=== PATIENT | female | born 1970 ===

== ENCOUNTER 2020-08-02 15:35 | Outpatient (REF) | payer OTHER, SELFPAY ==
--- NOTE | 2020-08-02 | MM_ITS ---
EXAMINATION: MM SCREENING DIGITAL BREAST TOMOSYNTHESIS, BILATERAL CLINICAL INFORMATION: Screening. Asymptomatic. History of right breast stereotactic biopsy on 06/06/2018 (atypical ductal hyperplasia) followed by excisional biopsy on 06/20/2018. The lifetime risk of breast cancer based on the Tyrer-Cuzick Model is 8.5%. COMPARISON: Mammography: 07/08/2019 and multiple previous mammograms dating back to 02/05/2015 TECHNIQUE: Digital breast tomosynthesis is performed in both the craniocaudal and mediolateral oblique views along with computer-aided detection (CAD). Synthesized 2D images are generated from the tomosynthesis. FINDINGS: There are scattered areas of fibroglandular density (ACR BI-RADS breast composition Category b). Mild postsurgical scarring at 6 o'clock in the right breast middle third is again noted. No suspicious masses, calcifications or other abnormalities are seen in either breast. Compared to the last study, no significant interval change is noted. MM/MM tomosynthesis screening BI IMPRESSION: There are no significant changes from prior study. ASSESSMENT: BI-RADS 2: Benign. RECOMMENDATION: Routine annual mammography screening. This patient's information was entered into a reminder system with a target due date for their next mammogram.
== END 2020-08-02 15:36 | disposition home or self-care (01) ==
LOC: HO.MAMMO 15:35
PROVIDERS: Visit Provider Nurse Practitioner Family
DX: Z12.31 Encounter for screening mammogram for malignant neoplasm of breast (principal)
CPT/HCPCS: 77063; 77067

== ENCOUNTER → 2020-08-12 14:22 | Outpatient (BNVA) | payer OTHER, SELFPAY | PROVIDERS: PCP Nurse Practitioner Family; Referring Provider Nurse Practitioner Family; Visit Provider Anesthesiology | DX: G89.4 Chronic pain syndrome (principal); M10.9 Gout, unspecified | CPT/HCPCS: 99202 ==

== ENCOUNTER 2021-01-05 14:43 | Outpatient (REF) | payer OTHER, SELFPAY ==
--- NOTE | ~2021-01-05 | US_ITS ---
EXAMINATION: US ABDOMEN COMPLETE CLINICAL INFORMATION: Fatty change of liver. COMPARISON: CT abdomen 08/08/2017. TECHNIQUE: Real-time imaging of the abdominal viscera. FINDINGS: PANCREAS: Normal. ABDOMINAL AORTA: The proximal, mid, and distal segments are normal in caliber. INFERIOR VENA CAVA: Visualized portions are normal. LIVER: The liver is normal in size. The liver contour is normal. Liver echotexture is increased. There is a hypoechoic area adjacent to the gallbladder, characteristic location of focal fatty sparing. No other focal hepatic lesion. There is no intrahepatic biliary duct dilatation seen. GALLBLADDER: Normal. The gallbladder is physiologically distended without evidence of stones, sludge, polyps, wall thickening or pericholecystic fluid. COMMON BILE DUCT: Normal in caliber measuring 0.8 cm in diameter. RIGHT KIDNEY: Normal. No hydronephrosis. No renal calculi or focal parenchymal lesions. The kidney measures 11.3 cm in maximum dimension. LEFT KIDNEY: Normal. No hydronephrosis. No renal calculi or focal parenchymal lesions. The kidney measures 11.5 cm in maximum dimension. SPLEEN: Normal. The spleen measures 10.1 cm in maximum dimension. FREE FLUID: None. US/US abdomen complete IMPRESSION: Echogenic liver suggestive of fatty infiltration.
== END 2021-01-05 14:44 | disposition home or self-care (01) ==
LOC: HO.US 14:43
PROVIDERS: Visit Provider Family Medicine
DX: K76.0 Fatty (change of) liver, not elsewhere classified (principal)
CPT/HCPCS: 76700

== ENCOUNTER → 2021-01-25 14:33 | Outpatient (BNVA) | payer OTHER, SELFPAY | PROVIDERS: Visit Provider Physician Assistant ==

== ENCOUNTER → 2021-02-09 08:08 | Outpatient (BNVA) | payer OTHER, SELFPAY | PROVIDERS: Visit Provider Surgery | DX: E66.9 Obesity, unspecified (principal); Z68.37 Body mass index [BMI] 37.0-37.9, adult; G47.30 Sleep apnea, unspecified; M10.9 Gout, unspecified; K76.0 Fatty (change of) liver, not elsewhere classified; J44.9 Chronic obstructive pulmonary disease, unspecified | CPT/HCPCS: Q3014 ==

== ENCOUNTER 2021-02-15 15:38 | Outpatient (REF) | payer OTHER, SELFPAY ==
--- NOTE | 2021-02-15 15:57 | ECG_ITS ---
Test Reason : E66.9 Blood Pressure : / mmHG Vent. Rate : 074 BPM Atrial Rate : 074 BPM P-R Int : 164 ms QRS Dur : 078 ms QT Int : 398 ms P-R-T Axes : 034 047 029 degrees QTc Int : 441 ms Normal sinus rhythm Normal ECG When compared with ECG of 23-MAR-2014 09:48, No significant change was found Referred By: Jorge Dozier Electronically Signed By:NOEMI STANLEY MD
[2021-02-15 16:43] LABS: Basophils Percent Auto 0.3 % (0-2); Eosinophils Absolute Auto 0.1 X10*3/uL (0.0-0.4); Eosinophils Percent Auto 2.9 % (0-4); Hematocrit 36.8 % (37-47); Hemoglobin 11.9 g/dl (12.0-16.0); Lymphocytes Absolute Auto 1.7 X10*3/uL (1.2-4.9); Lymphocytes Percent Auto 55.6 % (20-40); MANUAL DIFF FLAG SCAN; Mean Corpuscular HGB Conc 32.3 g/dl (31.0-35.0); Mean Corpuscular Hemoglobin 27.4 pg (27.0-33.0); Mean Corpuscular Volume 84.8 fL (80-98); Mean Platelet Volume 10.6 fL (9.4-12.3); Monocytes Absolute Auto 0.4 X10*3/uL (0.1-1.2); Monocytes Percent Auto 11.2 % (2-11); Neutrophils Absolute Auto 0.9 X10*3/uL (2.0-8.3); Platelet Count 201 X10*3/uL (160-400); Red Blood Count 4.34 X10*6/uL (4.20-5.50); Red Cell Distribution Width 12.7 % (11.0-16.0); SCAN SMEAR FLAG 1; White Blood Count 3.1 X10*3/uL (4.8-10.8)
[2021-02-15 17:02] LABS: Alanine Aminotransferase 53 U/L (0-31); Albumin Level 4.1 g/dL (3.5-5.0); Alkaline Phosphatase 71 U/L (39-117); Anion Gap 12 (12-20); Aspartate Amino Transferase 44 U/L (5-31); Bilirubin Total 0.4 mg/dL (0.0-1.0); Blood Urea Nitrogen 14 mg/dL (9-16); C Reactive Protein 0.64 mg/dL (< or = 0.50); Calcium 8.8 mg/dL (8.4-10.2); Carbon Dioxide 25 mmol/L (22-29); Chloride 108 mmol/L (96-108); Cholesterol 168 mg/dL; Estimated Glomerular Filt Rate > 60; Glucose Random 87 mg/dL (60-115); HDL Cholesterol 35 mg/dL; Iron 90 mcg/dL (30-160); LDL Cholesterol Calculated 100 mg/dl; Percent Iron Saturation 27 % (15-50); Sodium 141 mmol/L (135-145); Total Iron Binding Capacity 334 mcg/dL (228-428); Triglycerides 169 mg/dL; Unsaturated Iron Binding 244 ug/dL
[2021-02-15 17:20] LABS: SLIDE REVIEW VERIFIED
[2021-02-15 17:24] LABS: Ferritin 70 ng/mL (10-250); TSH reflex Free T4 3.43 uIU/mL (0.32-4.0); Vitamin D 25-OH Total 39.4 ng/mL (>30)
[2021-02-15 17:36] LABS: Folate 16.6 ng/mL (> or = 4.0); Vitamin B12 453 pg/mL (200-900)
[2021-02-16 07:45] LABS: Estimated Average Glucose 108 mg/dL; Hemoglobin A1c % 5.4 %
[2021-02-16 12:57] LABS: Calcium (PTHI) 8.8 mg/dL (8.6-10.4); PTHI 43 pg/mL (14-64)
[2021-02-16 17:02] LABS: Insulin Level Total 5.4 uIU/mL
[2021-02-18 17:02] LABS: Zinc 78 mcg/dL (60-130)
[2021-02-20 11:56] LABS: Vitamin A 34 mcg/dL (38-98); Vitamin B1 11 nmol/L (8-30)
== END 2021-02-15 15:39 | disposition home or self-care (01) ==
LOC: HO.LAB 15:38
PROVIDERS: Visit Provider Surgery
DX: E66.9 Obesity, unspecified (principal); Z68.37 Body mass index [BMI] 37.0-37.9, adult; G47.30 Sleep apnea, unspecified; K76.0 Fatty (change of) liver, not elsewhere classified; M10.9 Gout, unspecified
CPT/HCPCS: 36415; 80053; 80061; 82306; 82607; 82728; 82746; 83036; 83525; 83540; 83970; 84425; 84443; 84590; 84630; 85025; 86140; 93005

== ENCOUNTER → 2021-02-25 14:55 | Outpatient (BNVA) | payer OTHER, SELFPAY | PROVIDERS: Visit Provider Dietitian, Registered | DX: E66.9 Obesity, unspecified (principal); Z68.37 Body mass index [BMI] 37.0-37.9, adult | CPT/HCPCS: 97802 ==

== ENCOUNTER → 2021-03-11 08:14 | Outpatient (BNVA) | payer OTHER, SELFPAY | PROVIDERS: PCP Internal Medicine; Visit Provider Surgery | DX: E66.9 Obesity, unspecified (principal); Z68.36 Body mass index [BMI] 36.0-36.9, adult; Z71.3 Dietary counseling and surveillance | CPT/HCPCS: Q3014 ==

== ENCOUNTER 2021-03-15 13:55 | Outpatient (REF) | payer OTHER, SELFPAY ==
--- NOTE | ~2021-03-15 | XR_ITS ---
EXAMINATION: XR CHEST CLINICAL INFORMATION: Bariatric service evaluation. COMPARISON: Chest radiographs 05/25/2016. CT chest noncontrast 09/25/2018. TECHNIQUE: 2 views of the chest were obtained. FINDINGS: The lungs are clear. There is no hyperinflation, airspace consolidation, or effusion. The costophrenic sulci are clear. The heart is normal in size. Tapering at the bilateral cardiophrenic angles is consistent with areolar tissue. The hilar and mediastinal contours are unremarkable. No acute bony abnormality. XR/XR chest 2V IMPRESSION: Unremarkable examination.
[2021-03-16 14:21] LABS: H Pylori Breath Test NOT DETECTED (NOT DETECTED)
== END 2021-03-15 13:56 | disposition home or self-care (01) ==
LOC: HO.XRAY 13:55
PROVIDERS: PCP Internal Medicine; Visit Provider Surgery
DX: E66.9 Obesity, unspecified (principal); G47.30 Sleep apnea, unspecified; M10.9 Gout, unspecified; K76.0 Fatty (change of) liver, not elsewhere classified; Z68.37 Body mass index [BMI] 37.0-37.9, adult
CPT/HCPCS: 71046; 83013; 99211

== ENCOUNTER → 2021-04-15 07:24 | Outpatient (BNVA) | payer OTHER, SELFPAY | PROVIDERS: PCP Internal Medicine; Visit Provider Surgery | DX: E66.9 Obesity, unspecified (principal); Z68.33 Body mass index [BMI] 33.0-33.9, adult | CPT/HCPCS: 99212 ==

== ENCOUNTER → 2021-04-21 14:43 | Outpatient (BNVA) | payer OTHER, SELFPAY | PROVIDERS: PCP Internal Medicine; Visit Provider Physician Assistant ==

== ENCOUNTER → 2021-04-25 08:13 | Outpatient (BNVA) | payer OTHER, SELFPAY | PROVIDERS: PCP Internal Medicine; Visit Provider Dietitian, Registered ==

== ENCOUNTER 2021-05-05 09:40 | Outpatient (REF) | payer OTHER, SELFPAY ==
--- NOTE | ~2021-05-05 | US_ITS ---
EXAMINATION: US ABDOMEN COMPLETE WITH ELASTOGRAPHY CLINICAL INFORMATION: Obesity. COMPARISON: Ultrasound abdomen 01/05/2021 TECHNIQUE: Routine ultrasound imaging of the abdomen with liver elastography was performed. FINDINGS: LIVER: There is normal homogeneous echotexture without intrahepatic ductal dilatation. There are small anechoic cysts measuring 0.6 x 0.4 x 0.3 cm in the left hepatic lobe and 1.0 x 1.1 x 1.1 cm in the right hepatic lobe. The right lobe measures 14.5 cm and the left lobe measures 8.5 cm. There is normal hepatopetal flow seen in the portal vein. On elastography, the median stiffness value is 1.18. IQR/median is 0.14. GALLBLADDER: The gallbladder is unremarkable without any echogenic stones or wall thickening. PANCREAS: The pancreas is partially visualized and appears unremarkable. COMMON BILE DUCT: It measures 0.8 cm. RIGHT KIDNEY: The right kidney measures 10.3 cm. There is normal cortical thickening. No echogenic stones, cyst or hydronephrosis is seen. LEFT KIDNEY: The left kidney measures 10.5 cm. There is normal cortical thickening. No congenic stones, cyst or hydronephrosis seen. ABDOMINAL AORTA AND IVC: The abdominal aorta is of normal caliber. The IVC is normal caliber. SPLEEN: The spleen measures 8.7 cm. There is a small, anechoic cyst measuring 1.3 x 1.2 x 1.4 cm. The cyst was not visualized on the previous exam. US/US abdomen comp w elastography IMPRESSION: Small cysts in the liver. These are not visualized on the previous ultrasound exam Otherwise the liver is unremarkable. There is a small, anechoic cyst in the spleen measuring 1.4 cm. The cyst was not visualized on the previous exam. Normal liver and normal elastography of the liver.
--- NOTE | ~2021-05-05 | FL_ITS ---
EXAMINATION: XR GI SERIES CLINICAL INFORMATION: Obesity. COMPARISON: None TECHNIQUE: Routine upper GI air-contrast study was performed in upright and lying position. FINDINGS: Following oral administration of thick barium and effervescent granules there is normal propagation of bolus from the oral cavity, pharynx, esophagus into stomach without any evidence of obstruction, narrowing or stricture. On placing patient supine and prone the course, caliber and peristalsis of the stomach and the duodenum is normal. There is moderate gastroesophageal reflux without hiatal hernia. FLUOROSCOPY TIME: 1.6 minutes DOSE AREA PRODUCT: 24.584 uGy-m2 (microgray-meter squared) FL/FL upper GI series IMPRESSION: Moderate gastroesophageal reflux without hiatal hernia.
== END 2021-05-05 09:41 | disposition home or self-care (01) ==
LOC: HO.US 09:40
PROVIDERS: PCP Internal Medicine; Visit Provider Surgery
DX: Z01.818 Encounter for other preprocedural examination (principal); E66.01 Morbid (severe) obesity due to excess calories; Z68.37 Body mass index [BMI] 37.0-37.9, adult; K21.9 Gastro-esophageal reflux disease without esophagitis; K76.0 Fatty (change of) liver, not elsewhere classified; M10.9 Gout, unspecified; G47.30 Sleep apnea, unspecified
CPT/HCPCS: 74240; 76705; 76981

== ENCOUNTER → 2021-05-20 08:24 | Outpatient (BNVA) | payer OTHER, SELFPAY | PROVIDERS: PCP Internal Medicine; Visit Provider Dietitian, Registered | DX: E66.01 Morbid (severe) obesity due to excess calories (principal); Z71.3 Dietary counseling and surveillance | CPT/HCPCS: 97803 ==

== ENCOUNTER → 2021-05-25 07:54 | Outpatient (BNVA) | payer OTHER, SELFPAY | PROVIDERS: PCP Internal Medicine; Visit Provider Surgery | CPT/HCPCS: Q3014 ==

== ENCOUNTER → 2021-05-31 08:37 | Outpatient (BNVA) | payer OTHER, SELFPAY | PROVIDERS: PCP Internal Medicine; Referring Provider Internal Medicine; Visit Provider Dietitian, Registered | DX: E66.9 Obesity, unspecified (principal) | CPT/HCPCS: 97803 ==

== ENCOUNTER → 2021-06-10 14:20 | Outpatient (BNVA) | payer OTHER, SELFPAY | PROVIDERS: PCP Internal Medicine; Visit Provider Surgery | DX: Z13.89 Encounter for screening for other disorder (principal) | CPT/HCPCS: Q3014 ==

== ENCOUNTER 2021-06-14 17:39 | Inpatient (IN) | payer OTHER, SELFPAY ==
[2021-06-11 11:23] LABS: Estimated Average Glucose 108 mg/dL; Hemoglobin A1c % 5.4 %
[2021-06-11 11:25] LABS: Basophils Percent Auto 0.8 % (0-2); Eosinophils Absolute Auto 0.1 X10*3/uL (0.0-0.4); Eosinophils Percent Auto 2.6 % (0-4); Hematocrit 39.2 % (37-47); Lymphocytes Absolute Auto 2.3 X10*3/uL (1.2-4.9); MANUAL DIFF FLAG SCAN; Mean Corpuscular HGB Conc 33.2 g/dl (31.0-35.0); Mean Corpuscular Hemoglobin 27.4 pg (27.0-33.0); Mean Corpuscular Volume 82.5 fL (80-98); Mean Platelet Volume 10.2 fL (9.4-12.3); Monocytes Absolute Auto 0.3 X10*3/uL (0.1-1.2); Monocytes Percent Auto 8.9 % (2-11); Neutrophils Percent Auto 26.7 % (45-73); Platelet Count 237 X10*3/uL (160-400); Red Blood Count 4.75 X10*6/uL (4.20-5.50); Red Cell Distribution Width 12.4 % (11.0-16.0); SCAN SMEAR FLAG 1; White Blood Count 3.8 X10*3/uL (4.8-10.8)
[2021-06-11 11:32] LABS: INTERNATIONAL NORM RATIO 1.1 (0.9-1.1); Prothrombin Time 12.4 SEC (9.9-13.0)
[2021-06-11 11:34] LABS: Alanine Aminotransferase 12 U/L (0-31); Alkaline Phosphatase 52 U/L (39-117); Anion Gap 12 (12-20); Aspartate Amino Transferase 16 U/L (5-31); Bilirubin Total 0.3 mg/dL (0.0-1.0); Blood Urea Nitrogen 17 mg/dL (9-16); C Reactive Protein 0.68 mg/dL (< or = 0.50); Calcium 9.3 mg/dL (8.4-10.2); Carbon Dioxide 27 mmol/L (22-29); Chloride 104 mmol/L (96-108); Cholesterol 151 mg/dL; Estimated Glomerular Filt Rate > 60; Glucose Random 103 mg/dL (60-115); HDL Cholesterol 42 mg/dL; LDL Cholesterol Calculated 78 mg/dl; Potassium 3.8 mmol/L (3.3-5.1); Sodium 139 mmol/L (135-145); Total Protein 6.9 g/dL (6.5-8.0); Triglycerides 155 mg/dL
[2021-06-11 11:35] LABS: Partial Thromboplastin Time 39.5 SEC (24.1-38.0)
[2021-06-11 11:58] LABS: TSH reflex Free T4 4.59 uIU/mL (0.32-4.0)
[2021-06-11 12:29] LABS: SLIDE REVIEW VERIFIED
[2021-06-11 12:37] LABS: Free T4 (Free Thyroxine) 0.84 ng/dL (0.71-1.85)
[2021-06-13 11:05] VITALS: BMI 31.9
--- NOTE | 2021-06-13 13:02 | P.CONAN_ITS ---
Documented by User: Lydia Joy NP 06/13/21 13:04 HPI - Anesthesia Eval Consult details Narrative: 50yo F for Gastrectomy Sleeve, EGD, Poss Diaphragmatic Hernia, Poss Ventral Hernia, Poss open Suboxone daily (Pt has weaned self from 8mg BID to 4mg daily) PMFSH Active Problems Active Problems: All Active Problems (Updated 06/13/21 @ 11:11 by Brooklyn Roldan, SHAHID) BMI 37.0-37.9, adult (Acute) BMI 36.0-36.9,adult (Acute) BMI 33.0-33.9,adult (Acute) BMI 33.0-33.9,adult (Acute) Bipolar 1 disorder, mixed, partial remission (Acute) BMI 32.0-32.9,adult (Acute) Hypertension (Acute) Steatosis, liver (Acute) Hx of bipolar disorder (Acute) COPD (chronic obstructive pulmonary disease) (Acute) Sleep apnea with use of continuous positive airway pressure (CPAP) (Acute) Obesity (Acute) Chronic pain syndrome (Acute) Gouty arthritis of both knees (Acute) Gout (Acute) Past Medical History Medical History (Updated 06/13/21 @ 11:11 by Brooklyn Roldan, SHAHID) Asthma Back pain Chronic pain syndrome COPD (chronic obstructive pulmonary disease) Depression Gout Gouty arthritis of both knees History of anxiety Hx of bipolar disorder Hx of renal calculi Hypertension Obesity Sleep apnea Sleep apnea with use of continuous positive airway pressure (CPAP) Smoking Steatosis, liver Family History Family History Mother No problems noted. Father No problems noted. Brother No problems noted. Brother No problems noted. Brother No problems noted. Brother No problems noted. Daughter No problems noted. Daughter No problems noted. Son No problems noted. 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 If so, by whom?: No Are you DNR?: No Advance Directives: No Advance Directives Information Provided: No Advance Directives on File: No Recently lost weight without trying: No Patient : No FDLMP: 06/09/2021 : No Poor oral hygiene: No (Bridgework upper and lower) Meds Allergies Allergy/AdvReac Type Severity Reaction Status Date / Time No Known Allergies Allergy Verified 06/14/21 12:10 [No Known Allergies*] Home Medications Medication Instructions Recorded Confirmed Last Taken Type clonazepam 1 mg tablet 1 mg PO QAM 08/12/20 06/13/21 Unknown History temazepam 30 mg capsule 30 mg PO BEDTIME 08/12/20 06/13/21 Unknown History vitamin E (dl, acetate) 180 mg 400 unit PO DAILY 08/12/20 06/10/21 Unknown History (400 unit) capsule albuterol sulfate 90 mcg/actuation 1 inh PO Q4H PRN 11/01/20 06/13/21 Unknown History aerosol inhaler cholecalciferol (vitamin D3) 25 1 tab PO DAILY 11/01/20 06/10/21 Unknown History mcg (1,000 unit) tablet (Vitamin D3) hydrochlorothiazide 12.5 mg tablet 1 tab PO DAILY 11/01/20 06/10/21 Unknown History ipratropium 0.5 mg-albuterol 3 mg 3 ml PO QID 11/01/20 06/10/21 Unknown History (2.5 mg base)/3 mL nebulization soln multivitamin (Daily-Ish) 1 tab PO DAILY 11/01/20 06/10/21 Unknown History quetiapine 400 mg tablet 1 tab PO BEDTIME 11/01/20 06/13/21 Unknown History clonazepam 2 mg tablet (Klonopin) 2 mg PO BEDTIME 02/09/21 06/13/21 Unknown History omeprazole 40 mg capsule,delayed 40 mg PO DAILY 02/09/21 06/10/21 Unknown History release buprenorphine 8 mg-naloxone 2 mg 1 strip SUBLINGUAL BID 06/13/21 06/13/21 Unknown History sublingual film (Suboxone) Exam Exam Date and Time: June 13, 2021 1302 Height,Weight and Vital Signs: Height 5 ft 4 in Weight 84.368 kg Pertinent Lab Results Pertinent Lab Results: Laboratory Tests 06/11/21 06/11/21 06/11/21 10:39 10:39 10:39 WBC 3.8 L RBC 4.75 Hgb 13.0 Hct 39.2 MCV 82.5 MCH 27.4 MCHC 33.2 RDW 12.4 Plt Count 237 MPV 10.2 Immature Gran % (Auto) 0.0 Neut % (Auto) 26.7 L Lymph % (Auto) 61.0 H [place] % (Auto) 8.9 Eos % (Auto) 2.6 Baso % (Auto) 0.8 Lymph # (Auto) 2.3 [place] # (Auto) 0.3 Eos # (Auto) 0.1 Baso # (Auto) 0.0 Abs Immat Gran (auto) 0.00 Absolute Neuts (auto) 1.0 L Absolute Nucleated RBC 0.000 Nucleated RBC % (auto) 0.0 Smear Tech's Comments VERIFIED PT 12.4 INR 1.1 APTT 39.5 H Sodium 139 Potassium 3.8 Chloride 104 Carbon Dioxide 27 Anion Gap 12 BUN 17 H Creatinine 0.73 Estim Creat Clear Calc TNP Estimated GFR > 60 Random Glucose 103 Estimat Average Glucose Hemoglobin A1c % Calcium 9.3 Total Bilirubin 0.3 AST 16 D ALT 12 Alkaline Phosphatase 52 D C-Reactive Protein 0.68 H Total Protein 6.9 Albumin 4.0 Triglycerides 155 Cholesterol 151 LDL Cholesterol, Calc 78 HDL Cholesterol 42 TSH 4.59 H Free T4 0.84 Blood Type Antibody Screen 06/11/21 06/11/21 10:39 10:39 WBC RBC Hgb Hct MCV MCH MCHC RDW Plt Count MPV Immature Gran % (Auto) Neut % (Auto) Lymph % (Auto) [place] % (Auto) Eos % (Auto) Baso % (Auto) Lymph # (Auto) [place] # (Auto) Eos # (Auto) Baso # (Auto) Abs Immat Gran (auto) Absolute Neuts (auto) Absolute Nucleated RBC Nucleated RBC % (auto) Smear Tech's Comments PT INR APTT Sodium Potassium Chloride Carbon Dioxide Anion Gap BUN Creatinine Estim Creat Clear Calc Estimated GFR Random Glucose Estimat Average Glucose 108 Hemoglobin A1c % 5.4 Calcium Total Bilirubin AST ALT Alkaline Phosphatase C-Reactive Protein Total Protein Albumin Triglycerides Cholesterol LDL Cholesterol, Calc HDL Cholesterol TSH Free T4 Blood Type O Positive Antibody Screen NEGATIVE Narrative Narrative: EKG 01/2021 Vent. Rate : 074 BPM ? ? Atrial Rate : 074 BPM ?? P-R Int : 164 ms? QRS Dur : 078 ms ? ? QT Int : 398 ms ? ? ? P-R-T Axes : 034 047 029 degrees ?? QTc Int : 441 ms ? Normal sinus rhythm Normal ECG When compared with ECG of 23-MAR-2014 09:48, No significant change was found XR chest 2V 03/2021 IMPRESSION: Unremarkable examination. Assessment and Plan Assessment Anesthesia Assessment: Chart Reviewed Documented by User: Jennifer Hayes MD 06/14/21 13:30 [facility] Past Medical History Medical History (Updated 06/13/21 @ 11:11 by Brooklyn Roldan, RN) Asthma Back pain Chronic pain syndrome COPD (chronic obstructive pulmonary disease) Depression Gout Gouty arthritis of both knees History of anxiety Hx of bipolar disorder Hx of renal calculi Hypertension Obesity Sleep apnea Sleep apnea with use of continuous positive airway pressure (CPAP) Smoking Steatosis, liver Functional capacity: independent ambulation Patient : No Family History Family History Mother No problems noted. Father No problems noted. Brother No problems noted. Brother No problems noted. Brother No problems noted. Brother No problems noted. Daughter No problems noted. Daughter No problems noted. Son No problems noted. 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 If so, by whom?: No Are you DNR?: No Advance Directives: No Advance Directives Information Provided: No Advance Directives on File: No Recently lost weight without trying: No Patient : No FDLMP: 06/09/2021 : No Poor oral hygiene: No (Bridgework upper and lower) Meds Allergies Allergy/AdvReac Type Severity Reaction Status Date / Time No Known Allergies Allergy Verified 06/14/21 12:10 [No Known Allergies*] Home Medications Medication Instructions Recorded Confirmed Last Taken Type clonazepam 1 mg tablet 1 mg PO QAM 08/12/20 06/13/21 Unknown History temazepam 30 mg capsule 30 mg PO BEDTIME 08/12/20 06/13/21 Unknown History vitamin E (dl, acetate) 180 mg 400 unit PO DAILY 08/12/20 06/10/21 Unknown History (400 unit) capsule albuterol sulfate 90 mcg/actuation 1 inh PO Q4H PRN 11/01/20 06/13/21 Unknown History aerosol inhaler cholecalciferol (vitamin D3) 25 1 tab PO DAILY 11/01/20 06/10/21 Unknown History mcg (1,000 unit) tablet (Vitamin D3) hydrochlorothiazide 12.5 mg tablet 1 tab PO DAILY 11/01/20 06/10/21 Unknown History ipratropium 0.5 mg-albuterol 3 mg 3 ml PO QID 11/01/20 06/10/21 Unknown History (2.5 mg base)/3 mL nebulization soln multivitamin (Daily-Ish) 1 tab PO DAILY 11/01/20 06/10/21 Unknown History quetiapine 400 mg tablet 1 tab PO BEDTIME 11/01/20 06/13/21 Unknown History clonazepam 2 mg tablet (Klonopin) 2 mg PO BEDTIME 02/09/21 06/13/21 Unknown History omeprazole 40 mg capsule,delayed 40 mg PO DAILY 02/09/21 06/10/21 Unknown History release buprenorphine 8 mg-naloxone 2 mg 1 strip SUBLINGUAL BID 06/13/21 06/13/21 Unknown History sublingual film (Suboxone) Exam Airway TM Dist: >3cm Neck ROM: Full Denture: Upper and Lower Heart: RRR Lungs: CTA Assessment and Plan Final Anesthetic Review Family History of Problems with Anesthesia: No History of Problems with Anesthesia: No
--- NOTE | 2021-06-13 19:11 | MHC.SHP ---
Pre-Procedural Eval Section A Date of Service: 06/13/21 The patient is an INPATIENT: Yes The History & Physical has been completed within 30 days and I have reviewed it.: Yes Section B Chief Complaint: Obesity Relevant Family History (Specify if Yes): No Relevant Social History: None Present Medications: see Short Stay Collaborative assessment Medical History: No relevant PMH History of Previous Operations: No relevant previous surgery Allergies: Allergies Allergy/AdvReac Type Severity Reaction Status Date / Time No Known Allergies Allergy Verified 06/13/21 10:49 [No Known Allergies*] Review of Systems Sugical H&P ROS: Negative: Constitution, Cardiovascular, Respiratory, Neurological, Psychiatric, Hem-Onc, Allergic/Immunologic, Gastrointestinal, Genitourinary, Musculoskeletal, Integumentary, Endocrine and Eyes/Ears/Nose/Throat Exam Surgical H&P Exam: Normal: HEENT, Normal: Heart, Normal: Lungs, Normal: Extremities, Normal: Abdomen, Normal: Skin and Normal: Neurological Plan Diagnosis/Plan: Unchanged I have reviewed the history and physical and performed a pertinent physical examination on my patient. No changes have occurred unless specified.
[2021-06-13 21:32] LABS: Insulin Level Total 6.9 uIU/mL
[2021-06-14] VITALS (22 sets, daily range): BP systolic 120–159; BP diastolic 68–90; PULSE 61–80; RESP 10–18; TEMP 36.2–36.6; O2SAT 94–100
[2021-06-14] MEDS: Lactated Ringers 1,000 ML 999 ML IV (12:46)
[2021-06-14 12:51] LABS: COVID-19 Test Negative (Negative)
--- NOTE | 2021-06-14 14:41 | PM.OP ---
Brief Operative Note Date of Service: 06/14/21 Pre-op diagnosis: Severe obesity with comorbidities (see below) Post-op diagnosis: same Procedure: INITIAL PATIENT BMI ON PRESENTATION AT OUR OFFICE: 37.2 kg/m2 LAST BMI BEFORE SURGERY: 32.3 kg/m2 COMORBIDITIES: sleep apnea, hypertension, lower extremity edema, COPD, DJD, gout, hx of breast cancer, depression, bipolar, anxiety, insomnia, liver steatosis The patient participated in an intensive weekly lifestyle ?intervention and exercise program during which the patient ?has lost between the initial office visit and the last preoperative visit 30.2 lbs, or 13.93% of initial actual body weight. The patient met the BMI-criteria for bariatric surgery based on the BMI on initial presentation. The patient should not be penalized for achieving such weight loss because ?it is not sustainable long-term without surgical intervention and it was achieved in preparation for bariatric surgery ?under my direction and based on my published research ([email or web address]) ?that a 10% preoperative weight loss improves long-term weight loss after surgery and reduces perioperative complications.? Insurance carriers such as [facility] have endorsed my recommendations ?and have included in their policies criteria to include a 10% preoperative weight loss requirement. PROCEDURE: Esophago-gastroscopy,, laparoscopic lysis of adhesions, laparoscopic sleeve gastrectomy and laparoscopic gastropexy INDICATIONS: This is a 50 year-old female who was electively scheduled for laparoscopic, possibly open sleeve gastrectomy. The risks and complications of the procedure were discussed with the patient in advance, particularly the possibility of ; pulmonary embolism; staple line leak; bleeding; GERD; cardiac, pulmonary, or renal complications; as well as long-term problems such as insufficient weight loss, vitamin deficiency, strictures, or ulcers. The patient understood all the risks, and was in agreement to proceed with surgery. DESCRIPTION OF PROCEDURE: After informed consent was obtained from the patient, the patient was given preoperative antibiotics, and was transferred to the operating room. After successful induction of general anesthesia, pneumatic compressive devices were placed on both lower extremities. An upper endoscopy was performed next. The oropharynx and esophagus appeared to be within normal limits. There was no diaphragmatic hernia present consistent with the findings of the preoperative upper GI. The stomach was entered. Then after all fluid and air were suctioned and the stomach was fully decompressed, the scope was withdrawn and secured in the mid esophagus. The patient was then prepped and draped in the usual sterile manner, and abdominal access was established at the right upper quadrant with the Hannah technique. A 12 mm blunt port was inserted, and the abdomen was insufflated with CO2 to a pressure of 15 mmHg. Under direct visualization, additional ports were placed, specifically two 5 mm Versi-step ports to the left upper quadrant, and a 5 mm Versi-Step port to the right upper quadrant. 1% lidocaine plain was used to infiltrate all port sites as well as all fascia defects. Using the EndoClose suture passer device, we placed a #1 Polysorb tie across the falciform ligament in order to retract it up against the abdominal wall and prevent injury of the ligament with our instruments during the procedure. There were adhesions in the abdomen involving the omentum and the left abdominal wall. Those were lysed completely with the ultrasonic device. Following that, the patient was placed in a steep reverse Trendelenburg position. An additional 5 mm port was placed to the right flank for the Mediflex retractor that was used to retract the left lobe of the liver. The gastro-esophageal fat pad was opened with the ultrasonic device (Thunderbeat, Olympus) and the anterior esophagus and hiatus were exposed. The angle of His was opened with the ultrasonic device the fundus of the stomach from any diaphragmatic and splenic attachments. I then opened the gastrocolic ligament between the transverse colon and the greater curvature of the stomach with the ultrasonic device to enter the lesser sac and facilitate the ligation of the short gastric vessels. I started at a mid-point along the greater curvature and using the Thunderbeat, all short gastric vessels were divided all the way to the angle of His until the left sheila was completely dissected at its entirety. I then divided the gastro-colic ligament distally to a distance of about 3-4 cm proximal to the esophagus. There were extensive congenital adhesions between the pancreas and posterior gastric wall. Those were lysed completely with the ultrasonic device. Adhesiolysis took approximately 45 min to complete. The stomach was then divided transversely with one Endo NESHA-45 purple, one NESHA-45 orange load and four NESHA-60 articulating purple loads using the AEON stapler and loads. Every effort was made that the gastric sleeve had a tubular shape and an even caliber throughout. Once the sleeve resection was completed, the staple line of the gastric sleeve was reinforced with Hemoclips. The resected stomach was retrieved without difficulty from the Hannah port. A gastropexy was then performed in order to prevent postoperative GERD and partial gastric volvulus. Several interrupted 2.0 Surgidac sutures were placed between the sleeve's staple line and the previously divided greater omentum and gastro-colic ligament using the Endo-Stitch device. ?An upper endoscopy was performed. There was no narrowing at the GE junction. The scope was easily advanced all the way to the pylorus which was clearly visualized. There was no narrowing anywhere and the sleeve's caliber was even throughout. The sleeve's staple line was inspected and there was no evidence of ischemia, bleeding or dehiscence. At that point the gastroscope was withdrawn from the patient?s mouth while we were decompressing the bowel and the stomach from any remaining air. I looked into the lesser sac to see how the sleeve was situating and it was situating well. There was no bleeding from the staple line, spleen, or short gastric vessels. The Mediflex retractor was removed, and the undersurface of the liver was inspected and there was no bleeding. The patient was placed in supine position. I closed the fascial defect of the 12 mm port site with a figure of eight #1 Polysorb suture. Then 100 cc 0.25 % Marcaine plain with 10 mg of Dexamethasone were used to infiltrate the fascial closure as well as all skin incisions. At this point, the abdomen was deflated, all ports were removed under direct vision, and no bleeding was noted from any of the port sites. The skin incisions were irrigated with saline and were closed with 4-0 absorbable monofilament sutures. Steri-Strips and OpSites were used to cover all incisions. The patient was extubated and was transferred in stable condition to the recovery room for further care. I was present and performed all morales parts of the procedure. Ms. Landaverde was the agency sales management assistant. There were no residents to assist with this case. Charan Dozier MD, PhD, FACS Surgeon: Jorge Dozier MD Anesthesia: GETA, local and other (TAP block) Was an Residential Caregiver used for this Procedure?: No Residential Caregiver: Vandana Landaverde Estimated blood loss (mL): 10 IV fluids (mL): 2,500 Urine output (mL): 0 (No Chao to gravity ) Pathology: other (Stomach) Condition: stable Disposition: PACU
--- NOTE | 2021-06-14 14:46 | PM.PNGS ---
Subjective Subjective Date of Service: 06/15/21 Interval history: Patient has mild incisional pain, but was able to ambulate and use the incentive spirometer. She is tolerating phase 1 bariatric diet Physical Exam Vital Signs: Vital Signs: Last Vital Signs Temp 97.1 F 06/14/21 12:25 Pulse 75 06/14/21 12:25 Resp 16 06/14/21 12:25 BP 127/81 06/14/21 12:25 Pulse Ox 98 06/14/21 12:25 Body Mass Index 31.9 GI: Inspection: Yes normal to inspection and Yes incision (dry, clean and intact) Extrem: Right lower extremity: normal to inspection (no calf tenderness) Left lower extremity: normal to inspection ( no calf tenderness) Procedures Date of Service Date of Service: 06/15/21 Progress Note: A&P Assessment and plan (1) Obesity: Status: Acute Assessment and Plan: s/p laparoscopic sleeve gastrectomy, lysis of adhesions repair of diaphragmatic hernia, and gastropexy Doing well Check am labs. If OK, will discharge home? (2) BMI 32.0-32.9,adult: Status: Acute (3) Sleep apnea with use of continuous positive airway pressure (CPAP): Status: Acute (4) COPD (chronic obstructive pulmonary disease): Status: Acute (5) Hx of bipolar disorder: Status: Acute (6) Steatosis, liver: Status: Acute (7) Hypertension: Status: Acute (8) Gouty arthritis of both knees: Status: Acute (9) Gout: Status: Acute (10) Asthma: Status: Acute (11) GERD (gastroesophageal reflux disease): Status: Acute (12) Insomnia: Status: Acute (13) S/P laparoscopic sleeve gastrectomy: Status: Acute Fall Risk Details Current Medications: Current Medications Generic Name Dose Route Start Last Admin Trade Name Freq PRN Reason Stop Dose Admin Albuterol Sulfate 2.5 mg 06/14/21 12:14 Albuterol Sulfate (0.083%) 2.5 Mg/3 Ml Vial.Neb INHALE ONCE PRN Shortness of Breath/Wheezing Fentanyl 25 mcg 06/14/21 13:30 Fentanyl Citrate/Pf 100 Mcg/2 Ml Vial IVPUSH Q5M PRN Pain, Moderate (Pain Scale 4-6 Protocol Lactated Ringer's 1,000 mls @ 100 mls/hr 06/14/21 12:15 Lr IVCONT .Q10H CHELSI Ondansetron HCl 4 mg 06/14/21 13:30 Ondansetron Hcl 4 Mg/2 Ml Vial IVPUSH ONCE PRN Nausea and Vomiting Time Spent With Patient Time: Total time spent is greater than 50% in coordination of care (as documented) at patient's floor/unit and/or counseling patient: Time with patient: less than 15 minutes Quality Stroke Does the patient have a stroke diagnosis?: No VTE Prior VTE?: No VTE Risk Level:: Surgical - moderate VTE Device Contraindication: N/A - Device Ordered VTE Drug Contraindication: Treatment Not Indicated
--- NOTE | 2021-06-14 17:44 | PM.DS ---
DS: Providers Provider Date of Service: 06/15/21 Primary care physician: [facility] DS: Diagnosis Discharge Diagnosis (1) Obesity: Status: Acute (2) BMI 32.0-32.9,adult: Status: Acute (3) Sleep apnea with use of continuous positive airway pressure (CPAP): Status: Acute (4) COPD (chronic obstructive pulmonary disease): Status: Acute (5) Hx of bipolar disorder: Status: Acute (6) Steatosis, liver: Status: Acute (7) Hypertension: Status: Acute (8) Gouty arthritis of both knees: Status: Acute (9) Gout: Status: Acute (10) Asthma: Status: Acute (11) GERD (gastroesophageal reflux disease): Status: Acute (12) Insomnia: Status: Acute DS: Summary Hospital Course Hospital Course: ADMITTING DIAGNOSIS: morbid obesity, IRVIN, COPD, asthma, Bipolar, HTN, hx substance abuse DISCHARGE DIAGNOSIS: same, s/p laparoscopic sleeve gastrectomy PAST SURGICAL HISTORY: breat lumpectomy, knee surgery PROCEDURE: upper endoscopy, laparoscopic sleeve gastrectomy and repair of diaphragmatic hernia hernia DISCHARGE SUMMARY: History of Present Illness: The patient is a 50 year-old woman with a BMI of 37.2 kg/m2 and associated co-morbidities as described above. The patient had extensive work-up,lost 30.2 lbs preoperatively and was electively scheduled for laparoscopic, possible open sleeve gastrectomy and gastropexy. Risks and complications of the surgery were discussed with the patient in advance, particularly the possibility of , pulmonary embolism, anastomotic leak, bleeding, bowel injury, GERD, cardiac, renal or pulmonary complications. The patient understood all the risks and was in agreement with the surgical plan. Hospital Course: The patient underwent an uneventful laparoscopic sleeve gastrectomy with gastropexy on the day of admission. Postoperatively, the patient was transferred to the surgical floor. The patient received IV Acetaminophen and IV dilaudid for pain control. Patient was started on bariatric phase 1 diet POD #0. On postoperative day one, the patient was feeling well without nausea, vomiting, fevers, or tachycardia. The patient had some mild incisional pain and the abdomen was soft. On the morning of postoperative day one, the patient was continued on 1 ounce of water or ice every half hour. During the day, the patient did fairly well, having some incisional pain, but able to ambulate adequately and to tolerate liquids well. Since the patient is doing well, we decided that the patient was ready to be discharged. The patient was given instructions to follow-up with me next week and to call my office for any fever over 101, persistent abdominal pain, nausea, vomiting, GERD, symptoms of DVT such as calf tenderness, or leg swelling, or pulmonary embolism such as chest pain or shortness of breath. The patient was also instructed to drink 40-60 ounces of liquids per day using the 1-ounce cups. The patient had been given prescriptions for Tylenol for pain, Zofran prn for nausea, and pantoprazole and carafate previously. The patient was encouraged to ambulate and use the incentive spirometer. The patient was allowed to shower, but no baths, and encouraged to stay active at home. All of these instructions were given to the patient personally. All questions were answered and the patient understood all instructions, the instructions were also given to the patient in print. Time Spent with Patient Time attestation: Total time spent providing and/or coordinating discharge services: Discharge coordination time: Less than 30 minutes Quality: Stroke Does the patient have a stroke diagnosis?: No Physical Exam Vital Signs: Vital Signs: Last Vital Signs Temp 97.1 F 06/14/21 12:25 Pulse 75 06/14/21 12:25 Resp 16 06/14/21 12:25 BP 127/81 06/14/21 12:25 Pulse Ox 98 06/14/21 12:25 Body Mass Index 31.9 DS: Data Data Completed and Pending Pending studies at discharge: Pending at discharge 06/14/21 17:20 Surgical [PTH] Routine Labs on day of discharge: Laboratory Results - last 24 hr 06/11/21 06/14/21 10:39 12:05 Total Insulin 6.9 COVID-19 ([facility]) Negative COVID-19 Clin Com See Note Discharge Plan Discharge Anticipated Discharge Date/Time: 06/15/21 09:00 Patient Disposition: Home, Self-Care Discharge Diagnosis: s/p sleeve gastrectomy Referrals: [place] [Primary Care Provider] - 1 Week Discharge Medications: Continued docusate sodium 100 mg capsule 200 mg PO DAILY Qty: 60 RF: 3 ipratropium-albuterol 0.5 mg-3 mg(2.5 mg base)/3 mL solution for nebulization 3 ml PO QID RF: 0 albuterol sulfate 90 mcg/actuation HFA aerosol inhaler 1 inh PO Q4H PRN (Reason: Shortness Of Breath) RF: 0 quetiapine 400 mg tablet 1 tab PO BEDTIME RF: 0 tamoxifen 20 mg tablet 1 tab PO DAILY Qty: 60 RF: 3 buprenorphine-naloxone [Suboxone] 8-2 mg film 1 strip sublingual BID RF: 0 temazepam 30 mg capsule 30 mg PO BEDTIME RF: 0 clonazepam 1 mg tablet 1 mg PO QAM RF: 0 clonazepam [Klonopin] 2 mg tablet 2 mg PO BEDTIME RF: 0 pantoprazole 40 mg tablet,delayed release (DR/EC) 40 mg PO DAILY Qty: 30 RF: 2 sucralfate 100 mg/mL suspension 10 ml PO BID Qty: 400 RF: 2 ondansetron HCl [Zofran] 4 mg tablet 4 mg PO Q12H Qty: 20 RF: 0 Held hydrochlorothiazide 12.5 mg tablet 1 tab PO DAILY RF: 0 Hold Instructions: per doctors orders Discontinued Metamucil Fiber Singles 3.4 gram powder in packet 1 packet PO DAILY Qty: 30 RF: 3 magnesium hydroxide [Milk of Magnesia] 400 mg/5 mL suspension 5 ml PO BEDTIME 7 Days Qty: 35 RF: 0 multivitamin [Daily-Ish] Tablet 1 tab PO DAILY RF: 0 cholecalciferol (vitamin D3) [Vitamin D3] 25 mcg (1,000 unit) tablet 1 tab PO DAILY RF: 0 vitamin E (dl, acetate) 400 unit capsule 400 unit PO DAILY RF: 0 omeprazole 40 mg capsule,delayed release(DR/EC) 40 mg PO DAILY RF: 0 polyethylene glycol 3350 [Miralax] 17 gram powder in packet 17 g PO DAILY Qty: 14 RF: 0 Discharge Orders: Discharge Order (Routine); Ordered 06/15/21 Ordered By: Jorge Dozier Diet: other Activity on Discharge: No heavy lifting Stand Alone Forms: Patient Portal Discharge page Care Plan Goals: weight loss Health Concerns: obesity Plan of Treatment: No tub baths, sex or returning to work until discussed at first post op appointment. No exercise, alcohol, tobacco or illegal drug use. Continue to use incentive spirometer hourly while awake. Walk in home for 5- 10 minutes every 2 hours during the first week. Continue phase 1 diet today and start phase 2 diet tomorrow morning. Follow all instructions in the bariatric handbook and call with any questions. The patient's medical history has been reviewed and they are considered low risk for post op DVT and therefore DVT prophylaxis is not considered necessary. Travel after surgery was reviewed. The patient has not disclosed any travel plans during the first 30 days after surgery and they have been advised that within the first 30 days after surgery any bus, plane, train or car travel over 2 hours in duration is contraindicated due to the possibility of developing blood clots from immobility. Any travel, needs to include periods of ambulation of 10 minutes in duration every 2 hours. The patient was instructed to discuss any plans for travel during this period with their bariatric surgeon. Assessment: stable post op sleeve gastrectomy
[2021-06-14] MEDS: fentaNYL citrate/PF 100 MCG/2 ML VIAL 25 MCG IVPUSH ×4 (17:58→18:20)
[2021-06-14] MEDS: Famotidine/PF 20 MG/2 ML VIAL IVPUSH (18:03)
[2021-06-14] MEDS: HYDROmorphone HCl 0.5 MG/0.5 ML SYRINGE IVPUSH ×3 (18:51→19:25)
[2021-06-14 18:55] LABS: Anion Gap 15 (12-20); Blood Urea Nitrogen 11 mg/dL (9-16); Calcium 8.3 mg/dL (8.4-10.2); Carbon Dioxide 22 mmol/L (22-29); Chloride 105 mmol/L (96-108); Creatinine Clr Calc Pharmacy 102.4; Estimated Glomerular Filt Rate > 60; Glucose Random 108 mg/dL (60-115); Sodium 138 mmol/L (135-145)
[2021-06-14 19:09] LABS: Hematocrit 36.7 % (37-47); Hemoglobin 12.3 g/dl (12.0-16.0)
[2021-06-14] MEDS: ondansetron HCL 4 MG/2 ML VIAL IVPUSH ×2 (19:21→21:56)
[2021-06-14] MEDS: Lactated Ringers 1,000 ML 125 ML IVCONT (20:55)
[2021-06-14] MEDS: clonazePAM 1 MG TABLET PO (21:55)
[2021-06-14] MEDS: ceFAZolin Sodium/Dextrose,Iso 2 GM/50 ML PIGGYBACK IV (21:56)
[2021-06-14] MEDS: clonazePAM 1 MG TABLET 2 MG PO (21:56)
[2021-06-14] MEDS: QUEtiapine Fumarate 400 MG TABLET PO (22:14)
[2021-06-15 00:46] VITALS: BMI 37.8
[2021-06-15] MEDS: Temazepam 15 MG CAPSULE 30 MG PO (00:57)
[2021-06-15] MEDS: Lactated Ringers 1,000 ML 125 ML IVCONT (01:35)
[2021-06-15 04:00] VITALS: BP 96/58; PULSE 63; RESP 18; TEMP 36.8; O2SAT 95
[2021-06-15] MEDS: ondansetron HCL 4 MG/2 ML VIAL IVPUSH (04:12)
[2021-06-15] MEDS: Famotidine/PF 20 MG/2 ML VIAL IVPUSH (06:37)
--- NOTE | 2021-06-15 06:40 | HO.POSTANES ---
Post Anesthesia Evaluation Post Anesthesia Evaluation Vital Signs: Vital Signs Temp Pulse Resp BP Pulse Ox 06/15/21 04:00 98.2 F 63 18 96/58 L 95 06/14/21 23:48 66 18 120/68 94 06/14/21 20:06 97.8 F 72 16 159/86 H 100 06/14/21 19:25 70 18 147/87 H 100 06/14/21 19:12 18 06/14/21 19:10 65 18 151/85 H 100 06/14/21 18:55 64 10 L 150/86 H 100 06/14/21 18:51 16 06/14/21 18:50 149/90 H 100 Anesthesia: General Endotracheal-GETA Mental Status: Awake Pain Control: Satisfactory Nausea/Vomiting: None Hydration: Adequate Anesthesia-Related Issues: No Anes. Related Issues
[2021-06-15 07:14] LABS: MANUAL DIFF FLAG NO
[2021-06-15 07:18] LABS: Hematocrit 35.1 % (37-47); Imm Gran Abs Auto 0.02 X10*3/uL (0.00-0.03); Imm Gran Pct Auto 0.5 % (0.0-0.4); Lymphocytes Absolute Auto 0.9 X10*3/uL (1.2-4.9); Lymphocytes Percent Auto 22.1 % (20-40); Mean Corpuscular HGB Conc 34.2 g/dl (31.0-35.0); Mean Corpuscular Hemoglobin 27.8 pg (27.0-33.0); Mean Corpuscular Volume 81.4 fL (80-98); Mean Platelet Volume 10.2 fL (9.4-12.3); Monocytes Absolute Auto 0.2 X10*3/uL (0.1-1.2); Monocytes Percent Auto 4.5 % (2-11); Neutrophils Absolute Auto 2.9 X10*3/uL (2.0-8.3); Neutrophils Percent Auto 72.9 % (45-73); Platelet Count 201 X10*3/uL (160-400); Red Blood Count 4.31 X10*6/uL (4.20-5.50); Red Cell Distribution Width 12.1 % (11.0-16.0)
[2021-06-15 07:30] LABS: Anion Gap 12 (12-20); Blood Urea Nitrogen 8 mg/dL (9-16); Calcium 8.4 mg/dL (8.4-10.2); Carbon Dioxide 24 mmol/L (22-29); Chloride 107 mmol/L (96-108); Creatinine Clr Calc Pharmacy 117.2; Estimated Glomerular Filt Rate > 60; Glucose Random 111 mg/dL (60-115); Potassium 3.9 mmol/L (3.3-5.1); Sodium 139 mmol/L (135-145)
[2021-06-15 07:50] VITALS: BP 111/78; PULSE 88; RESP 19; TEMP 36.9; O2SAT 96
[2021-06-15 07:51] LABS: Thyroid Stimulating Hormone 0.38 uIU/mL (0.32-4.0)
[2021-06-15] MEDS: clonazePAM 1 MG TABLET PO (07:59)
--- NOTE | 2021-06-15 08:57 | MHC.CM.PN ---
pt lives c s.o. in home. she has a intensive care unit nurse - 2hrs/day x 7days/wk that helps her . her s.o. can also help her if she needs it. either one of them will give her a ride home at tx. pt denies the need for vna at tx. dc plan is home c intensive care unit nurse and s.o. cm to cont. to follow.
== END 2021-06-15 09:32 | disposition home or self-care (01) | DRG 621 ==
LOC: HO.SSSA 18:09 → HO.ISO 18:18
PROVIDERS: Physician Assistant; Admitting Provider Surgery; Visit Provider Surgery
PROC: 0DB64Z3 Excision of Stomach, Percutaneous Endoscopic Approach, Vertical (ICD-10-PCS; CPT 43845; principal; 2021-06-14 14:10)
DX: E66.01 Morbid (severe) obesity due to excess calories (principal); Z20.822 Contact with and (suspected) exposure to COVID-19; Z68.37 Body mass index [BMI] 37.0-37.9, adult; G47.30 Sleep apnea, unspecified; I10 Essential (primary) hypertension; J44.9 Chronic obstructive pulmonary disease, unspecified; F31.9 Bipolar disorder, unspecified; F41.9 Anxiety disorder, unspecified; G47.00 Insomnia, unspecified; K76.0 Fatty (change of) liver, not elsewhere classified; K66.0 Peritoneal adhesions (postprocedural) (postinfection); M19.90 Unspecified osteoarthritis, unspecified site; M10.9 Gout, unspecified; C50.919 Malignant neoplasm of unspecified site of unspecified female breast; Z98.84 Bariatric surgery status; Z87.891 Personal history of nicotine dependence; Z79.810 Long term (current) use of selective estrogen receptor modulators (SERMs); Z79.899 Other long term (current) drug therapy
CPT/HCPCS: 36415; 80048; 80053; 80061; 83036; 83525; 84439; 84443; 85014; 85018; 85025; 85610; 85730; 86140; 86850; 86900; 86901; 87635; 88307; 88342; 90686; 99024; A4649; J0131; J0690; J1100; J1170; J2250; J2370; J2405; J3010

== ENCOUNTER → 2021-06-20 07:39 | Outpatient (BNVA) | payer OTHER, SELFPAY | PROVIDERS: Visit Provider Surgery | DX: E66.3 Overweight (principal); Z98.84 Bariatric surgery status | CPT/HCPCS: 99212 ==

== ENCOUNTER → 2021-06-28 15:37 | Outpatient (BNVA) | payer OTHER, SELFPAY | PROVIDERS: Visit Provider Physician Assistant Surgical | DX: E66.9 Obesity, unspecified (principal); Z98.84 Bariatric surgery status | CPT/HCPCS: 99212 ==

== ENCOUNTER → 2021-07-04 11:30 | Outpatient (BNVA) | payer OTHER, SELFPAY | PROVIDERS: Visit Provider Physician Assistant ==

== ENCOUNTER → 2021-07-26 15:21 | Outpatient (BNVA) | payer OTHER, SELFPAY | PROVIDERS: Visit Provider Physician Assistant Surgical | DX: E66.3 Overweight (principal); K59.00 Constipation, unspecified; Z68.28 Body mass index [BMI] 28.0-28.9, adult | CPT/HCPCS: 99212 ==

== ENCOUNTER → 2021-08-12 14:11 | Outpatient (BNVA) | payer OTHER, SELFPAY | PROVIDERS: Visit Provider Dietitian, Registered | DX: E66.3 Overweight (principal); Z68.28 Body mass index [BMI] 28.0-28.9, adult | CPT/HCPCS: 97803 ==

== ENCOUNTER → 2021-08-18 08:13 | Outpatient (BNVA) | payer OTHER, SELFPAY | PROVIDERS: Referring Provider Surgery; Visit Provider Dietitian, Registered | DX: E66.9 Obesity, unspecified (principal) | CPT/HCPCS: 97803 ==

== ENCOUNTER → 2021-08-24 14:19 | Outpatient (BNVA) | payer OTHER, SELFPAY | PROVIDERS: Visit Provider Physician Assistant Surgical | DX: E66.3 Overweight (principal); Z68.27 Body mass index [BMI] 27.0-27.9, adult | CPT/HCPCS: 99212 ==

== ENCOUNTER 2021-09-09 14:17 | Outpatient (REF) | payer OTHER, SELFPAY ==
--- NOTE | ~2021-09-09 | MM_ITS ---
EXAMINATION: MM DIAGNOSTIC DIGITAL BREAST TOMOSYNTHESIS, BILATERAL US BREAST TARGETED, LEFT CLINICAL INFORMATION: History of right breast stereotactic biopsy with atypical ductal hyperplasia. COMPARISON: Mammography: 08/02/2020 and studies dating back to 09/23/2013 TECHNIQUE: Digital breast tomosynthesis is performed in both the craniocaudal and mediolateral oblique views along with computer-aided detection (CAD). Synthesized 2-D images are generated from the tomosynthesis. Additional spot compression view of the left breast in craniocaudal projection performed. Targeted left breast ultrasound. FINDINGS: There are scattered areas of fibroglandular density (ACR BI-RADS breast composition Category b). On initial imaging, there is question of a 1.2 cm rounded density on craniocaudal view for which spot compression view was performed which partially effaces this now having the appearance of some prominent ducts. There is a stable parenchymal pattern within the right breast with postsurgical change. No new right breast mass or suspicious grouping of microcalcifications identified. Targeted ultrasound of retroareolar region of the left breast demonstrated some prominent ducts without any abnormal cystic or solid mass or region of abnormal distal sound shadowing. Results are discussed with the patient at time of visit. MM/MM tomosynthesis diagnostic BI IMPRESSION: No specific mammographic or ultrasound findings to suggest malignancy. ASSESSMENT: BI-RADS 2: Benign. RECOMMENDATION: Routine annual mammography screening. This patient's information was entered into a reminder system with a target due date for their next mammogram.
--- NOTE | ~2021-09-09 | US_ITS ---
EXAMINATION: US DIAGNOSTIC ULTRASOUND BREAST, LEFT CLINICAL INFORMATION: Retroareolar density on mammography. COMPARISON: Mammography of same day and studies dating back to December 27, 2011. TECHNIQUE: Ultrasound of the breast is performed with real-time burt scale imaging and color Doppler. FINDINGS: Targeted ultrasound retroareolar region of the left breast demonstrated some prominent ducts without any abnormal cystic or solid mass or region of abnormal distal sound shadowing. Results are discussed with the patient at time of visit. US/US breast LT limited IMPRESSION: No specific mammographic or ultrasound findings to suggest malignancy. ASSESSMENT: BI-RADS 2: Benign RECOMMENDATION: Routine annual mammography screening. This patient's information was entered into a reminder system with a target due date for their next mammogram.
== END 2021-09-09 14:18 | disposition home or self-care (01) ==
LOC: HO.MAMMO 14:17
PROVIDERS: PCP Internal Medicine; Visit Provider Internal Medicine
DX: N60.91 Unspecified benign mammary dysplasia of right breast (principal)
CPT/HCPCS: 76642; 77062; 77066

== ENCOUNTER → 2021-12-12 13:08 | Outpatient (BNVA) | payer OTHER, SELFPAY | PROVIDERS: PCP Internal Medicine; Referring Provider Internal Medicine; Visit Provider Physician Assistant Surgical | DX: E66.3 Overweight (principal); Z68.27 Body mass index [BMI] 27.0-27.9, adult | CPT/HCPCS: 99212 ==

== ENCOUNTER 2021-12-26 12:32 | Outpatient (REF) | payer OTHER, SELFPAY ==
--- NOTE | ~2021-12-26 | XR_ITS ---
EXAMINATION: XR KNEE, RIGHT CLINICAL INFORMATION: Right knee pain. COMPARISON: Most recent right knee radiographs dated 03/27/2019. TECHNIQUE: Four views of the right knee. FINDINGS: Moderate to severe medial compartment joint space narrowing with mild subchondral sclerosis. Tricompartmental marginal osteophytes. No osseous erosion. No fracture or dislocation. Trace joint effusion. XR/XR knee RT 4V IMPRESSION: Moderate to severe medial compartment as well as more mild patellofemoral and lateral compartment osteoarthritis, progressed when compared to the prior radiographs. Trace joint effusion.
== END 2021-12-26 12:33 | disposition home or self-care (01) ==
LOC: HO.XRAY 12:32
PROVIDERS: PCP Internal Medicine; Visit Provider Internal Medicine
DX: M25.561 Pain in right knee (principal)
CPT/HCPCS: 73564

== ENCOUNTER → 2022-03-27 15:08 | Outpatient (BNVA) | payer OTHER, SELFPAY | PROVIDERS: PCP Internal Medicine; Visit Provider Anesthesiology | DX: M10.9 Gout, unspecified (principal); G89.4 Chronic pain syndrome | CPT/HCPCS: 99212 ==

== ENCOUNTER → 2022-05-10 16:18 | Outpatient (BNVA) | payer OTHER, SELFPAY | PROVIDERS: PCP Internal Medicine; Visit Provider Physician Assistant Surgical | DX: E66.3 Overweight (principal); Z98.84 Bariatric surgery status | CPT/HCPCS: Q3014 ==

== ENCOUNTER → 2022-05-29 14:51 | Outpatient (BNVA) | payer OTHER, SELFPAY | PROVIDERS: PCP Internal Medicine; Visit Provider Anesthesiology | DX: M10.9 Gout, unspecified (principal); M54.9 Dorsalgia, unspecified; M54.2 Cervicalgia; M25.562 Pain in left knee; M25.561 Pain in right knee; G89.4 Chronic pain syndrome | CPT/HCPCS: 99212 ==

== ENCOUNTER 2022-06-08 11:48 | Day surgery (SDC) | payer OTHER, SELFPAY ==
--- NOTE | 2022-06-07 10:06 | HO.ANESPROP2 ---
Documented by User: Lydia Joy NP 06/07/22 10:09 HPI - Anesthesia Eval Consult details Narrative: 51yo F for Left Diagnostic Genicular Nerve Block s/p gastric sleeve 06/2021 with GA PMFSH Active Problems Active Problems: All Active Problems (Updated 08/24/21 @ 15:39 by Ashley Fleming MD) Atypical ductal hyperplasia of breast (Chronic) Overweight (BMI 25.0-29.9) (Acute) Obesity (BMI 30.0-34.9) (Acute) Constipation (Acute) Overweight (Acute) Bipolar 1 disorder, mixed, partial remission (Acute) BMI 32.0-32.9,adult (Acute) S/P laparoscopic sleeve gastrectomy (Acute) Insomnia (Acute) GERD (gastroesophageal reflux disease) (Acute) Asthma (Acute) Hypertension (Acute) COPD (chronic obstructive pulmonary disease) (Acute) Sleep apnea with use of continuous positive airway pressure (CPAP) (Acute) Past Medical History Medical History Asthma Back pain BMI 33.0-33.9,adult BMI 33.0-33.9,adult BMI 36.0-36.9,adult BMI 37.0-37.9, adult Chronic pain syndrome COPD (chronic obstructive pulmonary disease) Depression GERD (gastroesophageal reflux disease) Gout Gouty arthritis of both knees History of anxiety Hx of bipolar disorder Hx of renal calculi Hypertension Insomnia Obesity Sleep apnea Sleep apnea with use of continuous positive airway pressure (CPAP) Smoking Steatosis, liver Family History Family History Mother Emphysema of lung Father Lung cancer Brother No problems noted. Brother No problems noted. Brother No problems noted. Brother No problems noted. Daughter No problems noted. Daughter No problems noted. Son No problems noted. Family history of problems with anesthesia: No Surgical History Surgical History H/O colonoscopy History of esophagogastroduodenoscopy (EGD) History of lumpectomy of right breast History of sleeve gastrectomy Hx of arthroscopic knee surgery Hx of tubal ligation History of Problems with Anesthesia: No Social History Social History Household Members: Significant Other Housing: Apartment Are you a primary home care assistant to a significant other at home: No Do you presently have visiting nurse or other home services: Yes ([employer]) Alcohol intake: never Patient Tobacco Use Status: Former Tobacco user Quit Date: 2016 Second Hand Smoke Exposure: No Substance Use Type: Opiates service: No Current occupational status: disabled Meds Allergies Allergy/AdvReac Type Severity Reaction Status Date / Time No Known Allergies Allergy Verified 05/29/22 15:14 [No Known Allergies*] Home Medications Medication Instructions Recorded Confirmed Last Taken Type clonazepam 1 mg tablet 1 mg PO QAM 08/12/20 05/10/22 Unknown History temazepam 30 mg capsule 30 mg PO BEDTIME 08/12/20 05/10/22 Unknown History albuterol sulfate 90 mcg/actuation 1 inh PO Q4H PRN Shortness Of 11/01/20 05/10/22 Unknown History aerosol inhaler Breath hydrochlorothiazide 12.5 mg tablet 1 tab PO DAILY 11/01/20 05/10/22 Unknown History ipratropium 0.5 mg-albuterol 3 mg 3 ml PO QID 11/01/20 05/10/22 Unknown History (2.5 mg base)/3 mL nebulization soln quetiapine 400 mg tablet 1 tab PO BEDTIME 11/01/20 05/10/22 Unknown History clonazepam 2 mg tablet (Klonopin) 2 mg PO BEDTIME 02/09/21 05/10/22 Unknown History buprenorphine 8 mg-naloxone 2 mg 1 strip sublingual BID 06/13/21 05/10/22 06/13/21 History sublingual film (Suboxone) 4 mg cholecalciferol (vitamin D3) 25 1 tab PO DAILY 08/24/21 05/10/22 Unknown History mcg (1,000 unit) tablet (Vitamin D3) multivitamin 1 tab PO DAILY 08/24/21 05/10/22 Unknown History vitamin E (dl, acetate) 180 mg 180 mg PO BEDTIME 08/24/21 05/10/22 Unknown History (400 unit) capsule Exam Exam Date and Time: June 07, 2022 1006 Pertinent Lab Results Pertinent Lab Results: Laboratory Tests 02/21/22 02/21/22 15:08 15:08 WBC 4.4 L Hgb 13.0 Hct 38.9 Plt Count 226 Sodium 140 Potassium 3.7 Chloride 103 Carbon Dioxide 30 H BUN 14 Creatinine 0.68 Assessment and Plan Assessment Anesthesia Assessment: Chart Reviewed Final Anesthetic Review Family History of Problems with Anesthesia: No History of Problems with Anesthesia: No Documented by User: Aureliano Roach MD 06/08/22 16:47 [facility] Past Medical History Medical History Asthma Back pain BMI 33.0-33.9,adult BMI 33.0-33.9,adult BMI 36.0-36.9,adult BMI 37.0-37.9, adult Chronic pain syndrome COPD (chronic obstructive pulmonary disease) Depression GERD (gastroesophageal reflux disease) Gout Gouty arthritis of both knees History of anxiety Hx of bipolar disorder Hx of renal calculi Hypertension Insomnia Obesity Sleep apnea Sleep apnea with use of continuous positive airway pressure (CPAP) Smoking Steatosis, liver Family History Family History Mother Emphysema of lung Father Lung cancer Brother No problems noted. Brother No problems noted. Brother No problems noted. Brother No problems noted. Daughter No problems noted. Daughter No problems noted. Son No problems noted. Surgical History Surgical History H/O colonoscopy History of esophagogastroduodenoscopy (EGD) History of lumpectomy of right breast History of sleeve gastrectomy Hx of arthroscopic knee surgery Hx of tubal ligation Social History Social History Household Members: Significant Other Housing: Apartment Are you a primary home care assistant to a significant other at home: No Do you presently have visiting nurse or other home services: Yes ([employer]) Alcohol intake: never Patient Tobacco Use Status: Former Tobacco user Quit Date: 2016 Second Hand Smoke Exposure: No Substance Use Type: Opiates service: No Current occupational status: disabled Meds Allergies Allergy/AdvReac Type Severity Reaction Status Date / Time No Known Allergies Allergy Verified 05/29/22 15:14 [No Known Allergies*] Home Medications Medication Instructions Recorded Confirmed Last Taken Type clonazepam 1 mg tablet 1 mg PO QAM 08/12/20 05/10/22 Unknown History temazepam 30 mg capsule 30 mg PO BEDTIME 08/12/20 05/10/22 Unknown History albuterol sulfate 90 mcg/actuation 1 inh PO Q4H PRN Shortness Of 11/01/20 05/10/22 Unknown History aerosol inhaler Breath hydrochlorothiazide 12.5 mg tablet 1 tab PO DAILY 11/01/20 05/10/22 Unknown History ipratropium 0.5 mg-albuterol 3 mg 3 ml PO QID 11/01/20 05/10/22 Unknown History (2.5 mg base)/3 mL nebulization soln quetiapine 400 mg tablet 1 tab PO BEDTIME 11/01/20 05/10/22 Unknown History clonazepam 2 mg tablet (Klonopin) 2 mg PO BEDTIME 02/09/21 05/10/22 Unknown History buprenorphine 8 mg-naloxone 2 mg 1 strip sublingual BID 06/13/21 05/10/22 06/13/21 History sublingual film (Suboxone) 4 mg cholecalciferol (vitamin D3) 25 1 tab PO DAILY 08/24/21 05/10/22 Unknown History mcg (1,000 unit) tablet (Vitamin D3) multivitamin 1 tab PO DAILY 08/24/21 05/10/22 Unknown History vitamin E (dl, acetate) 180 mg 180 mg PO BEDTIME 08/24/21 05/10/22 Unknown History (400 unit) capsule Exam Airway Mallampati Class: II TM Dist: >3cm Neck ROM: Full Partial: Upper and Lower Loose/Missing/Broken Teeth: Yes Assessment and Plan Assessment Anesthesia Assessment: Anesthesia Plan Discussed Final Anesthetic Review NPO: Yes ASA Class: II Final Preanesthetic Review: No Changes in Pt Med Stat, Meds/Allgs Chart Reviewed, Consent Obtained/Reviewed and Anes Risks/Benef Reviewed Patient Risk: Low Procedure Risk: Low Anesthetic Plan Anesthetic Plan: MAC: Disposition: Standard PACU
--- NOTE | ~2022-06-08 | FL_ITS ---
EXAMINATION: XR FLUOROSCOPY WITH IMAGES CLINICAL INFORMATION: Genicular nerve block. COMPARISON: None. TECHNIQUE: Fluoroscopy performed by Dr. Richard Orellana. Fluoroscopy time: 0.2 minutes. Cumulative Dose: 1.46 mGy. DAP: 0.397 Gy-cm2. Images: 2. FINDINGS: Images demonstrate placement of needles about the left distal femur and proximal tibia from anterolateral approach as. FL/FL guidance in OR IMPRESSION: Intraoperative fluoroscopy for pain management procedure.
[2022-06-08 12:21] VITALS: BP 112/67; PULSE 52; RESP 16; TEMP 36.5; O2SAT 99; BMI 27.3
[2022-06-08] MEDS: Lactated Ringers 1,000 ML 100 ML IVCONT (12:39)
--- NOTE | 2022-06-08 13:41 | MHC.SHP ---
Pre-Procedural Eval Section A Date of Service: 06/08/22 The patient is an INPATIENT: No Changes since office visit: Yes Patient answered all questions The History & Physical has been completed within 30 days and I have reviewed it.: No Section B Chief Complaint: gout Details of Present Illness: left knee arthritis Relevant Family History (Specify if Yes): No Relevant Social History: Other (specify) Present Medications: None Medical History: Significant History History of Previous Operations: No relevant previous surgery Allergies: Allergies Allergy/AdvReac Type Severity Reaction Status Date / Time No Known Allergies Allergy Verified 05/29/22 15:14 [No Known Allergies*] Review of Systems Sugical H&P ROS: Negative: Constitution, Cardiovascular, Respiratory, Neurological, Psychiatric, Hem-Onc, Allergic/Immunologic, Gastrointestinal, Genitourinary, Musculoskeletal, Integumentary, Endocrine and Eyes/Ears/Nose/Throat Exam Surgical H&P Exam: Normal: HEENT, Normal: Heart, Normal: Lungs, Normal: Extremities, Normal: Abdomen, Normal: Skin and Normal: Neurological Plan Diagnosis/Plan: Unchanged I have reviewed the history and physical and performed a pertinent physical examination on my patient. No changes have occurred unless specified.
--- NOTE | 2022-06-08 14:39 | PM.OP ---
Brief Operative Note Date of Service: 06/08/22 Pre-op diagnosis: Left knee arthritis. Post-op diagnosis: same Procedure: Diagnostic left knee genicular nerve block Surgeon: Richard Orellana MD Anesthesia: MAC Was an Hospice Physician used for this Procedure?: No Estimated blood loss (mL): 1 Pathology: none sent Condition: stable Disposition: PACU
[2022-06-08 14:44] VITALS: BP 96/63; PULSE 58; RESP 16; TEMP 36.7; O2SAT 100
--- NOTE | 2022-06-08 14:59 | P.OP_ITS ---
Operative Note Operative Note Date of Service: 06/08/22 Narrative: Left GENICULAR NERVES BLOCK ? ?Informed consent was explained to the patient. All questions were explained and answered. The patient was taken inside the operating room. The patient was positioned supine on operating table with her left leg elevated on a gel bin. ASA monitors were applied and the patient was sedated. Time-out was performed delineating correct site, side, the nature of the procedure, patient's allergy, preoperative antibiotic if needed. All operating room staff was participating in OR time-out procedure. C-arm was brought over the operating field and picture of the right knee was demonstrated on the screen. Anterolateral and anteromedial surfaces of the knee were prepped with chloroprep and draped with utility towels. ? The point of interest were delineated for: FOR: superior lateral genicular nerve as the connection of the metaphysis of the left femur with corresponding diaphysis on the lateral silhouette of the femur distal bone, ? For superior medial genicular nerve (suprapatellar saphenous nerve) the point of interest was delineated as the connection of metaphysis of left femur with corresponding diaphysis on the medial silhouette on the femoral distal bone. ? For inferior medial genicular nerve (infrapatellar saphenous nerve) the point of interest was delineated as connection of metaphysis of the proximal tibia on the medial side with corresponding diaphysis of the same bone. ? The projections of the points of interest on anterior surface of the left knee was injected with small amount of lidocaine 2% 1-to 2 ml. After that 3 needles 22 gauge 3-1/2 inch long were driven to were the point of interest in tunnel vision fashion. When needles gently contacted the bones the position of the C- arm was switched to the lateral view and needles positions were adjusted to assure that the tip of the needle is located at the mid shaft of each of the above described bones. ? After that small amount of bupivacaine 0.5% was injected into each needle position total dose of bupivacaine was 4.0 cc. No steroids were used. ? Upon the completion of the injections the needles were removed sterile dressing was applied. Patient - recovered uneventfully.
[2022-06-08 15:01] VITALS: BP 105/66; PULSE 50; RESP 17; TEMP 36.5; O2SAT 100
== END 2022-06-08 15:31 | disposition home or self-care (01) ==
PROVIDERS: PCP Internal Medicine; Visit Provider Anesthesiology
PROC: (CPT 64454; principal; 2022-06-08 13:40)
DX: M10.9 Gout, unspecified (principal); M25.562 Pain in left knee; M17.12 Unilateral primary osteoarthritis, left knee; G89.4 Chronic pain syndrome; J44.9 Chronic obstructive pulmonary disease, unspecified; I10 Essential (primary) hypertension; G47.33 Obstructive sleep apnea (adult) (pediatric); F11.90 Opioid use, unspecified, uncomplicated; Z99.89 Dependence on other enabling machines and devices; Z87.891 Personal history of nicotine dependence; Z98.84 Bariatric surgery status; Z98.890 Other specified postprocedural states
CPT/HCPCS: 64454; J1100; J2250; J2795; Q9967

== ENCOUNTER → 2022-06-12 11:29 | Outpatient (BNVA) | payer OTHER, SELFPAY | PROVIDERS: PCP Internal Medicine; Visit Provider Anesthesiology | DX: M10.9 Gout, unspecified (principal); G89.4 Chronic pain syndrome | CPT/HCPCS: Q3014 ==

== ENCOUNTER → 2022-10-10 13:51 | Outpatient (BNVA) | payer OTHER, SELFPAY | PROVIDERS: PCP Internal Medicine; Visit Provider Physician Assistant Surgical | DX: E66.3 Overweight (principal); Z68.28 Body mass index [BMI] 28.0-28.9, adult; Z98.84 Bariatric surgery status | CPT/HCPCS: 99212 ==

== ENCOUNTER 2022-10-31 14:02 | Outpatient (REF) | payer OTHER, SELFPAY ==
--- NOTE | ~2022-10-31 | MM_ITS ---
EXAMINATION: MM SCREENING DIGITAL BREAST TOMOSYNTHESIS, BILATERAL CLINICAL INFORMATION: Screening. Asymptomatic. The lifetime risk of breast cancer based on the Tyrer-Cuzick Model is 33%. COMPARISON: Mammography: 09/09/2021, 08/02/2020, 07/08/2019 TECHNIQUE: Digital breast tomosynthesis is performed in both the craniocaudal and mediolateral oblique views along with computer-aided detection (CAD). Synthesized 2D images are generated from the tomosynthesis. FINDINGS: There are scattered areas of fibroglandular density (ACR BI-RADS breast composition Category b). There are no significant masses, abnormal calcifications, or other abnormalities. Parenchymal pattern is similar to prior studies. There is no developing density or architectural abnormality. The axilla and skin contours are unremarkable. No significant changes. MM/MM tomosynthesis screening BI IMPRESSION: No mammographic evidence of malignancy. ASSESSMENT: BI-RADS 1: Negative RECOMMENDATION: Routine annual mammography screening. This patient's information was entered into a reminder system with a target due date for their next mammogram.
== END 2022-10-31 14:03 | disposition home or self-care (01) ==
LOC: HO.MAMMO 14:02
PROVIDERS: PCP Internal Medicine; Visit Provider Internal Medicine
DX: Z12.31 Encounter for screening mammogram for malignant neoplasm of breast (principal)
CPT/HCPCS: 77063; 77067

== ENCOUNTER → 2022-12-25 15:05 | Outpatient (BNVA) | payer OTHER, SELFPAY | PROVIDERS: PCP Internal Medicine; Visit Provider Physician Assistant Surgical | DX: E66.3 Overweight (principal); L98.7 Excessive and redundant skin and subcutaneous tissue; Z98.84 Bariatric surgery status; Z68.27 Body mass index [BMI] 27.0-27.9, adult | CPT/HCPCS: 99212 ==

== ENCOUNTER → 2023-01-17 16:10 | Outpatient (BNVA) | payer OTHER, SELFPAY | PROVIDERS: PCP Internal Medicine; Visit Provider Anesthesiology | DX: M25.551 Pain in right hip (principal); M25.561 Pain in right knee; M25.562 Pain in left knee; M17.0 Bilateral primary osteoarthritis of knee | CPT/HCPCS: 99212 ==

== ENCOUNTER 2023-01-22 08:10 | Outpatient (REF) | payer OTHER, SELFPAY ==
[2023-01-22 15:15] LABS: MANUAL DIFF FLAG NO
[2023-01-22 15:55] LABS: Basophils Percent Auto 0.8 % (0-2); Eosinophils Absolute Auto 0.1 X10*3/uL (0.0-0.4); Eosinophils Percent Auto 1.8 % (0-4); Hematocrit 39.3 % (37.0-47.0); Hemoglobin 12.7 g/dl (12.0-16.0); Imm Gran Abs Auto 0.01 X10*3/uL (0.00-0.03); Imm Gran Pct Auto 0.3 % (0.0-0.4); Lymphocytes Absolute Auto 1.9 X10*3/uL (1.2-4.9); Lymphocytes Percent Auto 46.8 % (20-40); Mean Corpuscular HGB Conc 32.3 g/dl (31.0-35.0); Mean Corpuscular Hemoglobin 27.7 pg (27.0-33.0); Mean Corpuscular Volume 85.8 fL (80.0-98.0); Mean Platelet Volume 9.9 fL (9.4-12.3); Monocytes Absolute Auto 0.4 X10*3/uL (0.1-1.2); Monocytes Percent Auto 9.6 % (2-11); Neutrophils Absolute Auto 1.6 x10*3/uL (2.0-8.3); Neutrophils Percent Auto 40.7 % (45-73); Platelet Count 280 X10*3/uL (160-400); Red Blood Count 4.58 X10*6/uL (4.20-5.50); Red Cell Distribution Width 12.9 % (11.0-16.0)
[2023-01-22 16:01] LABS: Estimated Average Glucose 108 mg/dL; Hemoglobin A1c % 5.4 %
[2023-01-22 16:10] LABS: Prothrombin Time 11.3 SEC (10.0-13.1)
[2023-01-22 16:13] LABS: Partial Thromboplastin Time 34.5 SEC (26.0-36.4)
[2023-01-22 16:34] LABS: Alanine Aminotransferase 12 U/L (0-31); Alkaline Phosphatase 56 U/L (39-117); Anion Gap 10 (12-20); Aspartate Amino Transferase 16 U/L (5-31); Bilirubin Total 0.4 mg/dL (0.0-1.0); Blood Urea Nitrogen 22 mg/dL (9-16); Calcium 9.1 mg/dL (8.4-10.2); Carbon Dioxide 32 mmol/L (22-29); Chloride 104 mmol/L (96-108); Estimated Glomerular Filt Rate > 60; Glucose Random 104 mg/dL (60-115); Potassium 4.3 mmol/L (3.3-5.1); Sodium 142 mmol/L (135-145); Total Protein 7.1 g/dL (6.5-8.0)
== END 2023-01-22 08:11 | disposition home or self-care (01) ==
LOC: HO.LAB 08:10
PROVIDERS: PCP Internal Medicine; Visit Provider Surgery
DX: K59.00 Constipation, unspecified (principal); M79.3 Panniculitis, unspecified; K91.2 Postsurgical malabsorption, not elsewhere classified; L98.7 Excessive and redundant skin and subcutaneous tissue; Z90.3 Acquired absence of stomach [part of]
CPT/HCPCS: 36415; 80053; 83036; 85025; 85610; 85730; Q3014

== ENCOUNTER → 2023-01-29 12:43 | Outpatient (BNVA) | payer OTHER, SELFPAY | PROVIDERS: PCP Internal Medicine; Visit Provider Surgery ==

== ENCOUNTER 2023-01-30 08:19 | Day surgery (SDC) | payer OTHER, SELFPAY ==
[2023-01-23 14:40] VITALS: BMI 27.9
--- NOTE | 2023-01-27 15:38 | MHC.SHP ---
Pre-Procedural Eval Section A Date of Service: 01/27/23 The patient is an INPATIENT: No The History & Physical has been completed within 30 days and I have reviewed it.: Yes Section B Chief Complaint: Excessive and redundant skin,subcutaneous tissue Relevant Family History (Specify if Yes): No Relevant Social History: None Present Medications: None Medical History: No relevant PMH History of Previous Operations: Relevant previous surgery/procedure and date(s) (laparoscopic sleeve gastrectomy) Allergies: Allergies Allergy/AdvReac Type Severity Reaction Status Date / Time No Known Allergies Allergy Verified 01/17/23 16:38 [No Known Allergies*] Review of Systems Sugical H&P ROS: Negative: Constitution, Cardiovascular, Respiratory, Neurological, Psychiatric, Hem-Onc, Allergic/Immunologic, Gastrointestinal, Genitourinary, Musculoskeletal, Integumentary, Endocrine and Eyes/Ears/Nose/Throat Exam Surgical H&P Exam: Normal: HEENT, Normal: Heart, Normal: Lungs, Normal: Extremities, Normal: Abdomen, Normal: Skin and Normal: Neurological Plan Diagnosis/Plan: Unchanged I have reviewed the history and physical and performed a pertinent physical examination on my patient. No changes have occurred unless specified. Time Spent With Patient Time: Total time managing care of this patient today ____ minutes.
--- NOTE | 2023-01-29 | ECG_ITS ---
Test Reason : preop Blood Pressure : / mmHG Vent. Rate : 062 BPM Atrial Rate : 062 BPM P-R Int : 150 ms QRS Dur : 086 ms QT Int : 402 ms P-R-T Axes : 019 046 008 degrees QTc Int : 408 ms Normal sinus rhythm Low voltage QRS Borderline ECG When compared with ECG of 15-FEB-2021 16:01, No significant change was found Referred By: Lydia Joy Electronically Signed By:NOEMI STANLEY MD
--- NOTE | 2023-01-29 09:58 | P.CONAN_ITS ---
Documented by User: Lydia Joy NP 01/29/23 10:00 HPI - Anesthesia Eval Consult details Narrative: 52yo F for Panniculectomy PMFSH Active Problems Active Problems: All Active Problems (Updated 01/23/23 @ 14:53 by Brooklyn Roldan, RN) Sleep apnea with use of continuous positive airway pressure (CPAP) (Acute) Bipolar 1 disorder, mixed, partial remission (Acute) BMI 32.0-32.9,adult (Acute) S/P laparoscopic sleeve gastrectomy (Acute) Overweight (Acute) Constipation (Acute) Obesity (BMI 30.0-34.9) (Acute) Overweight (BMI 25.0-29.9) (Acute) Atypical ductal hyperplasia of breast (Chronic) Excess skin (Acute) Right knee pain (Acute) Right hip pain (Acute) Left knee pain (Acute) Degenerative arthritis of knee, bilateral (Acute) Panniculitis (Acute) Postgastrectomy malabsorption (Acute) Insomnia (Acute) GERD (gastroesophageal reflux disease) (Acute) Asthma (Acute) Hypertension (Acute) COPD (chronic obstructive pulmonary disease) (Acute) Past Medical History Medical History (Updated 01/23/23 @ 14:53 by Brooklyn Roldan, SHAHID) Asthma Back pain BMI 33.0-33.9,adult BMI 33.0-33.9,adult BMI 36.0-36.9,adult BMI 37.0-37.9, adult Chronic pain syndrome COPD (chronic obstructive pulmonary disease) Depression GERD (gastroesophageal reflux disease) Gout Gouty arthritis of both knees History of anxiety Hx of bipolar disorder Hx of renal calculi Hypertension Insomnia Obesity Panniculitis Postgastrectomy malabsorption Sleep apnea Smoking Steatosis, liver Family History Family History Mother Emphysema of lung Father Lung cancer Brother No problems noted. Brother No problems noted. Brother No problems noted. Brother No problems noted. Daughter No problems noted. Daughter No problems noted. Son No problems noted. Family history of problems with anesthesia: No Surgical History Surgical History H/O colonoscopy History of esophagogastroduodenoscopy (EGD) History of lumpectomy of right breast History of sleeve gastrectomy Hx of arthroscopic knee surgery Hx of tubal ligation History of Problems with Anesthesia: No Social History Social History Household Members: Significant Other Housing: Apartment Are you a primary career placement services counselor to a significant other at home: No Do you presently have visiting nurse or other home services: Yes ([employer]EL[employer]) Alcohol intake: never Patient Tobacco Use Status: Former Tobacco user Quit Date: 2015 Tobacco use type: Cigarette Second Hand Smoke Exposure: No Use of substances other than those prescribed or required for medical reasons: No Substance Use Type: Opiates Have you been hit, kicked, punched, or otherwise hurt by someone within the past year? If so, by whom?: No Are you DNR?: No Advance Directives: No Advance Directives Information Provided: Yes Advance Directives on File: No Recently lost weight without trying: No Patient : No FDLMP: 03/2022 : No service: No Current occupational status: disabled Meds Allergies Allergy/AdvReac Type Severity Reaction Status Date / Time No Known Allergies Allergy Verified 01/17/23 16:38 [No Known Allergies*] Home Medications Medication Instructions Recorded Confirmed Last Taken Type clonazepam 1 mg tablet 1 mg PO QAM 08/12/20 01/17/23 Unknown History temazepam 30 mg capsule 30 mg PO BEDTIME 08/12/20 01/23/23 Unknown History albuterol sulfate 90 mcg/actuation 1 inh PO Q4H PRN Shortness Of 11/01/20 01/23/23 Unknown History aerosol inhaler Breath ipratropium 0.5 mg-albuterol 3 mg 3 ml PO QID 11/01/20 01/23/23 Unknown History (2.5 mg base)/3 mL nebulization soln quetiapine 400 mg tablet 1 tab PO BEDTIME 11/01/20 01/23/23 Unknown History clonazepam 2 mg tablet (Klonopin) 2 mg PO BEDTIME 02/09/21 01/23/23 Unknown History buprenorphine 8 mg-naloxone 2 mg 1 strip sublingual BID 06/13/21 01/23/2311/23 History sublingual film (Suboxone) cholecalciferol (vitamin D3) 25 1 tab PO DAILY 08/24/21 01/23/23 Unknown History mcg (1,000 unit) tablet (Vitamin D3) multivitamin 1 tab PO DAILY 08/24/21 01/23/23 Unknown History vitamin E (dl, acetate) 180 mg 180 mg PO BEDTIME 08/24/21 01/23/23 Unknown History (400 unit) capsule omeprazole 20 mg capsule,delayed 1 cap PO DAILY 07/24/22 01/17/23 Unknown History release Metamucil 01/23/23 01/23/23 Unknown History biotin 01/23/23 Unknown History collagen (bovine) 01/23/23 Unknown History cranberry 01/23/23 Unknown History hydrochlorothiazide 12.5 mg tablet 12.5 mg DAILY 01/23/23 01/23/23 Unknown History Exam Exam Date and Time: January 29, 2023 0958 Height,Weight and Vital Signs: Height 5 ft 4 in Weight 73.936 kg Pertinent Lab Results Pertinent Lab Results: Laboratory Tests 01/22/23 15:10 Blood Type O Positive Antibody Screen NEGATIVE Laboratory Tests 01/22/23 01/22/23 15:12 15:12 WBC 4.0 L Hgb 12.7 Hct 39.3 Plt Count 280 Sodium 142 Potassium 4.3 Chloride 104 Carbon Dioxide 32 H BUN 22 H Creatinine 0.67 Narrative Narrative: EKG 01/29/23 pending Assessment and Plan Assessment Anesthesia Assessment: Chart Reviewed Final Anesthetic Review Family History of Problems with Anesthesia: No History of Problems with Anesthesia: No Documented by User: Mackenzie Curran MD 01/30/23 14:39 [facility] Active Problems Active Problems: All Active Problems (Updated 01/23/23 @ 14:53 by Brooklyn Roldan, SHAHID) Sleep apnea. Not using CPAP. Does not have supplies Bipolar 1 disorder, mixed, partial remission (Acute) BMI 32.0-32.9,adult (Acute) S/P laparoscopic sleeve gastrectomy 06/2021 Overweight (Acute) Constipation (Acute) Obesity (BMI 30.0-34.9) (Acute) Overweight (BMI 25.0-29.9) (Acute) Atypical ductal hyperplasia of breast (Chronic) Excess skin (Acute) Right knee pain (Acute) Right hip pain (Acute) Left knee pain (Acute) Degenerative arthritis of knee, bilateral (Acute) Panniculitis (Acute) Postgastrectomy malabsorption (Acute) Insomnia (Acute) GERD (gastroesophageal reflux disease) (Acute) Asthma (Acute) Hypertension (Acute) COPD (chronic obstructive pulmonary disease) (Acute) Past Medical History Medical History (Updated 01/23/23 @ 14:53 by Brooklyn Roldan RN) Asthma Back pain BMI 33.0-33.9,adult BMI 33.0-33.9,adult BMI 36.0-36.9,adult BMI 37.0-37.9, adult Chronic pain syndrome COPD (chronic obstructive pulmonary disease) Depression GERD (gastroesophageal reflux disease) Gout Gouty arthritis of both knees History of anxiety Hx of bipolar disorder Hx of renal calculi Hypertension Insomnia Obesity Panniculitis Postgastrectomy malabsorption Sleep apnea Smoking Steatosis, liver Family History Family History Mother Emphysema of lung Father Lung cancer Brother No problems noted. Brother No problems noted. Brother No problems noted. Brother No problems noted. Daughter No problems noted. Daughter No problems noted. Son No problems noted. 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 If so, by whom?: No Are you DNR?: No Advance Directives: No Advance Directives Information Provided: Yes Advance Directives on File: No Recently lost weight without trying: No Patient : No FDLMP: 03/2022 : No service: No Current occupational status: disabled Meds Allergies Allergy/AdvReac Type Severity Reaction Status Date / Time No Known Allergies Allergy Verified 01/17/23 16:38 [No Known Allergies*] Home Medications Medication Instructions Recorded Confirmed Last Taken Type clonazepam 1 mg tablet 1 mg PO QAM 08/12/20 01/17/23 Unknown History temazepam 30 mg capsule 30 mg PO BEDTIME 08/12/20 01/23/23 Unknown History albuterol sulfate 90 mcg/actuation 1 inh PO Q4H PRN Shortness Of 11/01/20 01/23/23 Unknown History aerosol inhaler Breath ipratropium 0.5 mg-albuterol 3 mg 3 ml PO QID 11/01/20 01/23/23 Unknown History (2.5 mg base)/3 mL nebulization soln quetiapine 400 mg tablet 1 tab PO BEDTIME 11/01/20 01/23/23 Unknown History clonazepam 2 mg tablet (Klonopin) 2 mg PO BEDTIME 02/09/21 01/23/23 Unknown History buprenorphine 8 mg-naloxone 2 mg 1 strip sublingual BID 06/13/21 01/23/23 01/30/23 History sublingual film (Suboxone) cholecalciferol (vitamin D3) 25 1 tab PO DAILY 08/24/21 01/23/23 Unknown History mcg (1,000 unit) tablet (Vitamin D3) multivitamin 1 tab PO DAILY 08/24/21 01/23/23 Unknown History vitamin E (dl, acetate) 180 mg 180 mg PO BEDTIME 08/24/21 01/23/23 Unknown History (400 unit) capsule omeprazole 20 mg capsule,delayed 1 cap PO DAILY 07/24/22 01/17/23 Unknown History release Metamucil 01/23/23 01/23/23 Unknown History biotin 01/23/23 Unknown History collagen (bovine) 01/23/23 Unknown History cranberry 01/23/23 Unknown History hydrochlorothiazide 12.5 mg tablet 12.5 mg DAILY 01/23/23 01/23/23 Unknown History Exam Height,Weight and Vital Signs: Height 5 ft 4 in Weight 73.936 kg Vital Signs Temp Pulse Resp BP Pulse Ox O2 Del Method 01/30/23 09:39 97.2 F 68 16 98/60 97 Room Air Narrative Narrative: EKG 01/29/23: NSR.62. Low voltage QRS. Borderline EKG. No significant change compared with 02/15/21 Airway Mallampati Class: III TM Dist: >3cm Neck ROM: Full Partial: Upper and Lower Loose/Missing/Broken Teeth: Yes (Denies broken or loose teeth ) Heart: RRR Lungs: CTAB Assessment and Plan Assessment Anesthesia Assessment: Anesthesia Plan Discussed Final Anesthetic Review NPO: Yes ASA Class: III Final Preanesthetic Review: No Changes in Pt Med Stat, Meds/Allgs Chart Reviewed, Consent Obtained/Reviewed and Anes Risks/Benef Reviewed Patient Risk: Intermediate Procedure Risk: Intermediate Assessment/Block/Sedation in SS: Assess/Block/Sedation-SS Anesthetic Plan Anesthetic Plan: GA Disposition: Standard PACU and Inp. Admit - Standard Bed
[2023-01-29 12:50] LABS: COVID-19 Test Negative (Negative); IDNOW Serial# BCCEAD1C
[2023-01-30] VITALS (11 sets, daily range): BP systolic 98–117; BP diastolic 60–71; PULSE 59–76; RESP 10–16; TEMP 36.2–36.8; O2SAT 93–98
[2023-01-30] MEDS: Lactated Ringers 1,000 ML 100 ML IVCONT (10:03)
--- NOTE | 2023-01-30 11:29 | PM.OP ---
Brief Operative Note Date of Service: 01/30/23 Pre-op diagnosis: Excess skin and panniculitis Post-op diagnosis: same Procedure: PROCEDURE: Panniculectomy with umbilical transposition and bilateral subcutaneous fat flaps INDICATION: This a 52 year old female who underwent laparoscopic sleeve gastrectomy on 06/14/2021. She had a good result achieving a BMI of 28 kg/m2 with a total weight loss of 54.2lbs, or 25% of her TBWL. As a result, she has developed panniculitis which has not resolved despite continuous use of clotrimazole ointment as well as skin irritation. On exam she has skin laxity due to the weight loss, with rashes under the abdominal pannus. Panniculectomy was recommended. We discussed the two options for the panniculectomy of using a combined vertical and horizontal incisions or just a horizontal (bikini) incision. It was my recommendation to do only horizontal incision based on her body habitus and skin laxity. The patient agreed with this. Risks and complications were discussed with the patient including bleeding, infection, umbilical loss, flap necrosis, asymmetry, dehiscence, seroma, VTE. The patient understood the risks and was in agreement to proceed with surgery. PROCEDURE: The incisions were appropriately marked at the preop area with the patient standing and laying down. After induction of general anesthesia a Chao catheter and pneumatic compression devices were placed. The patient was prepped and draped in the usual sterile manner and the incisions were marked again and confirmed. The skin was infiltrated with lidocaine and epinephrine. The #10 blade scalpel was used for the large incisions and the #15 blade scalpel for the umbilicus. Cautery was used to divide the subcutaneous tissues until the fascia was identified. Then I used the Sonincision (Intellution) to separate the pannus from the fascia. The inferior incision was made initially and I mobilized the flap for a several centimeters cephalad to the umbilicus. The umbilicus was incised circumferentially and detached from the surrounding tissues all the way to the fascia while its stalk was preserved. With the patient in reflex position I confirmed that the skin flaps were appropriate and would allow for the tissues to come together with reasonable tension. At that point a horizontal incision was made 4 cm above the umbilicus. #10 blade was used for the skin, cautery for the dermis and the Thunderbeat for the remaining tissues. A subcutaneous fat flap was raised from the upper skin flap in order to fill the space under the skin and support the closure of the two flaps. In addition the inferior flap was mobilized caudally for a few centimeters to create a space for the subcutaneous fat flap as well as relieve tension from the closure. A circumferential incision was made at the area where the umbilicus would be re-implanted. The umbilicus was appropriately oriented and was delivered through the defect and was secured in place with a Cata. No bleeding was noted anywhere. One KENNEDY drain was placed from the left corner of the horizontal incision across the wound and was secured in place with a silk suture. A total of 14ml of Zynrelef was applied on top of the fascia and under the subcutaneous fat flaps. The subcutaneous fat flap was secured under the inferior flap with several interrupted 3.0 Monocryl sutures. The two flaps were brought together and were attached at the midline of the horizontal incision with a #3.0 Monocryl suture. At that point the umbilicus was properly oriented and was re-approximated to the skin with 8 interrupted 3.0 Nylon sutures in vertical mattress fashion. In a similar fashion the skin flaps were re-approximated with multiple 3.0 Monocryl sutures. The skin was closed in all incisions with 4.0 Monocryl sutures. Steri-strips, xeroform gauzes and gauzes were used to cover the incisions. An abdominal binder was also placed. The was awaken and was transferred to the recover room in a stable condition. I was present and performed the entire procedure. Zhang Landaverde was the oncology physician assistant. Charan Dozier MD, PhD, FACS Surgeon: Jorge Dozier MD Surgeon: Jorge Dozier MD Anesthesia: GETA, local and other (& 14ml Zynrelef) Was an Technical Marketing Engineer used for this Procedure?: No Technical Marketing Engineer: Vandana Landaverde Estimated blood loss (mL): 10 IV fluids (mL): 2,000 Urine output (mL): 150 (No Chao to record output) Pathology: other (Abdominal pannus) Condition: stable Disposition: PACU
== END 2023-01-30 17:35 | disposition home or self-care (01) ==
PROVIDERS: Physician Assistant Surgical; PCP Internal Medicine; Visit Provider Surgery
PROC: 0JB80ZZ Excision of Abdomen Subcutaneous Tissue and Fascia, Open Approach (ICD-10-PCS; CPT 15830; principal; 2023-01-30 11:20)
DX: L98.7 Excessive and redundant skin and subcutaneous tissue (principal); Z98.84 Bariatric surgery status; Z90.3 Acquired absence of stomach [part of]; M79.3 Panniculitis, unspecified; E65 Localized adiposity; K91.2 Postsurgical malabsorption, not elsewhere classified; R21 Rash and other nonspecific skin eruption; K21.9 Gastro-esophageal reflux disease without esophagitis; K76.0 Fatty (change of) liver, not elsewhere classified; E66.9 Obesity, unspecified; Z68.27 Body mass index [BMI] 27.0-27.9, adult; J44.9 Chronic obstructive pulmonary disease, unspecified; G89.4 Chronic pain syndrome; M54.9 Dorsalgia, unspecified; F32.A Depression, unspecified; M10.062 Idiopathic gout, left knee; M10.061 Idiopathic gout, right knee; I10 Essential (primary) hypertension; G47.00 Insomnia, unspecified; G47.33 Obstructive sleep apnea (adult) (pediatric); Z87.891 Personal history of nicotine dependence; Z99.89 Dependence on other enabling machines and devices; Z79.899 Other long term (current) drug therapy
CPT/HCPCS: 15830; 15847; 86850; 86900; 86901; 87635; 88304; 93005; C9088; J0131; J0690; J1100; J1170; J2250; J2405; J3010; J3370

== ENCOUNTER → 2023-02-05 15:07 | Outpatient (BNVA) | payer OTHER, SELFPAY | PROVIDERS: PCP Internal Medicine; Referring Provider Internal Medicine; Visit Provider Physician Assistant | DX: M79.3 Panniculitis, unspecified (principal); K90.49 Malabsorption due to intolerance, not elsewhere classified; Z68.27 Body mass index [BMI] 27.0-27.9, adult; Z90.3 Acquired absence of stomach [part of]; Z98.890 Other specified postprocedural states | CPT/HCPCS: 99212 ==

== ENCOUNTER → 2023-02-14 11:53 | Outpatient (BNVA) | payer OTHER, SELFPAY | PROVIDERS: PCP Internal Medicine; Referring Provider Internal Medicine; Visit Provider Physician Assistant Surgical | DX: M79.3 Panniculitis, unspecified (principal); K90.49 Malabsorption due to intolerance, not elsewhere classified; Z68.27 Body mass index [BMI] 27.0-27.9, adult; Z98.890 Other specified postprocedural states | CPT/HCPCS: 99212 ==

== ENCOUNTER → 2023-02-23 15:04 | Outpatient (BNVA) | payer OTHER, SELFPAY | PROVIDERS: PCP Internal Medicine; Visit Provider Physician Assistant Surgical | DX: E66.3 Overweight (principal); Z68.27 Body mass index [BMI] 27.0-27.9, adult; Z98.84 Bariatric surgery status; Z98.890 Other specified postprocedural states | CPT/HCPCS: 99212 ==

== ENCOUNTER → 2023-02-28 14:27 | Outpatient (BNVA) | payer OTHER, SELFPAY | PROVIDERS: PCP Internal Medicine; Referring Provider Internal Medicine; Visit Provider Physician Assistant Surgical | DX: Z48.89 Encounter for other specified surgical aftercare (principal); E66.3 Overweight; Z68.28 Body mass index [BMI] 28.0-28.9, adult; Z98.84 Bariatric surgery status | CPT/HCPCS: 99212 ==

== ENCOUNTER 2023-03-07 15:14 | Outpatient (REF) | payer OTHER, SELFPAY ==
[2023-03-07 17:07] LABS: MANUAL DIFF FLAG NO
[2023-03-07 17:24] LABS: Basophils Percent Auto 0.6 % (0-2); Eosinophils Absolute Auto 0.1 X10*3/uL (0.0-0.4); Eosinophils Percent Auto 1.7 % (0-4); Hematocrit 37.9 % (37.0-47.0); Imm Gran Abs Auto 0.01 X10*3/uL (0.00-0.03); Imm Gran Pct Auto 0.2 % (0.0-0.4); Lymphocytes Absolute Auto 2.6 X10*3/uL (1.2-4.9); Lymphocytes Percent Auto 53.9 % (20-40); Mean Corpuscular HGB Conc 31.7 g/dl (31.0-35.0); Mean Corpuscular Volume 85.4 fL (80.0-98.0); Monocytes Absolute Auto 0.5 X10*3/uL (0.1-1.2); Monocytes Percent Auto 10.7 % (2-11); Neutrophils Absolute Auto 1.6 x10*3/uL (2.0-8.3); Neutrophils Percent Auto 32.9 % (45-73); Platelet Count 241 X10*3/uL (160-400); Red Blood Count 4.44 X10*6/uL (4.20-5.50); Red Cell Distribution Width 12.9 % (11.0-16.0); White Blood Count 4.8 X10*3/uL (4.8-10.8)
[2023-03-07 17:54] LABS: Anion Gap 12 (12-20); Blood Urea Nitrogen 17 mg/dL (9-16); Calcium 9.3 mg/dL (8.4-10.2); Carbon Dioxide 27 mmol/L (22-29); Chloride 103 mmol/L (96-108); Estimated Glomerular Filt Rate > 60; Glucose Random 81 mg/dL (60-115); Potassium 3.7 mmol/L (3.3-5.1); Sodium 138 mmol/L (135-145)
== END 2023-03-07 15:15 | disposition home or self-care (01) ==
LOC: HO.LAB 15:14
PROVIDERS: PCP Internal Medicine; Referring Provider Internal Medicine; Visit Provider Physician Assistant
DX: R23.4 Changes in skin texture (principal); Z98.890 Other specified postprocedural states
CPT/HCPCS: 36415; 80048; 85025; 99212

== ENCOUNTER → 2023-03-14 14:47 | Outpatient (BNVA) | payer OTHER, SELFPAY | PROVIDERS: PCP Internal Medicine; Visit Provider Physician Assistant | DX: R23.4 Changes in skin texture (principal); Z98.890 Other specified postprocedural states | CPT/HCPCS: 99212 ==

== ENCOUNTER 2023-03-19 09:22 | Outpatient (REF) | payer OTHER, SELFPAY ==
--- NOTE | ~2023-03-19 | CT_ITS ---
EXAMINATION: CT ABDOMEN AND PELVIS WITH CONTRAST CLINICAL INFORMATION: Status post panniculectomy; question incisional mass or infection. COMPARISON: Abdominal ultrasound dated 05/05/2021; CT abdomen and pelvis dated 08/10/2017 and 08/13/2013. TECHNIQUE: Multidetector volumetric images were obtained from the superior aspect of the liver through the pubic symphysis following administration 85 mL of Omnipaque 350 intravenous contrast. Sagittal and coronal reformatted images were obtained on the technologist's workstation. Oral contrast: No This CT examination was performed using dose optimization techniques as appropriate, variously including the following: *Automated exposure control *Adjustment of mA and/or kV according to patient size (this includes techniques or standardized protocols for targeted exams where dose is matched to indication/reason for exam; i.e. extremities or head) *Use of iterative reconstruction technique DLP: 437 mGy-cm FINDINGS: LUNG BASES: The visualized lung bases are unremarkable. LIVER, GALLBLADDER, AND BILIARY TREE: The liver is normal in size and shape. Within the right hepatic lobe (3:13), a 1.3 cm low-attenuation cyst is seen, with postcontrast Hounsfield value of 18.4 units. Within the left hepatic lobe (3:22), a 5 mm low-attenuation probable cyst is seen, stable from 08/13/2013 (2:19). No new focal hepatic lesion or biliary ductal dilatation is present. The gallbladder is unremarkable with no evidence of radiopaque gallstones, gallbladder wall thickening, or obvious pericholecystic inflammatory changes. PANCREAS: Unremarkable. SPLEEN: No splenomegaly. A fluid attenuation cyst is redemonstrated medially within the spleen. ADRENAL GLANDS: Unremarkable. KIDNEYS AND URETERS: The kidneys are normal in size, shape, and attenuation. No hydronephrosis, hydroureter, or calculi seen. No perinephric stranding. BLADDER: Unremarkable. GASTROINTESTINAL TRACT: There is a moderate left colonic stool burden. No obstruction, free intraperitoneal air or abscess is seen. There is no focal bowel wall thickening. The vermiform appendix is normal. ABDOMINAL WALL: There is subcutaneous stranding in the anterior abdominal wall. No abdominal wall fluid collection is seen. A drainage catheter is noted in the deep subcutaneous layer ventral to the anterior abdominal wall musculature. No subcutaneous gas is noted. LYMPH NODES: Normal. VASCULAR: Unremarkable. PELVIC VISCERA: The uterus and adnexa are unremarkable. OSSEOUS STRUCTURES: There is multi-level thoracolumbar spondylosis. No acute or aggressive osseous abnormality is seen. CT/CT abdomen pelvis w IV con IMPRESSION: There is subcutaneous stranding within the anterior abdominal wall, consistent with postoperative scarring and inflammation. A drainage catheter traverses the deep subcutaneous layer of the anterior abdominal wall, extending left lateral to right lateral. No subcutaneous fluid collection or gas is noted. Fleischner guidelines were followed.
[2023-03-19] MEDS: iohexoL 350 MG/ML 100 ML INFUS..BTL IV (12:53)
[2023-03-19] MEDS: Barium Sulfate Oral (Berry) 450 ML ORAL.SUSP 900 ML PO (12:54)
== END 2023-03-19 09:23 | disposition home or self-care (01) ==
LOC: HO.CT 09:22
PROVIDERS: PCP Internal Medicine; Visit Provider Physician Assistant
DX: R23.4 Changes in skin texture (principal); Z98.890 Other specified postprocedural states
CPT/HCPCS: 74177; Q9967

== ENCOUNTER → 2023-03-23 10:25 | Outpatient (BNVA) | payer OTHER, SELFPAY | PROVIDERS: PCP Internal Medicine; Visit Provider Physician Assistant | DX: Z98.890 Other specified postprocedural states (principal) | CPT/HCPCS: 99212 ==

== ENCOUNTER 2023-03-27 13:11 | Outpatient (REF) | payer OTHER, SELFPAY | END 2023-03-27 13:12 | disposition home or self-care (01) | LOC: HO.LNP 13:11 | PROVIDERS: PCP Internal Medicine; Visit Provider Physician Assistant Surgical | DX: L02.818 Cutaneous abscess of other sites (principal); L03.818 Cellulitis of other sites; Z98.890 Other specified postprocedural states | CPT/HCPCS: 87070; 87077; 87186; 87205; 99212 ==

== ENCOUNTER → 2023-03-29 14:28 | Outpatient (BNVA) | payer OTHER, SELFPAY | PROVIDERS: PCP Internal Medicine; Visit Provider Physician Assistant Surgical | DX: L03.311 Cellulitis of abdominal wall (principal); M79.3 Panniculitis, unspecified; K91.2 Postsurgical malabsorption, not elsewhere classified; Z90.3 Acquired absence of stomach [part of] | CPT/HCPCS: 99212 ==

== ENCOUNTER → 2023-04-04 14:44 | Outpatient (BNVA) | payer OTHER, SELFPAY | PROVIDERS: PCP Internal Medicine; Visit Provider Physician Assistant Surgical ==

== ENCOUNTER 2023-05-02 15:10 | Outpatient (AMB) | payer OTHER, SELFPAY ==
--- NOTE | 2023-05-02 15:13 | A.OFFVIS_ITS ---
Intake VS Expanded 05/02/23 15:16 Height 5 ft 4 in Weight 157 lb 3.2 oz BMI 27.0 BP 137/72 Blood Pressure Location Rt brachial Blood Pressure Position Sitting Pulse 58 Pulse Source Pulse Oximeter Temperature Source Tympanic Pulse Oximetry 97 Oxygen Delivery Method Room Air Body Fat 54.2 Body Fat Percentage 34.5 Free Fat Mass 103.0 Muscle Mass 97.6 Visceral Mass 7.0 Water Mass 40.0 BMR 1,399 Intake Visit Reasons: (OV) PO Panni 01/30/23 Allergies No Known Allergies [No Known Allergies*] Allergy (Verified 04/04/23 14:51) HPI HPI Comments History of Present Illness Details 52 yo female status post panniculectomy on 01/30/2023. She states that she is overall doing well, she did require a visit to the emergency room due to a viral gastroenteritis that resolved without issue. She did go to [facility] for care and has recovered. She complains of a fullness to the suprapubic region when she does not wear her abdominal binder. Otherwise no significant abdominal pain and she is happy with the results of her procedure. She states that she is wearing her abdominal binder all the time except during showering at which point she feels the fullness to her suprapubic area. Meal plan: 3 pure protein shakes per day and 64 oz of water. Exercise Plan: stationary bike daily. [facility] Medical History (Updated 03/27/23 @ 14:31 by NAVA Arellano) Asthma Back pain BMI 33.0-33.9,adult BMI 33.0-33.9,adult BMI 36.0-36.9,adult BMI 37.0-37.9, adult Chronic pain syndrome COPD (chronic obstructive pulmonary disease) Depression GERD (gastroesophageal reflux disease) Gout Gouty arthritis of both knees History of anxiety Hx of bipolar disorder Hx of renal calculi Hypertension Insomnia Obesity Panniculitis Postgastrectomy malabsorption Sleep apnea Smoking Steatosis, liver Surgical History H/O colonoscopy History of esophagogastroduodenoscopy (EGD) History of lumpectomy of right breast History of sleeve gastrectomy Hx of arthroscopic knee surgery Hx of tubal ligation Family History Mother Emphysema of lung Father Lung cancer Brother No problems noted. Brother No problems noted. Brother No problems noted. Brother No problems noted. Daughter No problems noted. Daughter No problems noted. Son No problems noted. 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[employer]) Alcohol intake: never Patient Tobacco Use Status: Former Tobacco user Quit Date: 2015 Tobacco use type: Cigarette Second Hand Smoke Exposure: No Substance Use Type: Opiates service: No Current occupational status: disabled Physical Exam Vital Signs: Last Vital Signs Pulse 58 05/02/23 15:16 BP 137/72 05/02/23 15:16 Pulse Ox 97 05/02/23 15:16 Oxygen Delivery Method Room Air 05/02/23 15:16 BMI result Body Mass Index 27.0 GI Inspection: Yes incision (c/d/i) Palpation (GI): Firmness to palpation present (GI) (to the suprapubic region) and nontender Assessment & Plan Assessment & Plan (1) S/P panniculectomy: Code(s): Z98.890 - Other specified postprocedural states Plan: Unclear etiology the fullness of her suprapubic region when she does not wear her abdominal binder, possible seroma or scar tissue. No fluctuance appreciated on exam. Will obtain ultrasound for further definition. She wishes to follow- up with my colleague Candy in the next 4-6 weeks. Orders: Orders US abdomen limited Today Z98.890 - Other specified postprocedural states Coding Level of Care Code Est Pt Level 3 (64902) Diagnoses S/P panniculectomy Z98.890
[2023-05-02 15:16] VITALS: BP 137/72; PULSE 58; O2SAT 97; BMI 27.0
== END 2023-05-02 15:40 | disposition home or self-care (01) ==
PROVIDERS: PCP Internal Medicine; Visit Provider Physician Assistant Surgical
DX: L98.7 Excessive and redundant skin and subcutaneous tissue (principal)
CPT/HCPCS: 99213

== ENCOUNTER → 2023-05-02 15:10 | Outpatient (BNVA) | payer OTHER, SELFPAY | PROVIDERS: PCP Internal Medicine; Visit Provider Physician Assistant Surgical | DX: E65 Localized adiposity (principal); K90.49 Malabsorption due to intolerance, not elsewhere classified; Z90.3 Acquired absence of stomach [part of]; Z98.890 Other specified postprocedural states | CPT/HCPCS: 99212 ==

== ENCOUNTER 2023-06-01 12:01 | Outpatient (REF) | payer OTHER, SELFPAY ==
--- NOTE | ~2023-06-01 | US_ITS ---
EXAMINATION: US ABDOMEN LIMITED CLINICAL INFORMATION: Other specified postprocedural states. Complains of fullness to suprapubic region. Rule out seroma. COMPARISON: CT abdomen and pelvis 03/19/2023. Ultrasound abdomen complete 05/05/2021 and 01/05/2021. X-ray abdomen 10/25/2014. X-ray KUB 05/06/2014. TECHNIQUE: Real-time imaging of the suprapubic region midline to left lower quadrant. FINDINGS: In midline suprapubic region, there is a heterogeneous serpiginous soft tissue area concordant with patient's history of tummy tuck. No focal mass, fluid collection/abscess or increased vascularity seen. No abnormal vascularity seen either. US/US abdomen limited IMPRESSION: Heterogeneous serpiginous edematous area in the midline suprapubic region of the abdominal wall deep to the skin and subcutaneous tissue consistent with postoperative changes from tummy tuct. There is no suspicion for abscess, fluid collection or increased vascularity.
== END 2023-06-01 12:02 | disposition home or self-care (01) ==
LOC: HO.US 12:01
PROVIDERS: PCP Internal Medicine; Visit Provider Physician Assistant Surgical
DX: Z98.890 Other specified postprocedural states (principal)
CPT/HCPCS: 76705

== ENCOUNTER 2023-06-13 14:49 | Outpatient (REF) | payer OTHER, SELFPAY ==
[2023-06-13 18:57] LABS: CT PCR NOT DETECTED (Not Detect.); NG PCR NOT DETECTED (Not Detect.)
[2023-06-14 11:39] LABS: BV Int Neg Control Negative (Negative); BV Int Pos Control Positive (Positive)
[2023-06-16 03:34] LABS: HPV mRNA E6/E7 rflx Not Detected (Not Detected)
== END 2023-06-13 14:50 | disposition home or self-care (01) ==
LOC: HO.LNP 14:49
PROVIDERS: PCP Internal Medicine; Visit Provider Obstetrics & Gynecology
DX: Z12.4 Encounter for screening for malignant neoplasm of cervix (principal); Z11.51 Encounter for screening for human papillomavirus (HPV); R10.2 Pelvic and perineal pain; N39.0 Urinary tract infection, site not specified; N93.9 Abnormal uterine and vaginal bleeding, unspecified; N76.0 Acute vaginitis; Z20.2 Contact with and (suspected) exposure to infections with a predominantly sexual mode of transmission
CPT/HCPCS: 0353U; 87086; 87480; 87510; 87624; 87660; 88142; 99202

== ENCOUNTER 2023-06-13 14:49 | Outpatient (AMB) | payer OTHER, SELFPAY ==
[2023-06-13 15:00] VITALS: BP 126/80; BMI 27.5
--- NOTE | 2023-06-13 15:00 | MHC.OFFVIS ---
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 Hyperplasia of the breast, last mammogram was in 10/23 was BI-RADS 2, Pierre Hadley is model lifetime breast cancer risk is 33%. Last co testing was many years ago. The patient is complaining of bilateral vulvar itching associated was whitish discharge with no vaginal odor PFSH Medical History (Updated 06/13/23 @ 15:40 by Toby Vila MD) Atypical ductal hyperplasia of breast Panniculitis Postgastrectomy malabsorption Insomnia GERD (gastroesophageal reflux disease) BMI 33.0-33.9,adult BMI 33.0-33.9,adult BMI 36.0-36.9,adult Smoking Hypertension Steatosis, liver BMI 37.0-37.9, adult Obesity Hx of renal calculi COPD (chronic obstructive pulmonary disease) Back pain Sleep apnea Asthma History of anxiety Hx of bipolar disorder Depression Chronic pain syndrome Gouty arthritis of both knees Gout Surgical History History of sleeve gastrectomy Hx of tubal ligation History of esophagogastroduodenoscopy (EGD) H/O colonoscopy History of lumpectomy of right breast Hx of arthroscopic knee surgery Family History Mother Emphysema of lung Father Lung cancer Brother No problems noted. Brother No problems noted. Brother No problems noted. Brother No problems noted. Daughter No problems noted. Daughter No problems noted. Son No problems noted. 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) Alcohol intake: never Patient Tobacco Use Status: Former Tobacco user Quit Date: 2015 Tobacco use type: Cigarette Second Hand Smoke Exposure: No Substance Use Type: Opiates service: No Current occupational status: disabled Review of Systems Const All systems reviewed & are unremarkable except as noted in HPI and below Physical Exam Vital Signs: BMI result Body Mass Index 27.5 Chest Chest palpation & inspection: normal inspection of the chest Breast/axilla inspection: normal inspection of the breasts Breast/axilla palpation: normal palpation of the breasts General: Yes no CVA tenderness External Female Exam: normal external appearance and normal appearance of the urethra Speculum Exam - Vagina: normal appearance of the vagina, normal palpation, no lesions and no masses Speculum Exam - Cervix: normal appearance of the cervix, normal palpation, no lesions, no masses and nontender Bimanual exam- vagina & uterus: normal bimanual exam, normal palpation, uterine size normal, normal palpation, uterine shape normal, No Cervical tenderness present and non-tender Bimanual Exam- Adnexa, other: normal adnexae Back/Spine/Pelvis Back: no CVA tenderness Assessment & Plan Assessment & Plan (1) Abnormal uterine bleeding (AUB): Comment: On tamoxifen Code(s): N93.9 - Abnormal uterine and vaginal bleeding, unspecified Plan: Co testing done, GC and chlamydia taken CBC, TSH, prolactin, HCG, and pelvic ultrasound ordered. Discussed with the patient the different causes of abnormal bleeding including thyroid disorders, uterine and ovarian pathology, endometrial hyperplasia, carcinoma and other potential causes. Discussed with the patient the work up including CBC (to r/o anemia), TSH, pelvic Ultrasound, endometrial biopsy to r/o endometrial pathology. All questions answered and the patient verbalized understanding. Instructed the patient to schedule an appointment for an endometrial biopsy in 2 weeks. (2) At risk for breast cancer: Comment: History of atypical ductal hyperplasia of the breast on tamoxifen Code(s): Z91.89 - Other specified personal risk factors, not elsewhere classified Plan: Discussed with the patient her increased risk for Breast ca. The lifetime risk of breast cancer based on the Tyrer-Cuzick Model is 33% Recommended Intensification of breast Cancer screening with annual MRI breast in addition to annual mammogram and MRI alternating every 6 months. Mammogram done recently , Breast MRI ordered Will refer to Dr Cannon All questions answered, the patient verbalized understanding and agreed with the plan (3) Pelvic pain: Code(s): R10.2 - Pelvic and perineal pain Plan: Urine dip done in the office was negative. GC and chlamydia taken and pelvic ultrasound ordered. Discussed with the patient the differential diagnosis of pelvic pain including but not limited to adnexal, uterine masses, pelvic infections (PID), GI the (Irritable bowel syndrome, diverticulitis, others), musculoskeletal, myofascial pain abdominal wall , adhesions, endometriosis, psychological and others causes. Will check results and treat accordingly. All questions answered, the patient verbalized understanding. Instructed the patient to schedule follow-up appointment in 2 weeks (4) Vulvovaginitis: Code(s): N76.0 - Acute vaginitis Plan: GC/CT, Bacterial Vaginosis panel taken, Terazol 0.8% q.h.s. for 3 days was sent to the patient's pharmacy. The patient was instructed to call if symptoms don't improve in 48 hours. Orders: Orders HCG Quantitative Today N93.9 - Abnormal uterine and vaginal bleeding, unspecified Prolactin Today N93.9 - Abnormal uterine and vaginal bleeding, unspecified Complete Blood Count no Diff Today N93.9 - Abnormal uterine and vaginal bleeding, unspecified MR breast BI wo/w con Today Z91.89 - Other specified personal risk factors, not elsewhere classified CT NG by PCR Today N76.0 - Acute vaginitis, N93.9 - Abnormal uterine and vaginal bleeding, unspecified, R10.2 - Pelvic and perineal pain Bacterial Vaginosis Panel Today N76.0 - Acute vaginitis, N93.9 - Abnormal uterine and vaginal bleeding, unspecified, R10.2 - Pelvic and perineal pain Urine Culture Today N39.0 - Urinary tract infection, site not specified TSH reflex Free T4 Today N93.9 - Abnormal uterine and vaginal bleeding, unspecified US pelvic and transvaginal Today N93.9 - Abnormal uterine and vaginal bleeding, unspecified Pap Smear Today N76.0 - Acute vaginitis, N93.9 - Abnormal uterine and vaginal bleeding, unspecified, R10.2 - Pelvic and perineal pain Referrals General Surgery Referral Z91.89 - Other specified personal risk factors, not elsewhere classified Medications: New clotrimazole-betamethasone 1-0.05 % 1 appl topical BID 5 days 45 grams 0RF terconazole 0.8% 1 appful vaginal BEDTIME 3 days 20 grams 0RF Coding Level of Care Code New Pt Level 3 (43216) Diagnoses Abnormal uterine bleeding (AUB) N93.9 At risk for breast cancer Z91.89 Pelvic pain R10.2 Vulvovaginitis N76.0
== END 2023-06-13 15:52 | disposition home or self-care (01) ==
PROVIDERS: PCP Internal Medicine; Visit Provider Obstetrics & Gynecology
DX: N93.9 Abnormal uterine and vaginal bleeding, unspecified (principal); Z91.89 Other specified personal risk factors, not elsewhere classified; R10.2 Pelvic and perineal pain; N76.0 Acute vaginitis
CPT/HCPCS: 99203

== ENCOUNTER 2023-06-13 15:45 | Outpatient (REF) | payer OTHER, SELFPAY ==
[2023-06-13 17:28] LABS: Hematocrit 35.6 % (37.0-47.0); Hemoglobin 11.2 g/dl (12.0-16.0); Mean Corpuscular HGB Conc 31.5 g/dl (31.0-35.0); Mean Corpuscular Hemoglobin 25.6 pg (27.0-33.0); Mean Corpuscular Volume 81.3 fL (80.0-98.0); Mean Platelet Volume 10.5 fL (9.4-12.3); Platelet Count 263 X10*3/uL (160-400); Red Blood Count 4.38 X10*6/uL (4.20-5.50); Red Cell Distribution Width 14.8 % (11.0-16.0); White Blood Count 4.3 X10*3/uL (4.8-10.8)
[2023-06-13 18:24] LABS: HCG Quantitative < 2 mIU/mL; TSH reflex Free T4 1.27 uIU/mL (0.32-4.0)
[2023-06-15 01:59] LABS: Prolactin 5.3 ng/mL
== END 2023-06-13 15:46 | disposition home or self-care (01) ==
LOC: HO.LAB 15:45
PROVIDERS: PCP Internal Medicine; Visit Provider Obstetrics & Gynecology
DX: N93.9 Abnormal uterine and vaginal bleeding, unspecified (principal)
CPT/HCPCS: 36415; 84146; 84443; 84702; 85027

== ENCOUNTER 2023-06-20 14:48 | Outpatient (AMB) | payer OTHER, SELFPAY ==
--- NOTE | 2023-06-20 15:31 | MHC.OFFVIS ---
Intake Vital Signs 06/20/23 15:32 Height 5 ft 4 in Weight 157 lb BMI 26.9 BP 128/78 Blood Pressure Location Lt brachial Position Sitting Respiration 16 Pulse 66 Pulse Source Pulse Oximeter Pulse Oximetry (%) 99 Oxygen Delivery Method Room Air Intake Visit Reasons: Increasing Pain/ Follow Up/Confirmed Allergies No Known Allergies [No Known Allergies*] Allergy (Verified 06/20/23 15:31) HPI HPI Comments History of Present Illness Details Christina is back in my office complaining on pain in bilateral knees again. The conversation was performed with the help of Juanita Knox unclaimed property officer MARGO who is certified cement truck loader . She continues to endorse pain in bilateral knees however she reports pain in the left knee stronger than pain in the right knee. We discussed possibility of treatment of her pain again. She finally decided to go for genicular nerve diagnostic injection on the left. Of note this patient went for gastric bypass surgery and lost a lot of weights. That should be easier now in her knee with that weight loss. I will schedule repeat of the left diagnostic genicular nerve block for this patient. She received one in the past with very good results however it was long time ago.. Prior: On the original visit here she reported pain in bilateral knees more on the left and less on the right. It was on 08/12/2020. She was under rheumatology observation and received allopurinol with no improvement. She was morbidly obese on the 1st visit. Because she was complaining on the pain in the left knee more than the pain in the right knee and because she was interested in cooled radiofrequency ablation of the left knee I offered her genicular nerve block on the left knee. She had gastric bypass surgery performed on 06/14/[address] Dozier. On her 2nd visit here in March of 2022 she presented with swollen knee on the right. She was under physical therapy at that time which was ordered for her by primary care physician. She mentioned acute trauma of the right knee in November. She reported that physical therapy was moderately helpful for pain control in the knee. I suggested that she should continue physical therapy and home exercise program. On the x-ray of the right knee performed in November of 2021 the were very advanced osteo arthritic changes as dictated below. At the time of the visit the pain in the right knee would not be considered acute pain because it was more than 3 months after acute trauma. In June of 2022 she went for diagnostic left genicular nerve block which resulted in significant improvement in pain and patient was offered radiofrequency ablation of the left knee. She was a very much satisfied with results of the diagnostic injection she reported 100% pain relief for the 1st 3 days after the procedure on 06/08/2022. After that she disappeared, no showed for the next appointment. After that she came to my office with the pain in the right knee after trauma. She fell in [employer]. She was in the process of litigation with [employer]. [facility] Medical History (Updated 06/21/23 @ 08:13 by Richard Orellana MD) Left knee pain Atypical ductal hyperplasia of breast Panniculitis Postgastrectomy malabsorption Insomnia GERD (gastroesophageal reflux disease) BMI 33.0-33.9,adult BMI 33.0-33.9,adult BMI 36.0-36.9,adult Smoking Hypertension Steatosis, liver BMI 37.0-37.9, adult Obesity Hx of renal calculi COPD (chronic obstructive pulmonary disease) Back pain Sleep apnea Asthma History of anxiety Hx of bipolar disorder Depression Chronic pain syndrome Gouty arthritis of both knees Gout Surgical History History of sleeve gastrectomy Hx of tubal ligation History of esophagogastroduodenoscopy (EGD) H/O colonoscopy History of lumpectomy of right breast Hx of arthroscopic knee surgery Family History Mother Emphysema of lung Father Lung cancer Brother No problems noted. Brother No problems noted. Brother No problems noted. Brother No problems noted. Daughter No problems noted. Daughter No problems noted. Son No problems noted. 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) Alcohol intake: never Patient Tobacco Use Status: Former Tobacco user Quit Date: 2015 Tobacco use type: Cigarette Second Hand Smoke Exposure: No Substance Use Type: Opiates service: No Current occupational status: disabled Review of Systems Const All systems reviewed & are unremarkable except as noted in HPI and below Physical Exam Vital Signs: Last Vital Signs Pulse 66 06/20/23 15:32 Resp 16 06/20/23 15:32 BP 128/78 06/20/23 15:32 Pulse Ox 99 06/20/23 15:32 Oxygen Delivery Method Room Air 06/20/23 15:32 BMI result Body Mass Index 26.9 Const General: cooperative, no acute distress and anxious Nutritional Appearance: thin Orientation/consciousness: patient oriented x3 Limitations: language barrier and ambulation with walker Resp Effort & Inspection: normal respiratory effort, able to speak in complete sentences, abnormal respiratory pattern, no audible wheezes, no cough, respiratory effort not decreased, no grunting and not labored Cardio Jugular venous distension: no JVD Back/Spine/Pelvis Other: Patient reports swollen left knee, she endorses that in the past aspiration was done of the inflammatory fluid from the left knee. Neuro General: patient oriented x3 Assessment & Plan Assessment & Plan (1) Right knee pain: Code(s): M25.561 - Pain in right knee (2) Left knee pain: Code(s): M25.562 - Pain in left knee (3) Degenerative arthritis of knee, bilateral: Code(s): M17.0 - Bilateral primary osteoarthritis of knee (4) Arthritis of left knee: Code(s): M17.12 - Unilateral primary osteoarthritis, left knee Plan This patient suffers from left knee osteoarthritis. I offered her infrapatellar saphenous nerve block versus diagnostic genicular nerve block, I also mentioned PRP injection in the left knee. Patient stated she cannot afford PRP injection. Patient does not want to go for infrapatellar saphenous nerve block. She does not want to go for treatment of the PNS therefore. In preparation for the RFA of the left knee I will schedule this patient for repeat genicular nerve block on the left. Coding Level of Care Code Est Pt Level 4 (77739) Diagnoses Right knee pain M25.561 Left knee pain M25.562 Degenerative arthritis of knee, bilateral M17.0 Arthritis of left knee M17.12
[2023-06-20 15:32] VITALS: BP 128/78; PULSE 66; RESP 16; O2SAT 99; BMI 26.9
== END 2023-06-20 15:53 | disposition home or self-care (01) ==
PROVIDERS: PCP Internal Medicine; Visit Provider Anesthesiology
DX: M17.0 Bilateral primary osteoarthritis of knee (principal); M25.561 Pain in right knee; M25.562 Pain in left knee; M17.12 Unilateral primary osteoarthritis, left knee
CPT/HCPCS: 99214

== ENCOUNTER → 2023-06-20 14:48 | Outpatient (BNVA) | payer OTHER, SELFPAY | PROVIDERS: PCP Internal Medicine; Visit Provider Anesthesiology | DX: M17.0 Bilateral primary osteoarthritis of knee (principal); M25.561 Pain in right knee; M25.562 Pain in left knee; M17.12 Unilateral primary osteoarthritis, left knee | CPT/HCPCS: 99212 ==

== ENCOUNTER 2023-06-25 15:06 | Outpatient (REF) | payer OTHER, SELFPAY ==
--- NOTE | ~2023-06-25 | US_ITS ---
EXAMINATION: US PELVIS COMPLETE US PELVIS ENDOVAGINAL CLINICAL INFORMATION: Abnormal uterine and vaginal bleeding COMPARISON: Pelvic ultrasound from 06/08/2020 TECHNIQUE: Transabdominal and transvaginal images of the pelvis were obtained. FINDINGS: UTERUS: Anteverted. Normal size and contour, measuring 8.4 x 4.3 x 4.7 cm (cervix to fundus x AP x transverse). Uniform, homogeneous endometrium measures 1.4 cm in width. RIGHT OVARY: Normal size and echogenicity measuring 2.3 x 1.9 x 2.2 cm, volume 5.0 cm. LEFT OVARY: Normal size and echogenicity measuring 2.2 x 1.2 x 1.9 cm. Left paraovarian versus adnexal cystic focus measuring 0.9 x 0.7 x 1.0 cm. FREE FLUID: No pelvic free fluid. US/US pelvic and transvaginal IMPRESSION: 1. Endometrium measures 14 mm, correlation with phase of menstruation. 2. Left paraovarian versus adnexal cystic focus measuring up to 1.0 cm.
== END 2023-06-25 15:07 | disposition home or self-care (01) ==
LOC: HO.US 15:06
PROVIDERS: PCP Internal Medicine; Visit Provider Obstetrics & Gynecology
DX: N93.9 Abnormal uterine and vaginal bleeding, unspecified (principal)
CPT/HCPCS: 76830; 76856

== ENCOUNTER 2023-06-26 12:59 | Outpatient (AMB) | payer OTHER, SELFPAY ==
--- NOTE | 2023-06-26 13:32 | MHC.OFFVISWM ---
Intake VS Expanded 06/26/23 13:45 Height 5 ft 4 in Weight 158 lb BMI 27.1 BP 120/66 Blood Pressure Location Rt brachial Blood Pressure Position Sitting Pulse 80 Pulse Source Pulse Oximeter Temp 97.7 F Temperature Source Tympanic Pulse Oximetry 98 Oxygen Delivery Method Room Air Body Fat 54.6 Body Fat Percentage 34.6 Free Fat Mass 103.2 Muscle Mass 97.8 Visceral Mass 7.0 Water Mass 73.2 BMR 1,402 Intake Visit Reasons: (OV) PO Panni 01/30/23 Allergies No Known Allergies [No Known Allergies*] Allergy (Verified 06/26/23 13:54) HPI HPI Comments History of Present Illness Details This?is a?52?yo female who is s/p LSG 06/14/2021 and panniculectomy 01/30/2023. Presents for 2 year post op visit. Weight at last visit on 05/02/2023 was 157.2 pounds with a BMI of 27, weight today is 158 pounds, representing a 0.8 pound weight gain with a BMI today of 27.16.? No complaints of nausea, emesis, abdominal pain or reflux, or constipation. Occasional swelling of abdomen near panniculectomy incision Present meal plan includes: 2 shakes, 1 bar or 1 meal but feels like her face looks too thin All meals last 20 - 30 minutes and does not drink and eat at the same time. Exercise routine includes: has been trying to weight train upper arms, uses bike Did the patient ever have any of these conditions and are they resolved or still being treated? GERD: omeprazole IRVIN:? never DM:? never HTN:? HCTZ Hyperlipidemia:? never Post op complications:? none Pt reports some rashes of upper arms when skin rubs against her torso. [facility] Medical History (Updated 06/21/23 @ 08:13 by Richard Orellana MD) Left knee pain Atypical ductal hyperplasia of breast Panniculitis Postgastrectomy malabsorption Insomnia GERD (gastroesophageal reflux disease) BMI 33.0-33.9,adult BMI 33.0-33.9,adult BMI 36.0-36.9,adult Smoking Hypertension Steatosis, liver BMI 37.0-37.9, adult Obesity Hx of renal calculi COPD (chronic obstructive pulmonary disease) Back pain Sleep apnea Asthma History of anxiety Hx of bipolar disorder Depression Chronic pain syndrome Gouty arthritis of both knees Gout Surgical History History of sleeve gastrectomy Hx of tubal ligation History of esophagogastroduodenoscopy (EGD) H/O colonoscopy History of lumpectomy of right breast Hx of arthroscopic knee surgery Family History Mother Emphysema of lung Father Lung cancer Brother No problems noted. Brother No problems noted. Brother No problems noted. Brother No problems noted. Daughter No problems noted. Daughter No problems noted. Son No problems noted. 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) Alcohol intake: never Patient Tobacco Use Status: Former Tobacco user Quit Date: 2015 Tobacco use type: Cigarette Second Hand Smoke Exposure: No Substance Use Type: Opiates service: No Current occupational status: disabled Physical Exam Const General: cooperative, comfortable and no acute distress Orientation/consciousness: patient oriented x3 GI Other: soft, nontender, nondistended, incisions well healed, no hernia, no masses panniculectomy incision well healed, no erythema, no palpable collection or edema, area is soft Neuro General: patient oriented x3 Results Reviewed Results Reviewed: Ordering Physician: Branden Ortiz Date of Service: 06/01/23 Procedure(s): US abdomen limited Accession Number(s): [id number] cc: Blessing Cummins MD; Branden Ortiz~ EXAMINATION: US ABDOMEN LIMITED CLINICAL INFORMATION: Other specified postprocedural states. Complains of fullness to suprapubic region. Rule out seroma. COMPARISON: CT abdomen and pelvis 03/19/2023. Ultrasound abdomen complete 05/05/2021 and 01/05/2021. X-ray abdomen 10/25/2014. X-ray KUB 05/06/2014. TECHNIQUE: Real-time imaging of the suprapubic region midline to left lower quadrant. FINDINGS: In midline suprapubic region, there is a heterogeneous serpiginous soft tissue area concordant with patient's history of tummy tuck. No focal mass, fluid collection/abscess or increased vascularity seen. No abnormal vascularity seen either. US/US abdomen limited IMPRESSION: Heterogeneous serpiginous edematous area in the midline suprapubic region of the abdominal wall deep to the skin and subcutaneous tissue consistent with postoperative changes from tummy tuct. There is no suspicion for abscess, fluid collection or increased vascularity. Assessment & Plan Assessment & Plan (1) S/P panniculectomy: Code(s): Z98.890 - Other specified postprocedural states (2) S/P laparoscopic sleeve gastrectomy: Code(s): Z98.84 - Bariatric surgery status (3) Overweight: Code(s): E66.3 - Overweight Plan Cleared for all exercise, no restrictions. Will refill clotrimazole ointment for skin irritation of upper arms. Will schedule next visit with RD to discuss maintainance meal plans as pt does not want to lose any additional weight. Discussed that panniculectomy will continue to heal and swelling should continue to decrease with time. Pt can continue to wear compressive garments for comfort. No signs of infection or fluid collection and no evidence of such on US. Patient is overweight and is not considered stable at this time. I spent a total of 30 minutes reviewing/updating records, examining the patient and counseling the patient on weight management as detailed above. Medications: Refilled clotrimazole 1% 1 appl topical BID 45 grams 3RF Coding Level of Care Code Est Pt Level 4 (93493) Diagnoses S/P panniculectomy Z98.890 S/P laparoscopic sleeve gastrectomy Z98.84 Overweight E66.3
[2023-06-26 13:45] VITALS: BP 120/66; PULSE 80; TEMP 36.5; O2SAT 98; BMI 27.1
== END 2023-06-26 14:04 | disposition home or self-care (01) ==
PROVIDERS: PCP Internal Medicine; Visit Provider Physician Assistant Surgical
DX: E66.3 Overweight (principal); Z68.27 Body mass index [BMI] 27.0-27.9, adult; Z90.3 Acquired absence of stomach [part of]; Z98.84 Bariatric surgery status
CPT/HCPCS: 99214

== ENCOUNTER → 2023-06-26 12:59 | Outpatient (BNVA) | payer OTHER, SELFPAY | PROVIDERS: PCP Internal Medicine; Visit Provider Physician Assistant Surgical | DX: M79.3 Panniculitis, unspecified (principal); K90.49 Malabsorption due to intolerance, not elsewhere classified; E66.3 Overweight; Z68.27 Body mass index [BMI] 27.0-27.9, adult; Z90.3 Acquired absence of stomach [part of] | CPT/HCPCS: 99212 ==

== ENCOUNTER 2023-06-27 12:21 | Outpatient (AMB) | payer OTHER, SELFPAY ==
[2023-06-27 12:53] VITALS: BP 118/84; PULSE 72; O2SAT 96; BMI 27.4
--- NOTE | 2023-06-27 12:53 | A.OFFVIS_ITS ---
Intake Vital Signs 06/27/23 12:53 Height 5 ft 4 in Weight 159 lb 6 oz BMI 27.4 BP 118/84 Blood Pressure Location Rt brachial Position Sitting Pulse 72 Pulse Source Pulse Oximeter Pulse Oximetry (%) 96 Oxygen Delivery Method Room Air Intake Visit Reasons: NPV / IRVIN - Confirmed Intake Note: Pt presents to the office today for a new patient visit for IRVIN. Pt states she has difficulty sleeping at night. Pt states she needs medication to help her sleep at night. Pt states she wakes up gasping for air and pt states her states she snores really loudly. Pt states she is tired during the day but she can't take naps. Allergies No Known Allergies [No Known Allergies*] Allergy (Verified 06/27/23 12:55) HPI HPI Comments History of Present Illness Details 52 y/o female patient presents for new i n-person visit to manage sleep apnea. Pt reports that she was diagnosed with IRVIN about 5-6 years ago and has been using CPAP. She used CPAP nightly, and slept well 10-12 hrs. Her daytime sleepiness has improved. Pt states that she was told that her CPAP was old and not good to use it, so she throw it out. Pt reports snoring, gasping arousals, having disrupted sleep. She feels chocking and scare to sleep. She had bariatic surgery last year and lost 75 lb. Sleep questionnaire: Have you ever been diagnosed with a sleep disorder? Yes, IRVIN. Have you ever had a sleep study in the past? Yes. Have you ever been treated for a sleep disorder? Yes. CPAP. Do you take medications for a sleep disorder? Temazepam, seroquel and clonazepam. Do you snore? Yes. Do you wake up gasping at night? Yes. Do you have episodes of apneas? Yes. If yes, are they witnessed? Yes. Do you have episodes of nocturnal chest pain or dyspnea? Yes. Do you have difficulty initiating sleep? Yes. Do you have difficulty maintaining sleep? Yes. Do you wake up tired? Yes. Do you have headaches upon awakening? No. Do you wake up with dry mouth or throat? Yes. Do you have GERD? Yes. Do you have nocturia? No. Do you have nocturnal leg cramps? Yes. Do you have symptoms of restless legs? No. Do you act out your dreams? No. Sleep hygiene questionnaire: What is your usual sleep routine? Usual bedtime is at 9 pm; Usual wake up time is at 7-9 am. Do you take naps? No. Is your sleep environment cool, dark, and quiet? Yes. Do you exercise? Yes, stationary bike, weight training, three times a week. Do you take caffeine or other stimulants? Three cups of coffee. Do you use electronics in bed? Yes. What is your work schedule? n/a. Hypersomnolence questionnaire: Do you have daytime tiredness or fatigue? Yes. Do you easily fall asleep when inactive? Yes. Have you ever had episodes of sudden weakness? No. Have you ever had episodes of sudden weakness associated with strong emotions? No. PFSH Medical History Left knee pain Atypical ductal hyperplasia of breast Panniculitis Postgastrectomy malabsorption Insomnia GERD (gastroesophageal reflux disease) BMI 33.0-33.9,adult BMI 33.0-33.9,adult BMI 36.0-36.9,adult Smoking Hypertension Steatosis, liver BMI 37.0-37.9, adult Obesity Hx of renal calculi COPD (chronic obstructive pulmonary disease) Back pain Sleep apnea Asthma History of anxiety Hx of bipolar disorder Depression Chronic pain syndrome Gouty arthritis of both knees Gout Surgical History History of sleeve gastrectomy Hx of tubal ligation History of esophagogastroduodenoscopy (EGD) H/O colonoscopy History of lumpectomy of right breast Hx of arthroscopic knee surgery Family History Mother Emphysema of lung Father Lung cancer Brother No problems noted. Brother No problems noted. Brother No problems noted. Brother No problems noted. Daughter No problems noted. Daughter No problems noted. Son No problems noted. 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) Alcohol intake: never Patient Tobacco Use Status: Former Tobacco user Quit Date: 2015 Tobacco use type: Cigarette Second Hand Smoke Exposure: No Substance Use Type: Opiates service: No Current occupational status: disabled Physical Exam Vital Signs: Last Vital Signs Pulse 72 06/27/23 12:53 BP 118/84 06/27/23 12:53 Pulse Ox 96 06/27/23 12:53 Oxygen Delivery Method Room Air 06/27/23 12:53 BMI result Body Mass Index 27.4 Const General: cooperative Resp Effort & Inspection: normal respiratory effort and able to speak in complete sentences Psych Appearance: grossly normal Mental Status: mental status grossly normal Speech and movement: Normal speech and movement present Affect: normal affect Attitude: cooperative Assessment & Plan Assessment & Plan (1) Sleep apnea with use of continuous positive airway pressure (CPAP): Code(s): G47.30 - Sleep apnea, unspecified Plan Pt is advised to undergo home sleep study to assess for sleep apnea. Will f/u with pt after study to discuss results and appropriate treatment options. Advised patient to sleep on her side. Pt to call with any worsening concerns or questions. Coding Level of Care Code New Pt Level 3 (55412) Diagnoses Sleep apnea with use of continuous positive airway pressure (CPAP) G47.30
== END 2023-06-27 13:33 | disposition home or self-care (01) ==
PROVIDERS: PCP Internal Medicine; Visit Provider Nurse Practitioner Family
DX: G47.30 Sleep apnea, unspecified (principal)
CPT/HCPCS: 99203

== ENCOUNTER → 2023-06-27 12:21 | Outpatient (BNVA) | payer OTHER, SELFPAY | PROVIDERS: PCP Internal Medicine; Visit Provider Nurse Practitioner Family ==

== ENCOUNTER → 2023-07-16 13:54 | Outpatient (BNVA) | payer OTHER, SELFPAY | PROVIDERS: PCP Internal Medicine; Visit Provider Dietitian, Registered | DX: E66.9 Obesity, unspecified (principal); Z68.26 Body mass index [BMI] 26.0-26.9, adult | CPT/HCPCS: 97803 ==

== ENCOUNTER 2023-07-24 06:12 | Outpatient (REF) | payer OTHER, SELFPAY ==
--- NOTE | ~2023-07-24 | FL_ITS ---
EXAMINATION: XR FLUOROSCOPY WITH IMAGES CLINICAL INFORMATION: Pain in left knee. Left knee injection. COMPARISON: None available. TECHNIQUE: Fluoroscopy Supervised By: Dr. Richard Orellana. Fluoroscopy Time: 0.2 minutes. Cumulative Dose: 1.65 mGy. DAP: 0.0286 Gycm2. Images: 3. FINDINGS: Images demonstrate needle placement adjacent to the distal left femur and proximal medial left tibia for geniculate nerve block. FL/FL guidance in treatment room IMPRESSION: Fluoroscopy guidance for pain management procedure
== END 2023-07-24 06:13 | disposition home or self-care (01) ==
LOC: CF 06:12
PROVIDERS: Visit Provider Anesthesiology
DX: M17.12 Unilateral primary osteoarthritis, left knee (principal)
CPT/HCPCS: 64454; J2795

== ENCOUNTER 2023-07-24 13:18 | Outpatient (AMB) | payer OTHER, SELFPAY ==
--- NOTE | 2023-07-24 13:22 | MHC.OFFVIS ---
Intake Vital Signs 07/24/23 13:28 07/24/23 14:10 Height 5 ft 4 in 5 ft 4 in Weight 157 lb 157 lb BMI 26.9 26.9 BP 116/70 114/68 Blood Pressure Location Lt brachial Lt brachial Position Sitting Sitting Respiration 18 16 Pulse 66 64 Pulse Source Pulse Oximeter Pulse Oximeter Pulse Oximetry (%) 97 98 Oxygen Delivery Method Room Air Room Air Comment Pre-op Post-Op Intake Visit Reasons: LEFT DIAGNOSTIC GENICULAR NERVE BLOCK Allergies No Known Allergies [No Known Allergies*] Allergy (Verified 06/27/23 12:55) [facility] Medical History Left knee pain Atypical ductal hyperplasia of breast Panniculitis Postgastrectomy malabsorption Insomnia GERD (gastroesophageal reflux disease) BMI 33.0-33.9,adult BMI 33.0-33.9,adult BMI 36.0-36.9,adult Smoking Hypertension Steatosis, liver BMI 37.0-37.9, adult Obesity Hx of renal calculi COPD (chronic obstructive pulmonary disease) Back pain Sleep apnea Asthma History of anxiety Hx of bipolar disorder Depression Chronic pain syndrome Gouty arthritis of both knees Gout Surgical History (Updated 07/02/23 @ 12:53 by RAFIQ Wilburn) History of sleeve gastrectomy (06/14/21) Hx of tubal ligation History of esophagogastroduodenoscopy (EGD) (2014) H/O colonoscopy (2014) History of lumpectomy of right breast (06/28/18) Hx of arthroscopic knee surgery Family History (Updated 07/02/23 @ 12:59 by RAFIQ Wilburn) Mother Emphysema lung Father Lung cancer Brother No problems noted. Brother No problems noted. Brother No problems noted. Brother No problems noted. 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) Alcohol intake: never Patient Tobacco Use Status: Former Tobacco user Quit Date: 2015 Tobacco use type: Cigarette Second Hand Smoke Exposure: No Substance Use Type: Opiates service: No Current occupational status: disabled Physical Exam Vital Signs: Last Vital Signs Pulse 64 07/24/23 14:10 Resp 16 07/24/23 14:10 BP 114/68 07/24/23 14:10 Pulse Ox 98 07/24/23 14:10 Oxygen Delivery Method Room Air 07/24/23 14:10 BMI result Body Mass Index 26.9 Assessment & Plan Assessment & Plan (1) Arthritis of left knee: Code(s): M17.12 - Unilateral primary osteoarthritis, left knee (2) Left knee pain: Code(s): M25.562 - Pain in left knee Plan left diagnostic genicular nerve block. Informed consent was explained to the patient. All questions were explained and answered. The patient was taken inside the operating room. The patient was positioned supine on operating table with her left leg elevated on a gel bin. Time-out was performed delineating correct site, side, the nature of the procedure, patient's allergy, preoperative antibiotic if needed. All operating room staff was participating in OR time-out procedure. C-arm was brought over the operating field and picture of the left knee was demonstrated on the screen. Anterolateral and anteromedial surfaces of the knee as well as lower leg and the lower thigh were prepped with chloroprep and draped with utility towels. The point of interest were delineated for: FOR: superior lateral genicular nerve (branch of lateral femoral cutaneous nerve) as the connection of the metaphysis of theright femur with corresponding diaphysis on the lateral silhouette of the femur distal bone, For superior medial genicular nerve (suprapatellar saphenous nerve) the point of interest was delineated is the connection of metaphysis of left femur with corresponding diaphysis on the medial silhouette on the femoral distal bone. For inferior medial genicular nerve (infrapatellar saphenous nerve) the point of interest was delineated as connection of metaphysis of the proximal tibia on the medial side with corresponding diaphysis of the same bone. The projections of the points of interest on anterior surface of the left knee was injected with small amount of lidocaine 2% 1-to 2 ml. After that to needles 22 gauge 3-1/2 inch long were driven to were the point of interest in tunnel vision fashion. When the needle gently contacted the bones the C arm view was turned lateral , care was taken to superimpose condyles of the knee. With condyles superimpsed the needles were adjusted the way the tips of the needle positioned at the middle of the shaft of the bone. After that injection of ropivacaine o.5% 1 to 1.5 mls was performed at each needle location. the needles were removed and bandaids were applied. the patient tolerated the procedure very well. Orders: Orders FL guidance in treatment room 07/24/23 M25.562 - Pain in left knee Coding Level of Care Code Procedure Only Diagnoses Arthritis of left knee M17.12 Left knee pain M25.562
[2023-07-24 13:28] VITALS: BP 116/70; PULSE 66; RESP 18; O2SAT 97; BMI 26.9
[2023-07-24 14:10] VITALS: BP 114/68; PULSE 64; RESP 16; O2SAT 98; BMI 26.9
== END 2023-07-24 14:04 | disposition home or self-care (01) ==
LOC: HO.PMCPRC 13:18
PROVIDERS: PCP Internal Medicine; Visit Provider Anesthesiology
DX: M17.12 Unilateral primary osteoarthritis, left knee (principal); M25.562 Pain in left knee
CPT/HCPCS: 64454

== ENCOUNTER 2023-08-02 12:45 | Outpatient (AMB) | payer OTHER, SELFPAY ==
--- NOTE | 2023-08-02 12:52 | A.OFFVIS_ITS ---
Intake Vital Signs 08/02/23 13:00 Height 5 ft 4 in Weight 166 lb 6 oz BMI 28.6 BP 124/78 Blood Pressure Location Lt brachial Position Sitting Pulse 70 Intake Visit Reasons: breast exam ADH surgery 2018 [facility] Intake Note: Patient is seen in office for evaluation and treatment of the breast, following ADH 2018. 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 Present Accompanied by: Self / Same As Patient Allergies No Known Allergies [No Known Allergies*] Allergy (Verified 08/02/23 12:54) Medication List - Last Reconciled 08/02/23 by Herrera Cannon MD albuterol sulfate 90 mcg/actuation 1 inh PO Q4H PRN [biotin ] bisacodyl (Dulcolax (bisacodyl)) 10 mg [place] DAILY PRN buprenorphine-naloxone 8-2 mg (Suboxone) 1 strip sublingual BID cholecalciferol (vitamin D3) (Vitamin D3) 1 tab PO DAILY clonazepam 1 mg PO QAM clonazepam (Klonopin) 2 mg PO BEDTIME clotrimazole 1% 1 appl topical BID clotrimazole-betamethasone 1-0.05 % 1 appl topical BID 5 days [collagen (bovine) ] [cranberry ] docusate sodium (Colace) 100 mg PO DAILY doxycycline monohydrate 100 mg PO BID 14 days hydrochlorothiazide 12.5 mg DAILY inulin 2 grams PO DAILY ipratropium-albuterol 0.5 mg-3 mg(2.5 mg base)/3 mL 3 mL PO QID [Metamucil ] multivitamin 1 tab PO DAILY omeprazole 1 cap PO DAILY pantoprazole 40 mg PO DAILY polyethylene glycol 3350 (Miralax) 17 grams PO DAILY quetiapine 1 tab PO BEDTIME sucralfate (Carafate) 10 mL PO BID tamoxifen 1 tab PO DAILY temazepam 30 mg PO BEDTIME terconazole 0.8% 1 appful vaginal BEDTIME 3 days vitamin E (dl, acetate) 180 mg PO BEDTIME HPI HPI Comments History of Present Illness Details 52-year-old female patient returning for follow-up breast examination after previous atypical ductal hyperplasia excision in 2018. She was subsequently followed by Dr. Fleming and placed on tamoxifen for a total of 5 years. She tolerated this well. Unfortunately she was lost to follow-up at our office and never returned routine breast examination. She was recently seen by Dr. Vila and breast follow-up recommended. A breast MRI was requested however has not been obtained as of yet. Her last mammogram of 10/31/2022 revealed no mammographic evidence of malignancy (BI-RADS 1). Her Tyrer-Cuzick remaining lifetime risk of breast cancer was calculated at 33%. She feels well and denies any ongoing breast symptoms. She does occasionally notes some bilateral breast pain which moves around but denies any palpable mass, skin change, nipple discharge, or enlarged lymph nodes. Her family history is negative for breast cancer. [facility] Medical History Left knee pain Atypical ductal hyperplasia of breast Panniculitis Postgastrectomy malabsorption Insomnia GERD (gastroesophageal reflux disease) BMI 33.0-33.9,adult BMI 33.0-33.9,adult BMI 36.0-36.9,adult Smoking Hypertension Steatosis, liver BMI 37.0-37.9, adult Obesity Hx of renal calculi COPD (chronic obstructive pulmonary disease) Back pain Sleep apnea Asthma History of anxiety Hx of bipolar disorder Depression Chronic pain syndrome Gouty arthritis of both knees Gout Surgical History History of sleeve gastrectomy (06/14/21) Hx of tubal ligation History of esophagogastroduodenoscopy (EGD) (2014) H/O colonoscopy (2014) History of lumpectomy of right breast (06/28/18) Hx of arthroscopic knee surgery Family History Mother Emphysema lung Uterine cancer Father Lung cancer Brother No problems noted. Brother No problems noted. Brother No problems noted. Brother No problems noted. 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) Alcohol intake: never Patient Tobacco Use Status: Former Tobacco user Quit Date: 2015 Tobacco use type: Cigarette Second Hand Smoke Exposure: No Substance Use Type: Opiates service: No Current occupational status: disabled Review of Systems Const All systems reviewed & are unremarkable except as noted in HPI and below Denies chills, Denies fever(s), Denies headache(s), Denies poor appetite and Denies weakness ENT Denies headache(s) Card Denies chest pain, Denies irregular heart rhythm, Denies palpitations and Denies dyspnea Resp Denies cough, Denies excessive phlegm production and Denies dyspnea GI Denies abdominal pain, Denies bloating, Denies change in bowel habits, Denies constipation, Denies heartburn, Denies diarrhea, Denies nausea and Denies vomiting Denies urinary frequency and Denies nipple discharge Musc Denies back pain, Denies muscle weakness and Denies numbness Skin/Breast Denies breast swelling, Denies breast skin changes, Reports breast pain, Denies breast mass, Denies changing lesions, Denies nipple discharge and Denies unusual bruising Neuro Denies headache(s), Denies numbness, Denies paresthesias and Denies weakness Psych Denies anxiety and Denies depression Endo Denies palpitations Michael/Lymph Denies lymphadenopathy Physical Exam Vital Signs: Last Vital Signs Pulse 70 08/02/23 13:00 BP 124/78 08/02/23 13:00 BMI result Body Mass Index 28.6 Const General: cooperative and no acute distress Nutritional Appearance: well nourished Orientation/consciousness: patient oriented x3 Limitations: no limitations HEENT Head: Yes normocephalic and Yes atraumatic Ears: hearing grossly normal bilaterally Chest Other: Left breast: No skin change, no nipple retraction, no nipple discharge, no palpable mass, no enlarged lymph nodes. Right breast: No skin change, no nipple retraction, no nipple discharge, no palpable mass, no enlarged lymph nodes. Resp Effort & Inspection: normal respiratory effort, no audible wheezes, no cough and no respiratory distress Cardio Jugular venous distension: no JVD GI Inspection: Yes normal to inspection Skin Other: Warm, dry, no rash Neuro General: patient oriented x3 Extrem General: Yes no clubbing, cyanosis or edema Assessment & Plan Assessment & Plan (1) At risk for breast cancer: Comment: History of atypical ductal hyperplasia of the breast on tamoxifen Code(s): Z91.89 - Other specified personal risk factors, not elsewhere classified (2) Atypical ductal hyperplasia of breast: Code(s): N60.99 - Unspecified benign mammary dysplasia of unspecified breast Plan 52-year-old female patient with a prior history of atypical ductal hyperplasia status post lumpectomy 2017. She completed 5 years of tamoxifen and tolerated this fairly well. She complains mainly of back pain but denies any ongoing breast symptoms other than some mild discomfort when her bra is removed. Examination today however reveals no suspicious findings in either breast. I recommended a baseline breast MRI which is scheduled for 08/08/2023. She will be due for mammogram in October 2023. I recommended a follow-up examination in 6 months which was scheduled for 01/31/2024. She is welcome to call sooner for any new concerns. Orders: Orders MR breast BI wo/w con Today N60.99 - Unspecified benign mammary dysplasia of unspecified breast, Z91.89 - Other specified personal risk factors, not elsewhere classified Coding Level of Care Code New Pt Level 4 (68045) Diagnoses At risk for breast cancer Z91.89 Atypical ductal hyperplasia of breast N60.99
[2023-08-02 13:00] VITALS: BP 124/78; PULSE 70; BMI 28.6
== END 2023-08-02 13:22 | disposition home or self-care (01) ==
PROVIDERS: PCP Internal Medicine; Visit Provider Surgery
DX: N60.81 Other benign mammary dysplasias of right breast (principal); Z91.89 Other specified personal risk factors, not elsewhere classified
CPT/HCPCS: 99204

== ENCOUNTER → 2023-08-02 12:45 | Outpatient (BNVA) | payer OTHER, SELFPAY | PROVIDERS: PCP Internal Medicine; Visit Provider Surgery | DX: N60.99 Unspecified benign mammary dysplasia of unspecified breast (principal); Z91.89 Other specified personal risk factors, not elsewhere classified | CPT/HCPCS: 99202 ==

== ENCOUNTER 2023-09-03 14:39 | Outpatient (AMB) | payer OTHER, SELFPAY ==
--- NOTE | 2023-09-03 14:56 | MHC.OFFVISWM ---
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 Allergies No Known Allergies [No Known Allergies*] Allergy (Verified 08/02/23 12:54) Medication List - Last Reconciled 09/03/23 by NAVA Arellano albuterol sulfate 90 mcg/actuation 1 inh PO Q4H PRN [biotin ] bisacodyl (Dulcolax (bisacodyl)) 10 mg [place] DAILY PRN buprenorphine-naloxone 8-2 mg (Suboxone) 1 strip sublingual BID cholecalciferol (vitamin D3) (Vitamin D3) 1 tab PO DAILY clonazepam 1 mg PO QAM clonazepam (Klonopin) 2 mg PO BEDTIME clotrimazole 1% 1 appl topical BID clotrimazole-betamethasone 1-0.05 % 1 appl topical BID 5 days [collagen (bovine) ] [cranberry ] docusate sodium (Colace) 100 mg PO DAILY doxycycline monohydrate 100 mg PO BID 14 days hydrochlorothiazide 12.5 mg DAILY inulin 2 grams PO DAILY ipratropium-albuterol 0.5 mg-3 mg(2.5 mg base)/3 mL 3 mL PO QID [Metamucil ] multivitamin 1 tab PO DAILY omeprazole 1 cap PO DAILY pantoprazole 40 mg PO DAILY polyethylene glycol 3350 (Miralax) 17 grams PO DAILY quetiapine 1 tab PO BEDTIME sucralfate (Carafate) 10 mL PO BID tamoxifen 1 tab PO DAILY temazepam 30 mg PO BEDTIME terconazole 0.8% 1 appful vaginal BEDTIME 3 days vitamin E (dl, acetate) 180 mg PO BEDTIME HPI HPI Comments History of Present Illness Details Patient is a pleasant 52-year-old female who returns to the office today for follow-up. She is status post panniculectomy on 01/30/2023 and sleeve gastrectomy on 06/14/2021. Current weight is 166.2 lb with a BMI of 28.5. Meal plan: 2 shakes Orgain 1 scoop in 8 almond milk meal chicken and salad, not measuring. Exercise: stationary bike at home, none in 1 week [facility] [place] Medical History Left knee pain Atypical ductal hyperplasia of breast Panniculitis Postgastrectomy malabsorption Insomnia GERD (gastroesophageal reflux disease) BMI 33.0-33.9,adult BMI 33.0-33.9,adult BMI 36.0-36.9,adult Smoking Hypertension Steatosis, liver BMI 37.0-37.9, adult Obesity Hx of renal calculi COPD (chronic obstructive pulmonary disease) Back pain Sleep apnea Asthma History of anxiety Hx of bipolar disorder Depression Chronic pain syndrome Gouty arthritis of both knees Gout Surgical History History of sleeve gastrectomy (06/14/21) Hx of tubal ligation History of esophagogastroduodenoscopy (EGD) (2014) H/O colonoscopy (2014) History of lumpectomy of right breast (06/28/18) Hx of arthroscopic knee surgery Family History Mother Emphysema lung Uterine cancer Father Lung cancer Brother No problems noted. Brother No problems noted. Brother No problems noted. Brother No problems noted. 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) Alcohol intake: never Patient Tobacco Use Status: Former Tobacco user Quit Date: 2015 Tobacco use type: Cigarette Second Hand Smoke Exposure: No Substance Use Type: Opiates service: No Current occupational status: disabled Physical Exam Vital Signs: Last Vital Signs Temp 96.7 F L 09/03/23 15:04 Pulse 63 09/03/23 15:04 BP 109/64 09/03/23 15:04 Pulse Ox 94 09/03/23 15:04 Oxygen Delivery Method Room Air 12/04/23 15:04 BMI result Body Mass Index 28.5 Const General: healthy appearing and no acute distress Resp Effort & Inspection: normal respiratory effort Auscultation: clear to auscultation bilaterally Cardio Rate: regular rate Rhythm: regular rhythm GI Auscultation: normal bowel sounds Extrem General: Yes normal to inspection Assessment & Plan Assessment & Plan (1) Overweight: Code(s): E66.3 - Overweight Plan: Discussed with patient avoiding crackers. She will resume a structured meal plan including 2 orgain shakes, 1 scoop each in 8 oz of unsweetened almond milk, 1 celebrate protein bar or Vietnamese yogurt, meal with 7 forks of protein and 7 forks of vegetables. She will resume exercise with her stationary bike attempting a goal of 300 calories per day. Return to clinic 6 weeks. Coding Level of Care Code Est Pt Level 3 (02100) Diagnoses Overweight E66.3
[2023-09-03 15:04] VITALS: BP 109/64; PULSE 63; TEMP 35.9; O2SAT 94; BMI 28.5
== END 2023-09-03 15:33 | disposition home or self-care (01) ==
PROVIDERS: PCP Internal Medicine; Visit Provider Physician Assistant Surgical
DX: E66.3 Overweight (principal)
CPT/HCPCS: 99213

== ENCOUNTER → 2023-09-03 14:39 | Outpatient (BNVA) | payer OTHER, SELFPAY | PROVIDERS: PCP Internal Medicine; Visit Provider Physician Assistant Surgical | DX: E66.3 Overweight (principal); Z68.28 Body mass index [BMI] 28.0-28.9, adult | CPT/HCPCS: 99212 ==

== ENCOUNTER 2023-11-20 13:37 | Outpatient (REF) | payer OTHER, SELFPAY ==
--- NOTE | ~2023-11-20 | US_ITS ---
EXAMINATION: MM DIAGNOSTIC DIGITAL BREAST TOMOSYNTHESIS, BILATERAL US BREAST LIMITED, BILATERAL MAMMOGRAPHY: CLINICAL INFORMATION: The patient has bilateral diffuse breast pain. The patient reports a history of prior excision of tissue from the inferior aspect of the right breast resultant in a diagnosis of atypical ductal hyperplasia. COMPARISON: Mammography: This study is compared with prior examinations dating back to 2019. TECHNIQUE: Digital breast tomosynthesis is performed in both the craniocaudal and mediolateral oblique views along with computer-aided detection (CAD). Synthesized 2D images are generated from the tomosynthesis. Bilateral 90 degree views of each breast were also obtained. FINDINGS: There are scattered areas of fibroglandular density (ACR BI-RADS breast composition Category b). There are no significant masses, abnormal calcifications, or other abnormalities. ULTRASOUND: CLINICAL INFORMATION: Bilateral diffuse breast pain. TECHNIQUE: Targeted sonographic evaluation was performed using a high frequency linear transducer. Selected archived documentation. FINDINGS: Bilateral whole breast ultrasound was performed. There are no focal findings. US/US breast BI limited mamm only IMPRESSION: No mammographic evidence of malignancy. No focal findings. OVERALL ASSESSMENT: Mammography: BI-RADS 1 - Negative Ultrasound: BI-RADS 1 - Negative RECOMMENDATION: 1 year F/U Results were provided to the patient at time of visit by the technologist. This patient's information was entered into a reminder system with a target due date for their next mammogram.
== END 2023-11-20 13:38 | disposition home or self-care (01) ==
LOC: HO.MAMMO 13:37
PROVIDERS: PCP Internal Medicine; Visit Provider Nurse Practitioner
DX: N64.4 Mastodynia (principal); N60.91 Unspecified benign mammary dysplasia of right breast
CPT/HCPCS: 76642; 77062; 77066

== ENCOUNTER → 2023-11-20 14:00 | Outpatient (BNV) | payer OTHER, SELFPAY | PROVIDERS: PCP Internal Medicine; Visit Provider Radiology Diagnostic Radiology | DX: N64.4 Mastodynia (principal) | CPT/HCPCS: 76642; 77066; G0279 ==

== ENCOUNTER 2023-12-11 14:33 | Outpatient (REF) | payer OTHER, SELFPAY ==
--- NOTE | ~2023-12-11 | MR_ITS ---
EXAMINATION: MR BREAST WITHOUT AND WITH CONTRAST, BILATERAL CLINICAL INFORMATION: High-risk screening. The patient states personal history of right breast cancer. Previous history of right breast ADH, 6:00. COMPARISON: No previous breast MRI for comparison. TECHNIQUE: Imaging was performed with a dedicated breast coil. Prior to the administration of contrast, bilateral axial T1 and bilateral axial T2 weighted sequences were obtained. After the uneventful administration of?7.5 mL of Gadavist, dynamic contrast-enhanced VIBRANT series through the breasts in the axial plane were performed. Subtracted images were performed and reviewed. A delayed sagittal sequence through both breasts was acquired. Additionally, CAD post-processing, including maximum intensity projections, 3-D reconstructions and kinetic analysis, were performed an independent workstation and reviewed by the interpreting radiologist is a portion of this exam. FINDINGS: The patient's fibroglandular tissue demonstrates minimal background enhancement. LEFT BREAST: Images are mildly degraded by patient motion throughout. No definite suspicious masslike or non-masslike enhancement. No abnormal skin thickening or nipple retraction. No abnormal architectural distortion. Review of the T2 weighted images demonstrates no fibrocystic changes or dilated ducts. Review of kinetic images reveals no additional findings. RIGHT BREAST: The images are degraded by patient motion throughout. Unremarkable postsurgical changes, 6:00 axis. No definite suspicious masslike or non-masslike enhancement. No abnormal skin thickening or nipple retraction. No abnormal architectural distortion. Review of the T2 weighted images demonstrates no fibrocystic changes or dilated ducts. Review of kinetic images reveals no additional findings. There is no suspicious internal mammary chain or axillary adenopathy. Limited views of the chest and abdomen are unremarkable. Nonenhancing T2 hyperintense structure within the right lobe of the liver measuring 1.3 cm is most consistent with a cyst. MR/MR breast BI wo/w con IMPRESSION: Mildly limited study. No MR specific evidence of malignancy. ASSESSMENT: LEFT BREAST: BI-RADS 1-Negative RIGHT BREAST: BI-RADS 2 - Benign Findings. RECOMMENDATIONS: Clinical follow-up. Continued annual mammographic surveillance. Further breast MRI as risk factors dictate.
[2023-12-11] MEDS: gadobutroL 10 ML VIAL IVPUSH (15:59)
== END 2023-12-11 14:34 | disposition home or self-care (01) ==
LOC: HO.MRI 14:33
PROVIDERS: PCP Internal Medicine; Visit Provider Obstetrics & Gynecology
DX: Z85.3 Personal history of malignant neoplasm of breast (principal)
CPT/HCPCS: 77049; A9585

== ENCOUNTER 2024-03-20 13:34 | Outpatient (REF) | payer OTHER, SELFPAY ==
[2024-03-20 16:01] LABS: MANUAL DIFF FLAG NO
[2024-03-20 16:03] LABS: Basophils Percent Auto 0.8 % (0-2); Eosinophils Absolute Auto 0.1 X10*3/uL (0.0-0.4); Eosinophils Percent Auto 1.7 % (0-4); Hematocrit 35.1 % (37.0-47.0); Hemoglobin 11.2 g/dl (12.0-16.0); Imm Gran Abs Auto 0.01 X10*3/uL (0.00-0.03); Imm Gran Pct Auto 0.2 % (0.0-0.4); Lymphocytes Absolute Auto 1.6 X10*3/uL (1.2-4.9); Lymphocytes Percent Auto 33.8 % (20-40); Mean Corpuscular HGB Conc 31.9 g/dl (31.0-35.0); Mean Corpuscular Hemoglobin 24.5 pg (27.0-33.0); Mean Corpuscular Volume 76.8 fL (80.0-98.0); Mean Platelet Volume 10.9 fL (9.4-12.3); Monocytes Absolute Auto 0.5 X10*3/uL (0.1-1.2); Monocytes Percent Auto 9.7 % (2-11); Neutrophils Absolute Auto 2.5 x10*3/uL (2.0-8.3); Neutrophils Percent Auto 53.8 % (45-73); Platelet Count 288 X10*3/uL (160-400); Red Blood Count 4.57 X10*6/uL (4.20-5.50); Red Cell Distribution Width 14.6 % (11.0-16.0); White Blood Count 4.7 X10*3/uL (4.8-10.8)
[2024-03-20 16:18] LABS: Estimated Average Glucose 114 mg/dL; Hemoglobin A1c % 5.6 % (<6.0)
[2024-03-20 16:35] LABS: Anion Gap 15 (12-20); Blood Urea Nitrogen 8 mg/dL (9-16); Carbon Dioxide 26 mmol/L (22-29); Chloride 101 mmol/L (96-108); Potassium 3.7 mmol/L (3.3-5.1); Sodium 138 mmol/L (135-145)
[2024-03-20 16:36] LABS: Alanine Aminotransferase 17 U/L (0-31); Alkaline Phosphatase 87 U/L (39-117); Aspartate Amino Transferase 23 U/L (5-31); Bilirubin Direct 0.2 mg/dL (0.0-0.5); Bilirubin Total 0.4 mg/dL (0.0-1.0); Calcium 9.3 mg/dL (8.4-10.2); Cholesterol 181 mg/dL (<200); Estimated Glomerular Filt Rate > 60; Glucose Random 98 mg/dL (60-115); HDL Cholesterol 59 mg/dL (>40); LDL Cholesterol Calculated 99 mg/dL (<100); Total Protein 7.6 g/dL (6.5-8.0); Triglycerides 115 mg/dL (<150)
[2024-03-21 04:56] LABS: ~HepC Num1 0.09 S/CO (0.00-0.79); ~Hepatitis C Antibody Nonreactive (Nonreactive)
[2024-03-23 16:18] LABS: HIV RNA PCR Qn Copies Not Detected Copies/mL; HIV RNA PCR Qn Log Copies Not Detected Log cps/mL
== END 2024-03-20 13:35 | disposition home or self-care (01) ==
LOC: HO.HHCL 13:34
PROVIDERS: Visit Provider Internal Medicine
DX: Z00.00 Encounter for general adult medical examination without abnormal findings (principal); M79.18 Myalgia, other site; G89.29 Other chronic pain
CPT/HCPCS: 36415; 80048; 80061; 80076; 82306; 83036; 85025; 86803; 87536; 87900

== ENCOUNTER 2024-03-24 12:51 | Outpatient (AMB) | payer OTHER, SELFPAY ==
[2024-03-24 12:58] VITALS: BMI 28.4
--- NOTE | 2024-03-24 12:58 | A.OFFVIS_ITS ---
Vital Signs 03/24/24 12:58 Height 5 ft 4 in Weight 165 lb 5.547 oz BMI 28.4 Intake Visit Reasons: MRI follow up Allergies No Known Allergies [No Known Allergies*] Allergy (Verified 08/02/23 12:54) HPI Comments Details: The patient is presenting for follow-up to discuss the results of her abnormal uterine bleeding workup and options of treatment. The following workup was done.: H&H= 11.2/35.1 TSH, hCG, GC and chlamydia were negative. Co testing was done was negative. Mammogram and bilateral breast MRI were both negative, the patient has a follow- up appointment with Dr. Cannon in 04/23 Pelvic ultrasound done in 06/23 showed the following: IMPRESSION: 1. Endometrium measures 14 mm, correlation with phase of menstruation. 2. Left paraovarian versus adnexal cystic focus measuring up to 1.0 cm. [facility] Medical History Left knee pain Atypical ductal hyperplasia of breast Panniculitis Postgastrectomy malabsorption Insomnia GERD (gastroesophageal reflux disease) BMI 33.0-33.9,adult BMI 33.0-33.9,adult BMI 36.0-36.9,adult Smoking Hypertension Steatosis, liver BMI 37.0-37.9, adult Obesity Hx of renal calculi COPD (chronic obstructive pulmonary disease) Back pain Sleep apnea Asthma History of anxiety Hx of bipolar disorder Depression Chronic pain syndrome Gouty arthritis of both knees Gout Surgical History History of sleeve gastrectomy (06/14/21) Hx of tubal ligation History of esophagogastroduodenoscopy (EGD) (2014) H/O colonoscopy (2014) History of lumpectomy of right breast (06/28/18) Hx of arthroscopic knee surgery Family History Mother Emphysema lung Uterine cancer Father Lung cancer Brother No problems noted. Brother No problems noted. Brother No problems noted. Brother No problems noted. Social History Household Members: Significant Other Housing: Apartment Are you a primary palliative care physician to a significant other at home: No Do you presently have visiting nurse or other home services: Yes ([employer]) Alcohol intake: never Patient Tobacco Use Status: Former Tobacco user Tobacco use type: Cigarette Second Hand Smoke Exposure: No Substance Use Type: Opiates service: No Current occupational status: disabled Review of Systems Const All systems reviewed & are unremarkable except as noted in HPI and below Reports as per HPI and Reports no additional complaints GI Reports no additional complaints Reports no additional complaints Physical Exam Vital Signs: BMI result Body Mass Index 28.4 Office Procedures Endometrial Biopsy Details: The patient was counseled regarding the indication and benefits of endometrial sampling to rule out endometrial pathology including not limited to endometrial hyperplasia or endometrial cancer and others; The alternatives (Either do nothing vs. hysteroscopy D&C) & the risks were discussed with the patient including but not limited: pain, uterine perforation, bleeding, infection, possible injury to bladder, bowel, ureter, possible need for blood transfusion with all its possible risks. The patient verbalized understanding all questions answered and signed consent. The patient was placed into the dorsal lithotomy position; a speculum was inserted in the vagina. Using aseptic technique for the procedure, the cervix was cleansed with Betadine. The anterior lip of the cervix was grasped with a single tooth tenaculum. The uterus was sounded to 7 cm with a 4 mm Pipelle was used. Tissues samples were obtained and placed in formalin, in a patient labeled container and sent to the pathology department. At the end of the procedure, there was minimal bleedin g noted The patient tolerated the procedure well and was discharged in good condition with the following instructions: Nothing in the vagina until the bleeding stops. No sex until the bleeding stops, to call if any of the following occurs: fever (>100.4), flu-like symptoms, abdominal pain, heavy bleeding, four smelling vaginal discharge. The patient was instructed to schedule a Follow up appointment in 2 weeks to discuss pathology results of the biopsy and treatment options. This note was generated with a voice recognition program. Some errors may have been overlooked during the review of this note. Sometimes these errors may affect the content or meaning of a given sentence. [id number] Biopsy Assessment & Plan Assessment & Plan (1) Abnormal uterine bleeding (AUB): Comment: On tamoxifen Code(s): N93.9 - Abnormal uterine and vaginal bleeding, unspecified Category: Medical Plan: EMB done, see procedure note (2) Adnexal cyst: Code(s): N94.9 - Unspecified condition associated with female genital organs and menstrual cycle Category: Medical Plan: Discussed with the patient the adnexal cyst by ultrasound. Discussed with the patient the Ultrasound findings, the main limitation of transvaginal ultrasonography alone as a diagnostic tool to distinguish benign from malignant masses relates to its lack of specificity and low positive predictive value for cancer. The differential diagnosis discussed with the patient includes the following but not limited to: benign and malignant gynecological and non-gynecological causes. Will order repeat pelvic ultrasound to follow up on previous ultrasound finding. Instructions given the patient to schedule a 2 week follow-up ultrasound appointment. All questions were answered & the patient verbalized understanding and agreed with the plan. Orders: Orders US pelvic and transvaginal Today N94.9 - Unspecified condition associated with female genital organs and menstrual cycle AMB Endometrial Biopsy Today N93.9 - Abnormal uterine and vaginal bleeding, unspecified Coding Level of Care Code Est Pt Level 3 (28853) Procedure Only Diagnoses Abnormal uterine bleeding (AUB) N93.9 Adnexal cyst N94.9 CPT Codes Endometrial Biopsy - CPT: 49839-Rswrkimvlse Biopsy ([id number])
== END 2024-03-24 13:25 | disposition home or self-care (01) ==
LOC: HO.HWS 12:51
PROVIDERS: PCP Internal Medicine; Visit Provider Obstetrics & Gynecology
DX: N93.9 Abnormal uterine and vaginal bleeding, unspecified (principal); N94.9 Unspecified condition associated with female genital organs and menstrual cycle
CPT/HCPCS: 58100; 99213

== ENCOUNTER 2024-03-24 12:51 | Outpatient (REF) | payer OTHER, SELFPAY | END 2024-03-24 12:52 | disposition home or self-care (01) | LOC: HO.LNP 12:51 | PROVIDERS: PCP Internal Medicine; Visit Provider Obstetrics & Gynecology | DX: N93.9 Abnormal uterine and vaginal bleeding, unspecified (principal); N94.9 Unspecified condition associated with female genital organs and menstrual cycle | CPT/HCPCS: 58100; 88305; 99212 ==

== ENCOUNTER 2024-04-08 14:16 | Outpatient (AMB) | payer OTHER, SELFPAY ==
--- NOTE | 2024-04-08 14:24 | A.OFFVIS_ITS ---
Vital Signs 04/08/24 14:28 Height 5 ft 4 in Weight 185 lb BMI 31.8 BP 142/69 H Blood Pressure Location Rt brachial Position Sitting Pulse 75 Intake Visit Reasons: 6 mth follow up breast exam Intake Note: This patient presents for a six month follow-up breast exam. Patient c/o; reports will like to discuss breast reduction; she gets a lot of back pain. Tennis Court Attendant Required: Yes Tennis Court Attendant Language: Community Living Coach Services: Tennis Court Attendant Present Tennis Court Attendant Name: Evans Information Interpreted: non-clinical & clinical Accompanied by: Self / Same As Patient Allergies No Known Allergies [No Known Allergies*] Allergy (Verified 04/08/24 14:29) Medication List - Last Reconciled 04/08/24 by Herrera Cannon MD albuterol sulfate 90 mcg/actuation 1 inh PO Q4H PRN [biotin ] bisacodyl (Dulcolax (bisacodyl)) 10 mg [place] DAILY PRN buprenorphine-naloxone 8-2 mg (Suboxone) 1 strip sublingual BID cholecalciferol (vitamin D3) (Vitamin D3) 1 tab PO DAILY clonazepam 1 mg PO QAM clonazepam (Klonopin) 2 mg PO BEDTIME clotrimazole 1% 1 appl topical BID clotrimazole-betamethasone 1-0.05 % 1 appl topical BID 5 days [collagen (bovine) ] [cranberry ] docusate sodium (Colace) 100 mg PO DAILY doxycycline monohydrate 100 mg PO BID 14 days hydrochlorothiazide 12.5 mg DAILY inulin 2 grams PO DAILY ipratropium-albuterol 0.5 mg-3 mg(2.5 mg base)/3 mL 3 mL PO QID [Metamucil ] multivitamin 1 tab PO DAILY omeprazole 1 cap PO DAILY pantoprazole 40 mg PO DAILY polyethylene glycol 3350 (Miralax) 17 grams PO DAILY quetiapine 1 tab PO BEDTIME sucralfate (Carafate) 10 mL PO BID tamoxifen 1 tab PO DAILY temazepam 30 mg PO BEDTIME terconazole 0.8% 1 appful vaginal BEDTIME 3 days vitamin E (dl, acetate) 180 mg PO BEDTIME HPI Comments Details: 53-year-old female patient returning for follow-up breast examination after previous atypical ductal hyperplasia excision in 2018. She was subsequently followed by Dr. Dulala and placed on tamoxifen for a total of 5 years. Her Tyrer-Cuzick remaining lifetime risk of breast cancer was calculated at 33%. She feels well and denies any ongoing breast symptoms. She does occasionally note some bilateral breast pain which moves around but denies any palpable mass, skin change, nipple discharge, or enlarged lymph nodes. Her family history is negative for breast cancer. Breast MRI performed on 12/11/2023 was a limited study but revealed no MR specific evidence of malignancy (BI-RADS 1 left, BI- RADS 2 right). Diagnostic mammogram and ultrasound performed on 11/20/2023 revealed no mammographic or sonographic evidence of malignancy (BI-RADS 1). She wishes to discuss breast reduction surgery. [facility] Medical History Left knee pain Atypical ductal hyperplasia of breast Panniculitis Postgastrectomy malabsorption Insomnia GERD (gastroesophageal reflux disease) BMI 33.0-33.9,adult BMI 33.0-33.9,adult BMI 36.0-36.9,adult Smoking Hypertension Steatosis, liver BMI 37.0-37.9, adult Obesity Hx of renal calculi COPD (chronic obstructive pulmonary disease) Back pain Sleep apnea Asthma History of anxiety Hx of bipolar disorder Depression Chronic pain syndrome Gouty arthritis of both knees Gout Surgical History History of sleeve gastrectomy (06/14/21) Hx of tubal ligation History of esophagogastroduodenoscopy (EGD) (2014) H/O colonoscopy (2014) History of lumpectomy of right breast (06/28/18) Hx of arthroscopic knee surgery Family History Mother Emphysema lung Uterine cancer Father Lung cancer Brother No problems noted. Brother No problems noted. Brother No problems noted. Brother No problems noted. Social History Household Members: Significant Other Housing: Apartment Are you a primary critical care clinical nurse specialist to a significant other at home: No Do you presently have visiting nurse or other home services: Yes ([employer]OR) Alcohol intake: never Patient Tobacco Use Status: Former Tobacco user Tobacco use type: Cigarette Second Hand Smoke Exposure: No Substance Use Type: Opiates service: No Current occupational status: disabled Review of Systems Const All systems reviewed & are unremarkable except as noted in HPI and below Denies chills, Denies fever(s), Denies headache(s), Denies poor appetite and Denies weakness ENT Denies headache(s) Card Denies chest pain, Denies irregular heart rhythm, Denies palpitations and Denies dyspnea Resp Denies cough, Denies excessive phlegm production and Denies dyspnea GI Denies abdominal pain, Denies bloating, Denies change in bowel habits, Denies constipation, Denies heartburn, Denies diarrhea, Denies nausea and Denies vomiting Denies urinary frequency and Denies nipple discharge Musc Denies back pain, Denies muscle weakness and Denies numbness Skin/Breast Denies breast swelling, Denies breast skin changes, Reports breast pain, Denies breast mass, Denies changing lesions, Denies nipple discharge and Denies unusual bruising Neuro Denies headache(s), Denies numbness, Denies paresthesias and Denies weakness Psych Denies anxiety and Denies depression Endo Denies palpitations Michael/Lymph Denies lymphadenopathy Physical Exam Vital Signs: Last Vital Signs Pulse 75 04/08/24 14:28 BP 142/69 H 04/08/24 14:28 BMI result Body Mass Index 31.8 Const General: cooperative and no acute distress Nutritional Appearance: well nourished Orientation/consciousness: patient oriented x3 Limitations: no limitations HEENT Head: Yes normocephalic and Yes atraumatic Ears: hearing grossly normal bilaterally Chest Other: Left breast: No skin change, no nipple retraction, no nipple discharge, no palpable mass, no enlarged lymph nodes. Right breast: No skin change, no nipple retraction, no nipple discharge, no palpable mass, no enlarged lymph nodes. Resp Effort & Inspection: normal respiratory effort, no audible wheezes, no cough and no respiratory distress Cardio Jugular venous distension: no JVD GI Inspection: Yes normal to inspection Skin Other: Warm, dry, no rash Neuro General: patient oriented x3 Extrem General: Yes no clubbing, cyanosis or edema Assessment & Plan Assessment & Plan (1) At risk for breast cancer: Comment: History of atypical ductal hyperplasia of the breast on tamoxifen Code(s): Z91.89 - Other specified personal risk factors, not elsewhere classified Category: Medical (2) Atypical ductal hyperplasia of breast: Code(s): N60.99 - Unspecified benign mammary dysplasia of unspecified breast Category: Medical (3) Gigantomastia: Code(s): N62 - Hypertrophy of breast Category: Medical Plan 53-year-old female patient with a prior history of atypical ductal hyperplasia status post lumpectomy 2018. She completed 5 years of tamoxifen and tolerated this fairly well. She complains mainly of back pain but denies any ongoing breast symptoms other than some mild discomfort when her bra is removed. Examination today however reveals no suspicious findings in either breast. She does not wish to have any further MRIs due to a bad experience in the machine. She will be due for follow-up mammogram in 11/20/2024. I will refer her for a plastic surgery consultation to discuss breast reduction surgery. She should return in 6 months for follow-up examination. Orders: Referrals Plastic Surgery Referral N60.99 - Unspecified benign mammary dysplasia of unspecified breast, N62 - Hypertrophy of breast, Z91.89 - Other specified personal risk factors, not elsewhere classified Coding Level of Care Code Est Pt Level 3 (02742) Diagnoses At risk for breast cancer Z91.89 Atypical ductal hyperplasia of breast N60.99 Gigantomastia N62
[2024-04-08 14:28] VITALS: BP 142/69; PULSE 75; BMI 31.8
== END 2024-04-08 14:45 | disposition home or self-care (01) ==
PROVIDERS: PCP Internal Medicine; Visit Provider Surgery
DX: N60.99 Unspecified benign mammary dysplasia of unspecified breast (principal); N62 Hypertrophy of breast; Z91.89 Other specified personal risk factors, not elsewhere classified
CPT/HCPCS: 99213

== ENCOUNTER → 2024-04-08 14:16 | Outpatient (BNVA) | payer OTHER, SELFPAY | PROVIDERS: PCP Internal Medicine; Visit Provider Surgery | DX: N60.99 Unspecified benign mammary dysplasia of unspecified breast (principal); N62 Hypertrophy of breast; Z91.89 Other specified personal risk factors, not elsewhere classified | CPT/HCPCS: 99212 ==

== ENCOUNTER 2024-05-01 15:18 | Outpatient (AMB) | payer OTHER, SELFPAY ==
--- NOTE | 2024-05-01 15:35 | MHC.OFFVISWM ---
VS Expanded 05/01/24 15:41 BP 136/71 Blood Pressure Location Rt brachial Blood Pressure Position Sitting Pulse 69 Pulse Source Pulse Oximeter Temp 96.6 F L Temperature Source Tympanic Pulse Oximetry 95 Oxygen Delivery Method Room Air Height 5 ft 4 in Weight 180 lb 12.8 oz BMI 31.0 Body Fat % 40.9 Body Fat Mass 73.8 Fat Free Mass 73.1 Visceral Fat Rating 10.0 Body Water % 42.0 Body Water Mass 75.8 Muscle Mass/Score 101.4 Basal Metabolic Rate/Score 1,478 Intake Visit Reasons: (OV) PO LSG 06/14/21 Allergies No Known Allergies [No Known Allergies*] Allergy (Verified 05/01/24 15:44) HPI Comments Details: Patient is a 53-year-old female who returns to the office today in follow-up. She is approximately 2 years 11 months post sleeve gastrectomy performed on 06/14/2021. She additionally had panniculectomy performed in 02/17/2023. She reports weight gain. Weight today is 180.8 lb with a BMI of 31.1. Meal plan: coffee Orgain 1 scoop w 8 oz unswwetened almond milk meal 2 eggs w ham or chicken w vegetables not measuring volume singaporean yogugrt protein bar Drinking 48 oz water snacking on chips, crackers, ice cream, chocolate, cookies Exercise plan: treadmill 15 minutes 4 x per day stationary bike [facility] Medical History Left knee pain Atypical ductal hyperplasia of breast Panniculitis Postgastrectomy malabsorption Insomnia GERD (gastroesophageal reflux disease) BMI 33.0-33.9,adult BMI 33.0-33.9,adult BMI 36.0-36.9,adult Smoking Hypertension Steatosis, liver BMI 37.0-37.9, adult Obesity Hx of renal calculi COPD (chronic obstructive pulmonary disease) Back pain Sleep apnea Asthma History of anxiety Hx of bipolar disorder Depression Chronic pain syndrome Gouty arthritis of both knees Gout Surgical History History of sleeve gastrectomy (06/14/21) Hx of tubal ligation History of esophagogastroduodenoscopy (EGD) (2014) H/O colonoscopy (2014) History of lumpectomy of right breast (06/28/18) Hx of arthroscopic knee surgery Family History Mother Emphysema lung Uterine cancer Father Lung cancer Brother No problems noted. Brother No problems noted. Brother No problems noted. Brother No problems noted. Social History Household Members: Significant Other Housing: Apartment Are you a primary child care teacher to a significant other at home: No Do you presently have visiting nurse or other home services: Yes ([employer] GR[employer]ER) Alcohol intake: never Patient Tobacco Use Status: Former Tobacco user Tobacco use type: Cigarette Second Hand Smoke Exposure: No Substance Use Type: Opiates service: No Current occupational status: disabled Physical Exam Vital Signs: Last Vital Signs Temp 96.6 F L 05/01/24 15:41 Pulse 69 05/01/24 15:41 BP 136/71 05/01/24 15:41 Pulse Ox 95 05/01/24 15:41 Oxygen Delivery Method Room Air 05/01/24 15:41 BMI result Body Mass Index 31.0 Const General: healthy appearing and no acute distress Resp Effort & Inspection: normal respiratory effort Auscultation: clear to auscultation bilaterally Cardio Rate: regular rate Rhythm: regular rhythm GI Auscultation: normal bowel sounds Extrem General: Yes normal to inspection Assessment & Plan Assessment & Plan (1) Obesity (BMI 30.0-34.9): Code(s): E66.9 - Obesity, unspecified Category: Medical Plan: Patient has not been following a meal plan consistently. We will change it accordingly. Using Orgain protein powder mmixed with 8 oz unsweeteneed almond milk per her request: Shake 1 scoop Shake 1 scoop Mauritian yogurt Meal with 6 forks protein and 6 forks vegetables Shake 1 scoop Improve exercise, using home treadmill 4 days a week for 45 minutes and stationary bike 3 days a week for 45 minutes with an ultimate goal of burning 300 calories per day or more. Return to the office in 6 weeks.
[2024-05-01 15:41] VITALS: BP 136/71; PULSE 69; TEMP 35.9; O2SAT 95; BMI 31.0
== END 2024-05-01 16:22 | disposition home or self-care (01) ==
PROVIDERS: PCP Internal Medicine; Visit Provider Physician Assistant Surgical
DX: E66.9 Obesity, unspecified (principal)
CPT/HCPCS: 99213

== ENCOUNTER → 2024-05-01 15:18 | Outpatient (BNVA) | payer OTHER, SELFPAY | PROVIDERS: PCP Internal Medicine; Visit Provider Physician Assistant Surgical | DX: E66.9 Obesity, unspecified (principal); Z71.3 Dietary counseling and surveillance; Z98.84 Bariatric surgery status; Z68.31 Body mass index [BMI] 31.0-31.9, adult | CPT/HCPCS: 99212 ==

== ENCOUNTER 2024-05-06 13:29 | Outpatient (AMB) | payer OTHER, SELFPAY ==
--- NOTE | 2024-05-06 13:30 | MHC.OFFVIS ---
Intake Visit Reasons: EMB follow up Allergies No Known Allergies [No Known Allergies*] Allergy (Verified 05/01/24 15:44) HPI Comments Details: The patient schedule a telehealth visit for follow-up to discuss the results of endometrial biopsy pathology and her abnormal uterine bleeding workup and options of treatment. The following workup was done.: H&H= 11.2/35.1 TSH, hCG, GC and chlamydia were negative. EMB pathology showed benign inactive endometrium with no evidence of endometrial hyperplasia and/or malignancy Co testing was done was negative. Mammogram and bilateral breast MRI were both negative, the patient has a follow-up appointment with Dr. Cannon in 04/23 Pelvic ultrasound done in 06/23 showed the following: IMPRESSION: 1. Endometrium measures 14 mm, correlation with phase of menstruation. 2. Left paraovarian versus adnexal cystic focus measuring up to 1.0 cm. Follow-up pelvic ultrasound scheduled in few weeks [facility] Medical History Left knee pain Atypical ductal hyperplasia of breast Panniculitis Postgastrectomy malabsorption Insomnia GERD (gastroesophageal reflux disease) BMI 33.0-33.9,adult BMI 33.0-33.9,adult BMI 36.0-36.9,adult Smoking Hypertension Steatosis, liver BMI 37.0-37.9, adult Obesity Hx of renal calculi COPD (chronic obstructive pulmonary disease) Back pain Sleep apnea Asthma History of anxiety Hx of bipolar disorder Depression Chronic pain syndrome Gouty arthritis of both knees Gout Surgical History History of sleeve gastrectomy (06/14/21) Hx of tubal ligation History of esophagogastroduodenoscopy (EGD) (2014) H/O colonoscopy (2014) History of lumpectomy of right breast (06/28/18) Hx of arthroscopic knee surgery Family History Mother Emphysema lung Uterine cancer Father Lung cancer Brother No problems noted. Brother No problems noted. Brother No problems noted. Brother No problems noted. Social History Household Members: Significant Other Housing: Apartment Are you a primary care information associate to a significant other at home: No Do you presently have visiting nurse or other home services: Yes (TARIFF INSPECTOR) Alcohol intake: never Patient Tobacco Use Status: Former Tobacco user Tobacco use type: Cigarette Second Hand Smoke Exposure: No Substance Use Type: Opiates service: No Current occupational status: disabled Review of Systems Const All systems reviewed & are unremarkable except as noted in HPI and below Reports as per HPI and Reports no additional complaints GI Reports no additional complaints Reports no additional complaints Telehealth Telehealth Telehealth Platform: Telephone Location of provider rendering services: practice address Location of patient: address on file Patient Identification confirmed using: Name, : Yes Telehealth method: video Patient verbally consented to treatment: Yes Patient verbally consented to billing insurance company: Yes Patient informed of any privacy concerns related to visit: Yes Assessment & Plan Assessment & Plan (1) Adnexal cyst: Code(s): N94.9 - Unspecified condition associated with female genital organs and menstrual cycle Category: Medical Plan: The patient is scheduled for a pelvic ultrasound tomorrow and a follow-up ultrasound appointment. (2) Abnormal uterine bleeding (AUB): Comment: On tamoxifen Code(s): N93.9 - Abnormal uterine and vaginal bleeding, unspecified Category: Medical Plan: Discussed with the patient the results of the endometrial biopsy showing benign inactive endometrium. Discussed with the patient the sensitivity, specificity, positive and negative predictive value, of endometrial biopsy in detecting endometrial pathology including but not limited to endometrial hyperplasia, cancer and other pathology; instructed the patient to call in case vaginal bleeding bleeding recurs, the next step will be to proceed with a diagnostic hysteroscopy/D&C for further endometrial sampling evaluation to rule out endometrial pathology. All questions answered and the patient verbalized understanding and agreed with the plan. I spent a total of 20 minutes reviewing the chart, talking to the patient via video and documenting in the medical record. Coding Level of Care Code New Pt Prev Care <1 yr (86736) Diagnoses Adnexal cyst N94.9 Abnormal uterine bleeding (AUB) N93.9
--- OUTSIDE RECORDS SUMMARY | 2024-05-06 13:41 | XMS_ITS | Continuity of Care Document ---
Author Organization [facility] Address [address] [place] [address]- Care Team Providers Care Avionics Electrical Engineer Name Role Phone Jose HUITRON, Tamy Reyes Primary Care Physician Encounter [facility] Date(s): 04/08/19 - 10/25/19 [facility] [address] [place] [address]- [facility] Attending Physician: Arin Lindsay MD Admitting Physician: Arin Lindsay MD Referring Physician: Arcenio Saravia Allergies, Adverse Reactions, Alerts Substance Reaction Severity Status NKA Active Medications albuterol 90 mcg/inh inhalation powder 2 puffs, Inhalation, Every 4 hours, PRN Wheezing/Shortness of Breath, # 1 each, 6 Refills, Maintenance, 11/20/17 14:01:43, 2 puffs Inhalation Every 4 hours,PRN:Wheezing/Shortness of Breath Start Date: 11/20/17 Status: Ordered albuterol-ipratropium 3 mg-0.5 mg/3 ml inhalation solution 3 mL, Inhalation, 4 times a day, J45.9, # 360 mL, 5 Refills, Maintenance, 09/04/19 16:32:25 EST, Inhalation Solution, J45.9, 3 mL Inhalation 4 times a day,Instr:J45.9, 162.56, cm, 01/06/19 16:40:02 EDT, Height, 94.8, kg, 11/05/18 12:56:11 EST, Dry Weight Start Date: 09/04/19 Status: Ordered Citrucel 2 gm/19 gm oral powder for reconstitution = 2 Gm, By Mouth, Daily, # 1,500 Gm, 11 Refills, Maintenance, 10/08/18 9:43:20 EST Start Date: 10/08/18 Status: Ordered clonazePAM 0.5 mg oral tablet 1 tablet = 0.5 mg, By Mouth, 3 times a day, 0 Refills, Maintenance, 07/30/17 15:09:49 Start Date: 07/30/17 Status: Ordered Colace sodium 100 mg oral capsule 100 mg, 1, capsule, By Mouth, 2 times a day, PRN, # 180 capsule, Refills 3, Tot. Refills 3, Maintenance, for constipation, 11/18/18 9:05:09 EST, Route to Pharmacy Electronically, [id number], [facility] [address] Start Date: 11/18/18 Stop Date: 11/13/19 Status: Ordered Colace sodium 100 mg oral capsule 200 mg, 2, capsule, By Mouth, Daily, # 60 capsule, Refills 11, Tot. Refills 11, Maintenance, 01/02/19 15:19:20 EDT, Route to Pharmacy Electronically, [id number], [facility] [address] Start Date: 01/02/19 Stop Date: 12/28/19 Status: Ordered CPAP Machine AutoCPAP 6-15, Maintenance, [employer], 04/27/18 18:53:00 EDT, Compound Start Date: 04/27/18 Status: Ordered Dulcolax 10 mg rectal suppository See Instructions, 1 supp Rectally if no BM by day 3, # 30 supp, 2 Refills, Maintenance, 01/02/19 15:22:45 EDT Start Date: 01/02/19 Status: Ordered Dulcolax 5 mg oral enteric coated tablet 1 tablet = 5 mg, By Mouth, 3 times a day, # 90 tablet, 11 Refills, Maintenance, 10/25/18 15:43:25 EST Start Date: 10/25/18 Status: Ordered ibuprofen 200 mg oral tablet 2 tablet = 400 mg, By Mouth, Every 4 hours, PRN for pain, # 36 tablet, 0 Refills, Maintenance, Tablet Start Date: 01/10/12 Stop Date: 01/13/12 Status: Ordered loratadine 10 mg oral capsule 1 capsule = 10 mg, By Mouth, Daily, # 10 capsule, 0 Refills, Maintenance, 05/23/16 14:39:42, Capsule Start Date: 05/23/16 Status: Ordered MiraLax oral powder for reconstitution See Instructions, 17 Gm By Mouth 2-3 times a day for 3 days , starting 4 days prior to procedure (dissolve in water or juice), # 527 Gm, 0 Refills, Maintenance, 12/19/17 13:50:41, 17 Gm By Mouth 2-3 times a day for 3 days , starting 4 days prior to p... Start Date: 12/19/17 Status: Ordered MiraLax oral powder for reconstitution See Instructions, 17 Gm By Mouth Daily, # 527 Gm, 5 Refills, Maintenance, 01/02/19 15:19:31 EDT, REC Powder, 17 Gm By Mouth Daily Start Date: 01/02/19 Status: Ordered Multivitamin By Mouth, Daily, 0 Refills, Maintenance, 05/23/16 14:40:45 Start Date: 05/23/16 Status: Ordered SEROquel 400 mg oral tablet 1 tablet = 400 mg, By Mouth, Daily, # 180 tablet, 0 Refills, Maintenance, 05/23/16 14:42:32, Tablet Start Date: 05/23/16 Status: Ordered Suboxone 8 mg-2 mg sublingual film 2 each, Sublingual, Daily, # 30 Doses, 0 Refills, Maintenance, 07/30/17 16:59:05 Start Date: 07/30/17 Status: Ordered temazepam 30 mg oral capsule 1 capsule = 30 mg, By Mouth, Daily at bedtime, PRN for sleep, 0 Refills, Maintenance, 11/20/17 13:23:45, Capsule Start Date: 11/20/17 Status: Ordered Triamcinolone 0.1% Topical Topically, 0 Refills, Maintenance Start Date: 05/23/16 Status: Ordered Ventolin 90 mcg Inhaler 2, puffs, Inhalation, 4 times a day, Refills 0, Maintenance, 11/20/17 13:24:08 Start Date: 11/20/17 Status: Ordered Vitamin D3 1000 intl units oral tablet 1 tablet = 1,000 International_Units, By Mouth, Daily, # 30 tablet, 0 Refills, Maintenance, 05/23/16 14:46:20, Tablet Start Date: 05/23/16 Status: Ordered Problem List Condition Effective Dates Status Health Status Inform ant Bipolar disease, chronic(Confirmed) Active Chronic constipation(Confirmed) Active Left knee pain(Confirmed) Active Lumbar spondylosis(Confirmed) Active Anxiety and depression(Confirmed) Active Chronic myofascial pain(Confirmed) Active Obstructive sleep apnea(Confirmed) Active Emphysema of lung(Confirmed) Active Left lumbar radiculitis(Confirmed) Active Social History Social History Type Response Smoking Status Former smoker; Tobac co user in household: Yes; Type: Cigarettes; Other: Quit 10/04/17; both parents smoked when she was growing up; now smokes, but will go outside.; Tobacco use times per day: Previously smoked 1/2 pack per day for the last 3 years; prior to this smoked 1ppd since age 14;; Number of years: 32; Total pack years: 30; Started at age: 14; Stopped at age: 46; entered on: 11/20/17 Sex
--- OUTSIDE RECORDS SUMMARY | 2024-05-06 13:41 | XMS_ITS | Continuity of Care Document ---
Author Organization [facility] Address [address] [place] [address]- Care Team Providers Care Parent Trainer Name Role Phone Jose LOGISTICS TECH, Tamy Reyes Primary Care Physician Encounter [facility] [place] Date(s): 03/22/20 - 07/01/20 [facility] [address] [place] [address]- [facility] Attending Physician: Scooby Bustamante MD Admitting Physician: Scooby Bustamante MD Allergies, Adverse Reactions, Alerts Substance Reaction Severity [...] 11/18/18 9:05:09 EST, Route to Pharmacy Electronically, [id number], [facility] [address] Start Date: 11/18/18 Stop Date: 11/13/19 Status: Ordered Colace sodium 100 mg oral capsule 200 mg, 2, capsule, By Mouth, Daily, # 60 capsule, Refills 11, Tot. Refills 11, Maintenance, 01/02/19 15:19:20 EDT, Route to Pharmacy Electronically, [id number], [facility] [address] Start Date: 01/02/19 Stop Date: 12/28/19 Status: [...] 14:39:42, Capsule Start Date: 05/23/16 Status: Ordered magnesium sulfate 83 mg/mL-D5% intravenous solution 0 Refills, Maintenance, 03/26/20 16:26:00 EDT Start Date: 03/26/20 Status: Ordered MiraLax oral powder for reconstitution [...]
--- OUTSIDE RECORDS SUMMARY | 2024-05-06 13:41 | XMS_ITS | Continuity of Care Document ---
Author Organization [facility] Address [address] [place] [address]- Care Team Providers Care Vocational Rehabilitation Counselor Name Role Phone Jose HUITRON, Tamy Reyes Primary Care Physician Encounter [facility] [place] [place] Date(s): 07/02/19 - 10/25/19 [facility] [address] [place] [address]- [facility] Attending Physician: Victor Hugo Pringle MD Admitting Physician: Victor Hugo Pringle MD Referring Physician: Tamy Garcia NP, V Allergies, Adverse Reactions, Alerts Substance Reaction Severity [...] 11/18/18 9:05:09 EST, Route to Pharmacy Electronically, [id number], [facility] [address] Start Date: 11/18/18 Stop Date: 11/13/19 Status: Ordered Colace sodium 100 mg oral capsule 200 mg, 2, capsule, By Mouth, Daily, # 60 capsule, Refills 11, Tot. Refills 11, Maintenance, 01/02/19 15:19:20 EDT, Route to Pharmacy Electronically, [id number], [facility] [address] Start Date: 01/02/19 Stop Date: 12/28/19 Status: [...]
--- OUTSIDE RECORDS SUMMARY | 2024-05-06 13:41 | XMS_ITS | Continuity of Care Document ---
Author Organization [facility] Address [address] [place] [address]- Care Team Providers Care Dinkey Mechanic Name Role Phone Keyon Ngo MD, Blessing Pinto Primary Care Physici an En[place] [facility] [place] [id number] Date(s): 12/14/23 - 01/13/24 [facility] [address] [place] [id number] Allergies, Adverse Reactions, Alerts No Known Allergies Medications albuterol 90 mcg/inh inhalation powder 2 puffs, Inhalation, Every 4 hours, PRN Wheezing/Shortness of Breath, j44.9, # 1 each, 6 Refills, Maintenance, 08/16/20 14:40:00 EST, 2 puffs Inhalation Every 4 hours,PRN:Wheezing/Shortness of Breath,Instr:j44.9, 162.56, cm, 03/26/20 16:19:00 EDT, Hei... Start Date: 08/16/20 Status: Ordered albuterol CFC free 90 mcg/inh inhalation aerosol 2, puffs, Inhalation, 4 times a day, PRN, j45.909, # 1 each, Refills 5, Tot. Refills 5, Maintenance, 11/01/23 15:22:00 EST, Aerosol, Route to Pharmacy Electronically, [id number], [facility]/pharmacy #4471, 162.56, cm, 06/21/23 14:57... Start Date: 11/01/23 Status: Ordered albuterol-ipratropium 3 mg-0.5 mg/3 ml [...] 11/18/18 9:05:09 EST, Route to Pharmacy Electronically, [id number], [facility] [address] Start Date: 11/18/18 Stop Date: 11/13/19 Status: Ordered Colace sodium 100 mg oral capsule 200 mg, 2, capsule, By Mouth, Daily, # 60 capsule, Refills 11, Tot. Refills 11, Maintenance, 09/06/20 14:53:00 EST, Route to Pharmacy Electronically, [facility]/pharmacy #1026, 162.56, cm, 08/19/20 15:38:00EST, Height, 94.8, kg, 11/05/18 12:56:00 EST, Dry W... Start Date: 09/06/20 Stop Date: 09/01/21 Status: Ordered CPAP Machine AutoCPAP 6-15, Maintenance, [employer], 04/27/18 18:53:00 EDT, Compound Start Date: 04/27/18 Status: Ordered CPAP Equipment See Instructions, # 1 each, Refills 11, Tot. Refills 11, Maintenance, PAP supplies Refill mask and supplies A4604 Heated Tubing/Climate line or A7037 Tubing A7038 or A7039 Filters A7036 Chin strap A7046 Humidifier Chamber A7035 Headgear A7027... Start Date: 08/19/20 Status: Ordered Dulcolax 10 mg rectal suppository [...] Multivitamin By Mouth, Daily, 0 Refills, Maintenance, 08/23/16 14:40:45 Start Date: 05/23/16 Status: Ordered Nebulizer supplies Nebulizer supplies, See Instructions, # 1 each, Refills 11, Tot. Refills 11, Maintenance, E0570 Nebulizer A7003 Neb Disp Set A7014 Neb non-Disp Filter A7005 Neb Non-Disp set A7015 Aerosol Mask A7013 Neb Disp Filter length of need lifetime 99 months... Start Date: 08/19/20 Status: Ordered predniSONE 10 mg oral tablet See Instructions, 2 tabs/d for 2d then 1 tab/d for 4d then stop, # 8 tablet, 0 Refills, Soft Stop, 08/19/20 16:28:00 EST, Tablet, [facility]/pharmacy #1026, Partial fill upon patient request, 162.56, cm, 08/19/20 15:38:00 EST, Height, 94.8, kg, 11/05/18 12:5... Start Date: 08/19/20 Status: Ordered SEROquel 400 mg oral tablet [...] Date: 05/23/16 Status: Ordered Problem List Condition Confirmation Course Effective Dates Status Health St atus Informant Bipolar disease, chronic Confirmed Active Chronic constipation Confirmed Active Left knee pain Confirmed Active Lumbar spondylosis Confirmed Active Anxiety and depression Confirmed Active Chronic myofascial pain Confirmed Active Obese class I Confirmed Active Obstructive sleep apnea Confirmed Active Emphysema of lung Confirmed Active Left lumbar radiculitis Confirmed Active Social History Social History Type Response [...] at age: 46; entered on: 11/20/17 Sex Patient Care team information Care Team Personnel Name: Blessing Cummins MD Position: [facility] Outreach Member Role: PCP Address: Address: [address] [place] [address] [address] [place] [address]- Name: Neetu Olivo RN Position: [facility] RN Member Role: Primary Care Nurse Care Team Related Persons Name: LUBNA GONZALEZ Address: home [address] [place] [address] Name: KATTY MUNOZ Address: [place] [address]
--- OUTSIDE RECORDS SUMMARY | 2024-05-06 13:41 | XMS_ITS | Continuity of Care Document ---
Author Organization [facility] Address [address] [place] [address]- Care Team Providers Care Mathematics Department Chair Name Role Phone Roderick ABEL, Farhat Bianchi Primary Care Physician [phone] [place] [facility] [place] 02/11[place]21 - 03/13/21 [facility] [address] [place] [address]- Allergies, Adverse Reactions, Alerts Substance Reaction Severity Status NKA Active Medications albuterol 90 mcg/inh inhalation powder 2 puffs, Inhalation, Every 4 hours, PRN Wheezing/Shortness of Breath, j44.9, # 1 each, 6 Refills, Maintenance, 08/16/20 14:40:00 EST, [facility], 2 puffs Inhalation Every 4 hours,PRN:Wheezing/Shortness of Breath,Instr:j44.9, 162.56, cm, ... Start Date: 08/16/20 Status: Ordered albuterol-ipratropium 3 mg-0.5 mg/3 ml [...] 11/18/18 9:05:09 EST, Route to Pharmacy Electronically, [id number], [facility] [address] Start Date: 11/18/18 Stop Date: 11/13/19 Status: Ordered Colace sodium 100 mg oral capsule 200 mg, 2, capsule, By Mouth, Daily, # 60 capsule, Refills 11, Tot. Refills 11, Maintenance, 09/06/20 14:53:00 EST, Route to Pharmacy Electronically, [facility]/pharmacy #1026, 162.56, cm, 08/19/20 15:38:00EST, Height, [...] 05/23/16 14:40:45 Start Date: 05/23/16 Status: Ordered Nebulizer [...] Refills, Soft Stop, 08/19/20 16:28:00 EST, Tablet, [facility], Partial fill upon patient request, 162.56, [...]
--- OUTSIDE RECORDS SUMMARY | 2024-05-06 13:41 | XMS_ITS | Continuity of Care Document ---
Author Organization [facility] Address [address] [place] [address]- Care Team Providers Care Regional Merchandising Manager Name Role Phone Jose HUITRON, Tamy Reyes Primary Care Physician [place] [facility] [place] Date(s): 08/16/20 - 09/18/20 [facility] [address] [place] [address]- Attending Physician: Minesh Suarez MD Admitting Physician: Minesh Suarez MD Allergies, Adverse Reactions, Alerts Substance Reaction [...] 11/18/18 9:05:09 EST, Route to Pharmacy Electronically, [id number], [facility] [address] Start Date: 11/18/18 Stop Date: 11/13/19 Status: Ordered Colace sodium 100 mg oral capsule 200 mg, 2, capsule, By Mouth, Daily, # 60 capsule, Refills 11, Tot. Refills 11, Maintenance, 09/06/20 14:53:00 EST, Route to Pharmacy Electronically, [facility]/pharmacy #1026, 162.56, cm, 08/19/20 15:38:00EST, Height, 94.8, [...] Mouth Daily Start Date: 01/02/19 Status: Ordered MiraLax oral powder for reconstitution = 17 Gm, By Mouth, Daily, dissolve in water before taking, # 255 Gm, 1 Refills, Acute 10/15/20 8:00:00 EST, 09/06/20 14:54:00 EST, REC Powder, [facility]/pharmacy #1026, Partial fill upon patient request ifthe prescription is for a schedule II opioid drug.,... Start Date: 09/06/20 Stop Date: 10/15/20 Status: Ordered Multivitamin By Mouth, Daily, 0 [...] Refills, Soft Stop, 08/19/20 16:28:00 EST, Tablet, [facility]/pharmacy #1026, Partial fill upon patient request, 162.56, [...]
--- OUTSIDE RECORDS SUMMARY | 2024-05-06 13:41 | XMS_ITS | Continuity of Care Document ---
Author Organization [facility] Address [address] [place] [address]- Care Team Providers Care Assembler Convertible Top Name Role Phone Farhat Vaughn MD Primary Care Physician Encounter [facility] [place] ACCT R [id number] Date(s): 03/14/22 - 07/12/22 [facility] [address] [place] [address] Attending Physician: Zunilda Knox MD Admitting Physician: Zunilda Knox MD Referring Physician: Farhat Vaughn MD Allergies, Adverse Reactions, Alerts No Known Allergies [...] 11/18/18 9:05:09 EST, Route to Pharmacy Electronically, [id number], [facility] [address] Start Date: 11/18/18 Stop Date: 11/13/19 Status: Ordered Colace sodium 100 mg oral capsule 200 mg, 2, capsule, By Mouth, Daily, # 60 capsule, Refills 11, Tot. Refills 11, Maintenance, 09/06/20 14:53:00 EST, Route to Pharmacy Electronically, [facility]/pharmacy #1026, 162.56, cm, 08/19/20 15:38:00EST, Height, 94.8, [...] Refills, Soft Stop, 08/19/20 16:28:00 EST, Tablet, [facility]/pharmacy #1026, Partial fill upon patient request, 162.56, [...] Confirmed Active Chronic myofascial pain Confirmed Active Obstructive sleep apnea Confirmed Active [...] on: 11/20/17 Sex Patient Care team information Personnel Name: Roderick ABEL, Farhat Bianchi Address: Address: [address] [place] [address]
--- OUTSIDE RECORDS SUMMARY | 2024-05-06 13:41 | XMS_ITS | Continuity of Care Document ---
Author Organization [facility] Address [address] [place] [address]- Care Team Providers Care Powerhouse Laborer Name Role Phone Jose HUITRON, Tamy Reyes Primary Care Physician [place] [facility] [place] 05[place]/20 [facility] [address] [place] [address] [facility] Attending Physician: AdmAshok [email or web address] Admitting Physician: Admtr, Ar8 Referring Physician: Admtr, Ar8 Allergies, Adverse Reactions, Alerts Substance Reaction Severity [...] 11/18/18 9:05:09 EST, Route to Pharmacy Electronically, [id number], [facility] [address] Start Date: 11/18/18 Stop Date: 11/13/19 Status: Ordered Colace sodium 100 mg oral capsule 200 mg, 2, capsule, By Mouth, Daily, # 60 capsule, Refills 11, Tot. Refills 11, Maintenance, 01/02/19 15:19:20 EDT, Route to Pharmacy Electronically, [id number], [facility] [address] Start Date: 01/02/19 Stop Date: 12/28/19 Status: [...]
--- OUTSIDE RECORDS SUMMARY | 2024-05-06 13:41 | XMS_ITS | Continuity of Care Document ---
Author Organization [facility] Address [address] [place] [address]- Care Team Providers Care Financial Analysis Consultant Name Role Phone Roderick ABEL, Farhat Bianchi Primary Care Physician [place] [facility] [place] 12/03/20 - 02/27/21 [facility] [address] [place] [address]- Attending Physician: John Edmonds MD Admitting Physician: John Edmonds MD Referring Physician: Tamy Garcia NP, V [...] 11/18/18 9:05:09 EST, Route to Pharmacy Electronically, [id number], [facility] [address] Start Date: 11/18/18 Stop Date: 11/13/19 Status: Ordered Colace sodium 100 mg oral capsule 200 mg, 2, capsule, By Mouth, Daily, # 60 capsule, Refills 11, Tot. Refills 11, Maintenance, 09/06/20 14:53:00 EST, Route to Pharmacy Electronically, [facility]/pharmacy #1026, 162.56, cm, 08/19/20 15:38:00EST, [...] Refills, Soft Stop, 08/19/20 16:28:00 EST, Tablet, [facility]/pharmacy #1026, Partial fill upon patient [...]
--- OUTSIDE RECORDS SUMMARY | 2024-05-06 13:41 | XMS_ITS | Continuity of Care Document ---
Author Organization [facility] Address [address] [place] [address]- Care Team Providers Care Conference Organizer Name Role Phone Farhat Vaughn MD Primary Care Physician Encounter [facility] Date(s): 04/11/21 - 05/13/21 [facility] G[facility] [address] [place] [address]- Attending Physician: John Edmonds MD Admitting Physician: John Edmonds MD Referring Physician: Farhat Vaughn MD Allergies, Adverse Reactions, Alerts Substance Reaction [...] 11/18/18 9:05:09 EST, Route to Pharmacy Electronically, [id number], [facility] [address] Start Date: 11/18/18 Stop Date: 11/13/19 Status: Ordered Colace sodium 100 mg oral capsule 200 mg, 2, capsule, By Mouth, Daily, # 60 capsule, Refills 11, Tot. Refills 11, Maintenance, 09/06/20 14:53:00 EST, Route to Pharmacy Electronically, [facility]/pharmacy #1026, 162.56, cm, 08/19/20 15:38:00EST, Height, 94.8, [...] Refills, Soft Stop, 08/19/20 16:28:00 EST, Tablet, [facility]/pharmacy #1026, Partial fill upon patient request, 162.56, [...]
--- OUTSIDE RECORDS SUMMARY | 2024-05-06 13:41 | XMS_ITS | Continuity of Care Document ---
Author Organization [facility] Gastro[facility] Address [address] [place] [address]- Care Team Providers Care Regional Clinical Director Name Role Phone Jose HUITRON, Tamy Reyes Primary Care Physician [phone] [facility] Date(s): 09/25/19 - 10/05/19 [facility] [address] [place] [address]- [facility] Attending Physician: Admtr, Ashok8 Admitting Physician: Admtr, Ar8 Referring Physician: Admtr, [...] 11/18/18 9:05:09 EST, Route to Pharmacy Electronically, [id number], [facility] [address]1277 Start Date: 11/18/18 Stop Date: 11/13/19 Status: Ordered Colace sodium 100 mg oral capsule 200 mg, 2, capsule, By Mouth, Daily, # 60 capsule, Refills 11, Tot. Refills 11, Maintenance, 01/02/19 15:19:20 EDT, Route to Pharmacy Electronically, [id number], [facility] [address]53 Start Date: 01/02/19 Stop Date: 12/28/19 Status: [...]
--- OUTSIDE RECORDS SUMMARY | 2024-05-06 13:41 | XMS_ITS | Continuity of Care Document ---
Author Organization [facility] M ed[facility] Address [address] [place] [address]- Care Team Providers Care Dioramist Name Role Phone Jose HUITRON, Tamy Reyes Primary Care Physician [phone] Encounter [facility] Date(s): 08/16/20 - 09/15/20 [facility] [address] [place] [address] Allergies, Adverse Reactions, Alerts Substance Reaction Severity [...] 11/18/18 9:05:09 EST, Route to Pharmacy Electronically, [id number], [facility] [address] Start Date: 11/18/18 Stop Date: 11/13/19 Status: Ordered Colace sodium 100 mg oral capsule 200 mg, 2, capsule, By Mouth, Daily, # 60 capsule, Refills 11, Tot. Refills 11, Maintenance, 09/06/20 14:53:00 EST, Route to Pharmacy Electronically, [facility]/pharmacy #1026, 162.56, cm, 08/19/20 15:38:00EST, Height, [...] 8:00:00 EST, 09/06/20 14:54:00 EST, REC Powder, [facility]/pharmacy #1026, Partial fill upon patient request ifthe [...] Refills, Soft Stop, 08/19/20 16:28:00 EST, Tablet, [facility]/pharmacy #1026, Partial fill upon patient request, [...]
--- OUTSIDE RECORDS SUMMARY | 2024-05-06 13:41 | XMS_ITS | Continuity of Care Document ---
Author Organization [facility] ter Address [address] [place] [address]- Care Team Providers Care Operator Lights Name Role Phone Jose HUITRON, Tamy Reyes Primary Care Physician [phone] Encounter [facility] Date(s): 08/25/20 - 10/08/[address] [address] Attending Physician: Minesh Suarez MD Admitting Physician: Minesh Suarez MD Referring Physician: Minesh Suarez MD Allergies, Adverse Reactions, [...] 11/18/18 9:05:09 EST, Route to Pharmacy Electronically, [id number], [facility] [address] Start Date: 11/18/18 Stop Date: 11/13/19 Status: Ordered Colace sodium 100 mg oral capsule 200 mg, 2, capsule, By Mouth, Daily, # 60 capsule, Refills 11, Tot. Refills 11, Maintenance, 09/06/20 14:53:00 EST, Route to Pharmacy Electronically, [facility]/pharmacy #1026, 162.56, cm, 08/19/20 15:38:00EST, Height, [...] 8:00:00 EST, 09/06/20 14:54:00 EST, REC Powder, [facility]/pharmacy #1026, Partial fill upon patient request ifthe [...] Refills, Soft Stop, 08/19/20 16:28:00 EST, Tablet, [facility]/pharmacy #1026, Partial fill upon patient request, [...]
--- OUTSIDE RECORDS SUMMARY | 2024-05-06 13:42 | XMS_ITS | Continuity of Care Document ---
Author Organization [facility] M ed[facility] Address [address] [place] [address]- Care Team Providers Care Machine Guide Base Winder Name Role Phone Roderick ABEL, Farhat Bianchi Primary Care Physician [phone] Encounter [facility] Date(s): 03/15/21 - 04/14/21 [facility] [address] [facility] [address] [place] [address]- Attending Physician: Kenya Lopez Admitting Physician: AdmtrKenya Referring Physician: AdmtrKenya Allergies, Adverse Reactions, Alerts Substance Reaction Severity Status NKA Active Medications albuterol 90 mcg/inh inhalation powder 2 puffs, Inhalation, Every 4 hours, PRN Wheezing/Shortness of Breath, j44.9, # 1 each, 6 Refills, Maintenance, 08/16/20 14:40:00 EST, [facility]26, 2 puffs Inhalation Every 4 hours,PRN:Wheezing/Shortness of Breath,Instr:j44.9, 162.56, cm, 03/26/... Start Date: 08/16/20 Status: Ordered albuterol-ipratropium 3 [...] 11/18/18 9:05:09 EST, Route to Pharmacy Electronically, [id number], [facility] [address] Start Date: 11/18/18 Stop Date: 11/13/19 Status: Ordered Colace sodium 100 mg oral capsule 200 mg, 2, capsule, By Mouth, Daily, # 60 capsule, Refills 11, Tot. Refills 11, Maintenance, 09/06/20 14:53:00 EST, Route to Pharmacy Electronically, [facility]/pharmacy #1026, 162.56, cm, 08/19/20 15:38:00EST, [...] Soft Stop, 08/19/20 16:28:00 EST, Tablet, [facility]/pharmacy #1026, Partial fill upon patient [...]
--- OUTSIDE RECORDS SUMMARY | 2024-05-06 13:42 | XMS_ITS | Continuity of Care Document ---
Author Organization [facility] Address [address] [place] [address]- Care Team Providers Care Senior Engineering Specialist Name Role Phone Jose HUITRON, Tamy Reyes Primary Care Physician En[place] [facility] Date(s): 11/24/19 - 03/11/20 [facility] [address] [place] [address]- [facility] Attending Physician: Bonita Cross MD Admitting Physician: Bonita Cross MD Allergies, Adverse Reactions, Alerts Substance Reaction [...] 11/18/18 9:05:09 EST, Route to Pharmacy Electronically, [id number], [facility] [address] Start Date: 11/18/18 Stop Date: 11/13/19 Status: Ordered Colace sodium 100 mg oral capsule 200 mg, 2, capsule, By Mouth, Daily, # 60 capsule, Refills 11, Tot. Refills 11, Maintenance, 01/02/19 15:19:20 EDT, Route to Pharmacy Electronically, [id number], [facility] [address] Start Date: 01/02/19 Stop Date: 12/28/19 Status: [...]
--- OUTSIDE RECORDS SUMMARY | 2024-05-06 13:42 | XMS_ITS | Continuity of Care Document ---
Author Organization [facility] M ed[facility] Address [address] [place] [address]- Care Team Providers Care Construction And Maintenance Inspector Name Role Phone Not on Staff, PCP Primary Care Physician Unavail able Encounter [facility] Date(s): 07/31/23 - 08/30/23 [facility] [address] [place] [address] Allergies, Adverse Reactions, Alerts No Known Allergies [...] 11/18/18 9:05:09 EST, Route to Pharmacy Electronically, [id number], [facility] [address] Start Date: 11/18/18 Stop Date: 11/13/19 Status: [...] Refills, Soft Stop, 08/19/20 16:28:00 EST, Tablet, [facility]/pharmacy #1026, Partial fill upon patient request, [...] Care team information Care Team Personnel Name: Neetu Olivo RN Position: S RN Member Role: Primary Care Nurse Name: Not on Staff, PCP Position: [facility] Physician (General Medicine) Member Role: PCP Care Team Related Persons Name: LUBNA GONZALEZ Address: home [address] [place] [address] Name: KATTY UMNOZ Address: [place] [address]
--- OUTSIDE RECORDS SUMMARY | 2024-05-06 13:42 | XMS_ITS | Continuity of Care Document ---
Author Organization [facility] M ed[facility] Address [address] [place] [address]- Care Team Providers Care Fuel Island Attendant Name Role Phone Jose HUITRON, Tamy Reyes Primary Care Physician [place] [facility] [place]): 04/12/20 - 05/15/20 [facility] [address] [place] [address]- [facility] Attending Physician: Herrera Segovia II, MD Admitting Physician: Herrera Segovia II, MD Allergies, Adverse Reactions, Alerts Substance Reaction [...] 11/18/18 9:05:09 EST, Route to Pharmacy Electronically, [id number], [facility] [address] Start Date: 11/18/18 Stop Date: 11/13/19 Status: Ordered Colace sodium 100 mg oral capsule 200 mg, 2, capsule, By Mouth, Daily, # 60 capsule, Refills 11, Tot. Refills 11, Maintenance, 01/02/19 15:19:20 EDT, Route to Pharmacy Electronically, [id number], [facility] [address] Start Date: 01/02/19 Stop Date: 12/28/19 Status: [...]
--- OUTSIDE RECORDS SUMMARY | 2024-05-06 13:42 | XMS_ITS | Continuity of Care Document ---
Author Organization [facility] Pulmonary M edicine Address [address] [place] [address]- Care Team Providers Care Regasification Plant Operator Name Role Phone Minesh Suarez MD Primary Care Physician [facility] [id number] Date(s): 06/21/23 - 07/21/23 [facility] Medicine [address] [place] [address]- Allergies, Adverse Reactions, Alerts No Known Allergies [...] 11/18/18 9:05:09 EST, Route to Pharmacy Electronically, [id number], [facility] [address] Start Date: 11/18/18 Stop Date: 11/13/19 Status: Ordered Colace sodium 100 mg oral capsule 200 mg, 2, capsule, By Mouth, Daily, # 60 capsule, Refills 11, Tot. Refills 11, Maintenance, 09/06/20 14:53:00 EST, Route to Pharmacy Electronically, [facility]/pharmacy #1026, 162.56, cm, 08/19/20 15:38:00EST, [...] RN Member Role: Primary Care Nurse Name: Minesh Suarez MD Position: [facility] Physician - Pulm/Critical Care Member Role: PCP Address: Address: [address] [place] [address], [address] [place] [address]- Care Team Related Persons Name: LUBNA GONZALEZ Address: home [address] [address] Name: KATTY MUNOZ Address: [place] [address]
--- OUTSIDE RECORDS SUMMARY | 2024-05-06 13:42 | XMS_ITS | Continuity of Care Document ---
Author Organization [facility] M edicine Address [address] [place] [address]- Care Team Providers Care Brush Maker Machine Name Role Phone Not on Staff, PCP Primary Care Physician Unavail able Encounter [facility] Date(s): 08/03/23 - 09/02/23 [facility] [address] [place] [address] Allergies, Adverse Reactions, Alerts No Known Allergies [...] 11/18/18 9:05:09 EST, Route to Pharmacy Electronically, [id number], [facility] [address] Start Date: 11/18/18 Stop Date: 11/13/19 Status: Ordered Colace sodium 100 mg oral capsule 200 mg, 2, capsule, By Mouth, Daily, # 60 capsule, Refills 11, Tot. Refills 11, Maintenance, 09/06/20 14:53:00 EST, Route to Pharmacy Electronically, [facility]/pharmacy #1026, 162.56, cm, 08/19/20 15:38:00EST, Height, [...] Refills, Soft Stop, 08/19/20 16:28:00 EST, Tablet, [facility]/pharmacy #1026, Partial fill upon patient request, [...] Nurse Name: Not on Staff, PCP Position: [facility] Physician (General Medicine) Member Role: PCP Care Team Related Persons Name: LUBNA GONZALEZ Address: home [address] [place] [address] Name: KATTY MUNOZ Address: [place] [address]
--- OUTSIDE RECORDS SUMMARY | 2024-05-06 13:42 | XMS_ITS | Continuity of Care Document ---
Author Organization [facility] Gastroenter ology Address [address] [place] [address]- Care Team Providers Care Electric Shipyard Operator Name Role Phone Jose HUITRON, Tamy Reyes Primary Care Physician Encounter [facility] Date(s): 09/06/20 - 10/06/20 [facility] [address] [place] [address] Attending Physician: Admtr, Ar8 Admitting Physician: Admtr, Ar8 Referring Physician: Admtr, [...] 11/18/18 9:05:09 EST, Route to Pharmacy Electronically, [id number], [facility] [address] Start Date: 11/18/18 Stop Date: 11/13/19 Status: [...] 8:00:00 EST, 09/06/20 14:54:00 EST, REC Powder, [facility]/pharmacy #1026, Partial fill upon patient request [...]
--- OUTSIDE RECORDS SUMMARY | 2024-05-06 13:42 | XMS_ITS | Continuity of Care Document ---
Author Organization [facility] M [facility] Address [address] [place] [address]- Care Team Providers Care Buzzsaw Operator Name Role Phone Farhat Vaughn MD Primary Care Physician [id number] Date(s): 07/28/22 - 11/25/22 [facility] [address] [place] [address]- Attending Physician: Minesh Suarez MD Admitting Physician: Minesh Suarez MD Referring Physician: Farhat Vaughn MD Allergies, [...] 11/18/18 9:05:09 EST, Route to Pharmacy Electronically, [id number], [facility] [address] Start Date: 11/18/18 Stop Date: 11/13/19 Status: Ordered Colace sodium 100 mg oral capsule 200 mg, 2, capsule, By Mouth, Daily, # 60 capsule, Refills 11, Tot. Refills 11, Maintenance, 09/06/20 14:53:00 EST, Route to Pharmacy Electronically, [facility]/pharmacy #1026, 162.56, cm, 08/19/20 15:38:00EST, Height, 94.8, [...] Refills, Soft Stop, 08/19/20 16:28:00 EST, Tablet, [facility]/pharmacy #1026, Partial fill upon patient request, 162.56, [...] Care team information Care Team Personnel Name: Rodeirck ABEL, Farhat Bianchi Position: [facility] Primary Care Physician Member Role: PCP Address: Address: [address] [place] [address]- Name: Neetu Olivo RN Position: [facility] RN Member Role: Primary Care Nurse Care Team Related Persons Name: LUBNA GONZALEZ Address: home [address] [address] Name: KATTY MUNOZ Address: [place] [address]
--- OUTSIDE RECORDS SUMMARY | 2024-05-06 13:42 | XMS_ITS | Continuity of Care Document ---
Author Organization [facility] Pulmonary M ed[facility] Address [address] [place] [address]- Care Team Providers Care Street Car Mechanic Name Role Phone Farhat Vaughn MD Primary [facility] Phys[id number] Date[facility] 12/22/22 - 04/21/23 [facility] Medicine [address] [place] [address] Attending Physician: Minesh Suarez MD Admitting [...] 11/18/18 9:05:09 EST, Route to Pharmacy Electronically, [id number], [facility] [address] Start Date: 11/18/18 Stop Date: 11/13/19 Status: Ordered Colace sodium 100 mg oral capsule 200 mg, 2, capsule, By Mouth, Daily, # 60 capsule, Refills 11, Tot. Refills 11, Maintenance, 09/06/20 14:53:00 EST, Route to Pharmacy Electronically, [facility]/pharmacy #1026, 162.56, cm, 08/19/20 15:38:00EST, [...] Refills, Soft Stop, 08/19/20 16:28:00 EST, Tablet, [facility]/pharmacy #1026, Partial fill upon patient [...] Care team information Care Team Personnel Name: Roderick ABEL, Farhat Bianchi Position: [facility] Physician - Primary Care Member Role: PCP Address: Address: [address] [place] [address] [place] [address]- Name: Neetu Olivo RN Position: [facility] RN Member Role: Primary Care Nurse Care Team Related Persons Name: LUBNA OGNZALEZ Address: home [address] [address] Name: KATTY MUNOZ Address: [place] [address]
--- OUTSIDE RECORDS SUMMARY | 2024-05-06 13:42 | XMS_ITS | Continuity of Care Document ---
Author Organization [facility] Address [address] [place] [address]- Care Team Providers Care Marketing Communication Manager Name Role Phone Roderick ABEL, Farhat Bianchi Primary Care Physician [phone] Encounter [facility] Date(s): 02/10/21 - 03/12/21 [facility] [address] [place] [address]- Attending Physician: AdmKenya jolley Admitting Physician: AdmtrKenya Referring Physician: Admtr, ArMagdalena Allergies, Adverse Reactions, Alerts Substance Reaction Severity [...] 11/18/18 9:05:09 EST, Route to Pharmacy Electronically, [id number], [facility] [address] Start Date: 11/18/18 Stop Date: 11/13/19 Status: Ordered Colace sodium 100 mg oral capsule 200 mg, 2, capsule, By Mouth, Daily, # 60 capsule, Refills 11, Tot. Refills 11, Maintenance, 09/06/20 14:53:00 EST, Route to Pharmacy Electronically, [facility]/pharmacy #1026, 162.56, cm, 08/19/20 15:38:00EST, Height, [...] Refills, Soft Stop, 08/19/20 16:28:00 EST, Tablet, [facility]/pharmacy #1026, Partial fill upon patient request, [...]
--- OUTSIDE RECORDS SUMMARY | 2024-05-06 13:42 | XMS_ITS | Continuity of Care Document ---
Author Organization [facility] Address [address] [place] [address]- Care Team Providers Care Television News Producer Name Role Phone Jose FOOTBALL COACH, Tamy Reyes Primary Care Physician [place] [facility] Date(s): 05/12/20 - 06/11/20 [facility] [address] [place] [address]- [facility] Allergies, Adverse Reactions, Alerts Substance Reaction Severity [...] 11/18/18 9:05:09 EST, Route to Pharmacy Electronically, [id number], [facility] [address] Start Date: 11/18/18 Stop Date: 11/13/19 Status: Ordered Colace sodium 100 mg oral capsule 200 mg, 2, capsule, By Mouth, Daily, # 60 capsule, Refills 11, Tot. Refills 11, Maintenance, 01/02/19 15:19:20 EDT, Route to Pharmacy Electronically, [id number], [facility] [address] Start Date: 01/02/19 Stop Date: 12/28/19 Status: [...]
--- OUTSIDE RECORDS SUMMARY | 2024-05-06 13:42 | XMS_ITS | Continuity of Care Document ---
Author Organization [facility] Address [address] [place] [address]- Care Team Providers Care Low Heel Builder Name Role Phone Jose HUITRON, Tamy Reyes Primary Care Physician Encounter [facility] Date(s): 02/10/20 - 03/11/20 [facility] [address] [place] [address]- [facility] Attending Physician: Kenya Lopez Admitting Physician: AdmKenya jolley Referring Physician: AdmtrKenya Allergies, Adverse Reactions, Alerts [...] 11/18/18 9:05:09 EST, Route to Pharmacy Electronically, [id number], [facility] [address] Start Date: 11/18/18 Stop Date: 11/13/19 Status: Ordered Colace sodium 100 mg oral capsule 200 mg, 2, capsule, By Mouth, Daily, # 60 capsule, Refills 11, Tot. Refills 11, Maintenance, 01/02/19 15:19:20 EDT, Route to Pharmacy Electronically, [id number], [facility] [address] Start Date: 01/02/19 Stop Date: 12/28/19 Status: [...] Daily, # 30 tablet, 0 Refills, Maintenance, 08/23/16 14:46:20, Tablet Start Date: 05/23/16 Status: Ordered [...]
--- OUTSIDE RECORDS SUMMARY | 2024-05-06 13:42 | XMS_ITS | Continuity of Care Document ---
Author Organization [facility] Pulmonary M edicine Address [address] [place] [address]- Care Team Providers Care Straightedge Worker Name Role Phone Keyon Ngo MD, Blessing Pinto Primary Care Physici an [id number] Date(s): 09/28/23 - 01/26/24 [facility] [address] [place] [address] Attending Physician: Minesh Suarez MD Admitting Physician: Minesh Suarez MD Referring Physician: Not on Staff, Referring MD Allergies, Adverse Reactions, Alerts No Known [...] 15:22:00 EST, Aerosol, Route to Pharmacy Electronically, [id number], [facility]/pharmacy #4471, 162.56, cm, 06/21/23 14:57... Start [...] 11/18/18 9:05:09 EST, Route to Pharmacy Electronically, [id number], [facility] [address] Start Date: 11/18/18 Stop Date: 11/13/19 Status: Ordered Colace sodium 100 mg oral capsule 200 mg, 2, capsule, By Mouth, Daily, # 60 capsule, Refills 11, Tot. Refills 11, Maintenance, 09/06/20 14:53:00 EST, Route to Pharmacy Electronically, [facility]/pharmacy #1026, 162.56, cm, 08/19/20 [...] Refills, Soft Stop, 08/19/20 16:28:00 EST, Tablet, [facility]/pharmacy #1026, Partial fill upon [...] Team Personnel Name: Blessing Cummins MD Position: [facility] Outreach Member Role: PCP Address: Address: [address] [place] [address] [address] [place] [address]- Name: Neetu Olivo RN Position: [facility] RN Member Role: Primary Care Nurse Care Team Related Persons Name: LUBNA GONZALEZ Address: home [address] [facility] [address] [place] [address] Name: KATTY MUNOZ Address: [place] [address]
--- OUTSIDE RECORDS SUMMARY | 2024-05-06 13:42 | XMS_ITS | Continuity of Care Document ---
Author Organization [facility] Address [address] [place] [address]- Care Team Providers Care Sap Functional Analyst Name Role Phone Keyon Ngo MD, Blessing Pinto Primary Care Physici an [id number] Date(s): 10/31/23 - 01/05/24 [facility] [address] [place] [address] Attending Physician: Minesh Suarez MD Admitting Physician: Minesh Suarez MD Referring Physician: Keyon Ngo MD, Blessing Pinto Allergies, Adverse Reactions, Alerts No Known Allergies [...] 15:22:00 EST, Aerosol, Route to Pharmacy Electronically, [id number], [facility]/pharmacy #4471, 162.56, cm, 06/21/23 14:57... Start Date: [...] 11/18/18 9:05:09 EST, Route to Pharmacy Electronically, [id number], [facility] [address] Start Date: 11/18/18 Stop Date: 11/13/19 Status: Ordered Colace sodium 100 mg oral capsule 200 mg, 2, capsule, By Mouth, Daily, # 60 capsule, Refills 11, Tot. Refills 11, Maintenance, 09/06/20 14:53:00 EST, Route to Pharmacy Electronically, [facility]/pharmacy #1026, 162.56, cm, 08/19/20 15:38:00EST, [...] Team Personnel Name: Blessing Cummins MD Position: [facility] Outreach Member Role: PCP Address: Address: [address] [place] [address] [address] [place] [address]- Name: Neetu Olivo RN Position: S RN Member Role: Primary Care Nurse Care Team Related Persons Name: LUBNA GONZALEZ Address: home [address] [facility] [address] [place] [address] Name: KATTY MUNOZ Address: [place] [address]
--- OUTSIDE RECORDS SUMMARY | 2024-05-06 13:42 | XMS_ITS | Continuity of Care Document ---
Author Organization [facility] Address [address] [place] [address]- Care Team Providers Care Health And Human Performance Professor Name Role Phone Jose HUITRON, Tamy Reyes Primary Care Physician [phone] [place] [facility] Date(s): 04/29/20 - 06/20/20 [facility] [address] [place] [address]- [facility] Attending Physician: Roxane Briseno DO Admitting Physician: Roxane Briseno DO Referring Physician: Grey Aguayo MD Allergies, Adverse Reactions, Alerts Substance Reaction [...] 11/18/18 9:05:09 EST, Route to Pharmacy Electronically, [id number], [facility] [address] Start Date: 11/18/18 Stop Date: 11/13/19 Status: Ordered Colace sodium 100 mg oral capsule 200 mg, 2, capsule, By Mouth, Daily, # 60 capsule, Refills 11, Tot. Refills 11, Maintenance, 01/02/19 15:19:20 EDT, Route to Pharmacy Electronically, [id number], [facility] [address] Start Date: 01/02/19 Stop Date: 12/28/19 Status: [...]
--- OUTSIDE RECORDS SUMMARY | 2024-05-06 13:42 | XMS_ITS | Continuity of Care Document ---
Author Organization [facility] Address [address] [place] [address]- Care Team Providers Care Film Developing Machine Operator Name Role Phone Roderick ABEL, Farhat Bianchi Primary Care Physician [phone] Encounter [facility] [place] Date(s): 01/28/21 - 02/27/21 [facility] [address] [place] [address]- Attending Physician: Admtr, Ar8 Admitting Physician: Admtr, [...] 11/18/18 9:05:09 EST, Route to Pharmacy Electronically, [id number], [facility] [address] Start Date: 11/18/18 Stop Date: 11/13/19 Status: Ordered Colace sodium 100 mg oral capsule 200 mg, 2, capsule, By Mouth, Daily, # 60 capsule, Refills 11, Tot. Refills 11, Maintenance, 09/06/20 14:53:00 EST, Route to Pharmacy Electronically, [facility]/pharmacy #1026, 162.56, cm, 08/19/20 15:38:00EST, [...] Refills, Soft Stop, 08/19/20 16:28:00 EST, Tablet, [facility]/pharmacy #1026, Partial fill upon patient [...]
--- OUTSIDE RECORDS SUMMARY | 2024-05-06 13:42 | XMS_ITS | Continuity of Care Document ---
Author Organization [facility] Address [address] [place] [address]- Care Team Providers Care Construction Executive Name Role Phone Keyon Ngo MD, Blessing Pinto Primary Care Physici an [id number] Date[facility] 05/29/23 - 07/29/23 [facility] [address] [facility] [address] [place] [address]- Attending Physician: Shane Phoenix MD Admitting Physician: Shane Phoenix MD Allergies, Adverse Reactions, Alerts No Known [...] 11/18/18 9:05:09 EST, Route to Pharmacy Electronically, [id number], [facility] [address] Start Date: 11/18/18 Stop Date: 11/13/19 Status: Ordered Colace sodium 100 mg oral capsule 200 mg, 2, capsule, By Mouth, Daily, # 60 capsule, Refills 11, Tot. Refills 11, Maintenance, 09/06/20 14:53:00 EST, Route to Pharmacy Electronically, [facility]/pharmacy #1026, 162.56, cm, 08/19/20 15:38:00EST, [...] Refills, Maintenance, 01/02/19 15:22:45 EDT Start Date: 4/4/19 Status: Ordered Dulcolax 5 mg oral enteric [...] Refills, Soft Stop, 08/19/20 16:28:00 EST, Tablet, [facility]/pharmacy #1026, Partial fill upon patient [...] Team Personnel Name: Blessing Cummins MD Position: [facility] Outreach Member Role: PCP Address: Address: [address] [place] [address] [address] [place] [address]- Name: Neetu Olivo RN Position: [facility] RN Member Role: Primary Care Nurse Care Team Related Persons Name: LUBNA GONZALEZ Address: home [address] [address] Name: KATTY MUNOZ Address: [place] [address]
--- OUTSIDE RECORDS SUMMARY | 2024-05-06 13:42 | XMS_ITS | Continuity of Care Document ---
Author Organization [facility] Address [address] [place] [address]- Care Team Providers Care Air Traffic Control Equipment Repairer Name Role Phone Roderick ABEL, Farhat Bianchi Primary Care Physician [facility] Date(s): 06/12/22 - 07/12/22 [facility] [address] [place] [address] Attending Physician: Admshola, Kenya Admitting Physician: Admtr, Ar8 Referring Physician: Admtr, Ar8 Allergies, Adverse Reactions, Alerts No Known Allergies [...] 11/18/18 9:05:09 EST, Route to Pharmacy Electronically, [id number], [facility] [address] Start Date: 11/18/18 Stop Date: 11/13/19 Status: Ordered Colace sodium 100 mg oral capsule 200 mg, 2, capsule, By Mouth, Daily, # 60 capsule, Refills 11, Tot. Refills 11, Maintenance, 09/06/20 14:53:00 EST, Route to Pharmacy Electronically, [facility]/pharmacy #1026, 162.56, cm, 08/19/20 15:38:00EST, Height, [...] Refills, Soft Stop, 08/19/20 16:28:00 EST, Tablet, [facility]/pharmacy #1026, Partial fill upon patient request, [...] Name: Roderick ABEL, Farhat Bianchi Address: Address: [address] [place] [address]
--- OUTSIDE RECORDS SUMMARY | 2024-05-06 13:42 | XMS_ITS | Continuity of Care Document ---
Author Organization [facility] Address [address] [place] [address]- Care Team Providers Care Commercial Mortgage Broker Name Role Phone Farhat Vaughn MD Primary Care Physician [phone] Encounter [facility] Date(s): 02/11/21 - 04/14/21 [facility] [address] [facility] [address] [place] [address]- Attending Physician: Minesh Suarez MD Admitting Physician: [...] 11/18/18 9:05:09 EST, Route to Pharmacy Electronically, [id number], [facility] [address] Start Date: 11/18/18 Stop Date: 11/13/19 Status: Ordered Colace sodium 100 mg oral capsule 200 mg, 2, capsule, By Mouth, Daily, # 60 capsule, Refills 11, Tot. Refills 11, Maintenance, 09/06/20 14:53:00 EST, Route to Pharmacy Electronically, [facility]/pharmacy #1026, 162.56, cm, 08/19/20 15:38:00EST, [...] Refills, Soft Stop, 08/19/20 16:28:00 EST, Tablet, [facility]/pharmacy #1026, Partial fill upon patient [...]
--- OUTSIDE RECORDS SUMMARY | 2024-05-06 13:42 | XMS_ITS | Continuity of Care Document ---
Author Organization [facility] Address [address] [place] [address]- Care Team Providers Care Food Safety Officer Name Role Phone Jose HUITRON, Tamy Reyes Primary Care Physician [phone] [place] [facility] [place]20 - 07/01/20 [facility] [address] [place] [address]- [facility] Attending Physician: Kenya Lopez Admitting Physician: AdmtrKenya Referring Physician: Admtr Ar8 Allergies, Adverse Reactions, Alerts Substance Reaction [...] 11/18/18 9:05:09 EST, Route to Pharmacy Electronically, [id number], [facility] [address] Start Date: 11/18/18 Stop Date: 11/13/19 Status: Ordered Colace sodium 100 mg oral capsule 200 mg, 2, capsule, By Mouth, Daily, # 60 capsule, Refills 11, Tot. Refills 11, Maintenance, 01/02/19 15:19:20 EDT, Route to Pharmacy Electronically, [id number], [facility] [address] Start Date: 01/02/19 Stop Date: 12/28/19 Status: [...]
--- OUTSIDE RECORDS SUMMARY | 2024-05-06 13:42 | XMS_ITS | Continuity of Care Document ---
Author Organization [facility] Address [address] [place] [address]- Care Team Providers Care Turbine Engine Assembler Name Role Phone Jose HUITRON, Tamy Reyes Primary Care Physician [place] [facility] [place] [place] 09/25/19 - 10/05/19 [facility] [address] [place] [address]- [facility] Attending Physician: Kenya Lopez Admitting Physician: Kenya Lopez Referring Physician: AdmtrKenya Allergies, Adverse Reactions, Alerts [...] 11/18/18 9:05:09 EST, Route to Pharmacy Electronically, [id number], [facility] [address] Start Date: 11/18/18 Stop Date: 11/13/19 Status: Ordered Colace sodium 100 mg oral capsule 200 mg, 2, capsule, By Mouth, Daily, # 60 capsule, Refills 11, Tot. Refills 11, Maintenance, 01/02/19 15:19:20 EDT, Route to Pharmacy Electronically, [id number], [facility] [address] Start Date: 01/02/19 Stop Date: 12/28/19 Status: [...]
--- OUTSIDE RECORDS SUMMARY | 2024-05-06 13:42 | XMS_ITS | Continuity of Care Document ---
Author Organization [facility] Address [address] [place] [address]- Care Team Providers Care Pulper Tender Name Role Phone Keyon Ngo MD, Blessing Pinto Primary Care Physici an [id number]25[facility] - 07/25/23 [facility] [address] [place] [address]- Allergies, Adverse Reactions, Alerts No Known Allergies [...] 11/18/18 9:05:09 EST, Route to Pharmacy Electronically, [id number], [facility] [address] Start Date: 11/18/18 Stop Date: 11/13/19 Status: Ordered Colace sodium 100 mg oral capsule 200 mg, 2, capsule, By Mouth, Daily, # 60 capsule, Refills 11, Tot. Refills 11, Maintenance, 09/06/20 14:53:00 EST, Route to Pharmacy Electronically, [facility]/pharmacy #1026, 162.56, cm, 08/19/20 15:38:00EST, Height, [...] Team Personnel Name: Blessing Cummins MD Position: [facility] Outreach Member Role: PCP Address: Address: [address] [place] [address] [address] [place] [address]- Name: Neetu Olivo RN Position: [facility] RN Member Role: Primary Care Nurse Care Team Related Persons Name: LUBNA GONZALEZ Address: home [address] [address] Name: KATTY MUNOZ Address: [place] [address]
--- OUTSIDE RECORDS SUMMARY | 2024-05-06 13:42 | XMS_ITS | Continuity of Care Document ---
Author Organization [facility] Address [address] [place] [address]- Care Team Providers Care Hogshead Opener Name Role Phone Jose MAIL LIST LIBRARIAN, Tamy Reyes Primary Care Physician [facility] Date(s): 06/01/20 - 07/01/[address] [address]- [facility] Attending Physician: Admtr, Ashok8 Admitting Physician: Admtr, [...] 11/18/18 9:05:09 EST, Route to Pharmacy Electronically, [id number], [facility] [address] Start Date: 11/18/18 Stop Date: 11/13/19 Status: Ordered Colace sodium 100 mg oral capsule 200 mg, 2, capsule, By Mouth, Daily, # 60 capsule, Refills 11, Tot. Refills 11, Maintenance, 01/02/19 15:19:20 EDT, Route to Pharmacy Electronically, [id number], [facility] [address] Start Date: 01/02/19 Stop Date: 12/28/19 Status: [...]
--- OUTSIDE RECORDS SUMMARY | 2024-05-06 13:42 | XMS_ITS | Continuity of Care Document ---
Author Organization [facility] Address [address] [place] [address]- Care Team Providers Care Account Director Name Role Phone Keyon Ngo MD, Blessing Pinto Primary Care Physici an [id number] Date(s[facility] 10/31/23 - 12/29/23 [facility] [address] [place] [address] Attending Physician: Minesh Suarez MD Admitting [...] 15:22:00 EST, Aerosol, Route to Pharmacy Electronically, [id number], [facility]/pharmacy #4471, 162.56, cm, 06/21/23 14:57... Start Date: [...] 11/18/18 9:05:09 EST, Route to Pharmacy Electronically, [id number], [facility] [address] Start Date: 11/18/18 Stop Date: 11/13/19 Status: Ordered Colace sodium 100 mg oral capsule 200 mg, 2, capsule, By Mouth, Daily, # 60 capsule, Refills 11, Tot. Refills 11, Maintenance, 09/06/20 14:53:00 EST, Route to Pharmacy Electronically, [facility]/pharmacy #1026, 162.56, cm, 08/19/20 15:38:00EST, Height, 94.8, [...] Team Personnel Name: Blessing Cummins MD Position: [facility] Outreach Member Role: PCP Address: Address: [address] [place] [address] [address] [place] [address]- Name: Neetu Olivo RN Position: S RN Member Role: Primary Care Nurse Care Team Related Persons Name: LUBNA GONZALEZ Address: home [address] [facility] [address] [place] [address] Name: KATTY MUNOZ Address: [place] [address]
--- OUTSIDE RECORDS SUMMARY | 2024-05-06 13:42 | XMS_ITS | Continuity of Care Document ---
Author Organization [facility] Address [address] [place] [address]- Care Team Providers Care Television Journalist Name Role Phone Jose HUITRON, Tamy Reyes Primary Care Physician En[facility] [place] Date(s): 08/19/20 - 09/18/20 [facility] [address] [place] [address]- Attending Physician: AdmtrKenya Admitting Physician: AdmtrKenya Referring Physician: Admtr, Ar8 Allergies, Adverse Reactions, [...] 11/18/18 9:05:09 EST, Route to Pharmacy Electronically, [id number], [facility] [address] Start Date: 11/18/18 Stop Date: 11/13/19 Status: Ordered Colace sodium 100 mg oral capsule 200 mg, 2, capsule, By Mouth, Daily, # 60 capsule, Refills 11, Tot. Refills 11, Maintenance, 09/06/20 14:53:00 EST, Route to Pharmacy Electronically, [facility]/pharmacy #1026, 162.56, cm, 08/19/20 [...] 8:00:00 EST, 09/06/20 14:54:00 EST, REC Powder, [facility]/pharmacy #1026, Partial fill upon [...] Refills, Soft Stop, 08/19/20 16:28:00 EST, Tablet, [facility]/pharmacy #1026, Partial fill upon [...]
--- OUTSIDE RECORDS SUMMARY | 2024-05-06 13:43 | XMS_ITS | Continuity of Care Document ---
Author Organization [facility] Address [address] [place] [address]- Care Team Providers Care Color Weigher Name Role Phone Tamy Garcia NP, V Primary Care Physician En[place] [facility] [place] [facility]CT R [id number] Date(s): 01/23/20 - 05/22/20 [facility] [address] [place] [address]- [facility] Attending Physician: Not on Staff, Attending MD Referring Physician: Tamy Garcia NP, V [...] 11/18/18 9:05:09 EST, Route to Pharmacy Electronically, [id number], [facility] [address] Start Date: 11/18/18 Stop Date: 11/13/19 Status: Ordered Colace sodium 100 mg oral capsule 200 mg, 2, capsule, By Mouth, Daily, # 60 capsule, Refills 11, Tot. Refills 11, Maintenance, 01/02/19 15:19:20 EDT, Route to Pharmacy Electronically, [id number], [facility] [address] Start Date: 01/02/19 Stop Date: 12/28/19 Status: [...]
--- OUTSIDE RECORDS SUMMARY | 2024-05-06 13:43 | XMS_ITS | Continuity of Care Document ---
Author Organization [facility] Address [address] [place] [address]- Care Team Providers Care Manager Practice Name Role Phone Roderick ABEL, Farhat Bianchi Primary Care Physician Encounter [facility] Date(s): 04/11/21 - 05/11/21 [facility] [address] [place] [address]- Allergies, Adverse Reactions, Alerts Substance Reaction Severity [...] 11/18/18 9:05:09 EST, Route to Pharmacy Electronically, [id number], [facility] [address] Start Date: 11/18/18 Stop Date: 11/13/19 Status: Ordered Colace sodium 100 mg oral capsule 200 mg, 2, capsule, By Mouth, Daily, # 60 capsule, Refills 11, Tot. Refills 11, Maintenance, 09/06/20 14:53:00 EST, Route to Pharmacy Electronically, [facility]/pharmacy #1026, 162.56, cm, 08/19/20 15:38:00EST, Height, [...]
--- OUTSIDE RECORDS SUMMARY | 2024-05-06 13:43 | XMS_ITS | Continuity of Care Document ---
Author Organization [facility] Address [address] [place] [address]- Care Team Providers Care Environmental Technician Name Role Phone Jose FRAME FIXER, Tamy Reyes Primary Care Physician [phone] [place] [facility] [place](s[place] 09/09/19 - 09/19/[address] [address] [facility] Attending Physician: Admtr, Ashok8 Admitting Physician: Admtr, [...] 11/18/18 9:05:09 EST, Route to Pharmacy Electronically, [id number], [facility] [address] Start Date: 11/18/18 Stop Date: 11/13/19 Status: Ordered Colace sodium 100 mg oral capsule 200 mg, 2, capsule, By Mouth, Daily, # 60 capsule, Refills 11, Tot. Refills 11, Maintenance, 01/02/19 15:19:20 EDT, Route to Pharmacy Electronically, [id number], [facility] [address] Start Date: 01/02/19 Stop Date: 12/28/19 Status: [...]
--- OUTSIDE RECORDS SUMMARY | 2024-05-06 13:43 | XMS_ITS | Continuity of Care Document ---
Author Organization [facility] Address [address] [place] [address]- Care Team Providers Care Printing Mechanist Name Role Phone Jose HUITRON, Tamy Reyes Primary Care Physician [phone] Encounter [facility] [place] Date(s): 03/24/20 - 04/25/20 [facility] [address] [place] [address]- [facility] Attending Physician: Mike Wright MD Admitting Physician: Mike Wright MD Referring Physician: Tamy Garcia NP, V [...] 11/18/18 9:05:09 EST, Route to Pharmacy Electronically, [id number], [facility] [address] Start Date: 11/18/18 Stop Date: 11/13/19 Status: Ordered Colace sodium 100 mg oral capsule 200 mg, 2, capsule, By Mouth, Daily, # 60 capsule, Refills 11, Tot. Refills 11, Maintenance, 01/02/19 15:19:20 EDT, Route to Pharmacy Electronically, [id number], [facility] [address] Start Date: 01/02/19 Stop Date: 12/28/19 Status: [...] of lung(Confirmed) Active Left lumbar radiculitis(Confirmed) Active Vital Signs Most recent to oldest [Reference Range]: 1 Height 162.56 cm (03/26/20 4:19 PM) Weight 97.27 kg (03/26/20 4:19 PM) Body Mass Index [18.5-24.99] 36.81 *>HHI* (03/26/20 4:19 PM) Social History Social History Type Response Smoking [...]
--- OUTSIDE RECORDS SUMMARY | 2024-05-06 13:43 | XMS_ITS | Continuity of Care Document ---
Author Organization [facility] Address [address] [place] [address]- Care Team Providers Care Supervisor Screen Making Name Role Phone Jose HUITRON, Tamy Reyes Primary Care Physician [phone] [place] [facility] [place]): [place]/15/20 - 05/15/20 [facility] [address] [place] [address]- [facility] Attending Physician: Admtr, Ashko8 Admitting Physician: Admtr, Ashok8 Referring Physician: Admtr, Ar8 Allergies, Adverse Reactions, [...] 11/18/18 9:05:09 EST, Route to Pharmacy Electronically, [id number], [facility] [address] Start Date: 11/18/18 Stop Date: 11/13/19 Status: Ordered Colace sodium 100 mg oral capsule 200 mg, 2, capsule, By Mouth, Daily, # 60 capsule, Refills 11, Tot. Refills 11, Maintenance, 01/02/19 15:19:20 EDT, Route to Pharmacy Electronically, [id number], [facility] [address] Start Date: 01/02/19 Stop Date: 12/28/19 Status: [...]
--- OUTSIDE RECORDS SUMMARY | 2024-05-06 13:43 | XMS_ITS | Continuity of Care Document ---
Author Organization [facility] Address [address] [place] [address]- Care Team Providers Care Tobacco Curer Name Role Phone Tamy Garcia NP, V Primary Care Physician [id number] Date(s[facility] 03/20/19 - 10/09/[address] [address] [facility] Attending Physician: Not on Staff, Attending MD [...] 11/18/18 9:05:09 EST, Route to Pharmacy Electronically, [id number], [facility] [address] Start Date: 11/18/18 Stop Date: 11/13/19 Status: Ordered Colace sodium 100 mg oral capsule 200 mg, 2, capsule, By Mouth, Daily, # 60 capsule, Refills 11, Tot. Refills 11, Maintenance, 01/02/19 15:19:20 EDT, Route to Pharmacy Electronically, [id number], [facility] [address] Start Date: 01/02/19 Stop Date: 12/28/19 Status: [...]
--- OUTSIDE RECORDS SUMMARY | 2024-05-06 13:43 | XMS_ITS | Continuity of Care Document ---
Author Organization [facility] Address [address] [place] [address]- Care Team Providers Care Art Gilder Name Role Phone Roderick ABEL, Farhat Bianchi Primary Care Physician [phone] [place] [facility] - 08/23/22 [facility] [address] [place] [id number] Allergies, Adverse Reactions, Alerts No Known [...] 11/18/18 9:05:09 EST, Route to Pharmacy Electronically, [id number], [facility] [address] Start Date: 11/18/18 Stop Date: 11/13/19 Status: [...] Care team information Care Team Personnel Name: Farhat Vaughn MD Position: [facility] Primary Care Physician Member Role: PCP Address: Address: [address] [place] [address]- Name: Neetu Olivo RN Position: [facility] RN Member Role: Primary Care Nurse Care Team Related Persons Name: LUBNA GONZALEZ Address: home [address] [place] [address] Name: KATTY MUNOZ Address: [place] [address]
--- OUTSIDE RECORDS SUMMARY | 2024-05-06 13:43 | XMS_ITS | Continuity of Care Document ---
Author Organization [facility] Address [address] [place] [address]- Care Team Providers Care Push Bench Operator Helper Name Role Phone Not on Staff, PCP Primary Care Physician Unavail able Encounter [facility] Date(s): 07/09/23 - 08/12/[address] [address]- Attending Physician: Minesh Suarez MD Admitting Physician: Minesh Suarez MD Referring Physician: Minesh Suarez MD Allergies, Adverse Reactions, Alerts No Known [...] 11/18/18 9:05:09 EST, Route to Pharmacy Electronically, [id number], [facility] [place] [facility] [address] Start Date: 11/18/18 Stop Date: 11/13/19 Status: Ordered Colace sodium 100 mg oral capsule 200 mg, 2, capsule, By Mouth, Daily, # 60 capsule, Refills 11, Tot. Refills 11, Maintenance, 09/06/20 14:53:00 EST, Route to Pharmacy Electronically, [facility]/pharmacy #[id number], 162.56, cm, 08/19/20 15:38:00EST, [...] Soft Stop, 08/19/20 16:28:00 EST, Tablet, [facility]/pharmacy #[id number], Partial fill upon patient [...] Team Personnel Name: Neetu Olivo RN Position: [facility] RN Member Role: Primary Care Nurse Name: Not on Staff, PCP Position: [facility] Physician (General Medicine) Member Role: PCP Name: Minesh Suarez MD Position: [facility] Physician - Pulm/Critical Care Med Service: Pulmonology Member Role: Referring Physician Address: Address: [address] [place] [address], [address] [place] [address]- Care Team Related Persons Name: LUBNA GONZALEZ Address: home [address] [address] Name: KATTY MUNOZ Address: [place] [address]
--- OUTSIDE RECORDS SUMMARY | 2024-05-06 13:43 | XMS_ITS | Continuity of Care Document ---
Author Organization [facility] Address [address] [place] [address]- Care Team Providers Care Diesel Electrician Name Role Phone Roderick ABEL, Farhat Bianchi Primary Care Physician Encounter [facility] [place] Date(s): 04/13/21 - 05/13/21 [facility] [address] [place] [address]- Attending Physician: Admtr, Ashok8 Admitting Physician: Admtr, Kenya Referring Physician: Admtr, Ar8 Allergies, Adverse Reactions, [...] 11/18/18 9:05:09 EST, Route to Pharmacy Electronically, [id number], [facility] [address] Start Date: 11/18/18 Stop Date: 11/13/19 Status: Ordered Colace sodium 100 mg oral capsule 200 mg, 2, capsule, By Mouth, Daily, # 60 capsule, Refills 11, Tot. Refills 11, Maintenance, 09/06/20 14:53:00 EST, Route to Pharmacy Electronically, [facility]/pharmacy #[id number], 162.56, cm, 08/19/20 15:38:00EST, Height, 94.8, [...] Refills, Soft Stop, 08/19/20 16:28:00 EST, Tablet, [facility]/pharmacy #[id number], Partial fill upon patient request, 162.56, [...]
--- OUTSIDE RECORDS SUMMARY | 2024-05-06 13:43 | XMS_ITS | Continuity of Care Document ---
Author Organization [facility] Address [address] [place] [address]- Care Team Providers Care Time Clock Repairer Name Role Phone Keyon Ngo MD, Blessing Pinto Primary Care Physici an [id number] Date(s): 03/12/24 - 04/24/[address] [address]- Attending Physician: Minesh Suarez MD Admitting Physician: [...] 15:22:00 EST, Aerosol, Route to Pharmacy Electronically, [id number], [facility]/pharmacy #[id number], 162.56, cm, 06/21/23 14:57... Start Date: [...] 11/18/18 9:05:09 EST, Route to Pharmacy Electronically, [id number], [facility] [address] Start Date: 11/18/18 Stop Date: 11/13/19 Status: Ordered Colace sodium 100 mg oral capsule 200 mg, 2, capsule, By Mouth, Daily, # 60 capsule, Refills 11, Tot. Refills 11, Maintenance, 09/06/20 14:53:00 EST, Route to Pharmacy Electronically, [facility]/pharmacy #1026, 162.56, cm, 08/19/20 15:38:00EST, Height, 94.8, [...] Refills, Soft Stop, 08/19/20 16:28:00 EST, Tablet, [facility]/pharmacy #1026, Partial fill upon patient request, 162.56, [...] Team Personnel Name: Blessing Cummins MD Position: [facility] Outreach Member Role: PCP Address: Address: [address] [place] [address] [address] [place] [address]- Name: Neetu Olivo RN Position: [facility] RN Member Role: Primary Care Nurse Name: Minesh Suarez MD Position: [facility] Physician - Pulm/Critical Care Med Service: Pulmonology Member Role: Referring Physician Address: Address: [address] [place] [address], [address] [facility] [place] [address]- Care Team Related Persons Name: LUBNA GONZALEZ Address: home [address] [facility] [address] [place] [address] Name: KATTY MUNOZ Address: [place] [address]
--- OUTSIDE RECORDS SUMMARY | 2024-05-06 13:43 | XMS_ITS | Continuity of Care Document ---
Author Organization [facility] Address [address] [place] [address]- Care Team Providers Care Application Penetration Tester Name Role Phone Jose HUITRON, Tamy Reyes Primary Care Physician Encounter [facility] Date(s): 05/21/20 - 06/20/20 [facility] [address] [place] [address]- [facility] Attending Physician: Admtr, Ashok8 Admitting Physician: Admtr, [...] 11/18/18 9:05:09 EST, Route to Pharmacy Electronically, [id number], [facility] Start Date: 11/18/18 Stop Date: 11/13/19 Status: Ordered Colace sodium 100 mg oral capsule 200 mg, 2, capsule, By Mouth, Daily, # 60 capsule, Refills 11, Tot. Refills 11, Maintenance, 01/02/19 15:19:20 EDT, Route to Pharmacy Electronically, [id number], [facility] [address] Start Date: 01/02/19 Stop Date: 12/28/19 Status: [...]
--- OUTSIDE RECORDS SUMMARY | 2024-05-06 13:43 | XMS_ITS | Continuity of Care Document ---
Author Organization [facility] Address [address] [place] [address]- Care Team Providers Care Switchboard Wirer Name Role Phone Jose HUITRON, Tamy Reyes Primary Care Physician [phone] [id number] Date(s): 05/24/20 - 07/01/[address] [address]- [facility] Attending Physician: Not on Staff, Attending MD Allergies, Adverse Reactions, Alerts Substance Reaction [...] 11/18/18 9:05:09 EST, Route to Pharmacy Electronically, [id number], [facility] [address] Start Date: 11/18/18 Stop Date: 11/13/19 Status: Ordered Colace sodium 100 mg oral capsule 200 mg, 2, capsule, By Mouth, Daily, # 60 capsule, Refills 11, Tot. Refills 11, Maintenance, 01/02/19 15:19:20 EDT, Route to Pharmacy Electronically, [id number], [facility] [address] Start Date: 01/02/19 Stop Date: 12/28/19 Status: [...]
== END 2024-05-06 16:25 | disposition home or self-care (01) ==
LOC: HO.HWS 13:29
PROVIDERS: PCP Internal Medicine; Visit Provider Obstetrics & Gynecology
DX: N94.9 Unspecified condition associated with female genital organs and menstrual cycle (principal); N93.9 Abnormal uterine and vaginal bleeding, unspecified
CPT/HCPCS: 99214

== ENCOUNTER → 2024-05-06 13:29 | Outpatient (BNVA) | payer OTHER, SELFPAY | PROVIDERS: PCP Internal Medicine; Visit Provider Obstetrics & Gynecology ==

== ENCOUNTER 2024-11-07 14:07 | Outpatient (AMB) | payer OTHER, SELFPAY ==
--- NOTE | 2024-11-07 14:08 | A.OFFVIS_ITS ---
VS Expanded 11/07/24 14:21 BP 119/76 Blood Pressure Location Rt brachial Blood Pressure Position Sitting Pulse 79 Pulse Source Pulse Oximeter Temp 96.8 F Temperature Source Temporal Artery Scan Pulse Oximetry 100 Oxygen Delivery Method Room Air Height 5 ft 4 in Weight 188 lb 3.2 oz BMI 32.3 Body Fat % 41.6 Body Fat Mass 78.2 Fat Free Mass 109.8 Visceral Fat Rating 10.0 Body Water % 41.5 Body Water Mass 78.0 Muscle Mass/Score 104.2 Basal Metabolic Rate/Score 1,520 Intake Visit Reasons: (OV) PO LSG 06/14/21 Ball Machine Operator Required: Yes Ball Machine Operator Services: Ball Machine Operator Present Ball Machine Operator Name: hospital cmi Allergies No Known Allergies [No Known Allergies*] Allergy (Verified 11/07/24 14:26) Medication List - Last Reconciled 11/07/24 by NAVA Arellano albuterol sulfate 90 mcg/actuation 1 inh PO Q4H PRN [biotin ] buprenorphine-naloxone 8-2 mg (Suboxone) 1 strip sublingual BID cholecalciferol (vitamin D3) (Vitamin D3) 1 tab PO DAILY clonazepam 1 mg PO QAM clonazepam (Klonopin) 2 mg PO BEDTIME clotrimazole-betamethasone 1-0.05 % 1 appl topical BID 5 days [collagen (bovine) ] [cranberry ] hydrochlorothiazide 12.5 mg DAILY ipratropium-albuterol 0.5 mg-3 mg(2.5 mg base)/3 mL 3 mL PO QID multivitamin 1 tab PO DAILY pantoprazole 40 mg PO DAILY quetiapine 1 tab PO BEDTIME tamoxifen 1 tab PO DAILY temazepam 30 mg PO BEDTIME terconazole 0.8% 1 appful vaginal BEDTIME 3 days vitamin E (dl, acetate) 180 mg PO BEDTIME HPI Comments Details: 53-year-old female returns to the office today in follow-up. She is 3 years 5 months post sleeve gastrectomy performed on 06/14/2021. She also underwent a panniculectomy on 02/17/2023. She was last seen in the office in 05/20/2024 and has missed several appointments since then. She returns today in follow-up. Her weight at her last appointment in 05/20/2024 was 180.8 lb with a BMI of 31. Weight today is 188.2 lb with a BMI of 32.3. According to her body composition, she has increased body fat mass by 5 lb and muscle mass by 3 lb. She is complaining of feeling ?fat?. She has had difficulty with constipation, she has not been taking any stool softeners. She has had a GI physician in the past at [facility] but has not seen this physician in many years. wakes at 10 am, bed at 10 pm her meal plan: coffee w cream orgain shake 1 scoop in 8 oz almond milk, 12-1230 another shake at 3-330 meal 530 3 forks veg, 2 eggs, 2 forks chicken, onion another shake 8-830 canadian yogurt drinking Previously recommended meal plan: Orgain protein powder mixed with 8 oz unsweetened almond milk per her request: Shake 1 scoop Shake 1 scoop Estonian yogurt Meal with 6 forks protein and 6 forks vegetables Shake 1 scoop Exercise: Walking on pad 45 min, daily PFS Medical History Left knee pain Atypical ductal hyperplasia of breast Panniculitis Postgastrectomy malabsorption Insomnia GERD (gastroesophageal reflux disease) BMI 33.0-33.9,adult BMI 33.0-33.9,adult BMI 36.0-36.9,adult Smoking Hypertension Steatosis, liver BMI 37.0-37.9, adult Obesity Hx of renal calculi COPD (chronic obstructive pulmonary disease) Back pain Sleep apnea Asthma History of anxiety Hx of bipolar disorder Depression Chronic pain syndrome Gouty arthritis of both knees Gout Surgical History History of sleeve gastrectomy (06/14/21) Hx of tubal ligation History of esophagogastroduodenoscopy (EGD) (2014) H/O colonoscopy (2014) History of lumpectomy of right breast (06/28/18) Hx of arthroscopic knee surgery Family History Mother Emphysema lung Uterine cancer Father Lung cancer Brother No problems noted. Brother No problems noted. Brother No problems noted. Brother No problems noted. Social History Household Members: Significant Other Housing: Apartment Are you a primary child care lead teacher to a significant other at home: No Do you presently have visiting nurse or other home services: Yes ([facility]) Alcohol intake: never Patient Tobacco Use Status: Former Tobacco user Tobacco use type: Cigarette Second Hand Smoke Exposure: No Substance Use Type: Opiates service: No Current occupational status: disabled Physical Exam Const General: healthy appearing and no acute distress Resp Effort & Inspection: normal respiratory effort Auscultation: clear to auscultation bilaterally Cardio Rate: regular rate Rhythm: regular rhythm GI Auscultation: normal bowel sounds Extrem General: Yes normal to inspection Assessment & Plan Assessment & Plan (1) S/P laparoscopic sleeve gastrectomy: Code(s): Z98.84 - Bariatric surgery status Category: Surgical Plan: Orgain protein powder Shake 1 scoop in 8 oz almond milk at 12-2 Shake 1 scoop, 3-5 6 pm 2 eggs, 2 forks chicken and 4 forks vegetables 8-10 pm canadian yogurt or celebrate protein bar or another shake Increase to 48 oz water rtc 1 month Add senna at HS and continue with daily fiber. Medications: New sennosides (senna) 17.2 mg (2 x 8.6 mg) PO BEDTIME PRN 90 tabs 2RF constipation
[2024-11-07 14:21] VITALS: BP 119/76; PULSE 79; TEMP 36; O2SAT 100; BMI 32.3
--- OUTSIDE RECORDS SUMMARY | 2024-11-07 14:28 | XMS_ITS | Clinical Summary ---
Author Organization [employer] Address [address] [place] [address] 7[address] [place] [address] Care Team Providers Care Last Inserter Name Role Phone Blessing Cummins MD Primary Care Provide r Allergies Active Allergy Reactions Criticality Noted Date Comments Aspirin 07/14/2014 Medications acetaminophen (Tylenol) 325 MG tablet Take 2 tablets by mouth every 6 (six) hours. Active bisacodyl (Dulcolax) 5 MG EC tablet take 3 Tablet by oral route every day Active cyclobenzaprine (Flexeril) 10 MG tablet Take 1 tablet by mouth every 8 (eight) hours. Active Diclofenac Sodium 1 % gel Apply 2 g topically every 6 (six) hours. Active Docusate Sodium (DSS) 100 MG capsule Take 1 capsule by mouth every 12 (twelve) hours. Active hydrocortisone (Anusol-HC) 25 MG suppository Insert 1 suppository into the rectum every 12 (twelve) hours. Active ipratropium (Atrovent) 0.03 % nasal spray Administer into affected nostril(s) every 8 (eight) hours. Active magnesium oxide (Mag-Ox) 400 MG tablet Take 1 tablet by mouth at bed time. Active metroNIDAZOLE (Metrocream) 0.75 % cream Apply topically every 12 (twelve) hours. Active QUEtiapine (SEROquel) 400 MG tablet take 1 tablet by oral route every bedtime Active tamoxifen (Nolvadex) 20 MG chemo tablet Take 1 tablet by mouth at bed time. Active temazepam (Restoril) 30 MG capsule Take 1 capsule by mouth at bed time. 017 Active alpha tocopherol (Vitamin E) 400 units capsule Take 1 capsule by mouth at bed time. 021 Active omeprazole (PriLOSEC) [address] capsuleIndication s:Dyspepsia TAKE 1 CAPSULE BY MOUTH BEFORE BREAKFAST. 90 capsule 023 Active sucralfate (Carafate) 1 GM/10ML suspension 10 ML ORALLY 2 TIMES A DAY 023 Active ondansetron ODT (Zofran-ODT) 4 MG disintegrating tablet TOME ANTONIO TABLETA POR V A ORAL CADA OCHO HORAS CUANDO SEA NECESARIO FOR NAUSEA 023 Active pantoprazole (ProtoNix) 40 MG EC tablet TOME ANTONIO TABLETA POR V A ORAL A DIARIO 023 Active lurasidone (Latuda) 20 MG tablet 023 Active famotidine (Pepcid) 20 MG tablet TOME ANTONIO TABLETA POR V A ORAL DOS VECES AL D A CUANDO SEA NECESARIO FOR GI DISTRESS 023 Active clonazePAM (KlonoPIN) 1 MG tablet 023 Active clonazePAM (KlonoPIN) 2 MG tablet 023 Active ciclopirox (Penlac) 8 % solutionIndicatio ns:Onychomycosis Apply topically at bedtime. 6 mL 023 Active ciclopirox (Loprox) 0.77 % creamIndications: Onychomycosis Apply topically at bedtime 30 g 023 Active albuterol (2.5 MG/3ML) 0.083% nebulizer solutionIndicatio ns:Mild intermittent asthma without complication Take 3 mL (2.5 mg) by nebulization every 6 (six) hours if needed for wheezing or shortness of breath. 75 mL 3 023 Active hydrocortisone (Anusol-HC) 2.5 % rectal cream Insert into the rectum 2 times daily. 28 g 023 Active ibuprofen 800 MG tablet take 1 tablet by oral route every 8 hours as needed 60 tablet 3 023 Active acetaminophen (Tylenol 8 Hour) 650 MG ER tabletIndications :Pain of both breasts Take 2 tablets (1,300 mg) by mouth every 8 (eight) hours. 30 tablet 1 024 Active albuterol (Ventolin HFA) 108 (90 Base) MCG/ACT inhalerIndication s:Mild intermittent asthma without complication Inhale 2 puffs every 4 (four) hours if needed for wheezing or shortness of breath. 18 g 3 024 Active Mometasone Furoate (Asmanex HFA) 200 MCG/ACT aerosolIndication s:Mild intermittent asthma without complication Inhale 2 puffs 2 times daily. 13 g 2 024 Active vitamin E (E-400) 180 MG (400 UNIT) capsuleIndication s:Iron deficiency anemia, unspecified iron deficiency anemia type TAKE 1 CAPSULE BY MOUTH EVERY DAY 90 capsule 1 024 Active loratadine (Claritin) 10 MG tabletIndications :Allergic rhinitis, unspecified seasonality, unspecified trigger Take 1 tablet (10 mg) by mouth Once per day. 90 tablet 3 024 2024 Active fluticasone (Flonase) 50 MCG/ACT nasal sprayIndications: Allergic rhinitis, unspecified seasonality, unspecified trigger Administer 1 spray into each nostril Once per day. 16 g 2 024 Active hydrocortisone 2.5 % cream APPLY TOPICALLY IF NEEDED FOR RASH 28 g 024 Active QUEtiapine (SEROquel) 50 MG tablet Active Multiple Vitamin (Daily-Ish Multivitamin) tablet Take 1 tablet by mouth Once per day. TAKE 1 TABLET BY MOUTH ONCE DAILY 90 tablet 2 024 Active Suboxone 8-2 MG SL filmIndications:U ncomplicated opioid dependence (CMS/HCC) Place 2 Film under the tongue Once per day. 56 Film 1 024 2024 Active D-1000 Extra Strength 25 MCG (1000 UT) tabletIndications :Iron deficiency anemia, unspecified iron deficiency anemia type TOME ANTONIO TABLETA POR VIA ORAL EN LA MANANA 90 tablet 025 Active hydroCHLOROthiazi de 12.5 MG tabletIndications :Primary hypertension TAKE 1 TABLET (12.5 MG) BY MOUTH ONCE PER DAY. TAKE 1 TABLET MY MOUTH ONCE DAILY 90 tablet 1 025 Active hydroCHLOROthiazi de 12.5 MG tabletIndications :Primary hypertension Take 1 tablet (12.5 mg) by mouth Once per day. TAKE 1 TABLET MY MOUTH ONCE DAILY 90 tablet 1 024 2024 Discontinued cholecalciferol (D-1000 Extra Strength) 25 MCG (1000 UT) tabletIndications :Iron deficiency anemia, unspecified iron deficiency anemia type Take 1 tablet (25 mcg) by mouth Once per day. TAKE 1 TABLET BY MOUTH EVERY MORNING 90 tablet 024 2024 Discontinued Active Problems Problem Noted Date Diagnosed Date Hyperglycemia 07/28/2024 Assessment & Plan (07/28/2024 5:47 PM EDT): Its possible that some episodes are higher than others therefore causing some of the sxs I explained that she doesn't have DM or preDM(IFG) so there is no need to routinely check BS, rather prevent episodes of hypo/hyperglycemia with a balanced diet. I advised her to discuss with PCP re changing Seroquel. I will rx glucometer at her request, she's aware that insurance may or may not cover it as there is no need yet to check fgstk. FU with PCP Chronic pain of left knee 03/18/2024 Colon cancer screening 03/18/2024 Health care maintenance 11/07/2023 Pain of both breasts 10/17/2023 Assessment & Plan (10/17/2023 9:47 AM EST): -history of atypical ductal hyperplasia with lumpectomy of right breast in 2018 -recently completed 5 year course of tamoxifen -was seeing oncologist at [facility] -order placed for bilateral diagnostic mammogram -unable to take NSAID given history of gastric sleeve and allergy to celebrex -advised to take tylenol and apply warm compress to breast to help with pain -will follow-up with mammogram results Atypical ductal hyperplasia of right breast 10/01 Iron deficiency anemia 07/20/2023 Onychomycosis 07/20/2023 Melasma 07/20/2023 Pelvic pain 01/18/2023 Chronic pain of right knee 01/18/2023 IRVIN (obstructive sleep apnea) 01/12/2023 Overview (01/12/2023): Using CPAP Last seen by sleep medicine in 2018 Emphysema of lung 01/12/2023 Chronic myofascial pain 01/12/2023 Anxiety and depression 01/12/2023 Lumbar spondylosis 01/12/2023 Acute pain of right knee 09/05/2022 Chronic low back pain 09/05/2022 Dizziness 09/05/2022 Assessment & Plan (07/28/2024 5:50 PM EDT): Unclear if related to episodes of hyperglycemia vs side effects of meds (clonazepam, Seroquel, temazepam etc) or dumping syndrome sp bariatric surgery. Advised to discus with PC or psych provider re adjusting some of the meds Advised to address restricted calorie diet and current sxs to bariatric surgeon. Advised to remain hydrated. FU w PCP Localized osteoarthritis of both knees Assessment & Plan (03/18/2024 3:20 PM EDT): Patient to be evaluated for scooter Roller walker and cane prescription will be generated Mood disorder 09/05/2022 Nonalcoholic steatohepatitis 09/05/2022 Knee pain 02/28/2018 Allergic rhinitis 04/13/2016 Constipation 04/13/2016 Mild intermittent asthma 04/13/2016 Assessment & Plan (11/12/2023 9:58 AM EST): Patient educated to avoid asthma triggers Albuterol inhaler Q 4-6hrs if needed asmanex BID Assessment & Plan (07/26/2023 4:36 PM EDT): Patient educated to avoid asthma triggers I will prescribe nebulizer machine today Smoker 04/13/2016 Vitamin D deficiency 04/13/2016 Opioid dependence 07/29/2015 Encounters Date Type Department Care Team Description 10/29/2024 Refill [facility] [address] [place] [address] Blessing Cummins MD Iron deficiency anemia, unspecified iron deficiency anemia type; Primary hypertension 10/27/2024 Telephone [facility] [address] [place] [address] Blessing Cummins MD Medication Question 10/17/[address] [address] Blessing Cummins MD No Show 10/03/2024 1:30 PM EST Clinical Support [address] [address] Tyler Bradley RN Uncomplicated opioid dependence ([facility]/HCC) 10/03/2024 Travel 09/25/2024 Refill [facility] [address] [place] [phone] Tyler Bradley RN Uncomplicated opioid dependence ([facility]/HCC) 09/02/[address] [address] Blessing Cummins MD Iron deficiency anemia, unspecified iron deficiency anemia type 09/01/[address] [phone] Nicole Augustin [place] Chart Prep 08/07/2024 2:15 PM EST Office Visit [address] [phone] Cassidy Steinberg MD Uncomplicated opioid dependence ([facility]) (Primary Dx) 08/07/2024 Patient Outreach [address] [phone] Jared Ma 08/07/2024 Travel from Last 3 Months Immunizations Name Administration Dates Next Due Hep A, Adult 08/02/2010,03/26/2006 Hep B, adult 01/29/2017,05/26/2016,03/26/2007 Influenza injectable quadriv alent preservative free 09/10/2021,06/15/2021,05/22/2020,07/03,05/30/2018,09/11/2016 Influenza, IIV3, injectable 06/23/2011, 1 Influenza, seasonal, injecta ble, preservative free 07/28/2024 More SARS-CoV-2 Vaccination 02/19/2021,05/02/ 2021 Pfizer Covid-19 Vaccine 12+ 11/10/2021, Pfizer Covid-19 Vaccine 12+ chuckie-sucrose (Jennings Cap) 11/10/2021 Pneumococcal Conjugate PCV 20 03/18/2024 Pneumococcal Polysaccharide PPSV23 10/13/2010 Tdap 01/04/2010 Family History Medical History Relation Name Comments Diabetes Father Hypertension Father Lung cancer Father Bipolar disorder Mother Emphysema Mother Uterine cancer Mother Stroke Paternal Grandmother Relation Name Status Comments Father Mother Paternal Grandmother Social History Tobacco Use Types Packs/Day Years Used Date Smoking Tobacco: Former Cigarettes S tarted: 2016 Smokeless Tobacco: Former Tobacco Cessation:Counseling Given: Not Answered Alcohol Use Standard Drinks/Week Comments Never 0 (1 standard drink = 0.6 oz pur e alcohol) Depression Answer Date Recorded Patient Health Questionnaire-9 Score 6 03/18/2024 Patient Health Questionnaire-9 Score 6 03/18/2024 Last PHQ-9: Questionnaire Data Not on file 0 03/18/2024 Housing Stability Answer Date Recorded What is your housing situation today? I have housing today, but I am worried about losing housing in the future 03/18/[address] you li ve. Do you have problems with any of the following? None of the above 03/18/2024 Food Insecurity Answer Date Recorded Within the past 12 months, y ou worried that your food would run out before you got money to buy more: Never True 03/06/2024 Within the past 12 months,th e food you bought just didn't last and you didn't have enough money to get more: Never True 03/2024 Transportation Answer Date Recorded In the past 12 months, has l ack of transportation kept you from medical appts, meetings, work or from getting things needed for daily living? No 03/06/2024 Utilities Answer Date Recorded In the past 12 months, has t he electric, gas, oil or water company threatened to shut off services in your home? No 03/06/2024 Depression Answer Date Recorded Patient Health Questionnaire-2 Score 2 03/18/2024 Internet Access Answer Date Recorded Internet Access Q1 Yes 06/02/2024 Internet Access Q2 Not on file 06/02/2024 Comments Unknown Sex and Gender Information Value Date Recorded Sex Assigned at Female 07/31/2022 10:25 AM EDT Legal Sex Female 10:25 AM EDT Gender Identity Female 07/31/2022 10:25 AM EDT Sexual Orientation Choose not to disclose 2021 10:25 AM EDT Last Filed Vital Signs Vital Sign Reading Time Taken Comments Blood Pressure 123/69 07/28/2024 3:07 PM EDT Pulse 71 07/28/2024 3:07 PM EDT Temperature 36.8 ??C (98.3 ??F) 07/28/2024 3:07 PM ED T Respiratory Rate 12 07/28/2024 3:07 PM EDT Oxygen Saturation 97% 07/28/2024 3:07 PM EDT Inhaled Oxygen Concentration - - Weight 84.5 kg (186 lb 4 oz) 07/28/2024 3:07 PM EDT Height 162.6 cm (5' 4 ) 07/28/2024 3:07 PM EDT Body Mass Index 31.97 07/28/2024 3:07 PM EDT Plan of Treatment Upcoming Encounters Date Type Department Care Team (Late st Contact Info) Description 11/27/2024 1:30 PM EST Office Visit [facility] [address] [place] [phone] Cassidy Steinberg MD [address] [place] [phone] 11/28/2024 10:45 AM EST Office Visit [address] [address] Blessing Cummins MD [address] [place] [phone] Health Maintenance Due Date Last Done Comments CT Colonography 1970 FIT DNA/Cologuard 1970 FIT 1970 FOBT 1970 HIV Screening 1970 Sigmoidoscopy 1970 Alcohol/Substance Use Screening 1982 DTaP/Tdap/Td Vaccines (2 - Td or Tdap) 01/05/2020 01/04/2010 Colonoscopy 08/13/2023 08/13/2018, 02/09/2015 Colorectal Cancer Screening 08/13/2023 COVID-19 Vaccine ( season) 2024 11/10/2021, 11/10/2021, 02/20/2021, Additional history exists Zoster Vaccines (2 of 2) 11/03/2024 09/08/2024 Depression Screening 03/18/2025 03/18/2024, 03/18/20 SDOH Screening 03/18/2025 03/18/2024 Tobacco Screening 07/28/2025 07/28/2024 Mammogram 12/10/2025 12/11/2023, 11/02, 11/20/2023, Additional history exists Pap Smear 06/13/2026 06/13/2023, 07/01, 04/07/2015 Cervical Cancer Screening 07/19/2026 HPV/Cotest 07/19/2026 07/19/2021 Lipid Panel 03/20/2029 03/20/2024 RSV Patients and Patients Aged 60 years or older (1 - 1-dose 75+ series) 2045 Hepatitis C Screening Completed 03/20/2024 Influenza Vaccine Completed 07/28/2024, , 06/15/2021, Additional history exists Hepatitis A Vaccines Completed 09/08/2024, 08/02/2010, 03/26/2006 Hepatitis B Vaccines Completed 09/08/2024, 01/29/2017, 05/26/2016, Additional history exists Pneumococcal Vaccine: 50+ Years Completed 09/08/2024, 03/18/2024, 10/13/2010 HIB Vaccines Aged Out No longer eligi ble based on patient's age to complete this topic HPV Vaccines Aged Out No longer eligi ble based on patient's age to complete this topic IPV Vaccines Aged Out No longer eligi ble based on patient's age to complete this topic Meningococcal Vaccine Aged Out No rudy laurence eligible based on patient's age to complete this topic RSV under 20 months Aged Out No longe r eligible based on patient's age to complete this topic Rotavirus Vaccines Aged Out No longer eligible based on patient's age to complete this topic Procedures Procedure Name Priority Date/Time Associated Diagnosis Comments POCT TANYA-14 URINE DRUG SCREEN Routine 10/03/2024 1:41 PM EST Uncomplicated opioid dependence ([facility]) POCT TANYA-14 URINE DRUG SCREEN Routine 08/07/2024 2:31 PM EST Uncomplicated opioid dependence (CMS/HCC) HEPATITIS C AB W/REFL TO HCV RNA, QN, PCR Routine 03/20/2024 1:36 PM EDT Chronic myofascial pain LIPID PANEL, STANDARD Routine 03/20/2024 1:36 PM EDT Chronic myofascial pain BI MR BREAST W AND WO CONTRAST BILATERAL Routine 12/11/2023 3:24 PM EDT PAP SMEAR Routine 06/13/2023 3:39 PM EDT THINPREP IMAGING PAP AND HPV MRNA E6/E7 WITH REFLEX TO HPV 16,18/45 Routine 07/19/2021 12:00 AM EDT HM COLONOSCOPY Routine 08/13/2018 from Last 3 Months or Most Recently Relevant to Health Maintenance Results * POCT TANYA-14 Urine Drug Screen (10/03/2024 1:41 PM EST) Only the most recent of2 resultswithin the time period is included. THC Negative Cocaine Screen, Urine Negative Opiate Screen, Urine Negative Methamphetamine Screen Urine Negative Amphetamine Screen, Urine Negative Benzodiazepines Screen, Urine Positive Barbiturate Screen, Urine Negative Methadone Screen, Urine Negative Buprenophine Screen, Urine Positive TCA, Urine Negative MDMA Urine Negative ng/mL Oxycodone Screen, Urine Negative Phencyclidine (PCP), Urine Negative Fentanyl, Urine Negative Urine Urine specimen obtained by clean catch procedure / Unknown 10/03/2024 1:41 PM EST Isra Rojas MD POINT OF CARE TEST ENTER/EDIT OR DERABLES Final Result * Hepatitis C Antibody with Reflex to HCV, RNA, Quantitative, Real-Time PCR (03/20/2024 1:36 PM EDT) Hepatitis C Antibody Nonreactive Nonreactive [facility] Comment:Antibodies to HCV no t detected; does not exclude early acuteHCV infection. Blood Venous blood specimen / Unknown 03/20/2024 1:36 PM EDT 03/20/2024 4:02 PM EDT Blessing Ngo MD LAB BLOOD ORDERABLES Final Result Performing Organization Address [facility] Co de Phone Number [facility] [address] [place] [address] [phone] * Lipid Panel, Standard (03/20/2024 1:36 PM EDT) Triglycerides 115 <150 mg/dL [facility] Comment:Desirable Triglyceri de: less than 150 mg/dLBorderline High Triglyceride 150-199 mg/dLHigh Triglyceride: 200-499 mg/dLVery High Triglyceride: greater than or equal to 5OO mg/dL Cholesterol 181 <200 mg/dL [facility] Comment:Desirable Cholestero l: less than 200 mg/dLBorderline High Cholesterol: 200-239 mg/dLHigh Cholesterol: greater than 239 mg/dL LDL Cholesterol Calculated 99 <100 mg/dL [facility] Comment:Desirable LDL: less than 100 mg/dLNear Optimal/Above Optimal LDL: 110- 129 mg/dLBorderline High LDL: 130-159 mg/dLHigh LDL: 160-189 mg/dLVery High LDL: greater than or equal to 190 mg/dL HDL Cholesterol 59 >40 mg/dL [facility] Comment:Desirable HDL: great er than 40 mg/dL Note: This HDL assay may give artificially low results in patients with liver disease. Blood Venous blood specimen / Unknown 03/20/2024 1:36 PM EDT 03/20/2024 4:05 PM EDT Blessing Ngo MD LAB BLOOD ORDERABLES Final Result Performing Organization Address [facility] Co de Phone Number [facility] [address] [place] [phone] * BI MR Breast w and w/o Contrast Bilateral (12/11/2023 3:24 PM EDT) Anatomical Region Laterality Modality Breast Bilateral Magnetic Resonan ce 12/11/2023 3:24 PM EDT Narrative 12/18/2023 9:18 AM EDT ? [facility] ?[address] ?[place] [address] ? Magnetic Resonance Report ? Signed ? Patient: Pablo,Christina ?MR#: [id number] ?? 3 ? : 1970 ?Acct:[id number] ? Age/Sex: 53 / F ?ADM Date: 12/11/23 ? Loc: HO.MRI ? Attending Dr: Toby Vila MD ? Ordering Physician: Toby Vila MD ?? Date of Service: 12/11/23 ?? Procedure(s): MR breast BI wo/w con ?? Accession Number(s): [id number] ? cc: Blessing Cummins MD; Toby Vila MD ? EXAMINATION: ?? MR BREAST WITHOUT AND WITH CONTRAST, BILATERAL ? CLINICAL INFORMATION: ?? High-risk screening. The patient states personal history of right ?? breast cancer. Previous history of right breast ADH, 6:00. ? COMPARISON: ?? No previous breast MRI for comparison. ? TECHNIQUE: ?? Imaging was performed with a dedicated breast coil. Prior to the ?? administration of contrast, bilateral axial T1 and bilateral axial T2 ?? weighted sequences were obtained. After the uneventful administration ?? of?7.5 mL of Gadavist, dynamic contrast-enhanced VIBRANT series through ?? the breasts in the axial plane were performed. Subtracted images were ?? performed and reviewed. A delayed sagittal sequence through both ?? breasts was acquired. Additionally, CAD post-processing, including ?? maximum intensity projections, 3-D reconstructions and kinetic ?? analysis, were performed an independent workstation and reviewed by the ?? interpreting radiologist is a portion of this exam. ? FINDINGS: ?? The patient's fibroglandular tissue demonstrates minimal background ?? enhancement. ? LEFT BREAST: Images are mildly degraded by patient motion throughout. ?? No definite suspicious masslike or non-masslike enhancement. No ?? abnormal skin thickening or nipple retraction. No abnormal ?? architectural distortion. Review of the T2 weighted images demonstrates ?? no fibrocystic changes or dilated ducts. Review of kinetic images ?? reveals no additional findings. ? RIGHT BREAST: The images are degraded by patient motion throughout. ?? Unremarkable postsurgical changes, 6:00 axis. No definite suspicious ?? masslike or non-masslike enhancement. No abnormal skin thickening or ?? nipple retraction. No abnormal architectural distortion. Review of the ?? T2 weighted images demonstrates no fibrocystic changes or dilated ?? ducts. Review of kinetic images reveals no additional findings. ? There is no suspicious internal mammary chain or axillary adenopathy. ? Limited views of the chest and abdomen are unremarkable. Nonenhancing ?? T2 hyperintense structure within the right lobe of the liver measuring ?? 1.3 cm is most consistent with a cyst. ? MR/MR breast BI wo/w con ?? IMPRESSION: ?? Mildly limited study. No MR specific evidence of malignancy. ? ASSESSMENT: ?? LEFT BREAST: BI-RADS 1-Negative ? RIGHT BREAST: BI-RADS 2 - Benign Findings. ? RECOMMENDATIONS: ?? Clinical follow-up. Continued annual mammographic surveillance. Further ?? breast MRI as risk factors dictate. ? Dictated By: ?Aniyah Luther MD ? Signed By: ?<Electronically signed by Aniyah Luther MD in OV> ?12/18/23 0914 ? DD/ 1524 ? TD/TT: ? Company Dancer: DJ ? Procedure Note Christina, Logan - 12/18/2023 [place] [phone] Magnetic Resonance Report Signed Patient: Joann Shah#: [id number] 3 : 1970Acct:[id number] Age/Sex: 53 / FADM Date: 12/11/23 Loc: HO.MRI Attending Dr: Toby Vila MD Ordering Physician: Toby Vila MD Date of Service: 12/11/23 Procedure(s): MR breast BI wo/w con Accession Number(s): [id number] cc: Blessing Cummins MD; Toby Vila MD EXAMINATION: MR BREAST WITHOUT AND WITH CONTRAST, BILATERAL CLINICAL INFORMATION: High-risk screening. The patient states personal history of right breast cancer. Previous history of right breast ADH, 6:00. COMPARISON: No previous breast MRI for comparison. TECHNIQUE: Imaging was performed with a dedicated breast coil. Prior to the administration of contrast, bilateral axial T1 and bilateral axial T2 weighted sequences were obtained. After the uneventful administration of?7.5 mL of Gadavist, dynamic contrast-enhanced VIBRANT series through the breasts in the axial plane were performed. Subtracted images were performed and reviewed. A delayed sagittal sequence through both breasts was acquired. Additionally, CAD post-processing, including maximum intensity projections, 3-D reconstructions and kinetic analysis, were performed an independent workstation and reviewed by the interpreting radiologist is a portion of this exam. FINDINGS: The patient's fibroglandular tissue demonstrates minimal background enhancement. LEFT BREAST: Images are mildly degraded by patient motion throughout. No definite suspicious masslike or non-masslike enhancement. No abnormal skin thickening or nipple retraction. No abnormal architectural distortion. Review of the T2 weighted images demonstrates no fibrocystic changes or dilated ducts. Review of kinetic images reveals no additional findings. RIGHT BREAST: The images are degraded by patient motion throughout. Unremarkable postsurgical changes, 6:00 axis. No definite suspicious masslike or non-masslike enhancement. No abnormal skin thickening or nipple retraction. No abnormal architectural distortion. Review of the T2 weighted images demonstrates no fibrocystic changes or dilated ducts. Review of kinetic images reveals no additional findings. There is no suspicious internal mammary chain or axillary adenopathy. Limited views of the chest and abdomen are unremarkable. Nonenhancing T2 hyperintense structure within the right lobe of the liver measuring 1.3 cm is most consistent with a cyst. MR/MR breast BI wo/w con IMPRESSION: Mildly limited study. No MR specific evidence of malignancy. ASSESSMENT: LEFT BREAST: BI-RADS 1-Negative RIGHT BREAST: BI-RADS 2 - Benign Findings. RECOMMENDATIONS: Clinical follow-up. Continued annual mammographic surveillance. Further breast MRI as risk factors dictate. Dictated By: Aniyah Luther MD Signed By: <Electronically signed by Aniyah Luther MD in OV> 12/18/23 0914 DD/ 1524 TD/TT: Company Dancer: PHAN [facility] External Provider IMG MRI PROCEDURES Final Result * Pap Smear (06/13/2023 3:39 PM EDT) 06/13/2023 3:39 PM EDT 06/14/2023 9:10 AM EDT Narrative [facility] - 06/27/2023 8:37 AM EDT ----- ------- Name: PabloChristina seth ?Age/Sex: 52/F ? : 1970 Unit#: [id number] ?? Attend Dr: Toby Vila MD ?Re06/13/23 ?Status: DEP REF ? Location: HO.LNP ?Disch: ? ----- ------- SPEC : [id number] ?RECD: 06/14/23-909 ? STATUS: ??SOUT ? REQ NUM: [id number] ? SHANELL: 06/13/23-1539 ? SUBM DR: Toby Vila MD ? ENTERED: ??06/14/23-4 ?SP TYPE: Pap Smr ?OTHR DR: Blessing Cummins MD ? ORDERED: ??Pap Smear ? Interpretation ?? Satisfactory for evaluation. ?? Negative for intraepithelial lesion or malignancy. ?? Fungal organisms consistent with Shona species. ? HPV mRNA E6/E7: ?NOT DETECTED ? This assay detects E6/E7 viral messenger RNA (mRNA) from 14 high-risk HPV types (16, 18, ?? 31, 33, 35, 39, 45, 51, 52, 56, 58, 59, 66, 68) ? HPV testing performed by [facility], [place], [place]. ??See reference laboratory ?? portion of the EMR for entire report. ?Clinical Information LMP: Postmenopausal Previous PAP test: Unknown date/findings Other history: Abnormal uterine and vaginal bleeding, pelvic and perineal pain, acute vaginitis ? Material Received ?? ThinPrep-Cervical Copies To: ?? Blessing Cummins MD ?? [address] ?? [place] [address] ?? [phone] ?? Toby Vila MD ?? [address] [place] [address] Dr. Martines [facility] ?? [place] [address] ?? [phone] ----- ------- Signed (signature on file) Krystal Jarvis MD 06/27/23 0837 ? ----- ------- ? END OF REPORT ? [facility] External Provider LAB CYT OLOGY ORDERABLES Final Result [facility] [address] [place] [phone] * THINPREP TIS PAP AND HPV mRNA E6/E7 REFLEX HPV 16,18/45 (07/19/2021 12:00 AM EDT) Pathologist [facility] [place] Clinical Information: None given [facility] COMMENT SEE COMMENT [facility] Comment: EXPLANATORY NOTE: ? The Pap is a screening test for cervical cancer. It is ?? not a diagnostic test and is subject to false negative ?? and false positive results. It is most reliable when a ?? satisfactory sample, regularly obtained, is submitted ?? with relevant clinical findings and history, and when ?? the Pap result is evaluated along with historic and ?? current clinical information. ?? COMMENT: This Pap test has been evaluated with computer assisted technology. [facility] Pole Maker: SEE COMMENT [facility] Comment: ED, CT(ASCP) CT screening location: ?? [facility] ?? [address] [place] [address] ?? [place], [place] [address] HPV nRNA E6/E7 Not Detected Not Detected [facility] Comment: Methodology: Special Delivery Clerk-Mediated Amplification This assay detects E6/E7 viral messenger RNA (mRNA) from 14 high-risk HPV types (16,18,31,33,35,39,45,51,52,56,58,59,66,68). ? The analytical performance characteristics of this assay have been determined by [facility]. The modifications have not been cleared or approved by the FDA. This assay has been validated pursuant to the CLIA regulations and is used for clinical purposes. ?? For additional information, please refer to http://education.SOS Online Backup/faq/ZKK347g9 (This link if provided for information/ educational purposes only.) Infection Shift in vaginal jaspal suggestive of bacterial vaginosis. [facility] Interpretation/Re sult: Negative for intraepithelial lesion or malignancy. [facility] LMP: NONE GIVEN [facility] Prev. BX: NONE GIVEN [facility] Prev. PAP: NONE GIVEN [facility] SOURCE: None given [facility] Statement Of Adequacy: SEE COMMENT [facility] Comment: Satisfactory for evaluation. Endocervical/transformation zone component present. Age and/or menstrual status not provided 07/19/2021 Blessing Ngo MD LAB PATHOLOGY ORDERAB LES Final Result [facility] [address] * Colonoscopy (08/13/2018) Historical Provider HEALTH MAINTENANCE Final Result from Last 3 Months or Most Recently Relevant to Health Maintenance Insurance [facility] Care Teams Last Inserter Relationship Specialty Start Date End Date Blessing Cummins MD [address] [place] [phone] PCP - General Family Medicine 11/10/20
--- OUTSIDE RECORDS SUMMARY | 2024-11-07 14:28 | XMS_ITS | Encounter Summary ---
Author Organization [facility] Address [address] [place] [address] 7 [place] [address] Care Team Providers Care Child Support Agent Name Role Phone Blessing Cummins MD Primary Care Provide r Reason for Visit * Reason Comments Med Refill Encounter Details Date Type Department Care Team (Late st Contact Info) Description 06/04/2023 Refill [facility] [address] [place] [address] [phone] Cassidy Steinberg MD [address] [place] [address] [phone] Uncomplicated opioid dependence (CMS/HCC) Social History Tobacco Use Types Packs/Day Years Used Date Smoking Tobacco: Former Cigarettes S tarted: 2016 Smokeless Tobacco: Former Depression Answer Date Recorded Patient Health Questionnaire-9 Score 4 01/05/2023 Depression Answer Date Recorded Patient Health Questionnaire-2 Score 2 01/05/2023 Comments Unknown Sex and Gender Information Value Date Recorded Sex Assigned at Female 07/31/2022 10:25 AM EDT Legal Sex Female 10:25 AM EDT Gender Identity Female 07/31/2022 10:25 AM EDT Sexual Orientation Choose not to disclose 2021 10:25 AM EDT documented as of this encounter Plan of Treatment Upcoming Encounters Date Type Department Care Team (Late st Contact Info) Description 11/27/2024 1:30 PM EST Office Visit [facility] [address] [place] [address] [phone] Cassidy Steinberg MD [address] [place] [address] [phone] 11/28/2024 10:45 AM EST Office Visit [facility] [address] [place] [address] Blessing Cummins MD [address] [place] [address] documented as of this encounter Visit Diagnoses Diagnosis Uncomplicated opioid dependence (CMS/HCC) documented in this encounter Additional Health Concerns Assessment Noted Time PHQ-9 Depression Total Score: 4 01/06/20 23 4:13 PM EDT documented as of this encounter Care Teams Child Support Agent Relationship Specialty Start Date End Date Blessing Cummins MD [address] [place] [phone] PCP - General Family Medicine 11/10/20 documented as of this encounter
--- OUTSIDE RECORDS SUMMARY | 2024-11-07 14:28 | XMS_ITS | Encounter Summary ---
Author Organization [employer] Address [address] [facility] 7t [place] [address] Care Team Providers Care Residency Coordinator Name Role Phone Blessing Cummins MD Primary Care Provide r Reason for Visit * Reason Onset Date Comments No Show 10/17/2024 Encounter Details Date Type Department Care Team ([facility] st Contact Info) Description 10/17/2024 Telephone [facility] [address] [place], [place] [phone] Blessing Cummins MD [address] [place], [place] [phone] No Show Social History Tobacco Use Types Packs/Day Years Used Date Smoking Tobacco: Former Cigarettes S tarted: 2016 Smokeless Tobacco: Former Alcohol Use Standard Drinks/Week Comments Never 0 [...] AM EDT documented as of this encounter Miscellaneous Notes * Telephone Encounter - Yareli Elizabeth - 10/17/2024 2:47 PM EST Pt no showed to appt on 10/17/24 documented in this encounter Plan of Treatment Upcoming Encounters Date Type Department Care Team (Late st Contact Info) Description 11/27/2024 1:30 PM EST Office Visit [facility] [address] [place] [phone] Cassidy Steinberg MD [address] [place] [phone] 11/28/2024 10:45 AM EST Office Visit [facility] [address] [place] [phone] Blessing Cummins MD [address] [place] [phone] documented as of this encounter Visit Diagnoses Not on filedocumented in this encounter Additional Health Concerns Assessment Noted Time PHQ-9 Depression Total Score: 6 03/18/20 24 1:11 PM EDT documented as of this encounter Care Teams Residency Coordinator Relationship Specialty Start Date End Date Blessing Cummins MD [address] [place] [address] PCP - General Family Medicine 11/10/20 documented as of this encounter
--- OUTSIDE RECORDS SUMMARY | 2024-11-07 14:28 | XMS_ITS | Encounter Summary ---
Author Organization [employer] Address [address] [facility] 7t [place] [address] Care Team Providers Care Director Of Radiology Name Role Phone Blessing Cummins MD Primary Care Provide r Reason for Visit * Reason Comments Med Change Request Encounter Details Date Type Department Care Team ([place] [facility] st Contact Info) Description 08/11/2023 Refill [facility] [address] [place], [place] [phone] Blessing Cummins MD [address] [place] [address] Iron deficiency anemia, unspecified iron deficiency anemia type Social History Tobacco Use Types Packs/Day Years Used Date Smoking Tobacco: Former Cigarettes S tarted: 2016 Smokeless Tobacco: Former Depression Answer Date Recorded Patient Health Questionnaire-9 Score 4 01/05/2023 Housing Stability Answer Date Recorded What is your housing situation today? I have samra combs 07/16/[address] you li ve. Do you have problems with any of the following? None of the above 07/16/2023 Food Insecurity Answer Date Recorded Within the past 12 months, y ou worried that your food would run out before you got money to buy more: Never True 07/16/2023 Within the past 12 months,th e food you bought just didn't last and you didn't have enough money to get more: Never True Transportation Answer Date Recorded In the past 12 months, has l ack of transportation kept you from medical appts, meetings, work or from getting things needed for daily living? No 07/16/2023 Utilities Answer Date Recorded In the past 12 months, has t he electric, gas, oil or water [employer] threatened to shut off services in your home? Yes 07/10/2023 Depression Answer Date Recorded Patient Health Questionnaire-2 [...] Description 11/27/2024 1:30 PM EST Office Visit [facility] [address] [place] [phone] Cassidy Steinberg MD [address] [place] [phone] 11/28/2024 10:45 AM EST Office Visit [facility] [address] [place] [address] Blessing Cummins MD [address] [place] [phone] documented as of this encounter Visit Diagnoses Diagnosis Iron deficiency anemia, unspecified iron deficiency anemia type documented in this encounter Additional Health Concerns Assessment Noted Time PHQ-9 Depression Total Score: 4 01/06/20 23 4:13 PM EDT documented as of this encounter Care Teams Director Of Radiology Relationship Specialty Start Date End Date Blessing Cummins MD [address] [place] [phone] PCP - General Family Medicine 11/10/20 documented as of this encounter
--- OUTSIDE RECORDS SUMMARY | 2024-11-07 14:28 | XMS_ITS | Encounter Summary ---
Author Organization [facility] [facility] Address [address] [place] [address] 7t [place] [address] Care Team Providers Care Field Traffic Investigator Name Role Phone Blessing Cummins MD Primary Care Provide r Reason for Visit * Reason Onset Date Comments Durable Medical Equipment 12/18/2022 Encounter Details Date Type Department Care Team (Late st Contact Info) Description 12/18/2022 Telephone [facility] 230 [place], [place] [phone] Blessing Cummins MD [address] [place] [address] Durable Medical Equipment Social History Tobacco Use Types Packs/Day Years Used Date Smoking Tobacco: Former Cigarettes S tarted: 2016 Smokeless Tobacco: Former Comments Unknown Sex and Gender Information Value Date Recorded Sex Assigned at Female 07/31/2022 10:25 AM EDT Legal Sex Female 10:25 AM EDT Gender Identity Female 07/31/2022 10:25 AM EDT Sexual Orientation Choose not to disclose 2021 10:25 AM EDT COVID-19 Exposure Response Date Recorded In the last 10 days, have yo u been in contact with someone who was confirmed or suspected to have Coronavirus/COVID-19? No / Unsure 12/07/2022 1:59 PM EST documented as of this encounter Miscellaneous Notes * Telephone Encounter - Kelli Angel RN - 12/22/2022 4:03 PM EDT Called pt. Via [employer] fitness teacher Blessing [phone]. * Telephone Encounter - Lacy Marcus - 12/18/2022 2:16 PM EDT Script for grab bars generated for signature * Telephone Encounter - Lavon Riddle - 12/18/2022 1:45 PM EDT Tc from Cathy with N requesting a shower bar for pt. If any questions please contact pt at [phone] documented in this encounter Plan of Treatment Upcoming Encounters Date Type Department Care Team (Late st Contact Info) Description 11/27/2024 1:30 PM EST Office Visit [facility] [address] [place] [phone] Cassidy Steinberg MD [address] [place] [phone] 11/28/2024 10:45 AM EST Office Visit [facility] [address] [place] [phone] Blessing Cummins MD [address] [place] [phone] documented as of this encounter Visit Diagnoses Not on filedocumented in this encounter Care Teams Field Traffic Investigator Relationship Specialty Start Date End Date Blessing Cummins MD [address] [place] [phone] PCP - General Family Medicine 11/10/20 documented as of this encounter
--- OUTSIDE RECORDS SUMMARY | 2024-11-07 14:28 | XMS_ITS | Encounter Summary ---
Author Organization [employer] Address [address] [facility] 7t [place] [address] Care Team Providers Care Digital Sales Manager Name Role Phone Blessing Cummins MD Primary Care Provide r Reason for Visit * Reason Onset Date Comments Medication Question 10/27/2024 Encounter Details Date Type Department Care Team ([facility] st Contact Info) Description 10/27/2024 Telephone [facility] [address] [place], [place] [phone] Blessing Cummins MD 230 [place], [place] [phone] Medication Question Social History Tobacco Use Types Packs/Day Years [...] encounter Miscellaneous Notes * Telephone Encounter - Jacqui Obregon RN - 10/27/2024 4:45 PM EST TC returned to patient [phone] in regards to below message. Patient reports she had bariatric surgery 1.5 years ago and approx 3-4 months ago she started gaining weight again. Patient reports she notified bariatric office but they aren't helping me . Patient wants to start weight loss medications as patient is not interested in following up with bariatric surgeons office. Patient scheduled for appointment with PCP on 11/28/24 at 10:45am to further discuss. Patient agreed to appointment date and time. Patient to f/u PRN. * Telephone Encounter - Quan Magana - 10/27/2024 1:50 PM EST Tc from pt requesting a call back to discuss being put on Medication Ozempic due to pt stating thatshe is not eating but is still gaining weight. Contact pt at [phone] documented in this encounter Plan of Treatment Upcoming Encounters Date Type Department Care Team (Late st Contact Info) Description 11/27/2024 1:30 PM EST Office Visit [facility] [address] [place] [address] Cassidy Steinberg MD [address] [place] [address] 11/28/2024 10:45 AM EST Office Visit [facility] [address] [place] [address] Blessing Cummins MD [address] [place], [place] [phone] documented as of this encounter Visit Diagnoses Not on filedocumented in this encounter Additional Health Concerns Assessment Noted Time PHQ-9 Depression Total Score: 6 03/18/20 24 1:11 PM EDT documented as of this encounter Care Teams Digital Sales Manager Relationship Specialty Start Date End Date Blessing Cummins MD [address] [place] [address] [phone] PCP - General Family Medicine 11/10/20 documented as of this encounter
--- OUTSIDE RECORDS SUMMARY | 2024-11-07 14:28 | XMS_ITS | Encounter Summary ---
Author Organization [employer] Address [address] [facility] 7t [place] [address] Care Team Providers Care Marketing Director Name Role Phone Blessing Cummins MD Primary Care Provide r Reason for Visit * Reason Comments Med Refill Encounter Details Date Type Department Care Team ([facility] st Contact Info) Description 10/29/2024 Refill [facility] [address] [place], [place] [phone] Blessing Cummins MD [address] [place] [address] Iron deficiency anemia, unspecified iron deficiency anemia type; Primary hypertension Social History Tobacco Use Types Packs/Day Years [...] Description 11/27/2024 1:30 PM EST Office Visit [facility] [address] [place] [phone] Cassidy Steinberg MD [address] [place] [phone] 11/28/2024 10:45 AM EST Office Visit [address] [address] Blessing Cummins MD [address] [place] [phone] documented as of this encounter Visit Diagnoses Diagnosis Iron deficiency anemia, unspecified iron deficiency anemia type Primary hypertension Unspecified essential hypertension documented in this encounter Additional Health Concerns Assessment Noted Time PHQ-9 Depression Total Score: 6 03/18/20 24 1:11 PM EDT documented as of this encounter Care Teams Marketing Director Relationship Specialty Start Date End Date Blessing Cummins MD [address] [place] [phone] PCP - General Family Medicine 11/10/20 documented as of this encounter
--- OUTSIDE RECORDS SUMMARY | 2024-11-07 14:28 | XMS_ITS | Encounter Summary ---
Author Organization [facility] Address [address] [place] [address] 7t [place] [address] Care Team Providers Care Ground Worker Name Role Phone Blessing Cummins MD Primary Care Provide r Encounter Details Date Type Department Care Team (Late Contact Info) Description 06/13/2023 Orders Only [facility] [address] [place] [address] [phone] Provider, MD Linette Social History Tobacco Use Types Packs/Day Years [...] Description 11/27/2024 1:30 PM EST Office Visit [facility] [address] [place] [address] [phone] Cassidy Steinberg MD [address] [place] [address] [phone] 11/28/2024 10:45 AM EST Office Visit [facility] [address] [place] [phone] Blessing Cummins MD [address] [place] [address] [phone] documented as of this encounter Procedures Procedure Name Priority Date/Time Associated Diagnosis Comments TSH W/REFLEX TO FT4 Routine 06/13/2023 4 :00 PM EDT BETA-HCG, QUANTITATIVE (TUMOR MARKER) Routine 06/13/2023 4:00 PM EDT PROLACTIN Routine 06/13/2023 4:00 PM EDT CBC Routine 06/13/2023 4:00 PM EDT PAP SMEAR Routine 06/13/2023 3:39 PM EDT BACTERIAL VAGINOSIS PANEL Routine 06/13/2023 2:49 PM EDT CHLAMYDIA/N. GONORRHOEAE RNA, TMA, UROGENITAL Routine 06/13/2023 2:49 PM EDT CULTURE, URINE, ROUTINE Routine 06/13/2023 2:49 PM EDT HM COLONOSCOPY Routine 08/13/2018 documented in this encounter Results * Prolactin (06/13/2023 4:00 PM EDT) Prolactin 5.3 ng/mL [facility] Comment:Reference Range Fema les Non- 3.0-30.0 10.0-209.0 Postmenopausal 2.0-20.0THIS TEST WAS PERFORMED AT:[email or web address] [place] [id number] FRANKEL MD 06/13/2023 4:00 PM EDT 06/13/2023 4:00 PM EDT us [facility] External Provider LAB BLO OD ORDERABLES Final Result [facility] [address] [place] [phone] * hCG, Total, Quantitative (06/13/2023 4:00 PM EDT) HCG Quantitative <2 mIU/mL [facility] Comment:Weeks post LMP Appr oximate hCG(Last Menstrual Period) Range (mIU/ml)3 - 4 weeks 9 - 1304 - 5 weeks 75 - 2,6005 - 6 weeks 850 - 20,8006 - 7 weeks 4000 - 100,2007 - 12 weeks 11,500 - 289,41509 - 16 weeks 18,300 - 137,52841 - 29 weeks (2nd trimester) 1,400 - 53,17524 - 41 weeks (3rd trimester) 940 - 60,000The Main B- hCG assay is used for the early detection ofpregnancy; it cannot be used to diagnose any conditionunrelated to . If a B-hCG level is not supportedby the clinical evidence, results should be confirmed by analternative method (qualitative urine hCG, for example). 06/13/2023 4:00 PM EDT 06/13/2023 4:00 PM EDT Generic External Data Provider LAB BLOOD ORDERAB LES Final Result Performing Organization Address City/[facility]/ZIP Co de Phone Number [facility] [address] [place] [address] [phone] * TSH W/Reflex to FT4 (06/13/2023 4:00 PM EDT) TSH reflex Free T4 1.27 0.32 - 4.0 uIU/mL [facility] 06/13/2023 4:00 PM EDT 06/13/2023 4:00 PM EDT [facility] External Provider LAB BLO OD ORDERABLES Final Result Performing Organization Address City/[facility]/ZIP Co de Phone Number [facility] [address] [place] [phone] * (ABNORMAL) CBC (06/13/2023 4:00 PM EDT) White Blood Count 4.3(L) 4.8 - 10.8 X10*3/uL [facility] Red Blood Count 4.38 4.20 - 5.50 X10*6/uL [facility] Hemoglobin 11.2(L) 12.0 - 16.0 g/dl [facility] Hematocrit 35.6(L) 37.0 - 47.0 % [facility] Mean Corpuscular Volume 81.3 80.0 - 98.0 fL [facility] Mean Corpuscular Hemoglobin 25.6(L) 27.0 - 33.0 pg [facility] Mean Corpuscular HGB Conc 31.5 31.0 - 35.0 g/dl [facility] Red Cell Distribution Width 14.8 11.0 - 16.0 % [facility] Platelet Count 263 160 - 400 X10*3/uL [facility] Mean Platelet Volume 10.5 9.4 - 12.3 fL [facility] NRBC Pct Auto 0.0 0.0 - 0.2 /100WBC [facility] NRBC Abs Auto 0.000 0.0 - 0.012 X10*3/uL [facility] 06/13/2023 4:00 PM EDT 06/13/2023 4:00 PM EDT [facility] External Provider LAB BLO OD ORDERABLES Final Result [facility] [address] [place] [phone] * Pap Smear (06/13/2023 3:39 PM EDT) 06/13/2023 3:39 PM EDT 06/14/2023 9:10 AM EDT Narrative [facility] - 06/27/2023 8:37 AM EDT ----- ------- Name: Christina Shah ?Age/Sex: 52/F ? : 1970 Unit#: [id number] ?? Attend Dr: Toby Vila MD ?Re06/13/23 ?Status: DEP REF ? Location: HO.LNP ?Disch: ? ----- ------- SPEC : [id number] ?RECD: 06/14/23 ? STATUS: ??SOUT ? REQ NUM: [id number] ? SHANELL: 06/13/23-2321 ? SUBM DR: Toby Vila MD ? ENTERED: ??06/14/23 ?SP TYPE: Pap Smr ?OTHR DR: Blessing [...] 66, 68) ? HPV testing performed by [facility], [place], [place]. ??See reference laboratory ?? portion of the EMR for entire report. ?Clinical Information LMP: Postmenopausal Previous PAP test: Unknown date/findings Other history: Abnormal uterine and vaginal bleeding, pelvic and perineal pain, acute vaginitis ? Material Received ?? ThinPrep-Cervical Copies To: ?? Blessing Cummins MD ?? [address] [facility] ?? [place] [address] ?? [phone] ?? Toby Vila MD ?? [address] [facility] ?? [place] [address] ?? [phone] ----- ------- Signed (signature on file) Krystal Jarvis MD 06/27/23 0837 ? ----- ------- ? END OF REPORT ? [facility] External Provider LAB CYT OLOGY ORDERABLES Final Result Performing Organization Address [facility] de Phone Number [facility] [address] [place] [address] [phone] * Culture, Urine, Routine (06/13/2023 2:49 PM EDT) Urine specimen obtained by clean catch procedure / Unknown 06/13/2023 2:49 PM EDT 06/13/2023 3:32 PM EDT Comment:UACC Narrative [facility] - 06/15/2023 11:11 AM EDT Urine Culture Report Result Urine Culture < 10,000 cfu/ml Specimen Source: Urine clean catch [facility] Exter nal Provider LAB MICROBIOLOGY - GENERAL ORDERABLES Final Result Performing Organization Address [facility] de Phone Number [facility] [address] [place] [phone] [phone] * (ABNORMAL) Bacterial Vaginosis (06/13/2023 2:49 PM EDT) Trichomonas DNA Probe Negative Negative [facility] Gardnerella DNA Probe Negative Negative [facility] Shona DNA Probe Positive(A) Negative [facility] 06/13/2023 2:49 PM EDT 06/13/2023 4:51 PM EDT [facility] Exter nal Provider LAB MICROBIOLOGY - GENERAL ORDERABLES Final Result Performing Organization Address [facility] de Phone Number [facility] [address] [place] [phone] * Chlamydia/N. Gonorrhoeae RNA, TMA, Urogenitial (06/13/2023 2:49 PM EDT) CT PCR NOT DETECTED Not Detect. [facility] Comment:A not detected test result does not exclude the possibilityof infection because test results can be affected byimproper specimen collection, concurrent antibiotic therapy,or the number of organisms in the specimen which may bebelow the sensitivity of the test. As with many diagnostictests, results from the Xpert CT/NG assay should beinterpreted in conjunction with other laboratory andclinical data available to the clinician.Xpert CT/NG performance has not been evaluated in patientsless than 14 years of age. The assay should not be used forthe evaluationof suspected sexual abuse or for other medico-legalindications. Additional testing is recommended in anycircumstance when false positive or false negative resultscould lead to adverse medical, social or psychologicalconsequences. NG PCR NOT DETECTED Not Detect. [facility] Comment:A not detected test result does not exclude the possibilityof infection because test results can be affected byimproper specimen collection, concurrent antibiotic therapy,or the number of organisms in the specimen which may bebelow the sensitivity of the test. As with many diagnostictests, results from the Xpert CT/NG assay should beinterpreted in conjunction with other laboratory andclinical data available to the clinician.Xpert CT/NG performance has not been evaluated in patientsless than 14 years of age. The assay should not be used forthe evaluationof suspected sexual abuse or for other medico-legalindications. Additional testing is recommended in anycircumstance when false positive or false negative resultscould lead to adverse medical, social or psychologicalconsequences. 06/13/2023 2:49 PM EDT 06/13/2023 4:51 PM EDT Narrative [facility] - 06/13/2023 6:57 PM EDT Vaginal us [facility] Exter nal Provider LAB MICROBIOLOGY - GENERAL ORDERABLES Final Result [facility] [address] [place] [phone] [phone] * Hm Colonoscopy (08/13/2018) us Historical Provider HEALTH MAINTENANCE Final Result documented in this encounter Visit Diagnoses Not on filedocumented in this encounter Additional Health Concerns Assessment Noted Time PHQ-9 Depression Total Score: 4 01/06/20 23 4:13 PM EDT documented as of this encounter Care Teams Ground Worker Relationship Specialty Start Date End Date Blessing Cummins MD [address] [place] [phone] PCP - General Family Medicine 11/10/20 documented as of this encounter
--- OUTSIDE RECORDS SUMMARY | 2024-11-07 14:28 | XMS_ITS | Encounter Summary ---
Author Organization [employer] [facility] Address [address] [place] [address] 7t [place] [address] Care Team Providers Care Lead Manufacturing Engineering Tech Name Role Phone Blessing Cummins MD Primary Care Provide r Encounter Details Date Type Department Care Team (Late st Contact Info) Description 11/02/2022 Abstract [facility] [address] [place] [phone] Jacqui Obregon RN [address] [place] [phone] Social History Tobacco Use Types Packs/Day Years [...] suspected to have Coronavirus/COVID-19? No / Unsure 10/05/2022 2:29 PM EST documented as of this encounter Plan of Treatment Upcoming Encounters Date Type Department Care Team (Late st Contact Info) Description 11/27/2024 1:30 PM EST Office Visit [facility] [address] [place] [address] [phone] Cassidy Steinberg MD [address] [place] [address] [phone] 11/28/2024 10:45 AM EST Office Visit [facility] [address] [place] [address], [place] [address] Blessing Cummins MD [address] [place], [place] [phone] documented as of this encounter Procedures Procedure Name Priority Date/Time Associated Diagnosis Comments MAMMOGRAPHY Routine 10/31/2022 documented in this encounter Results * Mammography (10/31/2022) Mammogram BIRADS 1: Negative. Routine annual mammography Anatomical Region Laterality Modality Other Historical Provider HEALTH MAINTENANCE Final Result documented in this encounter Visit Diagnoses Not on filedocumented in this encounter Care Teams Lead Manufacturing Engineering Tech Relationship Specialty Start Date End Date Blessing Cummins MD [address] [place], [place] [phone] PCP - General Family Medicine 11/10/20 documented as of this encounter
--- OUTSIDE RECORDS SUMMARY | 2024-11-07 14:28 | XMS_ITS | Encounter Summary ---
Author Organization [facility] Address [address] [place] [address] 7t [place] [address] Care Team Providers Care Loftsman/Woman Name Role Phone Blessing Cummins MD Primary Care Provide r Reason for Visit * Reason Comments Med Refill Encounter Details Date Type Department Care Team (Late Contact Info) Description 02/18/2023 Refill [facility] [address] [place] [address] [phone] Blessing Cummins MD [address] [place] [address] [phone] Dyspepsia Social History Tobacco Use Types Packs/Day Years [...] suspected to have Coronavirus/COVID-19? No / Unsure 01/25/2023 1:17 PM EDT documented as of this encounter Plan of Treatment Upcoming Encounters Date Type Department Care Team (Late Contact Info) Description 11/27/2024 1:30 PM EST Office Visit [facility] [address] [place] [address] [phone] Cassidy Steinberg MD [address] [place] [address] [phone] 11/28/2024 10:45 AM EST Office Visit [facility] [address] [place] [address] [phone] Blessing Cummins MD [address] [place] [address] [phone] documented as of this encounter Visit Diagnoses Diagnosis Dyspepsia Dyspepsia and other specified disorders of function of stomach documented in this encounter Additional Health Concerns Assessment Noted Time PHQ-9 Depression Total Score: 4 01/06/20 23 4:13 PM EDT documented as of this encounter Care Teams Loftsman/Woman Relationship Specialty Start Date End Date Blessing Cummins MD [address] [place] [address] [phone] PCP - General Family Medicine 11/10/20 documented as of this encounter
--- OUTSIDE RECORDS SUMMARY | 2024-11-07 14:28 | XMS_ITS | Encounter Summary ---
Author Organization [facility] Address [address] [place] [address] 7 [place] [address] Care Team Providers Care Electric Pile Driver Operator Name Role Phone Blessing Cummins MD Primary Care Provide r Reason for Visit * Reason Comments Med Refill Encounter Details Date Type Department Care Team (Late st Contact Info) Description 05/02/2023 Refill [facility] [address] [place] [address] [phone] Cassidy Steinberg MD [address] [place] [address] [phone] Uncomplicated opioid dependence (CMS/HCC) Social History Tobacco [...] Description 11/27/2024 1:30 PM EST Office Visit [facility] [address] [place] [address] [phone] Cassidy Steinberg MD [address] [place] [address] [phone] 11/28/2024 10:45 AM EST Office Visit [facility] [address] [place] [address] Blessing Cummins MD [address] [place] [address] documented as of this encounter Visit Diagnoses Diagnosis Uncomplicated opioid dependence (CMS/HCC) documented in this encounter Additional Health Concerns Assessment Noted Time PHQ-9 Depression Total Score: 4 01/06/20 23 4:13 PM EDT documented as of this encounter Care Teams Electric Pile Driver Operator Relationship Specialty Start Date End Date Blessing Cummins MD [address] [place] [phone] PCP - General Family Medicine 11/10/20 documented as of this encounter
== END 2024-11-07 15:05 | disposition home or self-care (01) ==
PROVIDERS: PCP Internal Medicine; Visit Provider Physician Assistant Surgical
DX: E66.811 Obesity, class 1 (principal); Z68.32 Body mass index [BMI] 32.0-32.9, adult; Z90.3 Acquired absence of stomach [part of]; Z98.84 Bariatric surgery status
CPT/HCPCS: 99214; G2211

== ENCOUNTER → 2024-11-07 14:07 | Outpatient (BNVA) | payer OTHER, SELFPAY | PROVIDERS: PCP Internal Medicine; Visit Provider Physician Assistant Surgical | DX: E66.9 Obesity, unspecified (principal); Z71.3 Dietary counseling and surveillance; Z98.84 Bariatric surgery status; Z68.32 Body mass index [BMI] 32.0-32.9, adult | CPT/HCPCS: 99212 ==

== ENCOUNTER 2025-01-01 14:06 | Outpatient (AMB) | payer OTHER, SELFPAY ==
--- NOTE | 2025-01-01 14:14 | A.OFFVIS_ITS ---
VS Expanded 01/01/25 14:16 BP 112/64 Blood Pressure Location Lt brachial Blood Pressure Position Sitting Pulse 56 Pulse Source Pulse Oximeter Pulse Oximetry 100 Height 5 ft 4 in Weight 184 lb 6.4 oz BMI 31.6 Body Fat % 43.4 Body Fat Mass 80.0 Fat Free Mass 104.2 Visceral Fat Rating 11.0 Body Water % 40.2 Body Water Mass 74.0 Muscle Mass/Score 99.0 Intake Visit Reasons: (OV) PO LSG 06/14/21 Career Development Counselor Required: No Career Development Counselor Services: Career Development Counselor Offered & Declined Allergies No Known Allergies [No Known Allergies*] Allergy (Verified 11/07/24 14:26) Medication List - Last Reconciled 01/01/25 by NAVA Arellano albuterol sulfate 90 mcg/actuation 1 inh PO Q4H PRN [biotin ] buprenorphine-naloxone 8-2 mg (Suboxone) 1 strip sublingual BID cholecalciferol (vitamin D3) (Vitamin D3) 1 tab PO DAILY clonazepam 1 mg PO QAM clonazepam (Klonopin) 2 mg PO BEDTIME clotrimazole-betamethasone 1-0.05 % 1 appl topical BID 5 days [collagen (bovine) ] [cranberry ] hydrochlorothiazide 12.5 mg DAILY ipratropium-albuterol 0.5 mg-3 mg(2.5 mg base)/3 mL 3 mL PO QID multivitamin 1 tab PO DAILY pantoprazole 40 mg PO DAILY polyethylene glycol 3350 17 grams PO DAILY quetiapine 200 mg PO BEDTIME quetiapine 50 mg PO BEDTIME sennosides (senna) 17.2 mg (2 x 8.6 mg) PO BEDTIME PRN tamoxifen 1 tab PO DAILY temazepam 30 mg PO BEDTIME terconazole 0.8% 1 appful vaginal BEDTIME 3 days tirzepatide (weight loss) (Zepbound) 2.5 mg subcut QWEEK vitamin E (dl, acetate) 180 mg PO BEDTIME HPI Comments Details: 54-year-old female returns to the office today in follow-up. She is 3 years 7 months post sleeve gastrectomy performed on 06/14/2021. She also underwent a panniculectomy on 02/17/2023. She was last seen in the office in 05/20/2024 and has missed several appointments since then. She returns today in follow-up. Her weight at her last appointment in 11/2024 was 188.2 lb with a BMI of 32.3. Weight today is 184.4 lb with a BMI of 31.7. According to her body composition, she has increased body fat mass by 5 lb and muscle mass by 3 lb. She kgcav7i she is doing somewhat better with her constipation. She was started on Zepbound 2.5 mg by her PCP. Continues to follow the meal plan although not exercising over the last month due to complaints of left leg pain. wakes at 10 am, bed at 10 pm Orgain protein powder Shake 1 scoop in 8 oz almond milk at 12-2 Shake 1 scoop, 3-5 6 pm 2 eggs, 2 forks chicken and 4 forks vegetables 8-10 pm congolese yogurt or celebrate protein bar or another shake Increase to 48 oz water Exercise: nothing in last month PFSH Medical History Left knee pain Atypical ductal hyperplasia of breast Panniculitis Postgastrectomy malabsorption Insomnia GERD (gastroesophageal reflux disease) BMI 33.0-33.9,adult BMI 33.0-33.9,adult BMI 36.0-36.9,adult Smoking Hypertension Steatosis, liver BMI 37.0-37.9, adult Obesity Hx of renal calculi COPD (chronic obstructive pulmonary disease) Back pain Sleep apnea Asthma History of anxiety Hx of bipolar disorder Depression Chronic pain syndrome Gouty arthritis of both knees Gout Surgical History History of sleeve gastrectomy (06/14/21) Hx of tubal ligation History of esophagogastroduodenoscopy (EGD) (2014) H/O colonoscopy (2014) History of lumpectomy of right breast (06/28/18) Hx of arthroscopic knee surgery Family History Mother Emphysema lung Uterine cancer Father Lung cancer Brother No problems noted. Brother No problems noted. Brother No problems noted. Brother No problems noted. Social History Household Members: Significant Other Housing: Apartment Are you a primary career development counselor to a significant other at home: No Do you presently have visiting nurse or other home services: Yes (PRODUCE BUYER) Alcohol intake: never Patient Tobacco Use Status: Former Tobacco user Tobacco use type: Cigarette Second Hand Smoke Exposure: No Substance Use Type: Opiates service: No Current occupational status: disabled Physical Exam Vital Signs: Last Vital Signs Pulse 56 01/01/25 14:16 BP 112/64 01/01/25 14:16 Pulse Ox 100 01/01/25 14:16 BMI result Body Mass Index 31.6 Const General: healthy appearing and no acute distress Resp Effort & Inspection: normal respiratory effort Auscultation: clear to auscultation bilaterally Cardio Rate: regular rate Rhythm: regular rhythm GI Auscultation: normal bowel sounds Extrem General: Yes normal to inspection Assessment & Plan Assessment & Plan (1) S/P laparoscopic sleeve gastrectomy: Code(s): Z98.84 - Bariatric surgery status Category: Surgical Plan: Patient is doing well, following her current meal plan. We discussed exercise and is direct relation to her weight loss. She will continue her meal plan. She was given discount paperwork to join the [facility] in [place]. Plan to return to clinic for her 4 year follow-up in June
[2025-01-01 14:16] VITALS: BP 112/64; PULSE 56; O2SAT 100; BMI 31.6
--- OUTSIDE RECORDS SUMMARY | 2025-01-01 15:34 | XMS_ITS | Encounter Summary ---
Author Organization [facility] Address [address] [place] [address] 7t [place] [address] Care Team Providers Care Deck And Hull Assembler Name Role Phone Blessing Cummins MD Primary Care Provide r Reason for Visit * Reason Onset Date Comments Appointment Request 11/26/2024 Encounter Details Date Type Department Care Team ([facility] st Contact Info) Description 11/26/2024 Telephone [facility] [address] [place], [place] [phone] Blessing Cummins MD [address] [place] [address] Appointment Request Social History Tobacco Use Types Packs/Day Years [...] encounter Miscellaneous Notes * Telephone Encounter - Js Marcus - 11/26/2024 4:02 PM EST Tc from pt returning call for appointment as pt will like PM appointments , pt also inform she needs it urgently not for December or January. Station Engineer Main Line advice no availability that soon but will have [place] return call so she can discuss why she will like to be seen urgently. Denied triage documented in this encounter Plan of Treatment Upcoming Encounters Date Type Department Care Team (Late st Contact Info) Description 01/07/2025 3:45 PM EDT Office Visit [facility] [address] [place] [phone] Júnior Villarreal CNP [address] [place] [address] 01/22/2025 1:30 PM EDT Office Visit [facility] [address] [place] [phone] Cassidy Steinberg MD [address] [place] [phone] 01/30/2025 2:30 PM EDT Office Visit [facility] [address] [place] [phone] Blessing Cummins MD [address] [place] [address] documented as of this encounter Visit Diagnoses Not on filedocumented in this encounter Additional Health Concerns Assessment Noted Time PHQ-9 Depression Total Score: 6 03/18/20 24 1:11 PM EDT documented as of this encounter Care Teams Deck And Hull Assembler Relationship Specialty Start Date End Date Blessing Cummins MD [address] [place] [phone] PCP - General Family Medicine 11/10/20 documented as of this encounter
--- OUTSIDE RECORDS SUMMARY | 2025-01-01 15:34 | XMS_ITS | Encounter Summary ---
Author Organization [facility] Address [address] [place] [address] 7 [place] [address] Care Team Providers Care Landing Gear Mechanic Name Role Phone Blessing Cummins MD Primary Care Provide r Encounter Details Date Type Department Care Team (Late st Contact Info) Description 11/02/2022 Abstract [facility] MED[facility]INE [address] [place] [phone] Jacqui Obregon RN [address] [place], [place] [phone] Social History Tobacco Use Types Packs/Day Years [...] Description 01/07/2025 3:45 PM EDT Office Visit [facility] [address] [place] [address] [phone] Júnior Villarreal CNP [address] [place], [place] [phone] 01/22/2025 1:30 PM EDT Office Visit [facility]INE [address] [place] [address], [place] [phone] Cassidy Steinberg MD [address] [place], [place] [phone] 01/30/2025 2:30 PM EDT Office Visit [facility] [address] [place], [place] [phone] Blessing Cummins MD [address] [place], [place] [phone] documented as of this encounter Procedures Procedure Name Priority Date/Time Associated Diagnosis Comments MAMMOGRAPHY Routine 10/31/2022 documented in this encounter Results * Mammography (10/31/2022) Mammogram BIRADS 1: Negative. Routine annual mammography Anatomical Region Laterality Modality Other Historical Provider [facility] Final Result documented in this encounter Visit Diagnoses Not on filedocumented in this encounter Care Teams Landing Gear Mechanic Relationship Specialty Start Date End Date Blessing Cummins MD [address] [place], [place] [phone] PCP - General Family Medicine 11/10/20 documented as of this encounter
--- OUTSIDE RECORDS SUMMARY | 2025-01-01 15:34 | XMS_ITS | Encounter Summary ---
Author Organization [employer] [facility] Address [address] [place] [address] 7 [place] [address] Care Team Providers Care Accelerator Technician Name Role Phone Blessing Cummins MD Primary Care Provide r Reason for Visit * Reason Comments Med Refill Encounter Details Date Type Department Care Team (Late st Contact Info) Description 05/02/2023 Refill [facility] [address] [place] [address] [phone] Cassidy Steinberg MD [address] [place] [address] [phone] Uncomplicated opioid dependence (CMS/HCC) Social History Tobacco [...] Description 01/07/2025 3:45 PM EDT Office Visit [facility] [address] [place] [phone] Júnior Villarreal CNP [address] [place], [place] [phone] 01/22/2025 1:30 PM EDT Office Visit [facility] [address] [place] [phone] Cassidy Steinberg MD 230 [place], [place] [phone] 01/30/2025 2:30 PM EDT Office Visit [facility] [address] [place] [address] [phone] Blessing Cummins MD [address] [place] [address] [phone] documented as of this encounter Visit Diagnoses Diagnosis Uncomplicated opioid dependence (CMS/HCC) documented in this encounter Additional Health Concerns Assessment Noted Time PHQ-9 Depression Total Score: 4 01/06/20 23 4:13 PM EDT documented as of this encounter Care Teams Accelerator Technician Relationship Specialty Start Date End Date Blessing Cummins MD [address] [place] [address] [phone] PCP - General Family Medicine 11/10/20 documented as of this encounter
--- OUTSIDE RECORDS SUMMARY | 2025-01-01 15:34 | XMS_ITS | Encounter Summary ---
Author Organization [employer] Address [address] [place] [address] 7 [place] [address] Care Team Providers Care Color Control Operator Name Role Phone Blessing Cummins MD Primary Care Provide r Reason for Visit * Reason Onset Date Comments Prior Authorization 12/11/2024 Encounter Details Date Type Department Care Team ([facility] st Contact Info) Description 12/11/2024 Telephone [facility] MEDICINE 230 [place], [place] [phone] Júnior Villarreal CNP 230 [place] [address] Prior Authorization Social History Tobacco Use Types Packs/Day Years [...] encounter Miscellaneous Notes * Telephone Encounter - Maylin Sanchez - 12/29/2024 10:09 AM EDT PA approval for Zepbound received and scanned into media. Placed call to [facility] Pharmacy/Leida and notified of approval. * Telephone Encounter - Maylin Sanchez - 12/25/2024 2:50 PM EDT PA initiated on Covermymeds for Zepbound . Approval/denial pending. Allan: [id number] * Telephone Encounter - Ros Valle - 12/18/2024 1:29 PM EDT Tc from pt requesting status on PA for medication Tirzepatide-Weight Management (Zepbound) 2.5 MG/0.5ML solution auto-injector . * Telephone Encounter - Aston Greene - 12/11/2024 4:37 PM EDT TC pt reports PA required for Tirzepatide-Weight Management (Zepbound) 2.5 MG/0.5ML solution auto-injector documented in this encounter Plan of Treatment Upcoming Encounters Date Type Department Care Team (Late st Contact Info) Description 01/07/2025 3:45 PM EDT Office Visit [facility] MEDICINE [address] [place] [phone] Júnior Villarreal CNP 230 [place] [address] 01/22/2025 1:30 PM EDT Office Visit [address] [address] Cassidy Steinberg MD [address] [place] [phone] 01/30/2025 2:30 PM EDT Office Visit [address] [address] Blessing Cummins MD [address] [place] [address] documented as of this encounter Visit Diagnoses Not on filedocumented in this encounter Additional Health Concerns Assessment Noted Time PHQ-9 Depression Total Score: 6 03/18/20 24 1:11 PM EDT documented as of this encounter Care Teams Color Control Operator Relationship Specialty Start Date End Date Blessing Cummins MD [address] [place] [phone] PCP - General Family Medicine 11/10/20 documented as of this encounter
--- OUTSIDE RECORDS SUMMARY | 2025-01-01 15:34 | XMS_ITS | Encounter Summary ---
Author Organization [employer] Address [address] [place] [address] 7t [place] [address] Care Team Providers Care Animal Trapper Name Role Phone Blessing Cummins MD Primary Care Provide r Reason for Visit * Reason Onset Date Comments Durable Medical Equipment 12/18/2022 Encounter Details Date Type Department Care Team ([facility] st Contact Info) Description 12/18/2022 Telephone [facility] MED[facility]INE 230 [place], [place] [phone] Blessing Cummins MD 230 [place] [address] Durable Medical Equipment Social History Tobacco Use [...] 12/22/2022 4:03 PM EDT Called pt. Via [employer] lean facilitator Blessing [phone]. * Telephone Encounter - Lacy Fountain 12/18/2022 2:16 PM EDT Script for grab bars generated for signature * Telephone Encounter - Lavon Riddle - 12/18/2022 1:45 PM EDT Tc from Cathy with N requesting a shower bar for pt. If any questions please contact pt at [phone] documented in this encounter Plan of Treatment Upcoming Encounters Date Type Department Care Team (Late st Contact Info) Description 01/07/2025 3:45 PM EDT Office Visit [facility] MEDICINE [address] [place] [phone] Júnior Villarreal, IMELDA 230 [place] [address] 01/22/2025 1:30 PM EDT Office Visit [facility] MED[facility]INE [address] [place] [address] Cassidy Steinberg MD [address] [place] [address] 01/30/2025 2:30 PM EDT Office Visit [address] [address] Blessing Cummins MD [address] [place] [phone] documented as of this encounter Visit Diagnoses Not on filedocumented in this encounter Care Teams Animal Trapper Relationship Specialty Start Date End Date Blessing Cummins MD [address] [place] [phone] PCP - General Family Medicine 11/10/20 documented as of this encounter
--- OUTSIDE RECORDS SUMMARY | 2025-01-01 15:34 | XMS_ITS | Encounter Summary ---
Author Organization [employer] Address [address] [place] [address] 7t [place] [address] Care Team Providers Care Plywood Matcher Name Role Phone Blessing Cummins MD Primary Care Provide r Reason for Visit * Reason Comments Med Change Request Encounter Details Date Type Department Care Team ([facility] st Contact Info) Description 08/11/2023 Refill [facility] 230 [place], [place] [phone] Blessing Cummins MD 230 [place] [address] Iron deficiency anemia, unspecified iron deficiency anemia [...] the past 12 months, has t he [employer], gas, oil or water [employer] threatened to shut off services in your [...] Description 01/07/2025 3:45 PM EDT Office Visit [facility] [address] [place] [address] Júnior Villarreal CNP [address] [place] [address] 01/22/2025 1:30 PM EDT Office Visit [facility] [address] [place] [address] Cassidy Steinberg MD [address] [place] [address] 01/30/2025 2:30 PM EDT Office Visit [address] [address] Blessing Cummins MD [address] [place] [address] documented as of this encounter Visit Diagnoses Diagnosis Iron deficiency anemia, unspecified iron deficiency anemia type documented in this encounter Additional Health Concerns Assessment Noted Time PHQ-9 Depression Total Score: 4 01/06/20 23 4:13 PM EDT documented as of this encounter Care Teams Plywood Matcher Relationship Specialty Start Date End Date Blessing Cummins MD [address] [place] [phone] PCP - General Family Medicine 11/10/20 documented as of this encounter
--- OUTSIDE RECORDS SUMMARY | 2025-01-01 15:34 | XMS_ITS | Encounter Summary ---
Author Organization [facility] Address [address] [place] [address] 7 [place] [address] Care Team Providers Care Steam Powerplant Supervisor Name Role Phone Blessing Cummins MD Primary Care Provide r Reason for Visit * Reason Comments Med Refill Encounter Details Date Type Department Care Team (Late st Contact Info) Description 06/04/2023 Refill [facility] [address] [place] [address] [phone] Cassidy Steinberg MD [address] [place] [address] [phone] Uncomplicated opioid dependence (CMS/HCC) Social History Tobacco [...] Description 01/07/2025 3:45 PM EDT Office Visit [facility] [address] [place] [address] Júnior Villarreal CNP 230 [place], [place] [phone] 01/22/2025 1:30 PM EDT Office Visit [facility] [address] [place] [address] Cassidy Steinberg MD 230 [place], [place] [phone] 01/30/2025 2:30 PM EDT Office Visit [facility] [address] [place] [address] [phone] Blessing Cummins MD [address] [place] [address] [phone] documented as of this encounter Visit Diagnoses Diagnosis Uncomplicated opioid dependence (CMS/HCC) documented in this encounter Additional Health Concerns Assessment Noted Time PHQ-9 Depression Total Score: 4 01/06/20 23 4:13 PM EDT documented as of this encounter Care Teams Steam Powerplant Supervisor Relationship Specialty Start Date End Date Blessing Cummins MD [address] [place] [address] [phone] PCP - General Family Medicine 11/10/20 documented as of this encounter
--- OUTSIDE RECORDS SUMMARY | 2025-01-01 15:34 | XMS_ITS | Encounter Summary ---
Author Organization [employer] Address [address] [place] [address] 7t [place] [address] Care Team Providers Care Enchilada Maker Name Role Phone Blessing Cummins MD Primary Care Provide r Reason for Visit * Reason Onset Date Comments Nurse Triage 11/25/2024 Encounter Details Date Type Department Care Team ([facility] st Contact Info) Description 11/25/2024 Telephone [facility] MED[facility]INE 230 [place], [place] [phone] Blessing Cummins MD 230 [place] [address] Nurse Triage Social History Tobacco Use Types Packs/Day Years [...] Telephone Encounter - Jacqui Obregon RN - 11/26/2024 11:06 AM EST Noted. Per instED note 11/25/24: Sent to a call for a pt complaining of constipation. SC8 arrives on scene, pt is alert and oriented, airway is patent. Pt states she has chronic constipation, and has been taking Senna and Miralax with no effect. Pt states she has been previously prescribed Bisacodyl EC 15mg daily for constipationby GI specialist, but pt's medication is and GI specialist no longer practices. Pt complains of abd pain and constipation x 4 days, and bilateral hand/feet tingling at night x 1 week. Pt denies stoddard, dizziness, cp, sob, n/v/d, fever, or loc. Pt has been eating/drinking normally. BP:120/72, P:58, RR:18, SpO2:99% RA, T:98.7; Head: unremarkable; Lung sounds: clear bilaterally; Abdomen: soft, di stended, diffuse tenderness, (+)bowel sounds; Back: unremarkable; Skin: pink, warm, dry; [facility] consulted and orders BMP. [facility] sends script to pt's pharmacy. Venous blood draw performed. [employer] Chem8+ results: uploaded to [employer]. Pt reassured bloodwork is normal. Red flags discussed. Pt has no further qu estions. Patient was given RX for bisacodyl 5 mg tablet 3 tabs daily PRN for constipation qty 9. TC placed to [phone] to status check patient. Patient reports she has NOT p/u medication as ofyet. Patient reports she will p/u medication today from the pharmacy but is requesting PCP to send a monthly supply and further evaluate abdominal pain. Patient informed she would need to be evaluated in the office as medication is only PRN not a daily medication. Patient reports she has an appointment on 11/28/24 however she needs to reschedule because she needs a PM appointment. Patient advised PCP does not have PM appointments on this day. Patient requesting to see alternative provider. RN scheduled patient for 11/28/24 at 2:45pm with DANIEL Villarreal. Patient agreed to appointment date and time. Patient is requesting to r/s PCP appointment for f/u on dizziness and weight loss medication. Patient advised RN would send message to [place] to r/s for next available. Patient to f/u PRN. Inst[employer] note in chart * Telephone Encounter - Adelina Galloway LPN - 11/25/2024 1:43 PM EST Triage call returned with BLS # [id number] Eloy. Patient reports cramps in hands and legs denies any Electric shock from external source. Patient with concerns for upcoming appt with PCP and wants to reschedule for 11/28/24 as she is unable to come to appts in the morning.Wants to see PCP and only can come in afternoon. Appt left intactas unable to reschedule with PCP at time of call. Patient call today in regards to having issues with muscle cramps at night only and that she is nowday 4 of no BM. Patient reports that previous on EC Bisacodyl 3 tabs daily and has no more and thatGI provider in [place] no longer with practice. Patient advised Bisacodyl may be purchased OTC.Patient unaware and agrees to have CCA evaluation at home today. No constant abdominal pain. No rect al bleeding no fever. Disposition reviewed and patient in agreement with plan. CCA referral placed and address and phone verified. Forwarded to PCP and team as FYI to follow up PRN Multiple (2) protocols were used on this call. Disposition for Call: See in Office or Video Visit within 3 Days Protocol Used: Constipation (Adult) Protocol-Based Disposition: See in Office or Video Visit within 3 Days Video visit offer not recorded Positive Triage Question: * Unable to have a bowel movement (BM) without using a laxative, suppository, or enema * All higher-acuity triage questions were negative Care Advice Discussed: * Drink Adequate Liquids * Reasons To Call Back - You become worse Protocol Used: Foot Pain (Adult) Protocol-Based Disposition: Home Care Positive Triage Question: * Caused by brief (now gone) muscle cramps in the foot * All higher-acuity triage questions were negative Care Advice Discussed: * Pain Medicines * Reasons To Call Back - You become worse * Telephone Encounter - Quan Magana - 11/25/2024 1:38 PM EST Symptoms: Electrical Shock, Leg Swelling - Not From Injury, Arm Swelling - Not From Injury, Hand orWrist Swelling Outcome: Transfer to a nurse or provider NOW! Reason: Hard to wake up The caller accepted this outcome.\ Contact pt at [phone] documented in this encounter Plan of Treatment Upcoming Encounters Date Type Department Care Team (Late st Contact Info) Description 01/07/2025 3:45 PM EDT Office Visit [facility] MEDICINE [address] [place] [address] Júnior Villarreal CNP 230 [place] [address] 01/22/2025 1:30 PM EDT Office Visit [facility] MED[facility]INE [address] [place] [address] Cassidy Steinberg MD 230 [place] [address] 01/30/2025 2:30 PM EDT Office Visit [facility] MEDICINE 230 [place], [place] [phone] Blessing Cummins MD 230 [place] [address] documented as of this encounter Visit Diagnoses Not on filedocumented in this encounter Additional Health Concerns Assessment Noted Time PHQ-9 Depression Total Score: 6 03/18/20 24 1:11 PM EDT documented as of this encounter Care Teams Enchilada Maker Relationship Specialty Start Date End Date Blessing Cummins MD [address] [place] [phone] PCP - General Family Medicine 11/10/20 documented as of this encounter
--- OUTSIDE RECORDS SUMMARY | 2025-01-01 15:35 | XMS_ITS | Clinical Summary ---
Author Organization [employer] Address [address] [place] [address] 7t [place] [address] Care Team Providers Care Analytical Chemist Name Role Phone Blessing Cummins MD Primary Care Provide r Allergies Active Allergy Reactions Criticality Noted Date Comments Aspirin Unknown 07/14/2014 Medications acetaminophen (Tylenol) 325 MG tablet [...] day. 90 tablet 3 024 2024 Active hydrocortisone 2.5 % cream APPLY TOPICALLY IF NEEDED FOR RASH 28 g 024 Active QUEtiapine (SEROquel) 50 MG tablet 024 Active Multiple Vitamin (Daily-Ish Multivitamin) tablet Take 1 tablet by mouth Once per day. TAKE 1 TABLET BY MOUTH ONCE DAILY 90 tablet 2 024 Active D-1000 Extra Strength 25 MCG (1000 UT) tabletIndications :Iron deficiency anemia, unspecified iron deficiency anemia type TOME ANTONIO TABLETA POR VIA ORAL EN LA KUTTAWAANA 90 tablet 025 Active hydroCHLOROthiazi de 12.5 MG tabletIndications :Primary hypertension TAKE 1 TABLET (12.5 MG) BY MOUTH ONCE PER DAY. TAKE 1 TABLET MY MOUTH ONCE DAILY 90 tablet 1 025 Active Suboxone 8-2 MG SL filmIndications:U ncomplicated opioid dependence (CMS/HCC) Place 2 Film under the tongue Once per day. 56 Film 1 025 2024 Active fluticasone (Flonase) 50 MCG/ACT nasal sprayIndications: Allergic rhinitis, unspecified seasonality, unspecified trigger SPRAY 1 SPRAY INTO EACH NOSTRIL ONCE A DAY 16 mL 2 025 Active fluticasone (Flonase) 50 MCG/ACT nasal sprayIndications: Allergic rhinitis, unspecified seasonality, unspecified trigger Administer 1 spray into each nostril Once per day. 16 g 2 024 2024 Discontinued docusate sodium (Colace) 100 MG capsuleIndication s:Drug-induced constipation Take 1 capsule (100 mg) by mouth 2 times daily for 10 days. 20 capsule 025 2024 Tirzepatide-Weigh t Management (Zepbound) 2.5 MG/0.5ML solution auto-injectorIndi cations:Obesity (BMI 30-39.9) Inject 0.5 mL (2.5 mg) under the skin 1 (one) time per week. 2 mL 025 2024 Active Problems Problem Noted Date Diagnosed Date Obesity (BMI 30-39.9) 11/28/2024 Assessment & Plan (11/28/2024 3:30 PM EST): Pt is a candidate for weight loss medication, despite diet and exercise No contraindications to GLP 1 medication, no hx of thyroid CA, no hx of pancreatitis Discussed side effects and expected dosing schedule Advised pt that a PA will need to be completed before she receives med, pt agreeable to plan Once PA approved, pt to start on initial dose of Zepbound F/u in 6 weeks for weight loss Hyperglycemia 07/28/2024 Assessment & Plan (07/28/2024 5:47 [...] course of tamoxifen -was seeing oncologist at [facility] -order placed for bilateral [...] pain 02/28/2018 Allergic rhinitis 04/13/2016 Constipation 04/13/2016 Assessment & Plan (11/28/2024 3:27 PM EST): Constipation likely drug induced, pt on suboxone Pt did have BM yesterday Advised ample hydration and will send colace and miralax Mild intermittent asthma 04/13/2016 Assessment & Plan (11/12/2023 9:58 AM EST): Patient educated to avoid asthma triggers Albuterol inhaler Q 4-6hrs if needed asmanex BID Assessment & Plan (07/26/2023 4:36 PM EDT): Patient educated to avoid asthma triggers I will prescribe nebulizer machine today Smoker 04/13/2016 Vitamin D deficiency 04/13/2016 Opioid dependence 07/29/2015 Encounters Date Type Department Care Team Description 12/23/[address] [address] Blessing Cummins MD Chart Prep 12/21/[address] [address] Blessing Cummins MD Allergic rhinitis, unspecified seasonality, unspecified trigger 12/11/[address] [address] Júnior Villarreal CNP Prior Authorization 11/28/2024 2:45 PM EST Office Visit [address] [address] Júnior Villarreal CNP Drug-induced constipation (Primary Dx); Obesity (BMI 30-39.9) 11/27/2024 1:30 PM EST Telemedicine [address] [address] Cassidy Steinberg MD Uncomplicated opioid dependence (CMS/HCC) (Primary Dx) 11/27/2024 Travel 11/27/[address] [address] Blessing Cummins MD Chart Prep 11/26/[address] [address] Blessing Cummins MD Appointment Request 11/26/[address] [address] Blessing Cummins MD R\S APPT 11/25/[address] [address] Blessing Cummins MD Nurse Triage 11/20/[address] [address] Tyler Bradley RN Uncomplicated opioid dependence ([facility]) 11/14/2024 Patient Outreach [address] [address] Blessing Cummins MD Pre-visit Planning ((Unable to reach for PVP screening, LVM)) 10/29/[address] [address] Blessing Cummins MD Iron deficiency anemia, unspecified iron deficiency anemia type; Primary hypertension 10/27/[address] [phone] Blessing Cummins MD Medication Question 10/17/[address] [address] Blessing Cummins MD No Show 10/03/2024 1:30 PM EST Clinical Support [address] [address] Tyler Bradley RN Uncomplicated opioid dependence ([facility]) 10/03/2024 Travel from Last 3 Months Immunizations Name Administration Dates Next Due Hep A, Adult 08/02/2010,03/26/2006 Hep B, adult 01/29/2017,05/26/2016,03/26/2007 Influenza injectable quadriv alent preservative free 09/10/2021,06/15/2021,05/22/2020,07/03,05/30/2018,09/11/2016 Influenza, IIV3, injectable 06/23/2011, 1 Influenza, seasonal, injecta ble, preservative free 07/28/2024 [employer] SARS-CoV-2 Vaccination 02/19/2021,2020 Pfizer Covid-19 Vaccine 12+ 11/10/2021, Pfizer Covid-19 [...] Date Smoking Tobacco: Former Cigarettes S tarted: 2015 Smokeless Tobacco: Former Tobacco Cessation:Counseling Given: Not [...] Reading Time Taken Comments Blood Pressure 123/69 11/28/2024 2:53 PM EST Pulse 65 11/28/2024 2:53 PM EST Temperature 36.6 ??C (97.9 ??F) 11/28/2024 2:53 PM ES T Respiratory Rate 18 11/28/2024 2:53 PM EST Oxygen Saturation 98% 11/28/2024 2:53 PM EST Inhaled Oxygen Concentration - - Weight 86.2 kg (190 lb) 11/28/2024 2:53 PM EST Height 162.6 cm (5' 4 ) 07/28/2024 3:07 PM EDT Body Mass Index 32.61 07/28/2024 3:07 PM EDT Plan of Treatment Upcoming Encounters Date Type Department Care Team (Late st Contact Info) Description 01/07/2025 3:45 PM EDT Office Visit [facility] [address] [place] [address] Júnior Villarreal, IMELDA [address] [place] [address] 01/22/2025 1:30 PM EDT Office Visit [facility] [address] [place] [address] Cassidy Steinberg MD [address] [place] [address] 01/30/2025 2:30 PM EDT Office Visit [address] [address] Blessing Cummins MD [address] [place] [address] Health Maintenance Due Date Last Done Comments CT Colonography 1970 FIT DNA/Cologuard 1970 FIT 1970 FOBT 1970 HIV Screening 1970 Sigmoidoscopy 1970 Alcohol/Substance Use Screening 1982 DTaP/Tdap/Td Vaccines (2 - Td or Tdap) 01/05/2020 01/04/2010 Colonoscopy 08/13/2023 08/13/2018, 02/09/2015 Colorectal Cancer Screening 08/13/2023 COVID-19 Vaccine ( season) 2024 11/10/2021, 11/10/2021, 02/20/2021, Additional history exists Depression Screening 03/18/2025 03/18/2024, 03/18/20 SDOH Screening [...] Vaccine: 50+ Years Completed 09/08/2024, 03/18/2024, 10/13/2010 Zoster Vaccines Completed 11/18/2024, 09/08/2024 HIB Vaccines Aged Out No longer eligi [...] 10/03/2024 1:41 PM EST Uncomplicated opioid dependence (CMS/HCC) HEPATITIS [...] Urine Drug Screen (10/03/2024 1:41 PM EST) THC Negative Cocaine Screen, Urine Negative Opiate [...] PM EDT) Hepatitis C Antibody Nonreactive Nonreactive [facility] Comment:Antibodies to HCV no t detected; does not exclude early acuteHCV infection. Blood Venous blood specimen / Unknown 03/20/2024 1:36 PM EDT 03/20/2024 4:02 PM EDT us Blessing Ngo MD LAB BLOOD ORDERABLES Final Result [facility] [address] [place] [address] [phone] * Lipid Panel, Standard (03/20/2024 1:36 PM EDT) Triglycerides 115 <150 mg/dL [facility] Comment:Desirable Triglyceri de: less than 150 mg/dLBorderline High Triglyceride 150-199 mg/dLHigh Triglyceride: 200-499 mg/dLVery High Triglyceride: greater than or equal to 5OO mg/dL Cholesterol 181 <200 mg/dL [facility] Comment:Desirable Cholestero l: less than 200 mg/dLBorderline High Cholesterol: 200-239 mg/dLHigh Cholesterol: greater than 239 mg/dL LDL Cholesterol Calculated 99 <100 mg/dL [facility] Comment:Desirable LDL: less than 100 mg/dLNear Optimal/Above Optimal LDL: 110- 129 mg/dLBorderline High LDL: 130-159 mg/dLHigh LDL: 160-189 mg/dLVery High LDL: greater than or equal to 190 mg/dL HDL Cholesterol 59 >40 mg/dL [facility] Comment:Desirable HDL: great er than 40 mg/dL Note: This HDL assay may give artificially low results in patients with liver disease. Blood Venous blood specimen / Unknown 03/20/2024 1:36 PM EDT 03/20/2024 4:05 PM EDT us Blessing Ngo MD LAB BLOOD ORDERABLES Final Result [facility] [address] [place] [address] [phone] * BI MR Breast w and w/o Contrast Bilateral (12/11/2023 3:24 PM EDT) Anatomical Region Laterality Modality Breast Bilateral Magnetic Resonan ce 12/11/2023 3:24 PM EDT Narrative 12/18/2023 9:18 AM EDT ? [facility] ?[address] ?[place] [address] ? Magnetic Resonance Report ? Signed ? Patient: Pablo,Christina ?MR#: [id number] ?? 3 ? : 1970 ?Acct:[id number] ? Age/Sex: 53 / F ?ADM Date: 12/11/23 ? Loc: HO.MRI ? Attending Dr: Toby Vila MD ? Ordering Physician: Toby Vila MD ?? Date of Service: 12/11/23 ?? Procedure(s): MR breast BI wo/w con ?? Accession Number(s): [id number] ? cc: Blessing Cummins MD; Toby Vila [...] 0914 ? DD/ 1524 ? TD/TT: ? Lead Press Operator: DJ ? Procedure Note Donelsajadter, Image - 12/18/[address] [address] Magnetic Resonance Report Signed Patient: Joann Shah#: [id number] 3 : 1970Acct:[id number] Age/Sex: 53 / FADM Date: 12/11/23 Loc: HO.MRI Attending Dr: Toby Vila MD Ordering Physician: Toby Vila MD Date of Service: 12/11/23 Procedure(s): MR breast BI wo/w con Accession Number(s): [id number] cc: Blessing Cummins MD; Toby Vila MD [...] in OV> 12/18/23 0914 DD/ 1524 TD/TT: Lead Press Operator: PHAN [facility] External Provider IMG MRI PROCEDURES Final Result * Pap Smear (06/13/2023 3:39 PM EDT) 06/13/2023 3:39 PM EDT 06/14/2023 9:10 AM EDT [facility] - 06/27/2023 8:37 AM EDT ----- ------- Name: Christina Shah ?Age/Sex: 52/F ? : 1970 Unit#: [id number] ?? Attend Dr: Toby Vila MD ?Re06/13/23 ?Status: DEP REF ? Location: HO.LNP ?Disch: ? ----- ------- SPEC : [id number] ?RECD: 06/14/23 ? STATUS: ??SOUT ? REQ NUM: [id number] ? SHANELL: 06/13/23 ? SUBM DR: Toby Vila MD ? [...] 66, 68) ? HPV testing performed by [facility], [place], [place]. ??See reference laboratory ?? portion of the EMR for entire report. ?Clinical Information LMP: Postmenopausal Previous PAP test: Unknown date/findings Other history: Abnormal uterine and vaginal bleeding, pelvic and perineal pain, acute vaginitis ? Material Received ?? ThinPrep-Cervical Copies To: ?? Blessing Cummins MD ?? [address] ?? [place] [address] ?? [phone] ?? Toby Vila MD ?? [address] [place] [address] [address] ?? [place] [address] ?? [phone] ----- ------- Signed (signature on file) Krystal Jarvis MD 06/27/23 0837 ? ----- ------- ? END OF REPORT ? [facility] External Provider LAB CYT OLY ORDERABLES Final Result [facility] [address] [place] [phone] * THINPREP TIS PAP AND HPV mRNA E6/E7 REFLEX HPV 16,18/45 (07/19/2021 12:00 AM EDT) Clinical Information: None given [facility] COMMENT SEE COMMENT [facility] [...] has been evaluated with computer assisted technology. [facility] Incendiaries Supervisor: SEE COMMENT [facility] Comment: ED, CT(ASCP) CT screening location: ?? [facility] ?? [address] [place] [address] ?? [place], [place] [address] HPV nRNA E6/E7 Not Detected Not Detected [facility] Comment: Methodology: Therapy Teacher-Mediated Amplification This assay detects E6/E7 viral messenger RNA (mRNA) from 14 high-risk HPV types (16,18,31,33,35,39,45,51,52,56,58,59,66,68). ? The analytical performance characteristics of this assay have been determined by [facility]. The modifications have not been cleared or approved by the FDA. This assay has been validated pursuant to the CLIA regulations and is used for clinical purposes. ?? For additional information, please refer to http://education.SNADEC/faq/KXN371t4 (This link if provided for information/ educational purposes only.) Infection Shift in vaginal jaspal suggestive of bacterial vaginosis. [facility] Interpretation/Re sult: Negative for intraepithelial lesion or malignancy. [facility] LMP: NONE [facility]IVEN [facility] Prev. BX: NONE GIVEN [facility] Prev. PAP: NONE GIVEN [facility] SOURCE: None given [facility] Statement Of Adequacy: SEE COMMENT [facility] Comment: Satisfactory for evaluation. Endocervical/transformation zone component present. Age and/or menstrual status not provided 07/19/2021 Blessing Ngo MD LAB PATHOLOGY ORDERAB LES Final Result [facility] [address] [place] [address], * Hm Colonoscopy (08/13/2018) Historical Provider HEALTH MAINTENANCE Final Result from Last 3 Months or Most Recently Relevant to Health Maintenance Insurance [facility] Care Teams Analytical Chemist Relationship Specialty Start Date End Date Blessing Cummins MD [address] [place] [phone] PCP - General Family Medicine 11/10/20
--- OUTSIDE RECORDS SUMMARY | 2025-01-01 15:35 | XMS_ITS | Encounter Summary ---
Author Organization [employer] [facility] Address [address] [place] [address] 7t [place] [address] Care Team Providers Care Typing Office Worker Name Role Phone Blessing Cummins MD Primary Care Provide r Reason for Visit * Reason Comments Med Refill Encounter Details Date Type Department Care Team (Late Contact Info) Description 02/18/2023 Refill [facility] [address] [place] [address] [phone] Blessing Cummins MD [address] [place] [address] [phone] Dyspepsia Social History Tobacco Use Types Packs/Day [...] Department Care Team (Late Contact Info) Description 01/07/2025 3:45 PM EDT Office Visit [facility] [address] [place] [address] [phone] Júnior Villarreal CNP [address] [place], [place] [phone] 01/22/2025 1:30 PM EDT Office Visit [facility] [address] [place] [address] [phone] Cassidy Steinberg MD [address] [place] [phone] 01/30/2025 2:30 PM EDT Office Visit [facility] [address] [place] [address] [phone] Blessnig Cummins MD [address] [place] [address] [phone] documented as of this encounter Visit Diagnoses Diagnosis Dyspepsia Dyspepsia and other specified disorders of function of stomach documented in this encounter Additional Health Concerns Assessment Noted Time PHQ-9 Depression Total Score: 4 01/06/20 23 4:13 PM EDT documented as of this encounter Care Teams Typing Office Worker Relationship Specialty Start Date End Date Blessing Cummins MD [address] [place] [address] [phone] PCP - General Family Medicine 11/10/20 documented as of this encounter
--- OUTSIDE RECORDS SUMMARY | 2025-01-01 15:35 | XMS_ITS | Encounter Summary ---
Author Organization [facility] Address [address] [place] [address] 7 [place] [address] Care Team Providers Care Tire Man Name Role Phone Blessing Cummins MD Primary Care Provide r Encounter Details Date Type Department Care Team (Late Contact Info) Description 06/13/2023 Orders Only [facility] [address] [place] [phone] ProviderLinette MD Social History Tobacco Use Types Packs/Day Years [...] Description 01/07/2025 3:45 PM EDT Office Visit [facility] [address] [place] [phone] Júnior Villarreal CNP [address] [place], [place] [phone] 01/22/2025 1:30 PM EDT Office Visit [facility] [address] [place] [phone] Cassidy Steinberg MD [address] [place] [address] 01/30/2025 2:30 PM EDT Office Visit [facility] [address] [place], [place] [phone] Blessing Cummins MD [address] [place], [place] [phone] documented as of this encounter Procedures Procedure [...] (06/13/2023 4:00 PM EDT) Prolactin 5.3 ng/mL [facility] Comment:Reference Range Fema les Non- 3.0-30.0 10.0-209.0 Postmenopausal 2.0-20.0THIS TEST WAS PERFORMED AT:[employer] [place] [phone] FRANKEL MD 06/13/2023 4:00 PM EDT 06/13/2023 4:00 PM EDT [facility] External Provider LAB BLO OD ORDERABLES Final Result Performing Organization Address City/[facility]/ZIP Co de Phone Number [facility] [address] [place] [address] [phone] * hCG, Total, Quantitative (06/13/2023 4:00 PM EDT) HCG Quantitative <2 mIU/mL [facility] Comment:Weeks post LMP Appro ximate hCG(Last Menstrual Period) Range (mIU/ml)3 - 4 weeks 9 - 1304 - 5 weeks 75 - 2,6005 - 6 weeks 850 - 20,8006 - 7 weeks 4000 - 100,2007 - 12 weeks 11,500 - 289,92977 - 16 weeks 18,300 - 137,13981 - 29 weeks (2nd trimester) 1,400 - 53,93127 - 41 weeks (3rd trimester) 940 - 60,000The Main B- hCG assay is used for the early detection ofpregnancy; it cannot be used to diagnose any conditionunrelated to . If a B-hCG level is not supportedby the clinical evidence, results should be confirmed by analternative method (qualitative urine hCG, for example). 06/13/2023 4:00 PM EDT 06/13/2023 4:00 PM EDT [facility] External Data Provider LAB BLOOD ORDERAB LES Final Result Performing Organization Address City/[facility]/ZIP Co de Phone Number [facility] [address] [place] [address] [phone] * TSH W/Reflex to FT4 (06/13/2023 4:00 PM EDT) TSH reflex Free T4 1.27 0.32 - 4.0 uIU/mL [facility] 06/13/2023 4:00 PM EDT 06/13/2023 4:00 PM EDT [facility] External Provider LAB BLO OD ORDERABLES Final Result [facility] [address] [place] [address] [phone] * (ABNORMAL) CBC (06/13/2023 4:00 PM EDT) White Blood Count 4.3(L) 4.8 - 10.8 X10*3/uL [facility] Red Blood Count 4.38 4.20 - 5.50 X10*6/uL [facility] Hemoglobin 11.2(L) 12.0 - 16.0 g/dl [facility] Hematocrit 35.6(L) 37.0 - 47.0 % [facility] Mean Corpuscular Volume 81.3 80.0 - 98.0 fL [facility] Mean Corpuscular Hemoglobin 25.6(L) 27.0 - 33.0 pg [facility] Mean Corpuscular HGB Conc 31.5 31.0 - 35.0 g/dl [facility] Red Cell Distribution Width 14.8 11.0 - 16.0 % [facility] Platelet Count 263 160 - 400 X10*3/uL [facility] Mean Platelet Volume 10.5 9.4 - 12.3 fL [facility] NRBC Pct Auto 0.0 0.0 - 0.2 /100WBC [facility] NRBC Abs Auto 0.000 0.0 - 0.012 X10*3/uL [facility] 06/13/2023 4:00 PM EDT 06/13/2023 4:00 PM EDT us [facility] External Provider LAB BLO OD ORDERABLES Final Result Performing Organization Address [facility]/ZIP Co de Phone Number [facility] [address] [place] [address] [phone] * Pap Smear (06/13/2023 3:39 PM EDT) 06/13/2023 3:39 PM EDT 06/14/2023 9:10 AM EDT Narrative [facility] - 06/27/2023 8:37 AM EDT ----- ------- Name: PabloChristina ?Age/Sex: 52/F ? : 1970 Unit#: [id number] ?? Attend Dr: Toby Vila MD ?Re06/13/23 ?Status: DEP REF ? Location: HO.LNP ?Disch: ? ----- ------- SPEC : [id number] ?RECD: 06/14/23 ? STATUS: ??SOUT ? REQ NUM: [id number] ? SHANELL: 06/13/23-1538 ? SUBM DR: Toby Vila MD ? [...] 66, 68) ? HPV testing performed by [facility], [place], [place]. ??See reference laboratory ?? portion of the EMR for entire report. ?Clinical Information LMP: Postmenopausal Previous PAP test: Unknown date/findings Other history: Abnormal uterine and vaginal bleeding, pelvic and perineal pain, acute vaginitis ? Material Received ?? ThinPrep-Cervical Copies To: ?? Blessing Cummins MD ?? [address] [facility] ?? [place] [address] ?? [phone] ?? Toby Vila MD ?? [address] [place] [address] [address] ?? [place] [address] ?? [phone] ----- ------- Signed (signature on file) Krystal Jarvis MD 06/27/23 0837 ? ----- ------- ? END OF REPORT ? [facility] External Provider LAB CYT OLOGY ORDERABLES Final Result Performing Organization Address [facility] de Phone Number [facility] [address] [place] [address] [phone] * Culture, Urine, Routine (06/13/2023 2:49 PM EDT) Urine specimen obtained by clean catch procedure / Unknown 06/13/2023 2:49 PM EDT 06/13/2023 3:32 PM EDT Comment:UACC Narrative [facility] - 06/15/2023 11:11 AM EDT Urine Culture Report Result Urine Culture < 10,000 cfu/ml Specimen Source: Urine clean catch [facility] Exter nal Provider LAB MICROBIOLOGY - GENERAL ORDERABLES Final Result Performing Organization Address [facility] de Phone Number [facility] [address] [place] [address] [phone] * (ABNORMAL) Bacterial Vaginosis (06/13/2023 2:49 PM EDT) Trichomonas DNA Probe Negative Negative [facility] Gardnerella DNA Probe Negative Negative [facility] Shona DNA Probe Positive(A) Negative [facility] 06/13/2023 2:49 PM EDT 06/13/2023 4:51 PM EDT us [facility] Exter nal Provider LAB MICROBIOLOGY - GENERAL ORDERABLES Final Result [facility] [address] [place] [address] [phone] * Chlamydia/N. Gonorrhoeae RNA, TMA, Urogenitial (06/13/2023 2:49 PM EDT) CT PCR NOT DETECTED Not Detect. [facility] Comment:A not detected test result does [...] psychologicalconsequences. NG PCR NOT DETECTED Not Detect. [facility] Comment:A not detected test result does [...] PM EDT 06/13/2023 4:51 PM EDT Narrative [facility] - 06/13/2023 6:57 PM EDT Vaginal [facility] Exter nal Provider LAB MICROBIOLOGY - GENERAL ORDERABLES Final Result [facility] [address] [place] [address] [phone] * Hm Colonoscopy (08/13/2018) Historical Provider HEALTH MAINTENANCE Final Result documented in this encounter Visit Diagnoses Not on filedocumented in this encounter Additional Health Concerns Assessment Noted Time PHQ-9 Depression Total Score: 4 01/06/20 23 4:13 PM EDT documented as of this encounter Care Teams Tire Man Relationship Specialty Start Date End Date Blessing Cummins MD [address] [place] [phone] PCP - General Family Medicine 11/10/20 documented as of this encounter
--- OUTSIDE RECORDS SUMMARY | 2025-01-01 15:35 | XMS_ITS | Data Portability ---
Author Organization [facility] [employer] [place] in [facility] Address [address] [place] [phone] Care Team Providers Care Assemblies And Installations Inspector Name Role Phone [facility] OTHER [phone] Assessment Encounter Date Assessment Date Assessment LastModified by Organization Details LastModified Time 11/25/2024 11/25/2024 service called for constipation for 4d found 54 eulalia with hx constipation remote bowel resection reports 4d no BM miralax, senna without benefit conitnue PO intkae abd distended VSS bowel sounds present abd distended, slightly tender BMP neg #Constipation trial bisacodyl EC per prior experience notify service if not improvement or worsening otherwise return to primary team vkudesia Not available 11/25/2024 19:49:51 Plan of Treatment Reminders Order Date Submit Date Provider Last Modified By Organization Details Last Modified Time Details Appointments None recorded. Lab BMP, serum or plasma 2024 [facility], [address] [place] [address], [phone] 20:49:33 Referral None recorded. Procedures None recorded. Surgeries None recorded. Imaging None recorded. Medication Orders bisacodyl 5 mg tablet,del ayed release 2024 025 [facility] #[id number], [address] [place], [address], 19:33:18 Patient TargetsNo targets recorded. Patient InstructionsNo instructions recorded. Reason for Referral None Reported. Results Created Date Observation Date Name Description Value Unit Range Abnormal Flag Note LastModifiedBy Organization Detail LastModifiedTime Result Notes None recorded. Medical Equipment None Reported. Allergies Allergen ID Allergen Name Allergen Category Reaction Reaction Severity Criticality Documentation Date Start Date Code Code System Note Provider Name and Address Organization Details Recorded Time 15441 aspirin medicatio n Not available Not available Not available 11/25/2024 1191 RxNorm Not Available Lo - production 5 14:38:27 Medications Name Sig Start Date Stop Date Status Note LastModified by Organization Details LastModified Time amoxicillin 500 mg capsule TOME 1 C PSULA POR V A ORAL CADA 8 HORAS POR 5 D active Not Available Not Available No t Available Stool Softener 100 mg capsule TAKE 1 CAPSULE BY MOUTH TWICE DAILY FOR 10 DAYS active Not Available Not Available No t Available senna 8.6 mg tablet TOME DOS TABLETAS POR V A ORAL TODOS LOS D AL ACOSTARSE CUANDO SEA NECESARIO active Not Available Not Available No t Available quetiapine 200 mg tablet active Not Available Not Available Not Available clonazepam 1 mg tablet active Not Available Not Available No t Available temazepam 30 mg capsule active Not Available Not Available N ot Available clonazepam 2 mg tablet active Not Available Not Available No t Available hydrocortiso ne 2.5 % topical cream APPLY TOPICALLY IF NEEDED FOR RASH active Not Available Not Available No t Available polyethylene glycol 3350 17 gram/dose oral powder TAKE 17 GM MIXED IN 8 OUNCES OF WATER, COFFEE OR TEA ONCE DAILY FOR 3 DAYS active Not Available Not Available No t Available albuterol sulfate HFA 90 mcg/actuatio n aerosol inhaler INHALE 2 PUFFS EVERY 4 (FOUR) HOURS IF NEEDED FOR WHEEZING OR SHORTNESS OF BREATH. active Not Available Not Available N ot Available fluticasone propionate 50 mcg/actuatio n nasal spray,suspen amanda ADMINISTER 1 SPRAY INTO EACH NOSTRIL ONCE PER DAY. active Not Available Not Available No t Available loratadine 10 mg tablet TAKE 1 TABLET (10 MG) BY MOUTH ONCE PER DAY. active Not Available Not Available No t Available Laxative (bisacodyl) 5 mg tablet,delay ed release TOME [place] TABLETAS POR V A ORAL CUANDO SEA NECESARIO FOR CONSTIPATIO N active Not Available Not Available No t Available Vitamin D3 25 mcg (1,000 unit) tablet TOME ANTONIO TABLETA POR V A ORAL EN LA MA BRIDGETT active Not Available Not Available No t Available quetiapine 50 mg tablet active Not Available Not Available Not Available hydrochlorot hiazide 12.5 mg tablet TAKE 1 TABLET (12.5 MG) BY MOUTH ONCE PER DAY. TAKE 1 TABLET MY MOUTH ONCE DAILY active Not Available Not Available No t Available vitamin E (dl, acetate) 180 mg (400 unit) capsule TOME 1 C PSULA POR V A ORAL TODOS LOS D * NOT COVERED active Not Available Not Available No t Available Suboxone 8 mg-[address] FILM UNDER THE TONGUE ONCE PER DAY. active Not Available Not Available No t Available lurasidone 20 mg tablet active Not Available Not Available Not Available Daily-Sih (with folic acid) 400 mcg tablet TOME ANTONIO TABLETA POR V A ORAL TODOS LOS D active Not Available Not Available No t Available Vitals Date Recorded Heart rate Body height Oxygen saturation Oxygen saturation in Arterial blood by Pulse oximetry Body weight Body temperature Respiratory rate Systolic blood pressure Diastolic blood pressure Provider Name and Address Organization Details Last Updated DateTime 5 58 /min 162.56 cm 99 % 99 % 62620.5 6 g 98.7 [degF] 18 /min 120 mm[Hg] 72 mm[Hg] Not Available [facility] - production 19:25:51 Social History None recorded. Functional Status None recorded. Mental Status None recorded. Family History Nothing Reported. Medical History No medical history recorded. Gynecological HistoryNo gynecological history recorded. Obstetrics History GPAL:G 0 P 0 0 0 0 Past Encounters Encounter ID Performer Location Encounter Start Date Encounter Closed Date Diagnosis/Indication Diagnosis SNOMED-CT Code Diagnosis ICD10 Code Diagnosis Note [id number] Neftaly Ramirez MD Main - [facility] [address] [place] [phone] 11/25/2024 19:25:49 11/26/2024 12:12:58 Constipation 12379977 K59.00 Health Concerns Section Related Observation LastModified by Organization Detai ls LastModified Time None Recorded Concern Status LastModified by Organization Details LastModified Time None Recorded Advance Directives Directive None Recorded Payers Encounter Date Sequence Insurance Name Policy Number Policy Borjas Covered Member ID Borjas Member ID Guarantor Name 11/25/2024 1 [facility] [employer] - DOS ON OR AFTER 2022 - DUAL ELIGIBLE - CARE HOME OPTIONS AND ONE CARE (MEDICARE REPLACEMENT/ADV ANTAGE - HMO) Christina Shah [id number] Christina Shah Notes Date Note Type Note Provider Name and Address Organization Details Recorded Time 11/25/2024 text/html HPI: Patient with history of Constipation now day 4. Previous GI provider no longer in practice. Previous use of EC Bisacodyl 3 tabs QD. Also reporting large water intake and now with muscle cramps in feet and hands at night. .................. .................. .................. .................. .................. .................. .................. ............... CRC Nurse Triage Notes (Janie Fraire): Reason For Request: Nausea/vomiting/di arrhea Patient Reports: Constipation Denies: Sharp focal or diffuse abdominal pain Vomiting blood/coffee ground material Bloating, jaundice new onset with pain Nausea and vomiting greater than 2 hours with abdominal pain Tearing pain that radiates to back Food Impaction Vague abdominal pain greater than 24 hours Diarrhea ? no blood in stool Nausea with or without vomiting Inability to tolerate foods, fluids or daily medications Chief Complaints: Abdominal Pain PMH: Asthma, Cancer, Anxiety Disorder PMH Reviewed at 11/25/2024:38 Allergies Reviewed at 11/25/2024:38 Comments: Taking Senna at bedtime, with no relief. Has medication. Does report some bloating. Pain when trying to move bowels. Denies abd pain, N/V- NE Rework Machine Operator Organization Information for Lisa Powell Business Legal Name: [employer]? Address: [address] [place] [address], Ventilator Specialist: Wyatt Soto MD CLIA No.: [id number] Rework Machine Operator POC Test Results from Lisa Powell iSTAT Chem8+ (19:41:57) Na: 139 mEq/L K: 3.8 mEq/L Cl: 103 mEq/L iCa: 1.14 mmol/L TCO2: 23 mmol/L Glu: 131 mg/dL BUN: 15 mg/dL Crea: 0.5 mg/dL Hct: 37 % Hb: 12.6 g/dL A mmol/L Attachments uploaded as part of this test result can be found under Documents section. .................. .................. .................. .................. .................. .................. .................. ............... Rework Machine Operator Note From Lisa Powell: Sent to a call for a pt complaining of constipation. SC8 arrives on scene, pt is alert and oriented, airway is patent. Pt states she has chronic constipation, and has been taking Senna and Miralax with no effect. Pt states she has been previously prescribed Bisacodyl EC 15mg daily for constipation by GI specialist, but pt's medication is and GI specialist no longer practices. Pt complains of abd pain and constipation x 4 days, and bilateral hand/feet tingling at night x 1 week. Pt denies stoddard, dizziness, cp, sob, n/v/d, fever, or loc. Pt has been eating/drinking normally. BP:120/72, P:58, RR:18, SpO2:99% RA, T:98.7; Head: unremarkable; Lung sounds: clear bilaterally; Abdomen: soft, distended, diffuse tenderness, (+)bowel sounds; Back: unremarkable; Skin: pink, warm, dry; [facility] consulted and orders BMP. [facility] sends script to pt's pharmacy. Venous blood draw performed. Istat Chem8+ results: uploaded to [facility] [facility]. Pt reassured bloodwork is normal. Red flags discussed. Pt has no further questions. [facility] Lab Orders: BMP, serum or plasma: Performed .................. .................. .................. .................. .................. .................. .................. ............... [facility] Consulted: Neftaly Ramirez .................. .................. .................. .................. .................. .................. .................. ............... Disposition: Fulfilled Neftaly Ramirez MD [address] [facility], [place], [phone], [employer] SUAREZ 11/25/2024 22:35:14 OBGyn Episode No OBEpisode recorded.
== END 2025-01-01 14:47 | disposition home or self-care (01) ==
LOC: HO.HBS 14:07
PROVIDERS: PCP Internal Medicine; Visit Provider Physician Assistant Surgical
DX: E66.811 Obesity, class 1 (principal); Z68.31 Body mass index [BMI] 31.0-31.9, adult; Z90.3 Acquired absence of stomach [part of]; Z98.84 Bariatric surgery status
CPT/HCPCS: 99213; G2211

== ENCOUNTER → 2025-01-01 14:06 | Outpatient (BNVA) | payer OTHER, SELFPAY | PROVIDERS: PCP Internal Medicine; Visit Provider Physician Assistant Surgical | DX: E66.9 Obesity, unspecified (principal); Z98.84 Bariatric surgery status; Z68.31 Body mass index [BMI] 31.0-31.9, adult | CPT/HCPCS: 99212 ==

== ENCOUNTER 2025-01-28 15:54 | Outpatient (REF) | payer OTHER, SELFPAY ==
--- OUTSIDE RECORDS SUMMARY | 2025-01-28 16:37 | XMS_ITS | Encounter Summary ---
Author Organization [employer] Address [address] [place] [address] [address] [place] [address] Care Team Providers Care Ceo Na Name Role Phone Blessing Cummins MD Primary Care Provide r Júnior Villarreal CNP Primary Care Provider [phone] Reason for Visit * Reason Onset Date Comments Nurse Triage 11/25/2024 Encounter Details Date Type Department Care Team ([facility] st Contact Info) Description 11/25/2024 Telephone [facility] [address] [place], [place] [phone] Blessing Cummins MD [address] [place], [place] [phone] Nurse Triage Social History Tobacco Use Types [...] sounds; Back: unremarkable; Skin: pink, warm, dry; [facility] consulted and orders BMP. [facility] [place] script to pt's pharmacy. Venous blood draw performed. Istat Chem8+ results: uploaded to [employer]. Pt reassured bloodwork is normal. Red flags discussed. Pt has no further qu estions. Patient was given RX for bisacodyl 5 mg tablet 3 tabs daily PRN for constipation qty 9. TC placed to [phone] to status check patient. Patient reports she [...] EST Triage call returned with BLS # [id number] Eloy. Patient reports cramps in hands and [...] has no more and thatGI provider in [place] no longer with practice. Patient advised Bisacodyl [...] caller accepted this outcome.\ Contact pt at [phone] documented in this encounter Plan of Treatment Upcoming Encounters Date Type Department Care Team (Late st Contact Info) Description 02/27/2025 1:00 PM EDT Office Visit [address] [address] Júnior Villarreal CNP [address] [place] [address] 04/16/2025 1:30 PM EDT Clinical Support [address] [address] Tyler Bradley, RN [address] [place] [address] documented as of this encounter Visit Diagnoses Not on filedocumented in this encounter Additional Health Concerns Assessment Noted Time PHQ-9 Depression Total Score: 6 03/18/20 24 1:11 PM EDT documented as of this encounter Care Teams Ceo Na Relationship Specialty Start Date End Date Blessing Cummins MD [address] [place] [address] PCP - General Family Medicine 11/10/20 01/07/25 Júnior Villarreal CNP [address] [place] [address] PCP - General Family Medicine 01/08/25 documented as of this encounter
--- OUTSIDE RECORDS SUMMARY | 2025-01-28 16:37 | XMS_ITS | Encounter Summary ---
Author Organization [employer] [facility] Address [address] [place] [address] 7 [place] [address] Care Team Providers Care Package Sorter Name Role Phone Blessing Cummins MD Primary Care Provide r Júnior Villarreal CNP Primary Care Provider [phone] Encounter Details Date Type Department Care Team (Late st Contact Info) Description 06/13/2023 Orders Only [facility] [address] [place] [address] [phone] ProviderLinette MD Social History Tobacco Use Types [...] Description 02/27/2025 1:00 PM EDT Office Visit [facility] [address] [place] [phone] Júnior Villarreal CNP [address] [place] [address] 04/16/2025 1:30 PM EDT Clinical Support [facility] [address] [place] [phone] Tyler Bradley, RN [address] [place] [address] documented as of this encounter Procedures Procedure [...] (06/13/2023 4:00 PM EDT) Prolactin 5.3 ng/mL [facility] Comment:Reference Range Fema les Non- 3.0-30.0 10.0-209.0 Postmenopausal 2.0-20.0THIS TEST WAS PERFORMED AT:[employer] [place] [id number] FRANKEL MD 06/13/2023 4:00 PM EDT 06/13/2023 4:00 PM EDT us [facility] External Provider LAB BLO OD ORDERABLES Final Result [facility] [address] [place] [phone] * hCG, Total, Quantitative (06/13/2023 4:00 PM EDT) HCG Quantitative <2 mIU/mL [facility] Comment:Weeks post LMP Appro ximate hCG(Last Menstrual Period) Range (mIU/ml)3 - 4 weeks 9 - 1304 - 5 weeks 75 - 2,6005 - 6 weeks 850 - 20,8006 - 7 weeks 4000 - 100,2007 - 12 weeks 11,500 - 289,44182 - 16 weeks 18,300 - 137,29840 - 29 weeks (2nd trimester) 1,400 - 53,92155 - 41 weeks (3rd trimester) 940 - [...] Provider LAB BLOOD ORDERAB LES Final Result [facility] [address] [place] [phone] * TSH W/Reflex to FT4 (06/13/2023 4:00 PM EDT) TSH reflex Free T4 1.27 0.32 - 4.0 uIU/mL [facility] 06/13/2023 4:00 PM EDT 06/13/2023 4:00 PM EDT [facility] External Provider LAB BLO OD ORDERABLES Final Result [facility] [address] [place] [address] [phone] * (ABNORMAL) CBC (06/13/2023 4:00 PM EDT) White Blood Count 4.3(L) 4.8 - 10.8 X10*3/uL [facility] Red Blood Count 4.38 4.20 - 5.50 X10*6/uL [facility] Hemoglobin 11.2(L) 12.0 - 16.0 g/dl [facility] Hematocrit 35.6(L) 37.0 - 47.0 % [facility] Mean Corpuscular Volume 81.3 80.0 - 98.0 fL [facility] Mean Corpuscular Hemoglobin 25.6(L) 27.0 - 33.0 pg [facility] Mean Corpuscular HGB Conc 31.5 31.0 - 35.0 g/dl [facility] Red Cell Distribution Width 14.8 11.0 - 16.0 % [facility] Platelet Count 263 160 - 400 X10*3/uL [facility] Mean Platelet Volume 10.5 9.4 - 12.3 fL [facility] NRBC Pct Auto 0.0 0.0 - 0.2 /100WBC [facility] NRBC Abs Auto 0.000 0.0 - 0.012 X10*3/uL [facility] 06/13/2023 4:00 PM EDT 06/13/2023 4:00 PM EDT us [facility] External Provider LAB BLO OD ORDERABLES Final Result [facility] [address] [place] [phone] * Pap Smear (06/13/2023 3:39 PM EDT) 06/13/2023 3:39 PM EDT 06/14/2023 9:10 AM EDT Narrative [facility] - 06/27/2023 8:37 AM EDT ----- ------- Name: Christina Shah ?Age/Sex: 52/F ? : 1970 Unit#: [id number] ?? Attend Dr: Toby Vila MD ?Re06/13/23 ?Status: DEP REF ? Location: HO.LNP ?Disch: ? ----- ------- SPEC : [id number] ?RECD: 06/14/23 ? STATUS: ??SOUT ? REQ NUM: [id number] ? SHANELL: 06/13/231538 ? SUBM DR: Toby Vila MD ? [...] 66, 68) ? HPV testing performed by [email or web address], [place], [place]. ??See reference laboratory ?? portion of the EMR for entire report. ?Clinical Information LMP: Postmenopausal Previous PAP test: Unknown date/findings Other history: Abnormal uterine and vaginal bleeding, pelvic and perineal pain, acute vaginitis ? Material Received ?? ThinPrep-Cervical Copies To: ?? Blessing Cummins MD ?? [address] [facility] ?? [place] [address] ?? [phone] ?? Toby Vila MD ?? [address] [place] [address] Dr. [facility] ?? [place] [address] ?? [phone] ----- ------- Signed (signature on file) Krystal Jarvis MD 06/27/23 0837 ? ----- ------- ? END OF REPORT ? [facility] External Provider LAB CYT OLOGY ORDERABLES Final Result Performing Organization Address [facility] de Phone Number [facility] [address] [place] [address] [phone] * Culture, Urine, Routine (06/13/2023 2:49 PM EDT) Urine specimen obtained by clean catch procedure / Unknown 06/13/2023 2:49 PM EDT 06/13/2023 3:32 PM EDT Comment:UACC Narrative [facility] - 06/15/2023 11:11 AM EDT Urine Culture Report Result Urine Culture < 10,000 cfu/ml Specimen Source: Urine clean catch [facility] Exter nal Provider LAB MICROBIOLOGY - GENERAL ORDERABLES Final Result Performing Organization Address [facility] de Phone Number [facility] [address] [place] [phone] * (ABNORMAL) Bacterial Vaginosis (06/13/2023 2:49 PM EDT) Trichomonas DNA Probe Negative Negative [facility] Gardnerella DNA Probe Negative Negative [facility] Shona DNA Probe Positive(A) Negative [facility] 06/13/2023 2:49 PM EDT 06/13/2023 4:51 PM EDT [facility] Exter nal Provider LAB MICROBIOLOGY - GENERAL ORDERABLES Final Result Performing Organization Address [facility] de Phone Number [facility] [address] [place] [phone] [phone] * Chlamydia/N. Gonorrhoeae RNA, TMA, Urogenitial (06/13/2023 2:49 PM EDT) CT PCR NOT DETECTED Not Detect. [facility] Comment:A not detected test [...] psychologicalconsequences. NG PCR NOT DETECTED Not Detect. [facility] Comment:A not detected test [...] PM EDT 06/13/2023 4:51 PM EDT Narrative [facility] - 06/13/2023 6:57 PM EDT Vaginal us [facility] Exter nal Provider LAB MICROBIOLOGY - GENERAL ORDERABLES Final Result [facility] [address] [place] [address] [phone] * Hm Colonoscopy (08/13/2018) us Historical Provider HEALTH MAINTENANCE Final Result documented in this encounter Visit Diagnoses Not on filedocumented in this encounter Additional Health Concerns Assessment Noted Time PHQ-9 Depression Total Score: 4 01/06/20 23 4:13 PM EDT documented as of this encounter Care Teams Package Sorter Relationship Specialty Start Date End Date Blessing Cummins MD [address] [place] [address] PCP - General Family Medicine 11/10/20 01/07/25 Júnior Villarreal CNP [address] [place] [address] PCP - General Family Medicine 01/08/25 documented as of this encounter
--- OUTSIDE RECORDS SUMMARY | 2025-01-28 16:37 | XMS_ITS | Encounter Summary ---
Author Organization [employer] [facility] Address [address] [place] [address] [address] [place] [address] Care Team Providers Care Livestock Farm Workers Name Role Phone Blessing Cummins MD Primary Care Provide r Júnior Villarreal CNP Primary Care Provider [phone] Reason for Visit * Reason Comments Med Refill Encounter Details Date Type Department Care Team (Late st Contact Info) Description 06/04/2023 Refill [facility] [address] [place] [address] [phone] Cassidy Steinberg MD [address] [place], [place] [phone] Uncomplicated opioid dependence (CMS/HCC) Social History Tobacco [...] Description 02/27/2025 1:00 PM EDT Office Visit [facility] [address] [place] [address] Júnior Villarreal CNP [address] [place] [address] 04/16/2025 1:30 PM EDT Clinical Support [facility] [address] [place] [address] Tyler Bradley, SHAHID [address] [place] [address] documented as of this encounter Visit Diagnoses Diagnosis Uncomplicated opioid dependence (CMS/HCC) documented in this encounter Additional Health Concerns Assessment Noted Time PHQ-9 Depression Total Score: 4 01/06/20 23 4:13 PM EDT documented as of this encounter Care Teams Livestock Farm Workers Relationship Specialty Start Date End Date Blessing Cummins MD [address] [place] [address] PCP - General Family Medicine 11/10/20 01/07/25 Júnior Villarreal CNP [address] [place] [address] PCP - General Family Medicine 01/08/25 documented as of this encounter
--- OUTSIDE RECORDS SUMMARY | 2025-01-28 16:37 | XMS_ITS | Encounter Summary ---
Author Organization [employer] Address [address] [place] [address] 7[address] [place] [address] Care Team Providers Care Pipeline Superintendent Division Name Role Phone Blessing Cummins MD Primary Care Provide r Júnior Villarreal CNP Primary Care Provider [phone] Reason for Visit * Reason Comments Med Change Request Encounter Details Date Type Department Care Team ([facility] st Contact Info) Description 08/11/2023 Refill [facility] [address] [place], [place] [phone] Blessing Cummins MD [address] [place] [address] Iron deficiency anemia, unspecified iron deficiency anemia [...] Description 02/27/2025 1:00 PM EDT Office Visit [address] [address] Júnior Villarreal CNP [address] [place] [address] 04/16/2025 1:30 PM EDT Clinical Support [address] [address] Tyler Bradely, SHAHID [address] [place] [phone] documented as of this encounter Visit Diagnoses Diagnosis Iron deficiency anemia, unspecified iron deficiency anemia type documented in this encounter Additional Health Concerns Assessment Noted Time PHQ-9 Depression Total Score: 4 01/06/20 23 4:13 PM EDT documented as of this encounter Care Teams Pipeline Superintendent Division Relationship Specialty Start Date End Date Blessing Cummins MD [address] [place] [address] PCP - General Family Medicine 11/10/20 01/07/25 Júnior Villarreal CNP [address] [place] [address] PCP - General Family Medicine 01/08/25 documented as of this encounter
--- OUTSIDE RECORDS SUMMARY | 2025-01-28 16:37 | XMS_ITS | Encounter Summary ---
Author Organization [employer] Address [address] [facility] 7t [place] [address] Care Team Providers Care Operating Room Scheduler Name Role Phone Júnior Villarreal CNP Primary Care Provider [phone] Encounter Details Date Type Department Care Team (Latest Contact Info) Description 01/27/2025 Travel Social History Tobacco Use Types Packs/Day Years [...] Description 02/27/2025 1:00 PM EDT Office Visit [facility] [address] [place] [address] Júnior Villarreal CNP [address] [place] [address] 04/16/2025 1:30 PM EDT Clinical Support [address] [address] Tyler Bradley RN [address] [place] [address] documented as of this encounter Goals Goal Patient Goal Type Associated Problems Recent Progress Patient-Stated? Author Keep your medical appointments Lifestyle No Tyler Bradley RN documented as of this encounter Visit Diagnoses Not on filedocumented in this encounter Additional Health Concerns Assessment Noted Time PHQ-9 Depression Total Score: 6 03/18/20 24 1:11 PM EDT documented as of this encounter Care Teams Operating Room Scheduler Relationship Specialty Start Date End Date Júnior Villarreal CNP [address] [place] [address] PCP - General Family Medicine 01/08/25 documented as of this encounter
--- OUTSIDE RECORDS SUMMARY | 2025-01-28 16:37 | XMS_ITS | Clinical Summary ---
Author Organization [employer] Address [address] [place] [address] 7t [place] [address] Care Team Providers Care Air Traffic Controller Center Name Role Phone Júnior Villarreal IMELDA Primary Care Provider [phone] [phone] Allergies Active Allergy Reactions Criticality Noted Date [...] QUEtiapine (SEROquel) 50 MG tablet 024 Active D-1000 Extra Strength 25 MCG (1000 UT) tabletIndications :Iron deficiency anemia, unspecified iron deficiency anemia type TOME ANTONIO TABLETA POR VIA ORAL EN [facility] 90 tablet 025 Active hydroCHLOROthiazi de 12.5 MG tabletIndications :Primary hypertension TAKE 1 TABLET (12.5 MG) BY MOUTH ONCE PER DAY. TAKE 1 TABLET MY MOUTH ONCE DAILY 90 tablet 1 025 Active fluticasone (Flonase) 50 MCG/ACT nasal sprayIndications: Allergic rhinitis, unspecified seasonality, unspecified trigger SPRAY 1 SPRAY INTO EACH NOSTRIL ONCE A DAY 16 mL 2 025 Active Suboxone 8-2 MG SL filmIndications:U ncomplicated opioid dependence (CMS/HCC) Place 2 Film under the tongue Once per day. 56 Film 2 025 2024 Active Tirzepatide 5 MG/0.5ML solution auto-injectorIndi cations:Obesity (BMI 30-39.9) Inject 0.5 mL under the skin 1 (one) time per week for 4 doses. 2 mL 025 2024 Active triamcinolone (Kenalog) 0.1 % ointmentIndicatio ns:Atopic dermatitis, unspecified type Apply topically 2 times daily. 80 g Active Multiple Vitamin (multivitamin) tabletIndications :Health care maintenance Take 1 tablet by mouth Once per day. 30 tablet 11 Active Multiple Vitamin (Daily-Ish Multivitamin) tablet Take 1 tablet by mouth Once per day. TAKE 1 TABLET BY MOUTH ONCE DAILY 90 tablet 2 024 2024 Discontinued Suboxone 8-2 MG SL filmIndications:U ncomplicated opioid dependence (CMS/HCC) Place 2 Film under the tongue Once per day. 56 Film 1 025 2024 Discontinued(R eorder (will not trigger notification to Pharmacy)) Tirzepatide-Weigh t Management (Zepbound) 2.5 MG/0.5ML solution auto-injectorIndi cations:Obesity (BMI 30-39.9) Inject 0.5 mL (2.5 mg) under the skin 1 (one) time per week. 2 mL 025 2024 Discontinued(R eorder (will not trigger notification to Pharmacy)) multivitamin () 27-0.8 MG tabletIndications :Healthcare maintenance Take 1 tablet by mouth Once per day. 30 tablet 025 2024 Discontinued(T herapy completed) Tirzepatide-Weigh t Management (Zepbound) 2.5 MG/0.5ML solution auto-injectorIndi cations:Obesity (BMI 30-39.9) Inject 0.5 mL (2.5 mg) under the skin 1 (one) time per week. 1 mL 025 2024 Discontinued(T herapy completed) Active Problems Problem Noted Date Diagnosed Date [...] course of tamoxifen -was seeing oncologist at [facility] -order placed for bilateral diagnostic mammogram -unable [...] Encounters Date Type Department Care Team Description 01/28/2025 3:15 PM EDT Office Visit [facility] [address] [place] [address] Júnior Villarreal CNP Obesity (BMI 30-39.9) (Primary Dx); Atopic dermatitis, unspecified type; Abdominal bloating; Health care maintenance 01/28/2025 Refill [facility] [address] [place] [address] Júnior Villarreal CNP Obesity (BMI 30-39.9) 01/28/2025 Travel 01/27/2025 1:55 PM EDT Clinical Support [address] [address] Tyler Bradley RN Uncomplicated opioid dependence ([facility]/HCC) (Primary Dx) 01/27/2025 Travel 01/15/[address] [address] Júnior Villarreal CNP Chart Prep 01/12/[address] [address] Cassidy Steinberg MD Uncomplicated opioid dependence (CMS/HCC) 01/07/2025 3:45 PM EDT Office Visit [address] [address] Júnior Villarreal CNP Obesity (BMI 30-39.9) (Primary Dx); Healthcare maintenance 01/07/[address] [address] Blessing Cummins MD Trasnfer patient (Patient requesting transfer pt appt. Pt wants pcp to be Júnior. ) 01/07/2025 Travel 12/23/[address] [address] Blessing Cummins MD Chart Prep 12/21/[address] [phone] Blessing Cummins MD Allergic rhinitis, unspecified seasonality, unspecified trigger 12/11/[address] [phone] Júnior Villarreal CNP Prior Authorization 11/28/2024 2:45 PM EST Office Visit [address] [address] Júnior Villarreal CNP Drug-induced constipation (Primary Dx); Obesity (BMI 30-39.9) 11/27/2024 1:30 PM EST Telemedicine [address] [address] Cassidy Steinberg MD Uncomplicated opioid dependence (CMS/HCC) (Primary Dx) 11/27/2024 Travel 11/27/[address] [address] Blessing Cummins MD Chart Prep 11/26/[address] [address] Blessing Cummins MD Appointment Request 11/26/[address] [address] Blessing Cummins MD R\S APPT 11/25/[address] [address] Blessing Cummins MD Nurse Triage 11/20/[address] [address] Tyler Bradley RN Uncomplicated opioid dependence (CMS/HCC) 11/14/2024 Patient Outreach [address] [address] Blessing Cummins MD Pre-visit Planning ((Unable to reach for PVP screening, LVM)) from Last 3 Months Immunizations Name Administration Dates Next Due Hep A, Adult 08/02/2010,03/26/2006 Hep B, adult 01/29/2017,05/26/2016,03/26/2007 Influenza injectable quadriv alent preservative free 09/10/2021,06/15/2021,05/22/2020,07/03,05/30/2018,09/11/2016 Influenza, IIV3, injectable 06/23/2011, 1 Influenza, seasonal, injecta ble, preservative free 07/28/2024 More SARS-CoV-2 Vaccination 02/19/2021,2020 Pfizer Covid-19 Vaccine 12+ [...] Sign Reading Time Taken Comments Blood Pressure 130/82 01/28/2025 3:12 PM EDT Pulse 65 01/28/2025 3:12 PM EDT Temperature 36.8 ??C (98.3 ??F) 01/28/2025 3:12 PM ED T Respiratory Rate 18 01/28/2025 3:12 PM EDT Oxygen Saturation 98% 01/28/2025 3:12 PM EDT Inhaled Oxygen Concentration - - Weight 81.6 kg (180 lb) 01/28/2025 3:12 PM EDT Height 162.6 cm (5' 4 ) 07/28/2024 3:07 PM EDT Body Mass Index 30.9 07/28/2024 3:07 PM EDT Plan of Treatment Upcoming Encounters Date Type Department Care Team (Late st Contact Info) Description 02/27/2025 1:00 PM EDT Office Visit [facility] [address] [place] [address] Júnior Villarreal, IMELDA [address] [place] [address] 04/16/2025 1:30 PM EDT Clinical Support [facility] [address] [place] [phone] Tyler Bradley, RN [address] [place] [address] Health Maintenance Due Date Last Done Comments [...] on patient's age to complete this topic Goals Goal Patient Goal Type Associated Problems Recent Progress Patient-Stated? Author Keep your medical appointments Lifestyle No Tyler Bradley, business integration analyst Procedure Name Priority Date/Time Associated Diagnosis Comments POCT TANYA-14 URINE DRUG SCREEN Routine 01/27/2025 1:58 PM EDT Uncomplicated opioid dependence (CMS/HCC) HEPATITIS C AB [...] Results * POCT TANYA-14 Urine Drug Screen (01/27/2025 1:58 PM EDT) THC Negative Cocaine Screen, Urine Negative Opiate Screen, Urine Negative Methamphetamine Screen Urine Negative Amphetamine Screen, Urine Negative Benzodiazepines Screen, Urine Positive Barbiturate Screen, Urine Negative Methadone Screen, Urine Negative Buprenophine Screen, Urine Positive TCA, Urine Negative MDMA Urine Negative ng/mL Oxycodone Screen, Urine Negative Phencyclidine (PCP), Urine Negative Fentanyl, Urine Negative Urine Urine specimen obtained by clean catch procedure / Unknown 01/27/2025 1:58 PM EDT Helio Lynn MD POINT OF CARE TEST ENTER/EDIT OR DERABLES Final Result * Hepatitis C Antibody with Reflex to HCV, RNA, Quantitative, Real-Time PCR (03/20/2024 1:36 PM EDT) Hepatitis C Antibody Nonreactive Nonreactive [facility] Comment:Antibodies to HCV no t detected; does not exclude early acuteHCV infection. Blood Venous blood specimen / Unknown 03/20/2024 1:36 PM EDT 03/20/2024 4:02 PM EDT Blessing Ngo MD LAB BLOOD ORDERABLES Final Result Performing Organization Address [facility] Co de Phone Number [facility] [address] [place] [address] [phone] * Lipid Panel, Standard (03/20/2024 1:36 PM EDT) Triglycerides 115 <150 mg/dL [facility] Comment:Desirable Triglyceri de: less than 150 mg/dLBorderline High Triglyceride 150-199 mg/dLHigh Triglyceride: 200-499 mg/dLVery High Triglyceride: greater than or equal to 5OO mg/dL Cholesterol 181 <200 mg/dL [facility] Comment:Desirable Cholestero l: less than 200 mg/dLBorderline High Cholesterol: 200-239 mg/dLHigh Cholesterol: greater than 239 mg/dL LDL Cholesterol Calculated 99 <100 mg/dL [facility] Comment:Desirable LDL: less than 100 mg/dLNear Optimal/Above Optimal LDL: 110- 129 mg/dLBorderline High LDL: 130-159 mg/dLHigh LDL: 160-189 mg/dLVery High LDL: greater than or equal to 190 mg/dL HDL Cholesterol 59 >40 mg/dL [facility] Comment:Desirable HDL: great er than 40 mg/dL Note: This HDL assay may give artificially low results in patients with liver disease. Blood Venous blood specimen / Unknown 03/20/2024 1:36 PM EDT 03/20/2024 4:05 PM EDT Blessing Ngo MD LAB BLOOD ORDERABLES Final Result Performing Organization Address [facility]/ZIP Co de Phone Number [facility] [address] [place] [address] [phone] * BI MR Breast w and w/o Contrast Bilateral (12/11/2023 3:24 PM EDT) Anatomical Region Laterality Modality Breast Bilateral Magnetic Resonan ce 12/11/2023 3:24 PM EDT Narrative 12/18/2023 9:18 AM EDT ? [facility] ?[address] ?[place] [address] ? Magnetic Resonance Report ? Signed ? Patient: Pablo,Christina ?MR#: [id number] ?? 3 ? : 1970 ?Acct:[id number] ? Age/Sex: 53 / F ?ADM Date: 12/11/23 ? Loc: HO.MRI ? Attending Dr: Toby Vila MD ? Ordering Physician: Toby Vila MD ?? Date of Service: 12/11/23 ?? Procedure(s): MR breast BI wo/w con ?? Accession Number(s): [id number] ? cc: Blessing Cummins MD; Toby Vila [...] 0914 ? DD/ 1524 ? TD/TT: ? Mems Device Scientist: DJ ? Procedure Note Donlukas, Image - 12/18/2023 [place] [address] Magnetic Resonance Report Signed Patient: Joann Shah#: [id number] 3 : 1970Acct:[id number] Age/Sex: 53 / FADM Date: 12/11/23 Loc: HO.MRI Attending Dr: Toby Vila MD Ordering Physician: Toby Vila MD Date of Service: 12/11/23 Procedure(s): MR breast BI wo/w con Accession Number(s): [id number] cc: Blessing Cummins MD; Toby Vila MD [...] in OV> 12/18/23 0914 DD/ 1524 TD/TT: Mems Device Scientist: PHAN [facility] External Provider IMG MRI PROCEDURES Final Result * Pap Smear (06/13/2023 3:39 PM EDT) 06/13/2023 3:39 PM EDT 06/14/2023 9:10 AM EDT Narrative [facility] - 06/27/2023 8:37 AM EDT ----- ------- Name: PabloChristina ?Age/Sex: 52/F ? : 1970 Unit#: [id number] ?? Attend Dr: Toby Vila MD ?Re06/13/23 ?Status: DEP REF ? Location: HO.LNP ?Disch: ? ----- ------- SPEC : [id number] ?RECD: 06/14/23 ? STATUS: ??SOUT ? REQ NUM: [id number] ? SHANELL: 06/13/23-1538 ? SUBM DR: Toby Vila MD ? ENTERED: ??06/14/23-1224 ?SP TYPE: Pap Smr ?OTHR DR: Blessing [...] 66, 68) ? HPV testing performed by [facility], [place], [place]. ??See reference laboratory ?? portion of the EMR for entire report. ?Clinical Information LMP: Postmenopausal Previous PAP test: Unknown date/findings Other history: Abnormal uterine and vaginal bleeding, pelvic and perineal pain, acute vaginitis ? Material Received ?? ThinPrep-Cervical Copies To: ?? Blessing Cummins MD ?? [address] [facility] ?? [place] [address] ?? [phone] ?? Toby Vila MD ?? [address] [place] [address] [address] ?? [place] [address] ?? [phone] ----- ------- Signed (signature on file) Krystal Jarvis MD 06/27/23 0837 ? ----- ------- ? END OF REPORT ? us [facility] External Provider LAB CYT OLOGY ORDERABLES Final Result [facility] [address] [place] [phone] * THINPREP TIS PAP AND HPV mRNA E6/E7 REFLEX HPV 16,18/45 (07/19/2021 12:00 AM EDT) Clinical Information: None given [facility] COMMENT SEE COMMENT FOUNDAT[facility] ON [...] has been evaluated with computer assisted technology. [facility] Audit Clerk: SEE COMMENT [facility] Comment: ED, CT(ASCP) CT screening location: ?? [facility] ?? [address] [place] [address] ?? [place], [place] [address] HPV nRNA E6/E7 Not Detected Not Detected [employer] [facility] Comment: Methodology: Health Care Manager-Mediated Amplification This assay detects E6/E7 viral messenger RNA (mRNA) from 14 high-risk HPV types (16,18,31,33,35,39,45,51,52,56,58,59,66,68). ? The analytical performance characteristics of this assay have been determined by [facility]. The modifications have not been cleared or approved by the FDA. This assay has been validated pursuant to the CLIA regulations and is used for clinical purposes. ?? For additional information, please refer to http://education.Magix/faq/JWD256z4 (This link if provided for information/ educational purposes only.) Infection Shift in vaginal jaspal suggestive of bacterial vaginosis. [facility] Interpretation/Re sult: Negative for intraepithelial lesion or malignancy. [facility] LMP: NONE GIVEN FOUNDATIO N [...] MD LAB PATHOLOGY ORDERAB LES Final Result [facility] [address] * Colonoscopy (08/13/2018) Historical Provider HEALTH MAINTENANCE Final Result from Last 3 Months or Most Recently Relevant to Health Maintenance Insurance [facility] STANDARD CCA [facility] < [address] [place] [phone] Care Teams Air Traffic Controller Center Relationship Specialty Start Date End Date Júnior Villarreal CNP [address] [place] [address] PCP - General Family Medicine 01/08/25
--- OUTSIDE RECORDS SUMMARY | 2025-01-28 16:37 | XMS_ITS | Encounter Summary ---
Author Organization [employer] [facility] Address [address] [place] [address] [address] [place] [address] Care Team Providers Care Cdc Associate Name Role Phone Blessing Cummins MD Primary Care Provide r Júnior Villarreal CNP Primary Care Provider [phone] [phone] Reason for Visit * Reason Comments Med Refill Encounter Details Date Type Department Care Team (Late st Contact Info) Description 05/02/2023 Refill [facility] [address] [place] [address] [phone] Cassidy Steinberg MD [address] [place], [place] [phone] Uncomplicated opioid dependence (CMS/HCC) Social History Tobacco [...] Description 02/27/2025 1:00 PM EDT Office Visit [facility] [address] [place] [address] Júnior Villarreal CNP [address] [place] [address] 04/16/2025 1:30 PM EDT Clinical Support [facility] [address] [place] [address] Tyler Bradley, SHAHID [address] [place] [address] documented as of this encounter Visit Diagnoses Diagnosis Uncomplicated opioid dependence (CMS/HCC) documented in this encounter Additional Health Concerns Assessment Noted Time PHQ-9 Depression Total Score: 4 01/06/20 23 4:13 PM EDT documented as of this encounter Care Teams Cdc Associate Relationship Specialty Start Date End Date Blessing Cummins MD [address] [place] [address] PCP - General Family Medicine 11/10/20 01/07/25 Júnior Villarreal CNP [address] [place] [address] PCP - General Family Medicine 01/08/25 documented as of this encounter
--- OUTSIDE RECORDS SUMMARY | 2025-01-28 16:37 | XMS_ITS | Encounter Summary ---
Author Organization [employer] Address [address] [place] [address] 7t [place] [address] Care Team Providers Care Trimmer Hand Name Role Phone Blessing Cummins MD Primary Care Provide r Júnior Villarreal CNP Primary Care Provider [phone] [phone] Reason for Visit * Reason Onset Date Comments Appointment Request 11/26/2024 Encounter Details Date Type Department Care Team ([facility] st Contact Info) Description 11/26/2024 Telephone [facility] [address] [place], [place] [phone] Blessing Cummins MD [address] [place], [place] [phone] Appointment Request Social History Tobacco Use Types [...] it urgently not for December or January. Soils Technician advice no availability that soon but will have [place] return call so she can discuss why she will like to be seen urgently. Denied triage documented in this encounter Plan of Treatment Upcoming Encounters Date Type Department Care Team (Late st Contact Info) Description 02/27/2025 1:00 PM EDT Office Visit [facility] [address] [place] [phone] Júnior Villarreal CNP [address] [place] [address] 04/16/2025 1:30 PM EDT Clinical Support [facility] [address] [place] [phone] Tyler Bradley, SHAHID [address] [place] [address] documented as of this encounter Visit Diagnoses Not on filedocumented in this encounter Additional Health Concerns Assessment Noted Time PHQ-9 Depression Total Score: 6 03/18/20 24 1:11 PM EDT documented as of this encounter Care Teams Trimmer Hand Relationship Specialty Start Date End Date Blessing Cummins MD [address] [place], [place] [phone] PCP - General Family Medicine 11/10/20 01/07/25 Júnior Villarreal CNP [address] [place] [address] PCP - General Family Medicine 01/08/25 documented as of this encounter
--- OUTSIDE RECORDS SUMMARY | 2025-01-28 16:37 | XMS_ITS | Encounter Summary ---
Author Organization [facility] Address [address] [place] [address] 7t [place] [address] Care Team Providers Care Tiler Name Role Phone Blessing Cummins MD Primary Care Provide r Júnior Villarreal CNP Primary Care Provider [phone] [phone] Reason for Visit * Reason Comments Med Refill Encounter Details Date Type Department Care Team (Late Contact Info) Description 02/18/2023 Refill [facility] [address] [place], [place] [phone] Blessing Cummins MD [address] [place] [address] Dyspepsia Social History Tobacco Use Types Packs/Day [...] Upcoming Encounters Date Type Department Care Team ([facility] Contact Info) Description 02/27/2025 1:00 PM EDT Office Visit [facility] [address] [place] [address] Júnior Villarreal CNP [address] [place] [address] 04/16/2025 1:30 PM EDT Clinical Support [facility] [address] [place] [address] Tyler Bradley, RN [address] [place] [address] documented as of this encounter Visit Diagnoses Diagnosis Dyspepsia Dyspepsia and other specified disorders of function of stomach documented in this encounter Additional Health Concerns Assessment Noted Time PHQ-9 Depression Total Score: 4 01/06/20 23 4:13 PM EDT documented as of this encounter Care Teams Tiler Relationship Specialty Start Date End Date Blessing Cummins MD [address] [place] [phone] PCP - General Family Medicine 11/10/20 01/07/25 Júnior Villarreal CNP [address] [place] [address] PCP - General Family Medicine 01/08/25 documented as of this encounter
--- OUTSIDE RECORDS SUMMARY | 2025-01-28 16:37 | XMS_ITS | Data Portability ---
Author Organization [facility] [place], [place] in [facility] Address [address] [place] [phone] Care Team Providers Care Forest Products Teacher Name Role Phone [facility] OTHER [phone] Assessment Encounter Date Assessment Date Assessment LastModified [...] recorded. Lab BMP, serum or plasma 2024 [facility], [address] [place] [address], [phone] 20:49:33 Referral None recorded. Procedures None recorded. Surgeries None recorded. Imaging None recorded. Medication Orders bisacodyl 5 mg tablet,del ayed release 2024 025 [facility][id number], [address] [place], [address], 19:33:18 Patient TargetsNo targets recorded. Patient InstructionsNo [...] Name and Address Organization Details Recorded Time [address] aspirin medicatio n Not available Not available [...] active Not Available Not Available Not Available Daily-Ish (with folic acid) 400 mcg tablet TOME [...] /min 162.56 cm 99 % 99 % 29339.5 6 g 98.7 [degF] 18 /min 120 [...] SNOMED-CT Code Diagnosis ICD10 Code Diagnosis Note [id number] Neftaly Ramirez MD Main - instED [address] [place] [phone] 11/25/2024 19:25:49 11/26/2024 12:12:58 Constipation [id number] K59.00 Health Concerns Section Related Observation LastModified by Organization Detai ls LastModified Time None Recorded Concern Status LastModified by Organization Details LastModified Time None Recorded Advance Directives Directive None Recorded Payers Encounter Date Sequence Insurance Name Policy Number Policy Borjas Covered Member ID Borjas Member ID Guarantor Name 11/25/2024 1 [facility] [employer] - DOS ON OR AFTER 2022 - DUAL ELIGIBLE - [employer] OPTIONS AND ONE CARE (MEDICARE REPLACEMENT/ADV ANTAGE - HMO) Christina Shah [id number] Christina Shah Notes Date Note Type Note [...] move bowels. Denies abd pain, N/V- NE [employer] Set Up Operator Organization Information for Lisa Powell Business Legal Name: [employer]? Address: [address] [place] [address], School Psychologist: Wyatt Soto MD CLIA No.: [id number] [employer] Set Up Operator POC Test Results from Lisa Powell [...] .................. .................. .................. .................. .................. .................. ............... [employer] Set Up Operator Note From Lisa Powell: Sent to [...] sounds; Back: unremarkable; Skin: pink, warm, dry; [facility] consulted and orders BMP. [facility] sends script to pt's pharmacy. Venous blood draw performed. [employer]+ results: uploaded to [employer]. Pt reassured bloodwork is normal. Red flags discussed. Pt has no further questions. [facility] Lab Orders: BMP, serum or plasma: Performed .................. .................. .................. .................. .................. .................. .................. ............... [facility] Consulted: Neftaly Ramirez .................. .................. .................. .................. .................. .................. .................. ............... Disposition: Fulfilled Neftaly Ramirez MD [address] [facility] [facility], [place], [phone], [employer] Pharmaceutical[employer]KAS SUAREZ 11/25/2024 22:35:14 OBGyn Episode No OBEpisode recorded.
--- OUTSIDE RECORDS SUMMARY | 2025-01-28 16:37 | XMS_ITS | Encounter Summary ---
Author Organization [employer] Address [address] [facility] 7t [place] [address] Care Team Providers Care Marketing Officer Name Role Phone Júnior Villarreal CNP Primary Care Provider [phone] [phone] Encounter Details Date Type Department Care Team (Latest Contact Info) Description 01/28/2025 Travel Social History Tobacco Use Types Packs/Day [...] Description 02/27/2025 1:00 PM EDT Office Visit [facility] MEDICINE [address] [place] [address] Júnior Villarreal CNP [address] [place] [address] 04/16/2025 1:30 PM EDT Clinical Support [address] [address] Tyler Bradley RN [address] [place] [address] documented as of this encounter Goals Goal Patient Goal Type Associated Problems Recent Progress Patient-Stated? Author Keep your medical appointments Lifestyle No Tyler Bradley RN documented as of this encounter Visit Diagnoses Not on filedocumented in this encounter Additional Health Concerns Assessment Noted Time PHQ-9 Depression Total Score: 6 03/18/20 24 1:11 PM EDT documented as of this encounter Care Teams Marketing Officer Relationship Specialty Start Date End Date Júnior Villarreal CNP [address] [place] [address] PCP - General Family Medicine 01/08/25 documented as of this encounter
--- OUTSIDE RECORDS SUMMARY | 2025-01-28 16:37 | XMS_ITS | Encounter Summary ---
Author Organization [employer] Address [address] [place] [address] 7t [place] [address] Care Team Providers Care Typewriter Ribbon Winder Name Role Phone Júnior Villarreal CNP Primary Care Provider [phone] [phone] Reason for Visit * Reason Comments Med Change Request Encounter Details Date Type Department Care Team ([facility] st Contact Info) Description 01/28/2025 Refill [facility] MEDICINE [address] [place], [place] [phone] Júnior Villarreal CNP 230 [place], [place] [phone] Obesity (BMI 30-39.9) Social History Tobacco Use Types Packs/Day Years [...] Description 02/27/2025 1:00 PM EDT Office Visit [address] [address] Júnior Villarreal CNP [address] [place] [address] 04/16/2025 1:30 PM EDT Clinical Support [address] [address] Tyler Bradley RN [address] [place] [address] documented as of this encounter Goals Goal Patient Goal Type Associated Problems Recent Progress Patient-Stated? Author Keep your medical appointments Lifestyle No Tyler Bradley RN documented as of this encounter Visit Diagnoses Diagnosis Obesity (BMI 30-39.9) documented in this encounter Additional Health Concerns Assessment Noted Time PHQ-9 Depression Total Score: 6 03/18/20 24 1:11 PM EDT documented as of this encounter Care Teams Typewriter Ribbon Winder Relationship Specialty Start Date End Date Júnior Villarreal CNP [address] [place] [address] PCP - General Family Medicine 01/08/25 documented as of this encounter
--- OUTSIDE RECORDS SUMMARY | 2025-01-28 16:37 | XMS_ITS | Encounter Summary ---
Author Organization [employer] [facility] Address [address] [place] [address] 7 [place] [address] Care Team Providers Care Senior Education Specialist Name Role Phone Blessing Cummins MD Primary Care Provide r Júnior Villarreal CNP Primary Care Provider [phone] [phone] Encounter Details Date Type Department Care Team (Late st Contact Info) Description 11/02/2022 Abstract [facility] MEDICINE [address] [place] [address] [phone] Jacqui Obregon RN [address] [place], [place] [phone] Social History Tobacco Use Types Packs/Day Years [...] Description 02/27/2025 1:00 PM EDT Office Visit [facility] MEDICINE [address] [place] [address] [phone] Júnior Villarreal CNP [address] [place], [place] [phone] 04/16/2025 1:30 PM EDT Clinical Support [facility] MEDICINE 230 [place] [address] Tyler Bradley, SHAHID [address] [place] [address] documented as of this encounter Procedures Procedure Name Priority Date/Time Associated Diagnosis Comments MAMMOGRAPHY Routine 10/31/2022 documented in this encounter Results * Mammography (10/31/2022) Mammogram BIRADS 1: Negative. Routine annual mammography Anatomical Region Laterality Modality Other us Historical Provider HEALTH MAINTENANCE Final Result documented in this encounter Visit Diagnoses Not on filedocumented in this encounter Care Teams Senior Education Specialist Relationship Specialty Start Date End Date Blessing Cummins MD [address] [place] [address] PCP - General Family Medicine 11/10/20 01/07/25 Júnior Villarreal CNP [address] [place] [address] PCP - General Family Medicine 01/08/25 documented as of this encounter
--- OUTSIDE RECORDS SUMMARY | 2025-01-28 16:37 | XMS_ITS | Encounter Summary ---
Author Organization [employer] Address [address] [place] [address] 7 [place] [address] Care Team Providers Care Support Manager Name Role Phone Júnior Villarreal CNP Primary Care Provider [phone] [phone] Reason for Visit * Reason Comments Follow-up Encounter Details Date Type Department Care Team ([facility] st Contact Info) Description 01/28/2025 3:15 PM EDT Office Visit [facility] MEDICINE [address] [place] [address] Júnior Villarreal CNP 230 [place] [address] Obesity (BMI 30-39.9) (Primary Dx); Atopic dermatitis, unspecified type; Abdominal bloating; Health care maintenance Social History Tobacco Use Types Packs/Day Years [...] AM EDT documented as of this encounter Last Filed Vital Signs Vital Sign Reading Time Taken Comments Blood Pressure 130/82 01/28/2025 3:12 PM EDT Pulse 65 01/28/2025 3:12 PM EDT Temperature 36.8 ??C (98.3 ??F) 01/28/2025 3:12 PM ED T Respiratory Rate 18 01/28/2025 3:12 PM EDT Oxygen Saturation 98% 01/28/2025 3:12 PM EDT Inhaled Oxygen Concentration - - Weight 81.6 kg (180 lb) 01/28/2025 3:12 PM EDT Height - - Body Mass Index 30.9 07/28/2024 3:07 PM EDT documented in this encounter Progress Notes * Júnior Villarreal CNP - 01/28/2025 3:15 PM EDT Subjective Patient ID: Christina Shah is a 54 y.o. female who presents for zepbound f/u. She was started on 2.5mg about 4 weeks ago. She reports she lost 5 lbs today. She denies any side effects from medication.She does endorse bloating but reports this is an issue that has been ongoing before she started anti obesity meds. She reports she is still exercising daily and eating a balanced diet. She is also requesting a cream for her eczema that comes and goes, she denies any skin changes at this time. Review of Systems Constitutional: Negative for fatigue and fever. Respiratory: Negative for choking and shortness of breath. Gastrointestinal: Positive for abdominal distention. Negative for abdominal pain, anal bleeding, blood in stool, constipation, diarrhea, nausea, rectal pain and vomiting. Neurological: Negative. Psychiatric/Behavioral: Negative. Objective Vitals: 01/28/25 1512 BP: 130/82 Pulse: 65 Resp: 18 Temp: 98.3 ??F (36.8 ??C) SpO2: 98% Physical Exam Constitutional: Appearance: Normal appearance. She is normal weight. Cardiovascular: Rate and Rhythm: Normal rate and regular rhythm. Pulses: Normal pulses. Heart sounds: Normal heart sounds. No murmur heard. No friction rub. No gallop. Pulmonary: Effort: Pulmonary effort is normal. No respiratory distress. Breath sounds: Normal breath sounds. No wheezing or rales. Abdominal: General: Bowel sounds are normal. There is no distension. Palpations: Abdomen is soft. There is no mass. Tenderness: There is no abdominal tenderness. There is no guarding or rebound. Hernia: No hernia is present. Neurological: General: No focal deficit present. Mental Status: She is alert and oriented to person, place, and time. Psychiatric: Mood and Affect: Mood normal. Behavior: Behavior normal. Thought Content: Thought content normal. Judgment: Judgment normal. Assessment/Plan Problem List Items Addressed This Visit Health care maintenance Relevant Medications Multiple Vitamin (multivitamin) tablet Sent rx for multivitamin for pt request Advised pt that eating a diet rich in fruits and vegetables and legumes will provide adequate nutrition Will obtain bloodwork today to confirm if any vitamin deficiencies. Obesity (BMI 30-39.9) - Primary Relevant Medications Tirzepatide 5 MG/0.5ML solution auto-injector Pt lost 5 lbs today Denies side effects Provided education that abdominal bloating will likely be exacerbated by medication She wants to continue on medication and despite risk for increased bloating pt would like to continue with dose increase Will increase to 5 mg and f/u in 1 month Other Visit Diagnoses Atopic dermatitis, unspecified type Relevant Medications triamcinolone (Kenalog) 0.1 % ointment Abdominal bloating Relevant Orders Comprehensive Metabolic Panel CBC auto differential Celiac Disease Comprehensive Panel Helicobacter pylori Antigen, EIA, Stool Abdominal bloating likely related to GLP1 medication Will obtain bloodwork to r/o other etiology Pt requests liver function testing due to being on suboxone, CMP ordered F/u in 1 month to review labs and f/u on zepbound. [facility] IMPREGNATING HELPER Attestation IMPREGNATING HELPER Resident Attestation: Patient was seen and evaluated by Júnior Villarreal CNP, in collaboration with Tawanda Ponce MD who has reviewed my assessment and plan. I, Tawanda Ponce MD, have reviewed the resident's note and agree with the assessment & plan of care as documented above. documented in this encounter Plan of Treatment Upcoming Encounters Date Type Department Care Team (Late st Contact Info) Description 02/27/2025 1:00 PM EDT Office Visit [facility] MEDICINE [address] [place] [address] Júnior Villarreal CNP [address] [place] [address] [phone] 04/16/2025 1:30 PM EDT Clinical Support [facility] MEDICINE [address] [place] [address] Tyler Bradley RN [address] [place] [address] Scheduled Orders Name Type Priority Associated Diagnoses Orde r Schedule Comprehensive Metabolic Panel Lab Routine Abdominal bloating Expected: 01/28/2025 (Approximate), Expires: 01/28/2026 CBC auto differential Lab Routine Abdominal bloating Expected: 01/28/2025 (Approximate), Expires: 01/28/2026 Celiac Disease Comprehensive Panel Lab Routine Abdominal bloating Expected: 01/28/2025, Expires: 01/28/2026 Helicobacter pylori??Antigen, EIA, Stool Lab Routine Abdominal bloating Expected: 01/28/2025, Expires: 01/28/2026 documented as of this encounter Goals Goal Patient Goal Type Associated Problems Recent Progress Patient-Stated? Author Keep your medical appointments Lifestyle No Tyler Bradley RN documented as of this encounter Visit Diagnoses Diagnosis Obesity (BMI 30-39.9)- Primary Atopic dermatitis, unspecified type Abdominal bloating Flatulence, eructation, and gas pain Health care maintenance documented in this encounter Additional Health Concerns Assessment Noted Time PHQ-9 Depression Total Score: 6 03/18/20 24 1:11 PM EDT documented as of this encounter Care Teams Support Manager Relationship Specialty Start Date End Date Júnior Villarreal CNP [address] [place] [address] PCP - General Family Medicine 01/08/25 documented as of this encounter
--- OUTSIDE RECORDS SUMMARY | 2025-01-28 16:37 | XMS_ITS | Encounter Summary ---
Author Organization [employer] Address [address] [place] [address] 7t [place] [address] Care Team Providers Care Bisque Ware Dipper Name Role Phone Blessing Cummins MD Primary Care Provide r Júnior Villarreal CNP Primary Care Provider [phone] [phone] Reason for Visit * Reason Onset Date Comments Durable Medical Equipment 12/18/2022 Encounter Details Date Type Department Care Team ([facility] st Contact Info) Description 12/18/2022 Telephone [facility] MEDICINE 230 [place], [place] [phone] Blessing Cummins MD 230 [place], [place] [phone] Durable Medical Equipment Social History Tobacco Use [...] 12/22/2022 4:03 PM EDT Called pt. Via [employer] sales and storage manager Blessing [phone]. * Telephone Encounter - Lacy Amrit - 12/18/2022 2:16 PM EDT Script for grab bars generated for signature * Telephone Encounter - Lavon Gagan Riddle - 12/18/2022 1:45 PM EDT Tc from Cathy with [facility] requesting a shower bar for pt. If any questions please contact pt at [phone] documented in this encounter Plan of Treatment Upcoming Encounters Date Type Department Care Team (Late st Contact Info) Description 02/27/2025 1:00 PM EDT Office Visit [address] [address] Júnior Villarreal CNP [address] [place] [address] 04/16/2025 1:30 PM EDT Clinical Support [address] [address] Tyler Bradley, SHAHID [address] [place] [address] documented as of this encounter Visit Diagnoses Not on filedocumented in this encounter Care Teams Bisque Ware Dipper Relationship Specialty Start Date End Date Blessing Cummins MD [address] [place] [address] PCP - General Family Medicine 11/10/20 01/07/25 Júnior Villarreal CNP [address] [place] [address] PCP - General Family Medicine 01/08/25 documented as of this encounter
--- OUTSIDE RECORDS SUMMARY | 2025-01-28 16:37 | XMS_ITS | Encounter Summary ---
Author Organization [employer] Address [address] [facility] 7t [place] [address] Care Team Providers Care Fitness Sales Consultant Name Role Phone Júnior Villarreal IMELDA Primary Care Provider [phone] [phone] Reason for Visit * Reason Comments OBAT Encounter Details Date Type Department Care Team (Latest Contact Info) Description 01/27/2025 1:55 PM EDT Clinical Support [facility] MEDICINE [address] [place] [address] Tyler Bradley, RN 230 [place] [address] Uncomplicated opioid dependence (CMS/HCC) (Primary Dx) Social History Tobacco Use Types Packs/Day Years [...] AM EDT documented as of this encounter Progress Notes * Tyler Bradley RN - 01/27/2025 1:55 PM EDT Patient being seen for Opioid Dependence, reports doing well on current Suboxone dose of 16/4 mg jessica 8 week schedule. Patient reports taking medication as prescribed, no cravings or adverse effects. Pt has been in the program for 9 years, 6 mos. Induction date: 07/26/15. LFTs done 03/20/24 Patient enrolled in behavioral health services, in [place]. Seeing psychiatrist there as well. Klonopin Rx. [facility] reviewed. Kept PCP appt 01/07/25. Hep A/B immune. Completed COVID vaccines, got booster. LAST IN PERSON VISIT 10/03/24 +bup, bzo Christina is here 1 day late for appt, apologetic for missing appt. She continues to do well on Suboxone. No concerns today. LAST TEL-11/27/24 Subjective Patient ID: Christina Shah is a 54 y.o. female who presents for OBAT TEL. Christina is being seen for OBAT services. She is maintaining abstinence with no cravings or med side effects. Called the squad a few days ago for abdominal pain. She was told that she had constipation and has a follow up visit here tomorrow with the EGG PROCESSOR. Mood is good. Gets a little blue sometimes. Seeing counselor and psychiatrist on a regular basis. TODAY 01/27/25 +bup, bzo Christina is here today after missing OBAT appt last week. States she is going to talk to her PCP about her forgetfulness at her appt tomorrow. She is very happy with new PCP, Júnior Villarreal. She reports she got generic Suboxone last fill vs brand name. Called [facility] pharmacy and they will make sure her Rx is filled for brand name only today. 2 refills due to holiday. Reminded her to keep upcoming appts. Plan: Suboxone dosing schedule of 16/4 mg daily and management of side effects reviewed. Recovery support, harm reduction (including Narcan), and behavioral health attendance reviewed. Appointment for 12 weeks given. Patient expressed understanding and agreement with continuing plan of care. This information has been disclosed to you from records protected by federal confidentiality rules (42 CFR Part 2). The federal rules prohibit you from making any further disclosure of information inthis record that identifies a patient as having or having had a substance use disorder either directly, by reference to publicly available information, or through verification of such identification by another person unless further disclosure is expressly permitted by the written consent of the individual whose information is being disclosed or as otherwise permitted by (see2.3.1). The federal rules restrict any use of the information to investigate or prosecute with regard to a crime any patient with a substance use disorder, except as provided at 2.12??(5) and 2.65. documented in this encounter Plan of Treatment Upcoming Encounters Date Type Department Care Team (Late st Contact Info) Description 02/27/2025 1:00 PM EDT Office Visit [facility] MEDICINE [address] [place] [address] [phone] Júnior Villarreal CNP [address] [place] [address] 04/16/2025 1:30 PM EDT Clinical Support [facility] MEDICINE [address] [place] [address] [phone] Tyler Bradley RN [address] [place] [address] documented as of this encounter Goals Goal Patient Goal Type Associated Problems Recent Progress Patient-Stated? Author Keep your medical appointments Lifestyle No Tyler Bradley RN documented as of this encounter Procedures Procedure Name Priority Date/Time Associated Diagnosis Comments POCT TANYA-14 URINE DRUG SCREEN Routine 01/27/2025 1:58 PM EDT Uncomplicated opioid dependence (CMS/HCC) documented in this encounter Results * POCT TANYA-14 Urine Drug Screen [...] CARE TEST ENTER/EDIT OR DERABLES Final Result documented in this encounter Visit Diagnoses Diagnosis Uncomplicated opioid dependence (CMS/HCC)- Primary documented in this encounter Additional Health Concerns Assessment Noted Time PHQ-9 Depression Total Score: 6 03/18/20 24 1:11 PM EDT documented as of this encounter Care Teams Fitness Sales Consultant Relationship Specialty Start Date End Date Júnior Villarreal CNP [address] [place] [address] PCP - General Family Medicine 01/08/25 documented as of this encounter
[2025-01-28 18:07] LABS: MANUAL DIFF FLAG NO
[2025-01-28 18:12] LABS: Basophils Absolute Auto 0.1 X10*3/uL (0.0-0.2); Basophils Percent Auto 1.2 % (0-2); Hematocrit 41.3 % (37.0-47.0); Hemoglobin 13.3 g/dl (12.0-16.0); Imm Gran Abs Auto 0.01 X10*3/uL (0.00-0.03); Imm Gran Pct Auto 0.2 % (0.0-0.4); Lymphocytes Absolute Auto 1.9 X10*3/uL (1.2-4.9); Lymphocytes Percent Auto 46.3 % (20-40); Mean Corpuscular HGB Conc 32.2 g/dl (31.0-35.0); Mean Corpuscular Hemoglobin 25.3 pg (27.0-33.0); Mean Corpuscular Volume 78.5 fL (80.0-98.0); Mean Platelet Volume 11.4 fL (9.4-12.3); Monocytes Absolute Auto 0.4 X10*3/uL (0.1-1.2); Monocytes Percent Auto 10.2 % (2-11); Neutrophils Absolute Auto 1.7 x10*3/uL (2.0-8.3); Neutrophils Percent Auto 41.1 % (45-73); Platelet Count 294 X10*3/uL (160-400); Red Blood Count 5.26 X10*6/uL (4.20-5.50); Red Cell Distribution Width 15.3 % (11.0-16.0); White Blood Count 4.1 X10*3/uL (4.8-10.8)
[2025-01-28 18:39] LABS: Alanine Aminotransferase 23 U/L (0-31); Albumin Level 4.6 g/dL (3.5-5.0); Alkaline Phosphatase 97 U/L (39-117); Anion Gap 16 (12-20); Aspartate Amino Transferase 41 U/L (5-31); Bilirubin Total 0.4 mg/dL (0.0-1.0); Blood Urea Nitrogen 18 mg/dL (9-16); Calcium 9.7 mg/dL (8.4-10.2); Carbon Dioxide 27 mmol/L (22-29); Chloride 100 mmol/L (96-108); Estimated Glomerular Filt Rate > 60; Glucose Random 85 mg/dL (60-115); Potassium 4.6 mmol/L (3.3-5.1); Sodium 138 mmol/L (135-145); Total Protein 8.5 g/dL (6.5-8.0)
[2025-01-30 00:14] LABS: Immunoglobulin A 1055 mg/dL (47-310); Transglutaminase IgA <1.0 U/mL
== END 2025-01-28 15:55 | disposition home or self-care (01) ==
LOC: HO.HHCL 15:54
DX: R14.0 Abdominal distension (gaseous) (principal)
CPT/HCPCS: 36415; 80053; 82784; 85025; 86364

== ENCOUNTER 2025-07-08 15:36 | Outpatient (REF) | payer OTHER, SELFPAY ==
[2025-07-08 18:26] LABS: MANUAL DIFF FLAG NO
[2025-07-08 18:36] LABS: Hematocrit 39.4 % (37.0-47.0); Hemoglobin 13.1 g/dl (12.0-16.0); Imm Gran Abs Auto 0.01 X10*3/uL (0.00-0.03); Imm Gran Pct Auto 0.3 % (0.0-0.4); Lymphocytes Absolute Auto 1.5 X10*3/uL (1.2-4.9); Mean Corpuscular HGB Conc 33.2 g/dl (31.0-35.0); Mean Corpuscular Hemoglobin 28.1 pg (27.0-33.0); Mean Corpuscular Volume 84.4 fL (80.0-98.0); NRBC Abs Auto 0.000 X10*3/uL (0.0-0.012); NRBC Pct Auto 0.0 /100WBC (0.0-0.2); Platelet Count 256 X10*3/uL (160-400); Red Blood Count 4.67 X10*6/uL (4.20-5.50); White Blood Count 3.9 X10*3/uL (4.8-10.8)
[2025-07-08 19:06] LABS: Alanine Aminotransferase 10 U/L (0-31); Albumin Level 4.7 g/dL (3.5-5.0); Alkaline Phosphatase 60 U/L (39-117); Anion Gap 13 (12-20); Aspartate Amino Transferase 22 U/L (5-31); Blood Urea Nitrogen 14 mg/dL (9-16); Calcium 9.6 mg/dL (8.4-10.2); Carbon Dioxide 28 mmol/L (22-29); Chloride 104 mmol/L (96-108); Cholesterol 170 mg/dL (<200); Estimated Glomerular Filt Rate > 60; HDL Cholesterol 50 mg/dL (>40); Iron 41 mcg/dL (30-160); Percent Iron Saturation 19 % (15-50); Potassium 3.8 mmol/L (3.3-5.1); Sodium 141 mmol/L (135-145); Total Iron Binding Capacity 218 mcg/dL (228-428); Total Protein 7.7 g/dL (6.5-8.0); Triglycerides 79 mg/dL (<150); Unsaturated Iron Binding 177 ug/dL
== END 2025-07-08 15:37 | disposition home or self-care (01) ==
LOC: HO.CHCLDS 15:36
DX: Z00.00 Encounter for general adult medical examination without abnormal findings (principal); Z13.6 Encounter for screening for cardiovascular disorders
CPT/HCPCS: 36415; 80053; 80061; 82306; 83540; 85025

== ENCOUNTER 2025-07-17 14:05 | Outpatient (REF) | payer OTHER, SELFPAY ==
--- NOTE | ~2025-07-17 | MM_ITS ---
EXAMINATION: MM SCREENING DIGITAL BREAST TOMOSYNTHESIS, BILATERAL CLINICAL INFORMATION: Screening. Asymptomatic. COMPARISON: Mammography: Comparison is made with available priors TECHNIQUE: Digital breast mammography with tomosynthesis is performed in both the craniocaudal and mediolateral oblique views along with computer-aided detection (CAD). FINDINGS: There are scattered areas of fibroglandular density. There are no significant masses, abnormal calcifications, or other abnormalities. MM/MM tomosynthesis screening BI IMPRESSION: No mammographic evidence of malignancy. ASSESSMENT: BI-RADS Category 1: Negative RECOMMENDATION: Routine annual mammography screening. 1 year F/U This examination should not preclude the clinical evaluation of a suspicious palpable abnormality. This patient's information was entered into a reminder system with a target due date for their next mammogram. Electronically signed by: Jade Knight DO 07/20/2025 05:36 PM EDT
--- OUTSIDE RECORDS SUMMARY | 2025-07-17 16:46 | XMS_ITS | Data Portability ---
Author Organization [facility] [employer] [facility] Address [address] [place] [address] Care Team Providers Care Rn Employee Health Name Role Phone Unavailable OTHER Assessment Encounter Date Assessment Date Assessment LastModified [...] recorded. Lab BMP, serum or plasma 2024 025 [facility], [address] [place] [address], [phone] 20:49:33 Referral None recorded. Procedures None recorded. Surgeries None recorded. Imaging None recorded. Medication Orders bisacodyl 5 mg tablet,del ayed release 2024 025 [facility] #[id number], [address] [place], [address], 19:33:18 Patient TargetsNo targets recorded. Patient InstructionsNo [...] Name and Address Organization Details Recorded Time 31810 aspirin medicatio n Not available Not available Not available 11/25/2024 1191 [facility] Not Available Lo - production 14:38:27 Medications Name Sig Start Date Stop [...] Body weight Body temperature Respiratory rate Systolic And Diastolic Provider Name and Address Organization Details Last Updated DateTime 5 58 /min 162.56 cm 99 % 99 % 03050.5 6 g 98.7 [degF] 18 /min 120/72 mm[Hg] Not Available [facility] - production 19:25:51 Social History None recorded. Functional Status None recorded. Mental Status None recorded. Family History Nothing Reported. Medical History No medical history recorded. Gynecological HistoryNo gynecological history recorded. Obstetrics History GPAL:G 0 P 0 0 0 0 Past Encounters Encounter ID Performer Location Encounter Start Date Encounter Closed Date Diagnosis/Indication Diagnosis SNOMED-CT Code Diagnosis ICD10 Code Diagnosis IMO Codes Diagnosis Note [id number] Neftaly Ramirez MD Main - [facility] [address] [place] [phone] 11/25/2024 19:25:49 11/26/2024 12:12:58 Constipation 86692907 K59.00 Health Concerns Section Related Observation LastModified by Organization Detai ls LastModified Time None Recorded Concern Status LastModified by Organization Details LastModified Time None Recorded Advance Directives Directive None Recorded Payers Insurance Date Sequence Insurance Name Policy Number Policy Borjas Covered Member ID Borjas Member ID Guarantor Name 12/03/2024 1 [facility] - DOS ON OR AFTER 2022 - DUAL ELIGIBLE - CORRECTION OPTIONS AND ONE CARE (MEDICARE REPLACEMENT/ADV ANTAGE - HMO) Christina Shah [id number] Christina Shah Notes Date Note Type Note [...] abdominal pain greater than 24 hours Diarrhea no blood in stool Nausea with or without vomiting Inability to tolerate foods, fluids or daily medications Chief Complaints: Abdominal Pain PMH: Asthma, Cancer, Anxiety Disorder PMH Reviewed at 11/25/2024:38 Allergies Reviewed at 11/25/2024:38 Comments: Taking Senna at bedtime, with no relief. Has medication. Does report some bloating. Pain when trying to move bowels. Denies abd pain, N/V- NE Logistics System Engineer Organization Information for [facility] [employer] Legal Name: [email or web address]. Address: [address] [place] [phone], Stitcher Set Up Operator Automatic: Wyatt Soto MD CLIA No.: [id number] Logistics System Engineer POC Test Results from Lisa [facility] iSTAT Chem8+ (19:41:57) Na: 139 mEq/L K: 3.8 mEq/L Cl: 103 mEq/L iCa: 1.14 mmol/L TCO2: 23 mmol/L Glu: 131 mg/dL BUN: 15 mg/dL Crea: 0.5 mg/dL Hct: 37 % Hb: 12.6 g/dL A mmol/L Attachments uploaded as part of this test result can be found under Documents section. .................. .................. .................. .................. .................. .................. .................. ............... Logistics System Engineer Note From Lisa Powell: Sent to a [...] sounds; Back: unremarkable; Skin: pink, warm, dry; [facility] consulted and orders BMP. [facility] sends script to pt's pharmacy. Venous blood draw performed. Istat Chem8+ results: uploaded to [employer]. Pt reassured bloodwork is normal. Red flags discussed. Pt has no further questions. [facility] Lab Orders: BMP, serum or plasma: Performed .................. .................. .................. .................. .................. .................. .................. ............... [facility] Consulted: Neftaly Ramirez .................. .................. .................. .................. .................. .................. .................. ............... Disposition: Fulfilled Neftaly Ramirez MD [address] [facility],[address], [place], [phone], [email or web address] - Immun[employer], [facility] 11/25/2024 22:35:14 OBGyn Episode No OBEpisode recorded.
--- OUTSIDE RECORDS SUMMARY | 2025-07-17 16:47 | XMS_ITS | Data Portability ---
Author Organization [facility] Zane Solis [facility], [facility] Address [address] [place] [address] Assessment Encounter Date Assessment Date Assessment LastModified by Organization Details LastModified Time 03/18/2025 03/18/2025 I am seeing the patient today under the supervision of Dr. Fox who was available but who did not see the patient. HPI: Patient comes in for recheck of bilateral knee pain. Left knee worse than right. Last seen Dr. Parikh in 2023. Has known osteoarthritis in the medial compartment of the knee(s). Been treated conservatively with cortisone injection to this point with less than one months relief of symptoms. No new injury or modalities. She would like to discuss total knee arthroplasty for her left knee again. Past family, medical, social history and review of systems has been reviewed, updated and is located in the patient s chart. Examination:The patient is well appearing and in no apparent distress. Alert and oriented x3. Vital signs per intake sheet. Examination of the bilateral knee reveals Mild effusion. No erythema or warmth. Decreased range of motion. Slight varus deformity. Point tender over the medial joint line. Calf soft and nontender. 4+/5 strength of knee flexion extension. X-rays were ordered, obtained and reviewed including 4 views of the bilateral knee demonstrates severe medial compartment joint space narrowing. More on standing AP than [place]. Slight osteophyte formation. Narrowing is noted of the patellofemoral joint as well. No obvious fractures, loose bodies or dislocations. Impression: Osteoarthritis, bilateral knee Plan: Nature of the diagnosis discussed with the patient today. Both surgical and nonsurgical options were reviewed. Conservative measures were discussed at length including but not limited to physical therapy, bracing, anti-inflammatori es and injection therapies. Please see the procedure note for documentation about the injection performed today. The patient would like to meet with Dr. Parikh again to discuss her options. She understands that she is going for knee arthroplasty however has had pain that is debilitating at this point with minimal relief from cortisone injections. Follow-up with us as scheduled for discussion of continued conservative management versus surgical management. [email or web address] Not available 03/18/2025 20:11:23 Plan of Treatment Reminders Order Date Submit Date Provider Last Modified By Organization Details Last Modified Time Details Appointments MUST SEE 15 025 02:45PM Branden Simmons MD Not available Not available Not available Lab None record ed. Referral None record ed. Procedures None record ed. Surgeries None record ed. Imaging XR, knee, 4 or more view - room 203, mayra knee 4v 025 03/18/20 [facility]st[facility], [address], [address], [place], [address], 03/31/2025 09:20:54 Medication Orders None record ed. Patient TargetsNo targets recorded. Patient InstructionsNo instructions recorded. Reason for Referral None Reported. Results Created Date Observation Date Name Description Value Unit Range Abnormal Flag Note LastModifiedBy Organization Detail LastModifiedTime 03/18/20 25 03/18/2025 XR, knee, 4 or more view http:/ [email or web address] ?Encry pted=s hAaTro YD8dLq bEUv6g %2BXZw aYqtaq 0bqfl% 2Fg9IQ a4ajBk vP9nXo QUaueC m3YtLR FvZlgJ JJ8mAn HZtai3 [id number] AC0Kla HuGVaG lKiQtr MwF INTERFACE [facility] [address], [place], [address], 03/18/2025 15:13:27 03/18/20 25 03/18/2025 XR, knee, 4 or more view http:/ [email or web address] ?Encry pted=s hAaTro YD8dLq bEUv6g %2BXZw aYqtaq 0bqfl% 2Fg9IQ a4ajBk vP9nXo QUaueC m3YtLR FvZlgJ JJ8mAn HZtai3 4q1696 AC0Kla HuGVaG lKiQtr MwF INTERFACE [facility] [address] [facility] [address], [place], [address], 03/18/2025 15:13:29 Result Notes Documentation Provider Name and Address Organization Details Recorded Time Xr, Knee, 4 Or More View : [email or web address]? Encrypted=lsOvIssXZ8hOeuP Uv6g%8FYJfcWzuvh3gzqt%2Fg 9ZQq0npEszQ7pPdAIcugUx4Mv WNBmXlmEEZ9pUxUIvkb75y450 6FG4BbyPpYMtYzSvNwaPkY Not Available [facility] 03/18/2025 15:13: 28 Xr, Knee, 4 Or More View : [email or web address] Encrypted=zbBfKuwKM9nJhhH Uv6g%6SQTxvCfmin2sbpz%2Fg 1HWb1fvVawI2gIaNVjjvYk0Dl ZWWmPuwINL2aGsEHfac43b916 9PS4UbyNrHLyQgPfJhzSuX Not Available [facility] 03/18/2025 15:13: 30 Problems Name Problem SNOMED Code Status Onset Date Resolution Date Notes Provider Name and Address Organization Details Recorded Time Idiopathi c osteoarth ritis 409873653 Active 2019 Problem Code: M17.12; Problem Code Type: ICD-10; Status: 'A'; Not Available [facility] 12:11:26 Pain of left knee joint 630552549900 107 Active 2023 Nidhi Persaud PA-C [address], [place], [address] , [facility] - [facility] 15:14:59 Problem Notes None recorded. Procedures Surgical History Date Name Laterality Status Provider Name and Address Organization Details Recorded Time 03/18/2025 JZKNEE INJ completed Aman Sanford PA-C [address], [place], [address], [facility] 03/18/2025 20:01:04 04/23/2024 Sports Knee 4&1 cancelled Nidhi Persaud PA-C [address], [place], [address], [facility] 04/22/2024 15:18:06 Imaging Results None recorded. Procedure Notes None recorded. Medical Equipment None Reported. Allergies Allergen ID Allergen Name Allergen Category Reaction Reaction Severity Criticality Documentation Date Start Date Code Code System Note Provider Name and Address Organization Details Recorded Time 29622 aspirin medicatio n Not available Not available Not available 12/03/20232019 1191 RxNorm Not Available [facility] 12:44:42 Medications Name Sig Start Date Stop Date Status Note LastModified by Organization Details LastModified Time amoxicillin 500 mg capsule TOME 1 C PSULA POR V A ORAL CADA OCHO HORAS POR 5 D active Not Available Not Available N ot Available Stool Softener 100 mg capsule TAKE 1 CAPSULE BY MOUTH TWICE DAILY FOR 10 DAYS active Not Available Not Available No t Available senna 8.6 mg tablet TOME DOS TABLETAS POR V A ORAL AL ACOSTARSE CUANDO SEA NECESARIO FOR CONSTIPATIO N active Not Available Not Available No t Available pseudoephedr ine-guaifene sin ER 80-700 mg tablet,exten ded release 1 every 6 hours as needed for post op pain management DO NOT DRIVE ON THIS MEDICATION 2018 active Statu s: 'Curr ent'; Not Available Not Available Not Available triamcinolon e acetonide 0.1 % topical ointment APLIQUE AL BARBARA AFECTADA DOS VECES AL D A active Not Available Not Available No t Available hydrocortiso ne 2.5 % topical cream APPLY TOPICALLY IF NEEDED FOR RASH active Not Available Not Available No t Available polyethylene glycol 3350 17 gram/dose oral powder MIX 17G (1 CAPFUL) IN 8 OUNCES OF WATER AND TAKE BY MOUTH EVERY DAY active Not Available Not Available No t Available fluticasone propionate 50 mcg/actuatio n nasal spray,suspen amanda ROCIAR 1 VEZ EN CADA VENTANILLA DE LA NARIZ TODOS LOS D active Not Available Not Available No t Available loratadine 10 mg tablet TOME 1 TABLETA POR V A ORAL TODOS LOS D active Not Available Not Available No t Available Laxative (bisacodyl) 5 mg tablet,delay ed release TOME [place] TABLETAS POR V A ORAL CUANDO SEA NECESARIO FOR CONSTIPATIO N active Not Available Not Available No t Available Vitamin 27 mg iron-0.8 mg tablet TOME 1 TABLETA POR V A ORAL TODOS LOS D active Not Available Not Available No t Available Vitamin D3 25 mcg (1,000 unit) tablet TOME 1 TABLETA POR V A ORAL TODOS LOS D EN LA MA BRIDGETT active Not Available Not Available No t Available temazepam Temazepam 30MG Capsule 2019 active Statu s: 'Curr ent'; Not Available Not Available Not Available hydrochlorot hiazide 12.5 mg tablet TOME ANTONIO TABLETA POR V A ORAL TODOS LOS D active Not Available Not Available No t Available oxycodone HCl-oxycodon e-ASA twice a dayDO NOT DRIVE ON THIS MEDICATION. 2018 active Statu s: 'Curr ent'; Not Available Not Available Not Available Suboxone 8 mg-[address] FILM UNDER THE TONGUE ONCE PER DAY. active Not Available Not Available No t Available Daily-Ish (with folic acid) 400 mcg tablet TOME 1 TABLETA POR V A ORAL TODOS LOS D active Not Available Not Available No t Available Zepbound 10 mg/0.5 mL subcutaneous pen injector INJECT 0.5 ML (10 MG) UNDER THE SKIN 1 (ONE) TIME PER WEEK. active Not Available Not Available No t Available Zepbound 5 mg/0.5 mL subcutaneous pen injector INJECT 0.5 ML UNDER THE SKIN 1 (ONE) TIME PER WEEK. active Not Available Not Available No t Available Zepbound 2.5 mg/0.5 mL subcutaneous pen injector INJECT ONE PEN (=2.5MG) SUBCUTANEOU SLY ONCE A WEEK DIRECTED active Not Available Not Available No t Available Zepbound 7.5 mg/0.5 mL subcutaneous pen injector INJECT 1 PEN INTO SKIN ONCE WEEKLY active Not Available Not Available No t Available Vitals Date Recorded Body height Body mass index (BMI) Body weight Provider Name and Address Organization Details Last Updated DateTime 03/18/2025 162.56 cm 28.3 kg/m2 19047.74 g Yumiko Lokesh [place] - [facility] 03/18/2025 14:57:55 Social History None recorded. Functional Status None recorded. Mental Status None recorded. Family History Nothing Reported. Medical History Condition Response Allergies/Hayfever Y Anxiety/Depression Y Arthritis Y Acid Reflux (GERD) Y Hypertension Y Asthma Y Gynecological HistoryNo gynecological history recorded. Obstetrics History GPAL:G 0 P 0 0 0 0 Past Encounters Encounter ID Performer Location Encounter Start Date Encounter Closed Date Diagnosis/Indication Diagnosis SNOMED-CT Code Diagnosis ICD10 Code Diagnosis IMO Codes Diagnosis Note [id number] PATRICIA Burr [address] floor [address] [facility] [place] [facility] [place] [address] 03/18/2025 14:47:50 03/31/2025 09:20:54 Pain of knee region 2665278527 M25.561 M25.562 G89.29 [id number] Primary go narthrosis, bilateral 355191605 M17.0 [id number] Health Concerns Section Related Observation LastModified by Organization Detai ls LastModified Time None Recorded Concern Status LastModified by Organization Details LastModified Time None Recorded Advance Directives Directive None Recorded Payers Insurance Date Sequence Insurance Name Policy Number Policy Borjas Covered Member ID Borjas Member ID Guarantor Name 07/14/2025 1 [facility] - DOS ON OR AFTER 2022 - ONE CARE (MEDICARE REPLACEMENT/ADV ANTAGE - HMO) Christina Shah [id number] Christina Shah OBGyn Episode No OBEpisode recorded.
== END 2025-07-17 14:06 | disposition home or self-care (01) ==
LOC: HO.MAMMO 14:05
PROVIDERS: PCP Internal Medicine
DX: Z12.31 Encounter for screening mammogram for malignant neoplasm of breast (principal)
CPT/HCPCS: 77063; 77067

== ENCOUNTER → 2025-07-17 14:45 | Outpatient (BNV) | payer OTHER, SELFPAY | PROVIDERS: PCP Internal Medicine; Visit Provider Internal Medicine | DX: Z12.31 Encounter for screening mammogram for malignant neoplasm of breast (principal) | CPT/HCPCS: 77063; 77067 ==